=== PATIENT | male | born 1945 | race African-American/Black ===

== ENCOUNTER → 2017-08-19 15:21 | Outpatient (CLI) | payer MEDICARE, OTHER, SELFPAY ==
[2017-08-19 16:36] LABS: Absolute Neutrophil Count 1.2 X10^3/uL (2.0-7.7); Basophil# 0.02 X10^3/uL; Basophil% 0.3 % (0-1); Eosinophil# 0.31 X10^3/uL; Eosinophils% 5.4 % (0-5); Hematocrit 42.6 % (40-54); Hemoglobin 14.2 g/dl (13.0-16.5); Lymphocyte % 55.9 % (19-41); Mean Corp Hgb Conc 33.3 g/gl (32-36); Mean Corpuscular Hgb 30.1 pg (27.0-32.0); Mean Corpuscular Volume 90.4 fL (80-94); Mean Platelet Vol. 9.7 fl (6.2-12.0); Monocyte# 0.96 X10^3/uL; Monocyte% 16.8 % (0-10); Neutrophil # 1.23 X10^3/uL (2.7-7.7); Neutrophil % 21.6 % (47-70); Platelet Count 253 K/mm3 (150-450); RBC Distribution Width CV 13.9 % (11.6-14.6); RBC Distribution Width SD 46.5 fl (35.1-43.9); Red Blood Count 4.71 M/mm3 (4.6-6.2); White Blood Count 5.7 K/mm3 (4.4-11.0)
[2017-08-19 16:37] LABS: POSITIVE COUNT NO; POSITIVE DIFFERENTIAL NO; POSITIVE MORPHOLOGY NO
[2017-08-19 16:51] LABS: ALB/GLOB Ratio 0.9 RATIO (0.9-2.4); AST(SGOT) 44 U/L (15-37); Alanine Aminotransfer ALT/SGPT 74 U/L (16-61); Albumin, Serum 3.7 g/dL (3.2-5.0); Alkaline Phosphatase 41 U/L (45-117); Anion Gap 6 (5-15); BUN 16 mg/dL (7-18); Calcium,Total 9.2 mg/dL (8.5-10.1); Chloride 102 mmol/L (98-107); Creatinine, Serum 1.14 mg/dL (0.70-1.30); EST Glomerular Filtration Rate 68 mL/min (>60); Est Glom Filt Rate - Afr Amer 82 mL/min (>60); Globulin 4.2 g/dL (2.2-4.2); Glucose 93 mg/dL (74-106); PSA,Total - Annual Screen 0.91 ng/mL (0.00-4.00); Potassium 3.9 mmol/L (3.5-5.1); Protein, Total 7.9 g/dL (6.4-8.2); Sodium Level 138 mmol/L (136-145); Thyroid Stim Hormone (TSH) 0.41 uIU/mL (0.358-3.74)
[2017-08-21 16:59] LABS: Hep C Antibodies >11.0 s/co ratio (0.0-0.9)
== END ==
PROVIDERS: Family Provider Family Medicine Geriatric Medicine; PCP Family Medicine Geriatric Medicine; Visit Provider Family Medicine Geriatric Medicine
DX: I10 Essential (primary) hypertension (principal); E55.9 Vitamin D deficiency, unspecified; Z12.5 Encounter for screening for malignant neoplasm of prostate; Z13.89 Encounter for screening for other disorder
CPT/HCPCS: 36415; 80053; 84153; 84443; 85025; 86803; G0103

== ENCOUNTER → 2017-08-26 09:10 | Outpatient (CLI) | payer MEDICARE, OTHER, SELFPAY ==
[2017-08-27 20:07] LABS: HCV Quant. RNA PCR 12500 IU/mL (.)
[2017-08-28 09:22] LABS: HCV log 10 4.097 (.)
== END ==
PROVIDERS: Family Provider Family Medicine Geriatric Medicine; PCP Family Medicine Geriatric Medicine; Visit Provider Family Medicine Geriatric Medicine
DX: B19.20 Unspecified viral hepatitis C without hepatic coma (principal)
CPT/HCPCS: 36415; 87522

== ENCOUNTER 2017-09-02 18:13 | Emergency (ER) | payer MEDICARE, OTHER, SELFPAY ==
[2017-09-02 18:14] VITALS: BP 152/94; PULSE 96; RESP 16; TEMP 38.2; O2SAT 98; BMI 23.1
[2017-09-02 19:59] VITALS: O2SAT 96
--- NOTE | 2017-09-02 20:52 | EKG12_ITS ---
Test Reason : SOB Blood Pressure : / mmHG Vent. Rate : 098 BPM Atrial Rate : 098 BPM P-R Int : 142 ms QRS Dur : 096 ms QT Int : 336 ms P-R-T Axes : 061 023 057 degrees QTc Int : 428 ms Sinus rhythm with Premature supraventricular complexes Otherwise normal ECG Confirmed by BERNARDO DIEGO, JIMBO ([id number]), assistant film editor MAYELA ALLEN ([id number]) on 09/05/2017 3:01:48 PM Referred By: CHATO STEPHENS Confirmed By:JIMBO CHANG MD
--- NOTE | 2017-09-02 20:53 | ED.VISSUMM ---
- ER Visit Summary Date of Service: 09/02/17 Chief Complaint: Shortness of breath with wheezing, cough and fever. History of Present Illness: The patient is a 71 M 3 of asthma, hypertension and a prior DVT 3 years ago after knee surgery. States from time to time he gets short of breath when he gets an upper respiratory infection or exposed to cats and dust. He states the last 3-4 days he has had a cough some fever and chills. Nonproductive cough. No chest pain. No hemoptysis. No leg pain or swelling. Physical Examination: Very well-appearing older male. Vital signs are stable. Pulse ox 90% room air no signs of hypoxia. No respiratory distress. He does have a low-grade fever 100.7. He does not look septic or toxic. H EENT exam unremarkable moist wheeze membranes. Posterior pharynx without exudate or significant swelling. Neck nontender no adenopathy. No meningismus. Lungs coarse breath sounds. Few scattered wheezes. Prolonged expiratory phase. No rhonchi no rales. Heart regular rate and rhythm no murmur. Abdomen is soft and nontender. Normal bowel sounds. He is moving all 4 extremities. Neurovascular intact. Calves are without edema or cords. They are nontender. Neurologically he is awake alert without focal deficits. Test Results: Chest x-ray shows chronic changes no acute abnormality. No pneumonia. Read both by myself the radiologist. EKG sinus rhythm rate of 98 with no acute signs of NC or ischemia. Emergency Department Course and Treatment: Patient treated with DuoNeb aerosol and p.o. prednisone. Clinically he has a viral URI. And exacerbation of asthma. Treatment Plan: Repeat exam patient doing well at 2150. States I feel better after the aerosol treatment. He will be discharged to home with prednisone 40 mg a day for 1 week. Return if worse. Follow-up with his primary care physician Dr. Kelly. Disposition: Discharge Impression: Acute viral URI Acute exacerbation of asthma This note was generated with Trivop dictation software. It may contain incorrect words, spelling, and punctuation that were not noted in review of the chart prior to signing ED Disposition - Plan for ED Patient: Chief Complaint: Asthma Referrals: Valentin Kelly Chi, MD [Primary Care Provider] -
[2017-09-02 21:08] VITALS: PULSE 100; RESP 16
[2017-09-02] MEDS: Ipratropium/Albuterol Sulfate 3 ML AMPUL.NEB INHALATION (21:08)
--- NOTE | 2017-09-02 21:25 | RAD_ITS ---
STUDY: X-RAY CHEST REASON FOR EXAM: Male, 71 years old. Cough. History of asthma TECHNIQUE: PA and lateral views of the chest. COMPARISON: 03/11/14 FINDINGS: There is hyperinflation of the lungs consistent with chronic obstructive lung disease (COPD). There is no demonstrated pleural abnormality. Normal size heart. Normal mediastinum and brittny. Normal visualized pulmonary arteries. Normal visualized aortic arch and descending thoracic aorta. Normal visualized thoracic spine. Normal visualized ribs, clavicles, and shoulders. There is no demonstrated abnormality of the visualized soft tissue structures of the upper abdomen. RAD/Chest PA and Lateral IMPRESSION: Degenerative changes, as described above. No demonstrated acute cardiopulmonary process. Electronically Signed: Donte Gomez DO at 21:45 EST Tel , Service support ,
--- NOTE | 2017-09-02 21:55 | ED.DEP ---
ED Disposition - Plan for ED Patient: Disposition: Home or Assisted Living Chief Complaint: Asthma Instructions: ED URI Viral, ED Bronchitis Asthmatic Prescriptions: Albuterol Sulfate [Proventil Hfa] 6.7 gm IH Q2H PRN PRN #1 [id number] PRN Reason: Wheezing Azithromycin [Zithromax] 250 mg PO DAILY #6 tab Prednisone [Deltasone] 40 mg PO DAILY 7 Days tab Referrals: Valentin Kelly Chi, MD [Primary Care Provider] - 3-5 Days if not improving Additional Instructions: Most likely this is a viral illness and antibiotics will not do any good. I would not get the antibiotic filled unless her not improving in 1 week. I know that your doctors put her on antibiotics in the past but this is a virus and antibiotic will not help you. Prednisone 40 mg a day for 1 week. 1-2 puffs on your inhaler as needed every 2 hours.
[2017-09-02 22:17] VITALS: BP 118/78; PULSE 79; RESP 18; O2SAT 97
== END 2017-09-02 22:18 | disposition home or self-care (01) ==
PROVIDERS: Emergency Provider Emergency Medicine; Family Provider Family Medicine Geriatric Medicine; PCP Family Medicine Geriatric Medicine
DX: J06.9 Acute upper respiratory infection, unspecified (principal); J45.901 Unspecified asthma with (acute) exacerbation; R06.00 Dyspnea, unspecified; I10 Essential (primary) hypertension; Z86.718 Personal history of other venous thrombosis and embolism; Z79.01 Long term (current) use of anticoagulants; Z79.899 Other long term (current) drug therapy
CPT/HCPCS: 71046; 87804; 93005; 94640; 99282

== ENCOUNTER → 2018-02-20 11:35 | Outpatient (CLI) | payer MEDICARE, OTHER, SELFPAY ==
[2018-02-20 12:57] LABS: Absolute Lymphocyte Count 3.21 X10^3/ul (0.83-4.51); Absolute Neutrophil Count 1.4 X10^3/uL (2.0-7.7); Basophil# 0.02 X10^3/uL; Basophil% 0.3 % (0-1); Eosinophils% 3.5 % (0-5); Hematocrit 43.6 % (40-54); Hemoglobin 14.4 g/dl (13.0-16.5); Lymphocyte # 3.21 X10^3/ul (4.0); Lymphocyte % 55.9 % (19-41); Mean Corpuscular Hgb 29.9 pg (27.0-32.0); Mean Corpuscular Volume 90.6 fL (80-94); Mean Platelet Vol. 10.3 fl (6.2-12.0); Monocyte# 0.94 X10^3/uL; Monocyte% 16.4 % (0-10); Neutrophil # 1.37 X10^3/uL (2.7-7.7); Neutrophil % 23.9 % (47-70); Platelet Count 242 K/mm3 (150-450); RBC Distribution Width CV 13.8 % (11.6-14.6); RBC Distribution Width SD 45.7 fl (35.1-43.9); Red Blood Count 4.81 M/mm3 (4.6-6.2); White Blood Count 5.7 K/mm3 (4.4-11.0)
[2018-02-20 13:00] LABS: POSITIVE COUNT NO; POSITIVE DIFFERENTIAL NO; POSITIVE MORPHOLOGY NO
[2018-02-20 13:19] LABS: Vitamin D,25 Hydroxy 25.6 ng/mL (29.95-100.01)
[2018-02-20 13:23] LABS: ALB/GLOB Ratio 0.9 RATIO (0.9-2.4); AST(SGOT) 58 U/L (15-37); Alanine Aminotransfer ALT/SGPT 90 U/L (16-61); Albumin, Serum 3.8 g/dL (3.2-5.0); Alkaline Phosphatase 42 U/L (45-117); Anion Gap 7 (5-15); BUN 15 mg/dL (7-18); BUN/Creat Ratio 13.2 RATIO (10-20); Calcium,Total 9.3 mg/dL (8.5-10.1); Chloride 106 mmol/L (98-107); Creatinine, Serum 1.14 mg/dL (0.70-1.30); EST Glomerular Filtration Rate 67 mL/min (>60); Est Glom Filt Rate - Afr Amer 82 mL/min (>60); Globulin 4.4 g/dL (2.2-4.2); Glucose 85 mg/dL (74-106); Potassium 4.1 mmol/L (3.5-5.1); Protein, Total 8.2 g/dL (6.4-8.2); Sodium Level 141 mmol/L (136-145); Thyroid Stim Hormone (TSH) 0.43 uIU/mL (0.358-3.74)
== END ==
PROVIDERS: Family Provider Family Medicine Geriatric Medicine; PCP Family Medicine Geriatric Medicine; Visit Provider Family Medicine Geriatric Medicine
DX: I10 Essential (primary) hypertension (principal); E55.9 Vitamin D deficiency, unspecified
CPT/HCPCS: 36415; 80053; 82306; 84443; 85025

== ENCOUNTER → 2018-08-20 14:35 | Outpatient (CLI) | payer MEDICARE, OTHER, SELFPAY ==
[2018-08-20 16:26] LABS: Absolute Lymphocyte Count 3.32 X10^3/ul (0.83-4.51); Absolute Neutrophil Count 1.3 X10^3/uL (2.0-7.7); Basophil# 0.01 X10^3/uL; Basophil% 0.2 % (0-1); Eosinophil# 0.17 X10^3/uL; Eosinophils% 3.1 % (0-5); Hematocrit 42.5 % (40-54); Hemoglobin 14.4 g/dl (13.0-16.5); Lymphocyte # 3.32 X10^3/ul (4.0); Lymphocyte % 60.4 % (19-41); Mean Corp Hgb Conc 33.9 g/gl (32-36); Mean Corpuscular Hgb 29.9 pg (27.0-32.0); Mean Corpuscular Volume 88.4 fL (80-94); Monocyte# 0.66 X10^3/uL; Neutrophil # 1.33 X10^3/uL (2.7-7.7); Neutrophil % 24.1 % (47-70); Platelet Count 228 K/mm3 (150-450); RBC Distribution Width SD 44.6 fl (35.1-43.9); Red Blood Count 4.81 M/mm3 (4.6-6.2); White Blood Count 5.5 K/mm3 (4.4-11.0)
[2018-08-20 16:31] LABS: POSITIVE COUNT NO; POSITIVE DIFFERENTIAL NO; POSITIVE MORPHOLOGY NO
[2018-08-20 16:39] LABS: Vitamin D,25 Hydroxy 25.5 ng/mL (29.95-100.01)
[2018-08-20 16:42] LABS: AST(SGOT) 47 U/L (15-37); Alanine Aminotransfer ALT/SGPT 86 U/L (16-61); Albumin, Serum 3.9 g/dL (3.2-5.0); Alkaline Phosphatase 53 U/L (45-117); Anion Gap 6 (5-15); BUN 18 mg/dL (7-18); BUN/Creat Ratio 18.3 RATIO (10-20); Calcium,Total 8.9 mg/dL (8.5-10.1); Chloride 105 mmol/L (98-107); Creatinine, Serum 0.98 mg/dL (0.70-1.30); EST Glomerular Filtration Rate 80 mL/min (>60); Est Glom Filt Rate - Afr Amer 97 mL/min (>60); Globulin 4.1 g/dL (2.2-4.2); Glucose 92 mg/dL (74-106); PSA,Total - Annual Screen 1.17 ng/mL (0.00-4.00); Potassium 3.7 mmol/L (3.5-5.1); Sodium Level 137 mmol/L (136-145); Thyroid Stim Hormone (TSH) 0.46 uIU/mL (0.358-3.74)
== END ==
PROVIDERS: Family Provider Family Medicine Geriatric Medicine; PCP Family Medicine Geriatric Medicine; Visit Provider Family Medicine Geriatric Medicine
DX: E55.9 Vitamin D deficiency, unspecified (principal); I10 Essential (primary) hypertension; F52.8 Other sexual dysfunction not due to a substance or known physiological condition; Z12.5 Encounter for screening for malignant neoplasm of prostate
CPT/HCPCS: 36415; 80053; 82306; 84153; 84403; 84443; 85025; G0103

== ENCOUNTER 2019-01-15 10:27 | Emergency (ER) | payer MEDICARE, OTHER, SELFPAY ==
[2019-01-15 10:27] VITALS: BP 137/77; PULSE 74; RESP 18; TEMP 36.6; O2SAT 98; BMI 24.5
--- NOTE | 2019-01-15 10:48 | EKG12_ITS ---
Test Reason : DYSRHYTHMIA Blood Pressure : / mmHG Vent. Rate : 068 BPM Atrial Rate : 068 BPM P-R Int : 170 ms QRS Dur : 094 ms QT Int : 374 ms P-R-T Axes : 057 015 039 degrees QTc Int : 397 ms Sinus rhythm with marked sinus arrhythmia Otherwise normal ECG Confirmed by BERNARDO DIEGO, JIMBO ([id number]), assistant film editor MONSE CROWLEY ([id number]) on 01/18/2019 12:22:41 PM Referred By: HARRIET Confirmed By:JIMBO CHANG MD
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
[2019-01-15 10:59] VITALS: PULSE 73; RESP 13; O2SAT 97
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
[2019-01-15 11:08] LABS: Absolute Lymphocyte Count 2.19 X10^3/uL (0.83-4.51); Absolute Neutrophil Count 4.7 X10^3/uL (2.0-7.7); Basophil# 0.03 X10^3/uL; Basophil% 0.4 % (0-1); Eosinophil# 0.37 X10^3/uL; Eosinophils% 4.4 % (0-5); Hemoglobin 13.2 g/dL (13.0-16.5); Lymphocyte # 2.19 X10^3/ul (4.0); Mean Corp Hgb Conc 33.8 g/dL (32-36); Mean Corpuscular Hgb 29.8 pg (27.0-32.0); Mean Platelet Vol. 9.6 fl (6.2-12.0); Monocyte# 1.15 X10^3/uL; Monocyte% 13.7 % (0-10); NRBC Flagged by Analyzer 0 % (0-5); Neutrophil # 4.65 X10^3/uL (2.7-7.7); Neutrophil % 55.3 % (47-70); Platelet Count 251 K/mm3 (150-450); RBC Distribution Width CV 11.9 % (11.6-14.6); RBC Distribution Width SD 38.8 fl (35.1-43.9); Red Blood Count 4.43 M/mm3 (4.6-6.2); White Blood Count 8.4 K/mm3 (4.4-11.0)
[2019-01-15 11:25] LABS: AST(SGOT) 71 U/L (15-37); Alanine Aminotransfer ALT/SGPT 76 U/L (16-61); Albumin, Serum 3.2 g/dL (3.2-5.0); Alkaline Phosphatase 289 U/L (45-117); Anion Gap 8 (5-15); BUN 16 mg/dL (7-18); Bilirubin, Direct 0.32 mg/dL (0.00-0.30); Calcium,Total 9.2 mg/dL (8.5-10.1); Chloride 104 mmol/L (98-107); Creatinine, Serum 0.94 mg/dL (0.70-1.30); EST Glomerular Filtration Rate 84 mL/min (>60); Est Glom Filt Rate - Afr Amer 102 mL/min (>60); Estimated Creatinine Clearance 95.53 ml/min; Globulin 4.8 g/dL (2.2-4.2); Glucose 107 mg/dL (74-106); Lipase 65 U/L (73-393); Sodium Level 139 mmol/L (136-145)
--- NOTE | 2019-01-15 12:36 | US_ITS ---
STUDY: ABDOMINAL ULTRASOUND - RIGHT UPPER QUADRANT REASON FOR VISIT: Male, 73 years old. Abnormal lab values. TECHNIQUE: Ultrasound evaluation of the right upper quadrant was performed with real-time and static flores-scale imaging. TECHNICAL QUALITY: Adequate. COMPARISON: None. FINDINGS: Liver: The liver measures 17.2 cm. There is a heterogeneous echogenicity of the liver. There are multiple hypoechoic lesions scattered throughout the liver. The largest on the right side measures 5 cm x 3.9 cm x 4.3 cm. The largest on the left measures 3.1 cm x 3.3 cm x 2.2 cm. The bile ducts are within normal limits. There is hepatic color flow. The direction of portal flow is hepatopetal. Gallbladder: Normal distended gallbladder. The gallbladder wall measures 1.8 mm. There is a negative sonographic Borges's sign. There is no pericholecystic fluid. There are no gallstones. There is a 4 mm x 3 mm x 5 mm polyp identified the gallbladder wall. Common Bile Duct (C.B.D.): The common bile duct measures 2.3 mm. Pancreas: There is nonvisualization of the pancreas. Right Kidney: Normal size of the right kidney. The right kidney measures 12.1 cm x 5.7 cm x 4.8 cm. Normal renal cortex. The right cortex measures 1.3 cm. There is no demonstrated renal mass or cyst. There is no right hydronephrosis. US/Abdomen Limited IMPRESSION: Heterogeneous appearance of the liver with multiple hypoechoic nodules seen throughout. This is suggestive metastatic disease. Small polyp adherent to the gallbladder. Electronically Signed: Nacho Miles, at 13:37 EDT , Service support ,
[2019-01-15 12:39] VITALS: PULSE 68; RESP 22; O2SAT 98
--- NOTE | 2019-01-15 14:08 | CT_ITS ---
STUDY: CT CHEST WITH CONTRAST REASON FOR EXAM: Male, 73 years old. Right abdominal pain, rib pain. Status post hernia repair. Known metastatic liver lesions. RADIATION DOSAGE (If Supplied By Facility): CTDIvol = ( 21.56 ) mGy, DLP = ( 1920.97 ) mGycm TECHNIQUE: Transaxial imaging was performed following intravenous administration of 100 IV Isovue 300. Individualized dose optimization techniques were used for this CT. COMPARISON: None. FINDINGS: The heart and pericardium are normal. The aorta is normal in caliber, with no aneurysm or dissection. Calcified mediastinal and left hilar adenopathy. No suspicious adenopathy. There is no pleural effusion. There is no pulmonary consolidation. No pulmonary mass or nodule. No interstitial or cystic disease. There is no osseous abnormality. CT/Chest WITH Contrast IMPRESSION: 1. No acute findings. 2. Old granulomatous disease. Electronically Signed: Mary Ram MD at 16:47 EDT Tel , Service support ,
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
[2019-01-15 14:47] VITALS: BP 188/104; PULSE 54; RESP 18; O2SAT 97
[2019-01-15 18:10] VITALS: BP 162/94; PULSE 86; RESP 14; O2SAT 98
== END 2019-01-15 18:11 | disposition home or self-care (01) ==
PROVIDERS: Emergency Provider Emergency Medicine; Family Provider Family Medicine Geriatric Medicine; PCP Family Medicine Geriatric Medicine
DX: K86.89 Other specified diseases of pancreas (principal); C78.7 Secondary malignant neoplasm of liver and intrahepatic bile duct; J45.909 Unspecified asthma, uncomplicated; I10 Essential (primary) hypertension; Z79.899 Other long term (current) drug therapy
CPT/HCPCS: 71260; 74022; 74177; 76705; 80048; 80076; 83690; 85025; 93005; 99284; Q9967; A4216

== ENCOUNTER 2019-01-25 09:55 | Emergency (ER) | payer MEDICARE, OTHER, SELFPAY ==
[2019-01-25] VITALS (10 sets, daily range): BP systolic 97–165; BP diastolic 51–97; PULSE 73–91; RESP 15–20; TEMP 37–37.9; O2SAT 93–96; BMI 22.1
--- NOTE | 2019-01-25 10:13 | EKG12_ITS ---
Test Reason : CHEST PRESSURE Blood Pressure : / mmHG Vent. Rate : 086 BPM Atrial Rate : 086 BPM P-R Int : 156 ms QRS Dur : 090 ms QT Int : 330 ms P-R-T Axes : 055 017 041 degrees QTc Int : 394 ms Normal sinus rhythm with sinus arrhythmia Normal ECG Confirmed by LARON DIEGO, REID ([id number]), multimedia editor WEN MCGEE ([id number]) on 01/27/2019 10:47:55 AM Referred By: Valentin Kelly Confirmed By:REID LARRY MD
--- NOTE | 2019-01-25 10:13 | RAD_ITS ---
STUDY: X-RAY CHEST REASON FOR EXAM: Male, 73 years old. Fever. TECHNIQUE: Single AP portable view of the chest. COMPARISON: Comparison is made with prior study dated September 02, 2017. FINDINGS: EKG electrodes are seen. Hyperinflation. Mild increased markings in the lingular segment of the left upper lobe suggestive of early infiltrate and/or atelectasis. There is no demonstrated pleural abnormality. Normal size heart. Normal mediastinum and brittny. Normal visualized pulmonary arteries. There is atherosclerotic tortuosity of the aortic arch and descending thoracic aorta. There are diffuse degenerative changes of the visualized thoracic spine. Normal visualized ribs, clavicles, and shoulders. There is no demonstrated abnormality of the visualized soft tissue structures of the upper abdomen. RAD/Chest 1 View (Portable) IMPRESSION: Mild increased markings in the lingular segment of the left upper lobe suggestive of a linear atelectasis and/or early infiltrate. Electronically Signed: Nacho Miles, at 10:40 EDT , Service support ,
[2019-01-25] MEDS: Ibuprofen 600 MG Tablet PO (10:40)
[2019-01-25] MEDS: fentaNYL 100 MCG/2 ML Ampul 50 MCG IV (10:43)
[2019-01-25] MEDS: 0.9% Normal Saline 1,000 ML 999 ML IV (10:46)
[2019-01-25 10:47] LABS: ALB/GLOB Ratio 0.7 RATIO (0.9-2.4); AST(SGOT) 84 U/L (15-37); Alanine Aminotransfer ALT/SGPT 110 U/L (16-61); Albumin, Serum 3.2 g/dL (3.2-5.0); Alkaline Phosphatase 354 U/L (45-117); Anion Gap 5 (5-15); BUN 26 mg/dL (7-18); BUN/Creat Ratio 29.3 RATIO (10-20); Calcium,Total 9.7 mg/dL (8.5-10.1); Chloride 103 mmol/L (98-107); Creatinine, Serum 0.89 mg/dL (0.70-1.30); EST Glomerular Filtration Rate 90 mL/min (>60); Est Glom Filt Rate - Afr Amer 109 mL/min (>60); Estimated Creatinine Clearance 96.22 ml/min; Globulin 4.7 g/dL (2.2-4.2); Glucose 215 mg/dL (74-106); Potassium 3.8 mmol/L (3.5-5.1); Protein, Total 7.9 g/dL (6.4-8.2); Sodium Level 137 mmol/L (136-145)
[2019-01-25 10:48] LABS: Lactic Acid 1.6 mmol/L (0.4-2.0)
[2019-01-25 11:00] LABS: Mucous, Urine 0 SEEN /hpf (<or=2+); Red Blood Cells-Urine 0 SEEN /hpf (0-5); Squamous Epithelial Cells - UA 0 SEEN /hpf (0-5); White Blood Cells 0 SEEN /hpf (0-5)
--- NOTE | 2019-01-25 11:02 | ED.VISSUMM ---
- ER Visit Summary Date of Service: 01/25/19 Chief Complaint: Fever History of Present Illness: The patient is a 73 M with a fever that started today. The patient was recently diagnosed with pancreatic cancer with metastatic disease to his liver. He was here today for a liver biopsy. He had some blood work that showed a white count of 15.9 and his temperature was 102. They were unable to proceed with a biopsy, and he was sent to the ED for evaluation. He has not started chemotherapy or radiation therapy. He has not had procedures for his malignancy yet. He did have hernia surgery by Dr. Duggan 2 weeks ago. He said he is doing well with regards to that surgery. Denying any abdominal pain, but he does have some nausea and vomiting. Denies sputum, urine changes, upper respiratory symptoms. Physical Examination: Temperature 100.2. Heart rate 91. Blood pressure 152/85. Otherwise vitals unremarkable. Patient alert and oriented. No acute distress. HEENT exam unremarkable. Heart regular rate and rhythm. Lungs clear. Abdomen soft and nontender. No guarding or rebound. Skin appears unremarkable. Test Results: His CBC from earlier today was reviewed. His white count was 15.9 but otherwise unremarkable. His INR was 1.1 and PTT was 21.7. I did not repeat these tests. CMP, lactate, urinalysis, chest x-ray pending. His EKG showed sinus rhythm at a rate of 86. Emergency Department Course and Treatment: Patient's fever was treated with ibuprofen. He did receive fentanyl for pain and IV fluids. Will reassess. EKG showed sinus rhythm at a rate of 86. No sign of ischemia or infarction pattern. He was monitored. Chest x-ray showed left upper lobe increased markings, atelectasis versus infiltrate. Glucose 215 and BUN 26. Alkaline phosphatase 354, ALT 110, AST 84, stable. Urinalysis unremarkable. Lactate 1.6. Cultures pending. Patient had a possible lung infiltrate. He reported a history of PE after surgery years ago. CTA was done and showed no evidence of PE or pneumonia. On reevaluation, patient is stable. Vital signs are stable and normal. Afebrile. Abdomen is soft, nontender, nondistended. I attempted to call his oncologist, but after multiple attempts, I have not heard back. I believe the patient is stable for discharge. He will return for any new or worsening issues. Risks of hospitalization versus outpatient follow-up were discussed. Treatment Plan: As above Disposition: Discharge Impression: 1. Leukocytosis 2. Pancreatic cancer This note was generated with [employer] dictation software. It may contain incorrect words, spelling, and punctuation that were not noted in review of the chart prior to signing ED Disposition - Plan for ED Patient: Referrals: Valentin Kelly Chi, MD [Primary Care Provider] -
[2019-01-25 11:19] LABS: Color, Urine Yellow (Yellow); Glucose, Dipstick 50 mg/dl (Normal); Ketone-Dipstick Negative (Negative); Leukocyte Esterase-Dipstick 25 /ul (Negative); Nitrite-Dipstick Negative (Negative); Occult Blood-Urine 10 /ul (Negative); Protein-Dipstick 30 mg/dl (Negative); Urine Bilirubin Dipstick Negative (Negative); Urine Clarity Sl. Cloudy (Clear); Urine Urobilinogen Normal (Normal)
[2019-01-25 11:32] LABS: Bacteria RARE /hpf (None Seen)
--- NOTE | 2019-01-25 11:55 | CT_ITS ---
STUDY: CTA CHEST REASON FOR EXAM: Male, 73 years old. Fever, vomiting, pancreatic cancer, PE RADIATION DOSAGE (If Supplied By Facility): CTDIvol = ( 9.12 ) mGy, DLP = ( 387.35 ) mGycm TECHNIQUE: The examination was performed with the intravenous administration of 75 IV Isovue 370. Post-processing of the angiographic images was performed, with multiplanar reformation and 3D reconstruction. Individualized dose optimization techniques were used for this CT. COMPARISON: 01/15/2019 FINDINGS: Normal enhancement of the main pulmonary artery and right and left pulmonary arteries. Normal enhancement of the bilateral peripheral pulmonary arteries. There is no demonstrated pulmonary embolism. Normal thoracic aorta and visualized great vessels. There is no demonstrated aortic dissection. Normal heart and pericardium. Normal mediastinum. Normal hilar regions. Normal visualized trachea and bronchi. The lungs are well expanded. Normal pulmonary parenchyma. Normal pleura. Normal chest wall structures. Normal osseous structures. Multiple hepatic metastatic lesions, previously described. CT/CTA Chest W/WO Contrast IMPRESSION: No pulmonary embolus. Electronically Signed: Yossi Grove MD at 13:44 EDT Tel , Service support ,
--- NOTE | 2019-01-25 15:02 | ED.DEP ---
ED Disposition - Plan for ED Patient: Instructions: FEBRILE ILLNESS, Uncertain Cause (Adult) Referrals: Carl Short MD [NON-STAFF] -
--- NOTE | 2019-01-25 15:32 | ED.RN ---
REVIEWED D/C INSTRUCTIONS, FOLLOW UP CARE, AND S/S THAT WOULD WARRANT A RETURN TO THE ED WITH PT. PT VERBALIZED AN UNDERSTANDING AND DENIES FURTHER QUESTIONS FOR THIS RN. PT SKIN P/W/D, RESP EVEN AND UNLABORED, PT A&O X 3, NO DISTRESS NOTED. PT ASSISTED OUT OF ED IN WHEELCHAIR.
== END 2019-01-25 15:34 | disposition home or self-care (01) ==
LOC: ED 10:33
PROVIDERS: Emergency Provider Emergency Medicine; Family Provider Family Medicine Geriatric Medicine; PCP Family Medicine Geriatric Medicine
DX: D72.829 Elevated white blood cell count, unspecified (principal); C25.9 Malignant neoplasm of pancreas, unspecified; C78.7 Secondary malignant neoplasm of liver and intrahepatic bile duct; J45.909 Unspecified asthma, uncomplicated; I10 Essential (primary) hypertension; Z86.711 Personal history of pulmonary embolism; Z79.51 Long term (current) use of inhaled steroids; Z79.899 Other long term (current) drug therapy
CPT/HCPCS: 71045; 71275; 80053; 81001; 83605; 85025; 85610; 85730; 87040; 87086; 93005; 96361; 96374; 99285; J7040; Q9967; A4216; J2405

== ENCOUNTER → 2019-01-27 08:12 | Outpatient (CLI) | payer MEDICARE, OTHER, SELFPAY ==
[2019-01-18 14:53] VITALS: BMI 24.3
[2019-01-20 09:27] VITALS: BMI 24.3
[2019-01-25 08:23] LABS: Absolute Lymphocyte Count 3.39 X10^3/uL (0.83-4.51); Absolute Neutrophil Count 9.5 X10^3/uL (2.0-7.7); Basophil# 0.03 X10^3/uL; Basophil% 0.2 % (0-1); Eosinophil# 0.36 X10^3/uL; Eosinophils% 2.3 % (0-5); Hematocrit 41.8 % (40-54); Lymphocyte # 3.39 X10^3/ul (4.0); Lymphocyte % 21.3 % (19-41); Mean Corp Hgb Conc 33.5 g/dL (32-36); Mean Corpuscular Hgb 29.5 pg (27.0-32.0); Mean Corpuscular Volume 88.2 fL (80-94); Monocyte# 2.56 X10^3/uL; Monocyte% 16.1 % (0-10); NRBC Flagged by Analyzer 0 % (0-5); Neutrophil # 9.46 X10^3/uL (2.7-7.7); Neutrophil % 59.6 % (47-70); POSITIVE DIFFERENTIAL YES; Platelet Count 318 K/mm3 (150-450); RBC Distribution Width SD 38.5 fl (35.1-43.9); Red Blood Count 4.74 M/mm3 (4.6-6.2)
[2019-01-25 08:33] LABS: Differential Indicated SCAN CRITERIA MET
[2019-01-25 08:38] LABS: International Normalized Ratio 1.1; Prothrombin Time (Protime)PT. 13.8 SECONDS (11.7-14.9)
[2019-01-25 08:39] LABS: Partial Thromboplast Time 21.7 Seconds (24.1-36.2)
[2019-01-25 08:41] VITALS: BP 184/90; PULSE 89; RESP 18; TEMP 38.6; O2SAT 94; BMI 22.1
[2019-01-25 08:49] LABS: Platelet Estimate ADEQUATE (ADEQ); Red Cell Morphology NORM C+C NORMAL (NORM C&C)
[2019-01-25 08:50] LABS: White Blood Count 15.9 K/mm3 (4.4-11.0)
[2019-01-25 08:52] LABS: Platelet Morphology CLUMPED
[2019-01-25] MEDS: Ondansetron 4 MG/2 ML Vial IV (09:01)
--- NOTE | 2019-01-25 09:30 | NURSING ---
report called to ER - ER asked if possible to wait 10 minutes for transport to ER, pt is stable and is at bedside
[2019-01-25 09:31] VITALS: BP 190/84; PULSE 89; RESP 18; O2SAT 94
[2019-01-25 09:55] VITALS: BMI 22.1
[2019-01-25 14:34] LABS: Pathologist Review Reviewed
[2019-01-27] VITALS (9 sets, daily range): BP systolic 056–177; BP diastolic 85–103; PULSE 84–95; RESP 16–22; TEMP 37; O2SAT 93–98; BMI 21.9
--- NOTE | 2019-01-27 | IMM_PTH ---
PATIENT: REGINO MCKINNEY LOC: CT U#:[id number] AGE/SX: 79/M ROOM: RE01/27/[address]: Dr. Carl Short MD : 1945 BED: DIS: SPEC #: [id number] RECD: 01/28/19 14:29 STATUS: MARELY REQ #: [id number] MOHAN: 01/27/19 00:[address]: Carl Short DEPT: IMMUNOHISTOCHEMISTRY RECD BY: Carline Lopez ENTERED: 01/28/19 14:30 SP TYPE: IMMUNO OTHR DR: Dr. Valentin Kelly MD Tissues: Liver, NOS Procedures: RCC (add) NAPSIN A (add) CK20 (add) CK5-6 (add) CK7 (add) CK8 (add) HEP PAR (add) TTF1 (add) Pankeratin (initial) P40 (add) PSAP (add) PHYSICIAN & INSTITUTION [place] [id number] SPECIMEN INFORMATION: Tissue Source: CT-guided liver biopsy Clinical Info: Pancreatic/liver mass Specimen Number: [id number] CPT code: 93585, 08376 x10 METHODOLOGY: Deparaffinized sections of prefer/formalin-fixed tissue or PAP/DQ stained slides are incubated with monoclonal/polyclonal antibodies/oligonucleotide probes. Localization is made via biotin free immunoperoxidase method. Appropriate controls are performed and reacted as expected. Results on target cell population are indicated in the following table: RESULTS: ANTIBODY / CLONE RESULT AE1-3 (AE1/AE3/PCK26) positive CK7 (OV-TL12/30) positive CK8 (72gaduN27) positive CK20 (KS20.8) negative TTF-1 (8G7G3/1) negative Napsin A (Rabbit Polyclonal) negative HepPar (OCh1E5) negative RCC (PN-15) negative PSAP (PASE/4LJ) negative CK5-6 (D5 & 1684) negative P40 (BC28) negative These tests were developed and their performance characteristics determined by [facility]. They may not have been cleared or approved by the U.S. Food and Drug Administration. The FDA has determined that such clearance or approval is not necessary. INTERPRETATION: CT-guided liver biopsy: Consistent with non-small cell carcinoma, favor adenocarcinoma. See comment. JACOBO:jimena 01/29/19 Comment: IHC profile is compatible with clinical impression of pancreatic primary.
--- NOTE | 2019-01-27 | ASPIGT_PTH ---
PATIENT: REGINO MCKINNEY LOC: [place] U#:[id number] AGE/SX: 79/M ROOM: RE01/27/[address]: Dr. Carl Short MD : 1945 BED: DIS: SPEC #: [id number] RECD: 01/27/19 11:01 STATUS: MARELY JOSEPHRadha #: [id number] MOHAN: 01/27/19 00:[address]: Carl Short DEPT: SURGICAL PATHOLOGY RECD BY: Basilio Webb ENTERED: 01/27/19 11:02 SP TYPE: ASP RAD OTHR DR: Dr. Valentin Kelly MD Tissues: Liver, NOS Procedures: FNA Specimen Adequacy Special Stain Group II Surgery Specimen Level V Imprint (control) HEADER OPERATION: CT guided liver biopsy PRE-OP DIAGNOSIS: Pancreatic/liver masses TISSUE SUBMITTED: Liver core 18g x3 MICROSCOPIC DIAGNOSIS Right lobe liver, CT-guided core biopsy: Consistent with metastatic non-small cell carcinoma, favor adenocarcinoma. See comment. SJ:jimena 01/28/19 COMMENT The specimen is evaluated at the time of biopsy by Dr. Avila. Immediate Evaluation = Malignant cells present derived from non-small cell carcinoma. Immunohistochemistry ([id number]) supports the above diagnosis and compatible with clinical impression of pancreatic primary. Correlation with clinical, radiologic findings and appropriate follow up are necessary. Case has been reviewed in consultation with Dr. Grove who concurs with the above diagnosis. IDC:AM MICROSCOPIC DESCRIPTION Slides are reviewed. GROSS DESCRIPTION Received in fixative is one container labeled with the patient's name and designated right lobe liver, CT-guided core biopsy. The specimen consists of three elongated fragments of mota soft tissue each measuring 1.7 cm in length and 0.1 cm in diameter. The specimen is totally submitted in one cassette. One touch imprint is prepared at the time of core biopsy. / JACOBO:jimena 01/27/19 TC:0 CPT: 29081, 69321
--- NOTE | 2019-01-27 | IMM_PTH ---
PATIENT: REGINO MCKINNEY LOC: [place] U#:[id number] AGE/SX: 79/M ROOM: RE01/27/[address]: Dr. Carl Short MD : 1945 BED: DIS: SPEC #: [id number] RECD: 01/28/19 14:29 STATUS: MARELY RERadha #: [id number] MOHAN: 01/27/19 00:[address]: Carl Short DEPT: IMMUNOHISTOCHEMISTRY RECD BY: Carline Lopez ENTERED: 01/28/19 14:30 SP TYPE: IMMUNO OTHR DR: Dr. Valentin Kelly MD Tissues: Liver, NOS Procedures: RCC (add) MSH2 (add) MLH-1 (add) MSH6 (add) Anti-PMS2 (add) NAPSIN A (add) CK20 (add) CK5-6 (add) CK7 (add) CK8 (add) HEP PAR (add) KI-67 (add) P53 (add) TTF1 (add) Pankeratin (initial) P40 (add) PSAP (add) PHYSICIAN & [address] [address] SPECIMEN INFORMATION: Tissue Source: CT-guided liver biopsy Clinical Info: Pancreatic/liver mass Specimen Number: [id number] CPT code: 90115, 35268 x16 METHODOLOGY: Deparaffinized sections of prefer/formalin-fixed tissue or PAP/DQ stained slides are incubated with monoclonal/polyclonal antibodies/oligonucleotide probes. Localization is made via biotin free immunoperoxidase method. Appropriate controls are performed and reacted as expected. Results on target cell population are indicated in the following table: RESULTS: ANTIBODY / CLONE RESULT AE1-3 (AE1/AE3/PCK26) positive CK7 (OV-TL12/30) positive CK8 (50nojiZ84) positive CK20 (KS20.8) negative TTF-1 (8G7G3/1) negative Napsin A (Rabbit Polyclonal) negative HepPar (OCh1E5) negative RCC (PN-15) negative PSAP (PASE/4LJ) negative CK5-6 (D5 & 1684) negative P40 (BC28) negative Ki-67 (30-9) positive, moderate P53 (DO-7) positive MLH-1 (M1) positive MSH2 (25D12) positive MSH6 (44) positive PMS2 (OLN7682) positive These tests were developed and their performance characteristics determined by [facility]. They may not have been cleared or approved by the U.S. Food and Drug Administration. The FDA has determined that such clearance or approval is not necessary. INTERPRETATION: CT-guided liver biopsy: Consistent with non-small cell carcinoma, favor adenocarcinoma. Result of Microsatellite Instability Study: Negative (no loss of mismatch protein; no microsatellite instability detected). See comment. SJ:jimena 01/29/19 SJ:jimena 03/03/19 Comment: IHC profile is compatible with clinical impression of pancreatic primary.
--- NOTE | 2019-01-27 08:15 | CT_ITS ---
PROCEDURE: CT DIRECTED CORE LIVER BIOPSY INDICATION: Male, 73 years old. Liver metastasis. PHYSICIAN: Dr. Ginger Oneil CONSENT: Written informed consent was obtained having explained the risks, benefits and alternatives in detail with the patient who accepted the risks and agreed to proceed. Laboratory review and clinical assessment was performed. CONSCIOUS SEDATION PROTOCOL: The Drugs used were: 2 mg Versed, IV., and 50 mcg Fentanyl, IV. The sedation time was: 25 minutes. Conscious sedation was started at 9:18 AM and submitted in 945 The conscious sedation protocol was independently monitored. RADIATION DOSAGE (If Supplied By Facility): CTDIvol = ( 22 ) mGy, DLP = ( 379.2 ) mGycm Individualized dose optimization techniques were used for this CT. TECHNIQUE: Using CT image guidance with image documentation, a suitable location in the right lobe of the liver was identified. Using an anterior approach, puncture of the liver was uneventful with an 18-gauge core needle system. 3 18-gauge core samples were obtained, and submitted in formalin to the pathologist for further assessment. Followup CT scan revealed no distinct sequelae. CT/Biopsy/Inj or Needle Placement IMPRESSION: 1. CT directed core needle biopsy of the liver, using CT image guidance with image documentation as described. 2. Conscious Sedation protocol utilized with independent monitoring. Electronically Signed: Nacho Miles, at 11:05 EDT , Service support ,
[2019-01-27] MEDS: fentaNYL 100 MCG/2 ML Ampul IV (09:17)
[2019-01-27] MEDS: Midazolam 2 MG/2 ML Syringe IV (09:18)
== END ==
PROVIDERS: Family Provider Family Medicine Geriatric Medicine; PCP Family Medicine Geriatric Medicine; Referring Provider Internal Medicine Medical Oncology; Visit Provider Internal Medicine Medical Oncology
DX: C25.9 Malignant neoplasm of pancreas, unspecified (principal)
CPT/HCPCS: 47000; 77012; 85025; 85610; 85730; 88172; 88307; 88313; 88341; 88342; 99156; 99157; J7040; A4216

== ENCOUNTER 2019-01-29 11:16 | Day surgery (SDC) | payer MEDICARE, SELFPAY ==
--- NOTE | 2019-01-19 03:41 | HP_ITS ---
Intake Vital Signs 01/19/19 Body Mass Index (BMI) 24.3 01/19/19 Height 6 ft 7 in 01/19/19 Weight: 203 lb 01/19/19 Body Mass Index (BMI) 22.8 01/19/19 Blood Pressure 107/68 01/19/19 Blood Pressure Location Rt brachial 01/19/19 Blood Pressure Position Sitting 01/19/19 Respiratory Rate 18 01/19/19 Pulse Rate 79 01/19/19 Pulse Source Monitor 01/19/19 Temperature 98.0 F 01/19/19 Temperature Source Oral 01/19/19 Pulse Ox 96 01/19/19 Oxygen Delivery Method room air Intake Visit Reasons: Port Placement Consult Chief Complaint: Found to have liver and pancreatic mass. Book Author Required: No Is patient in pain?: No Allergies Latex, Natural Rubber Allergy (Intermediate, Verified 01/19/19 13:48) Rash hydrocodone bitartrate [From Vicodin] Allergy (Verified 01/18/19 14:52) Other steri strips Allergy (Unknown, Uncoded 01/19/19 14:20) knee opened up after knee surgery skin sensitivity Allergy (Uncoded 01/18/19 14:52) Itching Medications Lisinopril/Hydrochlorothiazide [Zestoretic 20/12.5 Tablet] 1 tab PO DAILY 02/22/14 [History Confirmed 01/19/19] calcium-magnesium 300 mg-300 mg tablet 1 tab PO DAILY 01/19/19 [History] xvyxwmrz-oja-sbsig acid 300 mcg-lycopene 600 mcg-lutein 300 mcg tablet 1 tab PO DAILY 01/19/19 [History Confirmed 01/19/19] vitamin B12 500 mcg-folic acid 400 mcg tablet 1 tab PO DAILY 01/19/19 [History Confirmed 01/19/19] [facility] Medical History (Updated 01/19/19 @ 13:46 by Sandra Covarrubias) Elevated LFTs (Acute) Liver mass (Acute) Mass of pancreas (Acute) Meningitis (Acute) Surgical History (Updated 01/19/19 @ 13:46 by Sandra Covarrubias) History of hernia surgery (Acute) History of total right knee replacement (Acute) Family History (Updated 01/19/19 @ 13:47 by Sandra Covarrubias) Mother Diabetes Brother Diabetes Sister Heart disease Daughter Asthma Social History (Updated 01/19/19 @ 15:00 by Holly Ernandez MD) Smoking Status: Former smoker HPI HPI HPI: REGINO MCKINNEY, is a 73 M who presents to the office today for HPI HPI Surgical H&P: Yes HPI: REGINO MCKINNEY, is a 73 M who presents to the office today for port placement. Patient had a CT abdomen pelvis which showed pancreatic mass along with liver lesions. Patient is scheduled to have biopsy in IR on Friday. Patient is scheduled to start chemotherapy January 28. Patient denies any current abdominal pain. However does admit to fatiguing easily. ROS General General: Yes weight change and fatigue; no colon cancer, breast cancer or weakness HEENT HEENT: No difficulty swallowing, eye injury, eye surgery, swollen glands or hoarseness Endo Endocrine: No thyroid disease, diabetes mellitus, thyroid cancer, Hair loss, heat intolerance or cold intolerance Skin Skin: No rash or changing moles Musc Musculoskeletal: Yes back problems; no arthritis, rheumatoid arthritis, gout or joint pain Cardio Cardiovascular: Yes high blood pressure; no murmur, pacemaker, heart disease, atrial fibrillation, heart attack, heart stent, palpitations, shortness of breat with exertion or chest pain Psych Psychiatric: No depression, anxiety or hearing voices Resp Respiratory: No shortness of breath, No sleep apnea, Yes cough, No COPD, Yes asthma, No emphysema, No wheezing Gastro Gastrointestinal: No abdominal pain, No nausea or vomiting, No diarrhea, No constipation, No blood in stool, No acid reflux, No hemorrhoids, No ulcers, No gallbladder problem, No black,tarry stools Eladio Hematologic: No blood thinners, No blood disorders, No bleeding, No anemia, Yes blood clots Neuro Neurologic: No system reviewed and no additional complaints, except as docu, No as per HPI, No abnormal walking, No abnormal hearing, No abnormal movements, No abnormal speech, No behavioral changes, No burning sensations, No confusion, No seizure-like activity, No unsteadiness, No dizziness, No localized weakness, No frequent falls, No headache(s), No lack of coordination, No loss of vision, No memory loss, No numbness, No other visual disturbances, No radiating pain, No restless legs, No sensory deficit, No fainting, No tingling, No tremor(s), No weakness, No other Exam Const General: cooperative, comfortable, no acute distress Neck Neck: supple Chest Chest palpation & inspection: normal inspection of the chest Other: Normal palpation of upper chest wall Cardio Heart Sounds: no murmurs GI Inspection: non-distended Palpation: soft, no guarding, nontender Assessment & Plan Problems 1. Encounter for adjustment or management of vascular access device Z45.2 2. Malignant neoplasm of tail of pancreas C25.2 3. Pancreatic cancer metastasized to liver C25.9; C78.7 Plan I have discussed above with the patient- Port-a-Cath placement RIJ possible LIJ. Patient has been counseled as to the risks/benefits of the procedure. I have explained the risks of the surgery, including but not limited to: infection, bleeding, injury to any blood vessels/nerves, injury to lungs (such as pneumothorax or hemothorax and need for chest tube), not having any access, nonfunctioning of port due to thrombosis, infection of port, etc. the patient understands and agrees to proceed. I have answered all the patient's questions to the patient?s satisfaction and the patient has no further questions. Holly Ernandez M.D. Pager: [phone] [facility] [address] [place] [address], [address] [place] [address] Office: [phone] Plan Detail Follow Up We will schedule port placement Coding Level of Care Code Off vis,new,level 3 Diagnoses Encounter for adjustment or management of vascular access device Z45.2 Malignant neoplasm of tail of pancreas C25.2 ??Pancreatic malignancy location: tail of pancreas Pancreatic cancer metastasized to liver C25.9; C78.7 01/19/19 1500 <Electronically signed by Holly Faith am, MD> Date _ Holly Ernandez MD I have re-examined the patient. There are no clinical changes since date of exam.
[2019-01-19 13:55] VITALS: BMI 24.3
[2019-01-27 08:35] VITALS: BMI 21.9
[2019-01-29 11:36] VITALS: BP 129/88; PULSE 90; RESP 16; TEMP 37; O2SAT 95; BMI 21.7
[2019-01-29] MEDS: Cefazolin 2 GM in 0.9% Normal Saline 100 ML IV (13:03)
[2019-01-29] MEDS: Bupivacaine Mpf 0.5% 30 ML VIAL (13:45)
--- NOTE | 2019-01-29 13:50 | PCM.OPRPT ---
Report of Operation Date of Procedure: 01/29/19 Pre-Operative Diagnosis: Z 45.2, metastatic pancreatic cancer Post-Operative Diagnosis: Same Surgery/Procedure Performed:: 1. Insertion of right IJ Port-A-Cath. 2. Use of ultrasound. 3. Use of fluoroscopy Type of Anesthesia:: MAC/Supplemental Anesthesiologist: Curtis Riggins Special Medications: Ancef 2 g IV x1 Specimen's removed: None Estimated Blood Loss (mL): < 10 cc Fluids Replaced: 700 cc Description of Procedure: After informed consent was given, the patient was brought to the operating room and placed in the supine position. Appropriate time out protocol was followed. He was then given IV conscious sedation for anesthesia. The patient's bilateral upper chest and neck were then prepped with a surgical skin preparation and sterile surgical drapes were placed. After proper landmarks were ascertained, the skin at the upper right chest area was then infiltrated with 1:1 mixture of 1% lidocaine with epinephrine and 0.5% maricaine. A needle trocar was then inserted into the right internal jugular vein with ultrasound guidance-multiple vessels were viewed with u/s and the right IJ was chosen-- and there was good aspiration of venous blood. A wire was then threaded into the needle trocar and this was visualized under fluoroscopy to ensure that the wire was in the superior vena cava. Once this was done, then the needle trocar was removed. A small skin van was made with an 11 blade knife at the wire entrance site. The dilator with the introducer sheath attached was then placed over the wire into the right internal jugular vein via the Seldinger technique and this was visualized under fluoroscopy. The dilator and sheath were in proper position as visualized by fluoroscopy. A subcutaneous pocket was then created caudad to the catheter insertion site. A transverse skin incision was made after the skin and subcutaneous tissues were infiltrated with local anesthetic. Blunt dissection was then used to create a space large enough for placement of the subcutaneous port. The catheter was then tunneled into the subcutaneous pocket. The wire and dilator were then removed. The catheter was then threaded into the introducer sheath and was positioned with its tip at the junction of the superior vena cava and the right atrium as visualized under fluoroscopy. The excess catheter was transected. The catheter was then attached to the subcutaneous port using manufacturers guidelines. The catheter was flushed with a heparin saline mixture prior to placement. Hemostasis was carefully controlled with electrocautery. The port was sutured to the subcutaneous fascia using 2-0 Vicryl suture at two sites. The port was then placed in the subcutaneous pocket and the sutures were ligated. The incision were reapproximated with interrupted subdermal 3-0 vicryl sutures. The skin was reapproximated with 3-0 nylon suture in a interrupted fashion. Steristrips were used for reinforcement of the skin closure at IJ insertion site and a sterile opsite dressings were applied. The patient tolerated the procedure well. Implants Used: [employer] PowerPort isp M.[employer].I. 6Fr Lot [id number] ref [id number] - Complications None
[2019-01-29 13:55] VITALS: BP 122/81; BP 129/88; PULSE 85; RESP 16; TEMP 36.6; O2SAT 95
--- NOTE | 2019-01-29 13:55 | PCM.DC.POR ---
Discharge Diet: No Restrictions Discharge Activity: May not drive while taking narcotic pain medications. May shower in (days): 5 - Keep site clean and dry x5 days, okay to keep the OpSite on for 2 to 3 days, after 5 days okay to shower. Before 5 days okay to take the lower shower ends up her sponge bath or okay to cover with a Ziploc bag and tape off edges to shower. Lifting Restrictions: No lifting greater than 20 pounds with the right arm x1 week Call your doctor if your incision/area has: Continuous Slow Oozing, Sudden Increased Bleeding, Increased Pain/ Swelling, Increased Redness, Foul Smelling Discharge, Swelling at the incision site Call your doctor if you observe: Fever of 101 or Higher Remove Dressing in (days):: 3 - Okay to leave OpSite on port site x3 days Allergies/Adverse Reactions: Allergies Latex, Natural Rubber Allergy (Intermediate, Verified 01/29/19 11:27) Rash cat dander Allergy (Verified 01/29/19 11:27) Shortness of breath hydrocodone bitartrate [From Vicodin] Allergy (Verified 01/29/19 11:27) hallucinations HALLUCINATIONS steri strips Allergy (Unknown, Uncoded 01/29/19 11:27) knee opened up after knee surgery skin sensitivity Allergy (Uncoded 01/29/19 11:27) Itching skin sensitivity to perfumes change in laundry detergent, soaps, Medications to take at Discharge Lisinopril/Hydrochlorothiazide [Zestoretic 20/12.5 Tablet] 1 tab PO DAILY 02/22/14 vitamin B12 500 mcg-folic acid 400 mcg tablet 1 tab PO QODAY 01/19/19 Prednisone See Taper PO DAILY 01/22/19 Albuterol IH (ProAir) [Proair Hfa] 1 puff INHALATION DAILY PRN PRN 01/25/19 Cyanocobalamin (Vitamin B-12) [Cyanocobalamin Injection] 1,000 mcg IJ UD 01/25/19 Fluticasone Propionate 2 spray NASAL DAILY PRN PRN 01/25/19 Multivit-Min/FA/Lycopen/Lutein [Centrum Silver Men Tablet] 1 ea PO DAILY 01/25/19 Oxycodone HCl/Acetaminophen [Percocet 5/325] 1 - 2 tablet PO Q6H PRN PRN 2 Days #5 tablet 01/29/19 The following prescriptions were given: Oxycodone HCl/Acetaminophen [Percocet 5/325] 1 - 2 tablet PO Q6H PRN PRN 2 Days #5 tablet PRN Reason: Pain Transmission Status: Sent to [facility] Primary Care Physician: Valentin Kelly Chi, MD [Primary Care Provider] - Test Results: Test results from this visit will be discussed in further detail at your follow-up appointment, if applicable. Please Follow Up With: Holly Ernandez MD - After 5 PM and on the weekends call [phone] with any concerns. When: Call the office for follow-up appointment in about 10 days for suture remov Proposed Discharge Date: 01/29/19
[2019-01-29 14:00] VITALS: BP 126/80; BP 129/88; PULSE 82; RESP 16; O2SAT 95
--- NOTE | 2019-01-29 14:00 | RAD_ITS ---
STUDY: X-RAY CHEST REASON FOR EXAM: Male, 73 years old. Port placement. TECHNIQUE: Single AP portable view of the chest. COMPARISON: Comparison is made with prior study dated January 25, 2019. FINDINGS: A right-sided jamaal catheter as been placed. The tip is at the junction of the superior vena cava and right atrium. Stable mild increased markings at the lung bases although this has improved. There is no demonstrated pleural abnormality. Normal size heart. Normal mediastinum and brittny. Normal visualized pulmonary arteries. Normal visualized aortic arch and descending thoracic aorta. There are degenerative changes of the visualized thoracic spine. Normal visualized ribs, clavicles, and shoulders. There is no demonstrated abnormality of the visualized soft tissue structures of the upper abdomen. RAD/CXR for Line Placement IMPRESSION: The tip of the right-sided jamaal catheter is at the junction of the superior vena cava and ready. Electronically Signed: Nacho Miles, at 14:38 EDT , Service support ,
[2019-01-29 14:05] VITALS: BP 125/78; BP 129/88; PULSE 82; RESP 16; O2SAT 97
[2019-01-29 14:10] VITALS: BP 129/76; BP 129/88; PULSE 80; RESP 16; TEMP 36.6; O2SAT 96
[2019-01-29 14:54] VITALS: BP 129/88
== END 2019-01-29 15:04 | disposition home or self-care (01) ==
LOC: SDC 11:16 → AC 11:18
PROVIDERS: Family Provider Family Medicine Geriatric Medicine; PCP Family Medicine Geriatric Medicine; Referring Provider Surgery; Visit Provider Surgery
PROC: (CPT 36571; principal; 2019-01-29 12:55)
DX: C25.2 Malignant neoplasm of tail of pancreas (principal); C25.9 Malignant neoplasm of pancreas, unspecified; C78.7 Secondary malignant neoplasm of liver and intrahepatic bile duct; E78.00 Pure hypercholesterolemia, unspecified; I10 Essential (primary) hypertension; Z45.2 Encounter for adjustment and management of vascular access device; Z87.891 Personal history of nicotine dependence; Z79.899 Other long term (current) drug therapy
CPT/HCPCS: 36571; 71045; 77001; J7120; J2405

== ENCOUNTER 2019-01-30 19:57 | Inpatient (IN) | payer MEDICARE, OTHER, SELFPAY ==
[2019-01-29 11:36] VITALS: BMI 21.7
[2019-01-30] VITALS (7 sets, daily range): BP systolic 162–177; BP diastolic 73–101; PULSE 94–111; RESP 22–36; TEMP 37.4–39.5; O2SAT 93–97; BMI 21.9
--- NOTE | 2019-01-30 20:24 | RAD_ITS ---
STUDY: X-RAY CHEST REASON FOR EXAM: Male, 73 years old. Pancreatic and liver cancer, port placement yesterday, fever confusion and weakness nausea vomiting TECHNIQUE: Frontal and lateral views of the chest were performed COMPARISON: None. FINDINGS: Chemotherapy infusion port is present in the right upper chest entering the subclavian and terminating with its tip in the lower SVC. The lungs are clear and expanded. There is no demonstrated pleural abnormality. Normal size heart. Normal mediastinum and brittny. Normal visualized pulmonary arteries. Normal visualized aortic arch and descending thoracic aorta. Normal visualized thoracic spine. Normal visualized ribs, clavicles, and shoulders. There is no demonstrated abnormality of the visualized soft tissue structures of the upper abdomen. RAD/Chest PA and Lateral IMPRESSION: Normal x-ray examination of the chest. Electronically Signed: Shaye Stark, at 20:45 EDT Tel , Service support ,
--- NOTE | 2019-01-30 20:43 | EKG12_ITS ---
Test Reason : SEPSIS Blood Pressure : / mmHG Vent. Rate : 112 BPM Atrial Rate : 112 BPM P-R Int : 136 ms QRS Dur : 088 ms QT Int : 304 ms P-R-T Axes : 052 036 025 degrees QTc Int : 414 ms Sinus tachycardia Otherwise normal ECG Confirmed by LARON DIEGO, REID ([id number]), visual effects editor WEN MCGEE ([id number]) on 02/03/2019 10:31:34 AM Referred By: Sunday Allen Confirmed By:REID LARRY MD
--- NOTE | 2019-01-30 20:43 | CT_ITS ---
STUDY: CT ABDOMEN AND PELVIS WITHOUT CONTRAST REASON FOR EXAM: Male, 73 years old. Fever and weakness. Metastatic pancreatic cancer. Liver metastases. RADIATION DOSAGE (If Supplied By Facility): CTDIvol = ( 7.44 ) mGy, DLP = ( 409.10 ) mGycm TECHNIQUE: Transaxial images were obtained from the dome of the diaphragm to the symphysis pubis without oral contrast, and without intravenous contrast. Sagittal and coronal images were reconstructed. Individualized dose optimization techniques were used for this CT. COMPARISON: 01/15/2019. FINDINGS: The visualized lung bases are unremarkable. The visualized portions of the heart are within normal limits. Again seen are very extensive metastases throughout all segments of the liver. This examination was performed without IV contrast and it is difficult to evaluate any changes to the prior exam, but the metastases may actually be larger than on the previous study. There is hepatomegaly, with the liver larger than on the previous study. Grossly negative gallbladder. The mass in the tail of the pancreas is probably stable although poorly evaluated without contrast. Spleen is unremarkable. Normal bilateral adrenal glands. Normal right kidney. Normal left kidney. Evaluation of the GI tract is limited by absence of oral contrast. Cannot exclude stomach wall thickening. No dilated loops of bowel or evidence for obstruction. Cannot exclude segmental thickening of the jensen of the small or large bowel. Cannot exclude enteritis or colitis. Moderate to marked diffuse fecal retention. Diverticulosis without definite diverticulitis. Appendix within normal limits. Tortuous aorta with no aneurysm. Normal inferior vena cava. Normal retroperitoneum. Normal urinary bladder. There is enlargement of the prostate gland. Stable small left inguinal hernia. Stable lipoma in the left adductor compartment. Again seen are numerous tiny metal densities in the right mid back There are diffuse degenerative changes of the visualized lumbar spine. CT/Abdomen/Pelvis without Cont IMPRESSION: Probable worsening of liver metastases. No other definite changes. Stable mass in the tail of the pancreas. Moderate to marked diffuse fecal retention. Electronically Signed: Jose Ramon Menezes MD at 21:55 EDT , Service support ,
--- NOTE | 2019-01-30 20:45 | ED.DCSUM_ITS ---
- ER Visit Summary Date of Service: 01/30/19 Chief Complaint: Fever History of Present Illness: The patient is a 73 M presenting with fever. Patient was recently diagnosed with pancreatic cancer. He had a biopsy performed on Friday and port placed on Friday per Dr. Hopson. states he has had a fever today up to 102 at home. He has had confusion, generalized weakness, and decreased appetite. He has had nausea and vomiting. He denies diarrhea. Denies abdominal pain. Denies chest pain or shortness of breath. Denies other complaints. Physical Examination: Vitals are stable. Temperature 102 alert no acute distress. HEENT exam dry mucous membranes Neck is supple. No meningismus Lungs are clear and equal bilaterally. Heart is regular and tachycardic. Abdomen is soft nontender nondistended. No rebound or guarding Extremities are unremarkable. Skin is warm and dry. No rash No focal neurologic deficit. Remainder of exam is unremarkable. Emergency Department Course and Treatment: Patient was given Tylenol, IV fluids. Blood cultures were sent. CBC showed white count of 18.4. Chemistry showed sodium 129, CO2 93, glucose 331, BUN 19. Urinalysis unremarkable. Troponin is negative. Lactic acid is 1.7. Total bili 1.3, direct bili 0.59. Alk phos 393, ALT 123, AST 241, lipase 101. Chest x-ray shows no acute process. CT abdomen pelvis shows probable worsening of liver metastases. No other definite changes. Stable mass in the tail of the pancreas. Moderate to marked diffuse fecal retention. Discussed with Dr. Louis and Dr. Allen. Patient will be admitted. He was given Zosyn IV. Disposition: Admission Impression: Febrile illness, metastatic pancreatic cancer This note was generated with [employer] dictation software. It may contain incorrect words, spelling, and punctuation that were not noted in review of the chart prior to signing ED Disposition - Plan for ED Patient: Referrals: Valentin Kelly Chi, MD [Primary Care Provider] -
[2019-01-30 20:52] LABS: Absolute Lymphocyte Count 2.16 X10^3/uL (0.83-4.51); Absolute Neutrophil Count 13.4 X10^3/uL (2.0-7.7); Basophil# 0.02 X10^3/uL; Basophil% 0.1 % (0-1); Eosinophil# 0.12 X10^3/uL; Eosinophils% 0.7 % (0-5); Hematocrit 40.3 % (40-54); Hemoglobin 13.7 g/dL (13.0-16.5); Lymphocyte # 2.16 X10^3/ul (4.0); Lymphocyte % 11.7 % (19-41); Mean Corpuscular Hgb 29.3 pg (27.0-32.0); Mean Corpuscular Volume 86.3 fL (80-94); Mean Platelet Vol. 10.6 fl (6.2-12.0); Monocyte# 2.57 X10^3/uL; NRBC Flagged by Analyzer 0 % (0-5); Neutrophil # 13.38 X10^3/uL (2.7-7.7); Neutrophil % 72.7 % (47-70); POSITIVE DIFFERENTIAL YES; Platelet Count 212 K/mm3 (150-450); RBC Distribution Width CV 11.9 % (11.6-14.6); RBC Distribution Width SD 37.8 fl (35.1-43.9); Red Blood Count 4.67 M/mm3 (4.6-6.2); White Blood Count 18.4 K/mm3 (4.4-11.0)
[2019-01-30 20:53] LABS: Differential Indicated SCAN CRITERIA MET
[2019-01-30] MEDS: 0.9% Normal Saline 1,000 ML 999 ML IV (20:57)
[2019-01-30] MEDS: Acetaminophen 500 MG Tablet 1000 MG PO (20:57)
[2019-01-30 21:04] LABS: Anion Gap 7 (5-15); BUN 19 mg/dL (7-18); BUN/Creat Ratio 17.9 RATIO (10-20); Calcium,Total 9.5 mg/dL (8.5-10.1); Chloride 93 mmol/L (98-107); Creatinine, Serum 1.06 mg/dL (0.70-1.30); EST Glomerular Filtration Rate 73 mL/min (>60); Est Glom Filt Rate - Afr Amer 89 mL/min (>60); Estimated Creatinine Clearance 79.97 ml/min; Glucose 331 mg/dL (74-106); Potassium 4.2 mmol/L (3.5-5.1); Sodium Level 129 mmol/L (136-145)
[2019-01-30 21:07] LABS: Lactic Acid 1.7 mmol/L (0.4-2.0)
[2019-01-30 21:26] LABS: Differential Comment SCANNED; Platelet Estimate ADEQUATE (ADEQ)
[2019-01-30 21:33] LABS: Color, Urine Amber (Yellow); Glucose, Dipstick 1000 mg/dl (Normal); Ketone-Dipstick 15 mg/dl (Negative); Leukocyte Esterase-Dipstick Negative /ul (Negative); Nitrite-Dipstick Negative (Negative); Occult Blood-Urine 50 /ul (Negative); Protein-Dipstick 30 mg/dl (Negative); Urine Bilirubin Dipstick Negative (Negative); Urine Clarity Sl. Cloudy (Clear); Urine Urobilinogen 4 mg/dl (Normal)
[2019-01-30 21:48] LABS: Bacteria 1+ /hpf (None Seen); Mucous, Urine 1+ /hpf (<or=2+); Red Blood Cells-Urine 0-5 SEEN /hpf (0-5); Squamous Epithelial Cells - UA 0-5 SEEN /hpf (0-5); White Blood Cells 0 SEEN /hpf (0-5)
[2019-01-30 22:55] LABS: AST(SGOT) 241 U/L (15-37); Alanine Aminotransfer ALT/SGPT 123 U/L (16-61); Albumin, Serum 2.7 g/dL (3.2-5.0); Alkaline Phosphatase 393 U/L (45-117); Bilirubin, Direct 0.59 mg/dL (0.00-0.30); Globulin 5.1 g/dL (2.2-4.2); Lipase 104 U/L (73-393); Protein, Total 7.8 g/dL (6.4-8.2)
--- NOTE | 2019-01-30 23:19 | HP.PCM_ITS ---
Problem List (1) Fever Status: Acute (2) Severe sepsis Status: Acute (3) Encounter for education Status: Acute (4) Bronchial asthma Status: Chronic (5) HTN (hypertension) Status: Chronic (6) Pancreatic cancer Status: Acute Qualifiers: Pancreatic malignancy location: tail of pancreas Qualified Code(s): C25.2 - Malignant neoplasm of tail of pancreas (7) Pancreatic cancer metastasized to liver Status: Acute History of Present Illness Date of Admission: 01/30/19 Chief Complaint: Fever The patient is a 73 year old M with recent diagnosis of pancreatic cancer after biopsy done 01/27/2019 on port placed on 01/29/2019 came to ER with fever 102 Fahrenheit along with vomiting 3 times today mainly gastric content, decreased/loss of appetite and generalized weakness with confusion. Patient denies any change in bowel movement. No abdominal pain. Prior to that patient also lost about 20 pounds since June. In ED, temperature 101.1, tachycardia 108/min, blood pressure 177/84, respiratory 28/min. No hypoxia Labs in the ER shows leukocytosis 18,000 with left shift neutrophils 83% mono 14%. Sodium 129, chloride 93, bicarb 29, anion gap 7. BUN 19, creatinine 1.06. Glucose trend 31. LFTs are elevated. ALT AST 123/241 worse than 01/25. Total bili 1.3, direct 0.59. Alk phos 393. Albumin 2.7. UA negative of pyuria 0 WBC mainly glucosuria 1000, protein 30, ketones 15. Patient has increased frequency but denies burning micturition probably secondary to glucosuria. Patient is on prednisone 10 mg daily but does not have diabetes mellitus diagnosis. Past Medical History Past Medical History (Chronic Problems): Chronic Problems (Last Reviewed 01/20/19 @ 09:26 by Evelyn Bedolla) Bronchial asthma (Chronic) HTN (hypertension) (Chronic) Medical History: Medical History (Last Reviewed 01/20/19 @ 09:26 by Evelyn Bedolla) Elevated LFTs R94.5 during treatment for meningitis 2013 Liver mass R16.0 Mass of pancreas K86.89 Meningitis G03.9 1998 and 2013. Allergies Latex, Natural Rubber Allergy (Intermediate, Verified 01/30/19 19:58) Rash cat dander Allergy (Verified 01/30/19 19:58) Shortness of breath hydrocodone bitartrate [From Vicodin] Allergy (Verified 01/30/19 19:58) hallucinations HALLUCINATIONS steri strips Allergy (Unknown, Uncoded 01/30/19 19:58) knee opened up after knee surgery skin sensitivity Allergy (Uncoded 01/30/19 19:58) Itching skin sensitivity to perfumes change in laundry detergent, soaps, Home Medications: Ambulatory Orders Medication Instructions Recorded Lisinopril/Hydrochlorothiazide 1 tab PO DAILY 02/22/14 [Zestoretic 20/12.5 Tablet] vitamin B12 500 mcg-folic acid 400 1 tab PO QODAY 01/19/19 mcg tablet Prednisone See Taper PO DAILY 01/22/19 Albuterol IH (ProAir) [Proair Hfa] 1 puff INHALATION DAILY PRN PRN 01/25/19 Cyanocobalamin (Vitamin B-12) 1,000 mcg IJ UD 01/25/19 [Cyanocobalamin Injection] Fluticasone Propionate 2 spray NASAL DAILY PRN PRN 01/25/19 Multivit-Min/FA/Lycopen/Lutein 1 ea PO DAILY 01/25/19 [Centrum Silver Men Tablet] Oxycodone HCl/Acetaminophen 1 - 2 tab PO Q6H PRN PRN 2 Days #5 01/29/19 [Percocet 5/325] tab Surgical History: Surgical History (Last Reviewed 01/20/19 @ 09:26 by Evelyn Bedolla) History of hernia surgery Z98.890, Z87.19 History of total right knee replacement Z96.651 right Surgical History: total knee arthroplasty, - - Previous data be tibial plateau fracture repair 26 years ago Psychiatric History: No pertinent psych hx Smoking Status: Former smoker - *Family History Maternal Family History: Family History (Last Reviewed 01/20/19 @ 09:26 by Evelyn Bedolla) Mother Diabetes Brother Diabetes Sister Heart disease Daughter Asthma History Items: No pertinent history Review of Systems Constitutional: Reports: Anorexia, Chills, Fever, Malaise, Weakness, Weight Leslie nge - 20 pounds in June 2018, Fatigue Eyes: Reports: - - Icterus present. Jaundice HEENT: Reports: Head Aches. Denies: Sinus Congestion, Sinus Drainage Cardiovascular: Denies: Chest Pain, Palpitations Respiratory: Reports: Shortness of breath upon exertion. Denies: Cough, Shortness of breath at rest, Sputum production Gastrointestinal: Denies: Abdominal Pain, Nausea, Vomiting Genitourinary: Reports: Frequency. Denies: Dysuria, Hematuria, Hesitancy Musculoskeletal: Denies: Joint Pain, Joint Tenderness Skin: Denies: Rash, Wounds Neurological: Denies: Numbness, Tingling, Focal weakness Psychiatric: Denies: Anxiety, Depression, Homicidal Ideations, Suicidal Ideations Hematologic/ Lymphatic: Denies: Easy Bruising, Easy Bleeding VTE Information - Inpt Only VTE Present on Admission: No VTE Mechan Device Prophylaxis: SCD's VTE Pharm Prophylaxis ordered?: Yes Patient Problems: Active and Suspected Problems (Last Reviewed 01/20/19 @ 09:26 by Evelyn Bedolla) Fever (Acute) Severe sepsis (Acute) - Physical Exam General: Alert, Oriented x3, Cooperative HEENT: Atraumatic, PERRLA, EOMI, Normocephalic Oral: Dry Mucosa Neck: Supple, No JVD, Negative Carotid Bruits, Negative Hepatojugular Reflux Lungs: Clear to auscultation, Normal air movement, No rhonchi, No wheeze, No rales Cardiovascular: Regular rate, Regular Rhythm, Normal S1, Normal S2, No murmurs Abdomen: Bowel Sounds Present, Soft, Non-Distended, Hepatomegaly - Tenderness hepatomegaly. Liver enlarged 2 cm below right costal margin. Extremities: No edema, Capillary Refill Less than 3 Seconds Skin: No rashes, No breakdown Musculoskeletal: No Tenderness to Palpation of Joints or Extremities, Arthritic Changes, Muscle Wasting Neurological: Cranial nerves II-XII grossly intact Psych/Mental Status: Normal Affect, Appropriate Vital Signs Temp Pulse Resp BP Pulse Ox 100.8 F H 100 26 H 162/94 H 94 01/30/19 23:09 01/30/19 23:09 01/30/19 23:09 01/30/19 23:09 01/30/19 23:09 Oxygen Flow Rate (L/min) 2 Oxygen Delivery Method Nasal Cannula Weight: 195 lb Body Mass Index (BMI) 21.9 Laboratory Tests Past 24 Hrs 01/30/19 01/30/19 01/30/19 20:20 20:20 20:20 WBC 18.4 H RBC 4.67 Hgb 13.7 Hct 40.3 MCV 86.3 MCH 29.3 MCHC 34.0 RDW Std Deviation 37.8 RDW Coeff of Minoo 11.9 Plt Count 212 MPV 10.6 Immature Gran % (Auto) 0.800 Neut % (Auto) 72.7 H Lymph % (Auto) 11.7 L [place] % (Auto) 14.0 H Eos % (Auto) 0.7 Baso % (Auto) 0.1 Absolute Neuts (auto) 13.4 H Absolute Lymphs (auto) 2.16 Nucleated RBC % 0 Differential Comment SCANNED Diff Path Review May foll Platelet Estimate ADEQUATE Sodium 129 L Potassium 4.2 Chloride 93 L Carbon Dioxide 29.0 Anion Gap 7 BUN 19 H Creatinine 1.06 Estim Creat Clear Calc 79.97 Est GFR (MDRD) Af Amer 89 Est GFR (MDRD) Non-Af 73 BUN/Creatinine Ratio 17.9 Glucose 331 H Lactic Acid 1.7 Calcium 9.5 Total Bilirubin Direct Bilirubin AST ALT Alkaline Phosphatase Troponin I < 0.015 Total Protein Albumin Globulin Lipase Urine Color Urine Clarity Urine pH Ur Specific [place] Urine Protein Urine Glucose (UA) Urine Ketones Urine Occult Blood Urine Nitrite Urine Bilirubin Urine Urobilinogen Ur Leukocyte Esterase Urine RBC Urine WBC Ur Squamous Epith Cells Urine Bacteria Urine Mucus 01/30/19 01/30/19 20:20 21:10 WBC RBC Hgb Hct MCV MCH MCHC RDW Std Deviation RDW Coeff of [place] Plt Count MPV Immature Gran % (Auto) Neut % (Auto) Lymph % (Auto) [place] % (Auto) Eos % (Auto) Baso % (Auto) Absolute Neuts (auto) Absolute Lymphs (auto) Nucleated RBC % Differential Comment Diff Path Review Platelet Estimate Sodium Potassium Chloride Carbon Dioxide Anion Gap BUN Creatinine Estim Creat Clear Calc Est GFR (MDRD) Af Amer Est GFR (MDRD) Non-Af BUN/Creatinine Ratio Glucose Lactic Acid Calcium Total Bilirubin 1.30 H Direct Bilirubin 0.59 H AST 241 H ALT 123 H Alkaline Phosphatase 393 H Troponin I Total Protein 7.8 Albumin 2.7 L Globulin 5.1 H Lipase 104 Urine Color Tiffany Urine Clarity Sl. Cloudy Urine pH 5.0 Ur Specific [place] 1.020 Urine Protein 30 H Urine Glucose (UA) 1000 H Urine Ketones 15 H Urine Occult Blood 50 H Urine Nitrite Negative Urine Bilirubin Negative Urine Urobilinogen 4 H Ur Leukocyte Esterase Negative Urine RBC 0-5 SEEN Urine WBC 0 SEEN Ur Squamous Epith Cells 0-5 SEEN Urine Bacteria 1+ Urine Mucus 1+ Assessment/Plan All Active Problems (Last Reviewed 01/20/19 @ 09:26 by Evelyn Bedolla) Pancreatic mass (Acute) Encounter for education (Acute) Fever (Acute) Severe sepsis (Acute) Pancreatic cancer (Acute) Pancreatic cancer metastasized to liver (Acute) The patient is a 73 year old M with recent diagnosis of pancreatic cancer after biopsy done 01/27/2019 on port placed on 01/29/2019 came to ER with fever 102 Fahrenheit along with vomiting 3 times today mainly gastric content, decreased/loss of appetite and generalized weakness with confusion. Patient denies any change in bowel movement. No abdominal pain. Prior to that patient also lost about 20 pounds since June. In ED, temperature 101.1, tachycardia 108/min, blood pressure 177/84, respiratory 28/min. No hypoxia Labs in the ER shows leukocytosis 18,000 with left shift neutrophils 83% mono 14%. Sodium 129, chloride 93, bicarb 29, anion gap 7. BUN 19, creatinine 1.06. Glucose trend 31. LFTs are elevated. ALT AST 123/241 worse than 01/25. Total bili 1.3, direct 0.59. Alk phos 393. Albumin 2.7. UA negative of pyuria 0 WBC mainly glucosuria 1000, protein 30, ketones 15. Patient has increased frequency but denies burning micturition probably secondary to glucosuria. Patient is on prednisone 10 mg daily but does not have diabetes mellitus diagnosis. 1. Sepsis most likely secondary to hepatobiliary sepsis/metastasis: In ED, CT abdomen was done which shows worsening of liver metastasis. Stable mass in tail of pancreas. Started on IV Zosyn. MRSA nasal screen. Blood cultures x2. Urine culture ordered. UA is negative of pyuria. Chest x-ray normal. If fever does not resolve in 48-72 hours, will need coverage for MRSA and vancomycin need to be initiated. The patient has port on the right subclavicular region. No tenderness erythema present. Does not seem to be infected. Consult surgeon Dr. Ernandez for further opinion regarding port and hepatobiliary sepsis. 2. Ca pancreas with diffuse liver metastasis with possible hepatobiliary sepsis: LFTs are elevated as mentioned above. Mainly indirect hyperbilirubinemia. Follow LFT. Lipase normal. A/G ratio reversed. Right u pper quadrant sonogram ordered. Consult oncologist Dr. Short 3. Loss of weight, moderate protein calorie malnutrition and decreased functional activity: Consult fusion juncture grinder. PT and OT ordered. 4. Electrolyte abnormality: Hyponatremia, hypochloremia with prerenal azotemia secondary to dehydration/intravascular volume depletion: IV fluid normal saline 1 L bolus given in ER and then continue 150 mils per hour for further 2 L. Monitor electrolytes and kidney function. Serum magnesium, phosphorus and TSH are ordered. Hypertension: Patient on lisinopril/HCTZ at home. Hold lisinopril HCTZ. Started on hydralazine 25 mg 3 times daily for blood pressure control. Hyperglycemia, glucose 331 probably secondary to prednisone: A1c ordered for tomorrow. Accu-Chek essences and cover with sliding scale. DVT prophylaxis: High risk: On Lovenox 40 g subcu daily and bilateral SCDs. Advanced directive/living/MOLST: Patient just had diagnosis of CA pancreas and does not have living will/advanced directive. Discussed with the patient's and she will be advanced directive of health. For now, patient is not clear of her situation. For now, wanted to give 1 chance and opted for full code, therefore it will apply artificial life support including intubation, tube feed, ventilator and/chest compression, until patient changes his mind or change the CODE STATUS Full code. Total time spent in [id number] encounter in discussion of advanced directive 18 minutes. Laboratory Results 01/30/19 20:20: Lactic Acid 1.7 01/30/19 20:20: WBC 18.4 H, RBC 4.67, Hgb 13.7, Hct 40.3, MCV 86.3, MCH 29.3, MCHC 34.0, RDW Std Deviation 37.8, RDW Coeff of Minoo 11.9, Plt Count 212, MPV 10.6, Immature Gran % (Auto) 0.800, Neut % (Auto) 72.7 H, Lymph % (Auto) 11.7 L, [place] % (Auto) 14.0 H, Eos % (Auto) 0.7, Baso % (Auto) 0.1, Absolute Neuts (auto) 13.4 H, Absolute Lymphs (auto) 2.16, Nucleated RBC % 0, Differential Comment SCANNED, Diff Path Review October, Platelet Estimate ADEQUATE 01/30/19 20:20: Sodium 129 L, Potassium 4.2, Chloride 93 L, Carbon Dioxide 29.0, Anion Gap 7, BUN 19 H, Creatinine 1.06, Estim Creat Clear Calc 79.97, Est GFR (MDRD) Af Amer 89, Est GFR (MDRD) Non-Af 73, BUN/Creatinine Ratio 17.9, Glucose 331 H, Calcium 9.5, Troponin I < 0.015 01/30/19 20:20: Total Bilirubin 1.30 H, Direct Bilirubin 0.59 H, AST 241 H, ALT 123 H, Alkaline Phosphatase 393 H, Total Protein 7.8, Albumin 2.7 L, Globulin 5.1 H, Lipase 104 01/30/19 21:10: Urine Color Tiffany, Urine Clarity Sl. Cloudy, Urine pH 5.0, Ur Specific [place] 1.020, Urine Protein 30 H, Urine Glucose (UA) 1000 H, Urine Ketones 15 H, Urine Occult Blood 50 H, Urine Nitrite Negative, Urine Bilirubin Negative, Urine Urobilinogen 4 H, Ur Leukocyte Esterase Negative, Urine RBC 0-5 SEEN, Urine WBC 0 SEEN, Ur Squamous Epith Cells 0-5 SEEN, Urine Bacteria 1+, Urine Mucus 1+ Clinical Impression(s) from Imaging Studies Chest X-Ray 01/30/19 20:24 IMPRESSION: Normal x-ray examination of the chest. Abdomen/Pelvis CT 01/30/19 20:43 IMPRESSION: Probable worsening of liver metastases. No other definite changes. Stable mass in the tail of the pancreas. Moderate to marked diffuse fecal retention. Code Visit Inpatient E&M: 69547 Init Hosp L3 Procedures: 53404 Advncd Care Plan 30 Min
[2019-01-31] VITALS (11 sets, daily range): BP systolic 114–182; BP diastolic 56–94; PULSE 89–112; RESP 16–18; TEMP 36.9–39.6; O2SAT 94–96; BMI 21.9; BMI 22.0
[2019-01-31] MEDS: 0.9% Normal Saline 1,000 ML 150 ML IV ×2 (01:21→08:39)
[2019-01-31] MEDS: Enoxaparin 40 MG/0.4 ML Syringe SC (01:21)
[2019-01-31 03:22] LABS: M R Staph aureus DNA By PCR Negative (Negative); Probe Check PASS; Specimen Processing Control PASS
[2019-01-31] MEDS: Acetaminophen 325 MG Tablet 650 MG PO ×2 (04:17→06:47)
[2019-01-31] MEDS: hydrALAZINE 20 MG/ML Vial 10 MG IV ×2 (04:20→18:42)
[2019-01-31] MEDS: proMETHazine 25 MG/ML Syringe 12.5 MG IV (04:45)
[2019-01-31] MEDS: hydrALAZINE 25 MG Tablet PO ×3 (06:39→21:39)
[2019-01-31] MEDS: Insulin Lispro 100 UNIT/ML INSULN.PEN SC ×4 (06:48→21:38)
[2019-01-31 06:50] LABS: Bedside Glucose 261 mg/dL (70-110)
[2019-01-31] MEDS: Ondansetron 4 MG/2 ML Vial 8 MG IV ×2 (06:55→18:25)
[2019-01-31 07:55] LABS: Absolute Lymphocyte Count 2.27 X10^3/uL (0.83-4.51); Absolute Neutrophil Count 12.7 X10^3/uL (2.0-7.7); Basophil# 0.02 X10^3/uL; Basophil% 0.1 % (0-1); Eosinophil# 0.11 X10^3/uL; Eosinophils% 0.6 % (0-5); Hemoglobin 12.2 g/dL (13.0-16.5); Lymphocyte # 2.27 X10^3/ul (4.0); Lymphocyte % 12.6 % (19-41); Mean Corp Hgb Conc 33.9 g/dL (32-36); Mean Corpuscular Hgb 29.2 pg (27.0-32.0); Mean Corpuscular Volume 86.1 fL (80-94); Mean Platelet Vol. 11.1 fl (6.2-12.0); Monocyte# 2.74 X10^3/uL; Monocyte% 15.2 % (0-10); NRBC Flagged by Analyzer 0 % (0-5); Neutrophil % 70.7 % (47-70); POSITIVE DIFFERENTIAL YES; Platelet Count 165 K/mm3 (150-450); RBC Distribution Width SD 38.1 fl (35.1-43.9); Red Blood Count 4.18 M/mm3 (4.6-6.2)
[2019-01-31 08:03] LABS: Differential Indicated SCAN CRITERIA MET
[2019-01-31 08:17] LABS: ALB/GLOB Ratio 0.5 RATIO (0.9-2.4); AST(SGOT) 218 U/L (15-37); Alanine Aminotransfer ALT/SGPT 119 U/L (16-61); Albumin, Serum 2.2 g/dL (3.2-5.0); Alkaline Phosphatase 321 U/L (45-117); Anion Gap 8 (5-15); BUN 17 mg/dL (7-18); BUN/Creat Ratio 20.3 RATIO (10-20); Calcium,Total 8.4 mg/dL (8.5-10.1); Chloride 98 mmol/L (98-107); Creatinine, Serum 0.84 mg/dL (0.70-1.30); EST Glomerular Filtration Rate 96 mL/min (>60); Est Glom Filt Rate - Afr Amer 116 mL/min (>60); Estimated Creatinine Clearance 100.97 ml/min; Globulin 4.6 g/dL (2.2-4.2); Glucose 262 mg/dL (74-106); Magnesium 1.7 mg/dL (1.6-2.6); Phosphorus 2.1 mg/dL (2.5-4.9); Potassium 3.7 mmol/L (3.5-5.1); Protein, Total 6.8 g/dL (6.4-8.2); Sodium Level 134 mmol/L (136-145); Thyroid Stim Hormone (TSH) 0.15 uIU/mL (0.358-3.74)
[2019-01-31 08:30] LABS: Platelet Estimate ADEQUATE (ADEQ); Red Cell Morphology NORM C+C NORMAL (NORM C&C)
[2019-01-31 08:31] LABS: Hemoglobin A1c 8.1 % (4.2-6.3)
--- NOTE | 2019-01-31 08:50 | PN.SURG_ITS ---
Patient Problems: Active and Suspected Problems (Last Reviewed 01/20/19 @ 09:26 by Evelyn Bedolla) Fever (Acute) Severe sepsis (Acute) Subjective: The patient is complaining of headache this morning. He does not have any abdominal pain. He is having no nausea or vomiting this morning. - Physical Exam General: Alert, Oriented x3 Oral: Moist Mucosa Neck: No JVD Abdomen: Soft, Non Tender, Non-Distended Skin: No rashes Psych/Mental Status: Normal Affect Vital Signs Temp Pulse Resp BP Pulse Ox 100.5 F H 102 H 18 160/73 H 94 01/31/19 04:12 01/31/19 06:39 01/31/19 04:12 01/31/19 06:39 01/31/19 04:12 Oxygen Flow Rate (L/min) 2 Oxygen Delivery Method Room Air Weight: 195 lb 1.745 oz Body Mass Index (BMI) 21.9 Intake and Output for Last 24 Hours 01/29/19 01/30/19 01/31/19 23:59 23:59 23:59 Output Total 225 / 225 Balance -225 / -225 Laboratory Tests Past 24 Hrs 01/30/19 01/30/19 01/30/19 20:20 20:20 20:20 WBC 18.4 H RBC 4.67 Hgb 13.7 Hct 40.3 MCV 86.3 MCH 29.3 MCHC 34.0 RDW Std Deviation 37.8 RDW Coeff of Minoo 11.9 Plt Count 212 MPV 10.6 Immature Gran % (Auto) 0.800 Neut % (Auto) 72.7 H Lymph % (Auto) 11.7 L [place] % (Auto) 14.0 H Eos % (Auto) 0.7 Baso % (Auto) 0.1 Absolute Neuts (auto) 13.4 H Absolute Lymphs (auto) 2.16 Nucleated RBC % 0 Differential Comment SCANNED Diff Path Review May foll Platelet Estimate ADEQUATE RBC Morphology Sodium 129 L Potassium 4.2 Chloride 93 L Carbon Dioxide 29.0 Anion Gap 7 BUN 19 H Creatinine 1.06 Estim Creat Clear Calc 79.97 Est GFR (MDRD) Af Amer 89 Est GFR (MDRD) Non-Af 73 BUN/Creatinine Ratio 17.9 Glucose 331 H Hemoglobin A1c Lactic Acid 1.7 Calcium 9.5 Phosphorus Magnesium Total Bilirubin Direct Bilirubin AST ALT Alkaline Phosphatase Troponin I < 0.015 Total Protein Albumin Globulin Albumin/Globulin Ratio Lipase TSH Urine Color Urine Clarity Urine pH Ur Specific [place] Urine Protein Urine Glucose (UA) Urine Ketones Urine Occult Blood Urine Nitrite Urine Bilirubin Urine Urobilinogen Ur Leukocyte Esterase Urine RBC Urine WBC Ur Squamous Epith Cells Urine Bacteria Urine Mucus MRSA (PCR) 01/30/19 01/30/19 01/31/19 20:20 21:10 01:40 WBC RBC Hgb Hct MCV MCH MCHC RDW Std Deviation RDW Coeff of Minoo Plt Count MPV Immature Gran % (Auto) Neut % (Auto) Lymph % (Auto) [place] % (Auto) Eos % (Auto) Baso % (Auto) Absolute Neuts (auto) Absolute Lymphs (auto) Nucleated RBC % Differential Comment Diff Path Review Platelet Estimate RBC Morphology Sodium Potassium Chloride Carbon Dioxide Anion Gap BUN Creatinine Estim Creat Clear Calc Est GFR (MDRD) Af Amer Est GFR (MDRD) Non-Af BUN/Creatinine Ratio Glucose Hemoglobin A1c Lactic Acid Calcium Phosphorus Magnesium Total Bilirubin 1.30 H Direct Bilirubin 0.59 H AST 241 H ALT 123 H Alkaline Phosphatase 393 H Troponin I Total Protein 7.8 Albumin 2.7 L Globulin 5.1 H Albumin/Globulin Ratio Lipase 104 TSH Urine Color Tiffany Urine Clarity Sl. Cloudy Urine pH 5.0 Ur Specific [place] 1.020 Urine Protein 30 H Urine Glucose (UA) 1000 H Urine Ketones 15 H Urine Occult Blood 50 H Urine Nitrite Negative Urine Bilirubin Negative Urine Urobilinogen 4 H Ur Leukocyte Esterase Negative Urine RBC 0-5 SEEN Urine WBC 0 SEEN Ur Squamous Epith Cells 0-5 SEEN Urine Bacteria 1+ Urine Mucus 1+ MRSA (PCR) Negative 01/31/19 01/31/19 01/31/19 06:39 06:39 06:39 WBC 18.0 H RBC 4.18 L Hgb 12.2 L Hct 36.0 L MCV 86.1 MCH 29.2 MCHC 33.9 RDW Std Deviation 38.1 RDW Coeff of Minoo 12.0 Plt Count 165 MPV 11.1 Immature Gran % (Auto) 0.800 Neut % (Auto) 70.7 H Lymph % (Auto) 12.6 L [place] % (Auto) 15.2 H Eos % (Auto) 0.6 Baso % (Auto) 0.1 Absolute Neuts (auto) 12.7 H Absolute Lymphs (auto) 2.27 Nucleated RBC % 0 Differential Comment Diff Path Review May foll Platelet Estimate ADEQUATE RBC Morphology NORM C+C Sodium 134 L Potassium 3.7 Chloride 98 Carbon Dioxide 28.0 Anion Gap 8 BUN 17 Creatinine 0.84 Estim Creat Clear Calc 100.97 Est GFR (MDRD) Af Amer 116 Est GFR (MDRD) Non-Af 96 BUN/Creatinine Ratio 20.3 H Glucose 262 H Hemoglobin A1c 8.1 H Lactic Acid Calcium 8.4 L Phosphorus 2.1 L Magnesium 1.7 Total Bilirubin 1.50 H Direct Bilirubin AST 218 H ALT 119 H Alkaline Phosphatase 321 H Troponin I Total Protein 6.8 Albumin 2.2 L Globulin 4.6 H Albumin/Globulin Ratio 0.5 L Lipase TSH 0.15 L Urine Color Urine Clarity Urine pH Ur Specific [place] Urine Protein Urine Glucose (UA) Urine Ketones Urine Occult Blood Urine Nitrite Urine Bilirubin Urine Urobilinogen Ur Leukocyte Esterase Urine RBC Urine WBC Ur Squamous Epith Cells Urine Bacteria Urine Mucus MRSA (PCR) POC Glucose 01/31/19 06:44 POC Glucose 261 H Clinical Impression(s) from Imaging Studies Chest X-Ray 01/30/19 20:24 IMPRESSION: Normal x-ray examination of the chest. Electronically Signed: Shaye Stark at 20:45 EDT Tel , Service support , Abdomen/Pelvis CT 01/30/19 20:43 IMPRESSION: Probable worsening of liver metastases. No other definite changes. Stable mass in the tail of the pancreas. Moderate to marked diffuse fecal retention. Electronically Signed: Jose Ramon Menezes MD at 21:55 EDT , Service support , Medical Necessity - Tobacco Use Smoking Status: Former smoker Assessment/Plan All Active Problems (Last Reviewed 01/20/19 @ 09:26 by Evelyn Bedolla) Pancreatic mass (Acute) Encounter for education (Acute) Fever (Acute) Severe sepsis (Acute) Pancreatic cancer (Acute) Pancreatic cancer metastasized to liver (Acute) 73-year-old male with metastatic pancreatic cancer 1. Patient was readmitted yesterday with nausea and vomiting and fever of 103. Blood cultures are pending. White count was 18 and continues to be 18 today. Patient is on Zosyn. 2. I examined the patient's port site which appears clean with no erythema or purulent drainage. Blood cultures are pending. I would not remove the port the way it is looking as it does not appear to be infected. If blood cultures come back positive may have to be removed depending on the organism. 3. The patient has severe metastasis to the liver and slightly elevated liver enzymes. This does not appear to be obstructive jaundice. The patient appears to have liver failure from metastasis. The mass is in the distal pancreas so there is no obstruction from the mass. No indication for ERCP or any intervention from our standpoint. Patient discussed CODE STATUS this morning with his and they would like to be DNR CCA. They are waiting to discuss this tomorrow with Dr. Short. 4. The plan for today is to continue IV antibiotics and supportive care. Dr. Ernandez will be back tomorrow to see the patient but I do not believe that the port needs to be removed at this time. Harshad Louis MD Pager: [facility] [address] [place] [address], [address] [place] [address] Office:
--- NOTE | 2019-01-31 09:44 | PN_ITS ---
Patient Problems: Active and Suspected Problems (Last Reviewed 01/20/19 @ 09:26 by Evelyn Bedolla) Fever (Acute) Severe sepsis (Acute) Subjective: Patient seen and examined. He was admitted with a complaint of fever and chills. He is being managed for sepsis. He was recently diagnosed with pancreatic cancer and had a biopsy done last Friday, and a port placed last Friday (3 days ago). Patient says he had had a fever last Friday (~ 1 week ago), and also developed this fever and chills 1 day ago. He currently complains of a headache, but denies any chills, palpitations, dizziness, chest pain, diarrhea or vomiting. Review of systems is otherwise negative. Labs and vitals reviewed. Vitals/I&O's: Vital Signs Temp Pulse Resp BP Pulse Ox 100.5 F H 102 H 18 160/73 H 94 01/31/19 04:12 01/31/19 06:39 01/31/19 04:12 01/31/19 06:39 01/31/19 09:27 Oxygen Flow Rate (L/min) 2 Oxygen Delivery Method Room Air Weight: 195 lb 1.745 oz Body Mass Index (BMI) 21.9 Intake and Output for Last 24 Hours 01/29/19 01/30/19 01/31/19 23:59 23:59 23:59 Output Total 225 / 225 Balance -225 / -225 General: Alert, Oriented x3, Cooperative, No apparent distress, Lethargic HEENT: Atraumatic, PERRLA, EOMI, Normocephalic Oral: Dry Mucosa Neck: Supple, No JVD, Negative Carotid Bruits Lungs: Clear to auscultation, Normal air movement, No rhonchi, No wheeze Cardiovascular: Regular Rhythm, Normal S1, Normal S2, No murmurs, Tachycardic Abdomen: Bowel Sounds Present, Soft, - - mild RUQ tenderness, no guarding or rebound tenderness Extremities: No edema, Capillary Refill Less than 3 Seconds Skin: No rashes, No breakdown, - - port in right subclavian area. Doesnt look infected Musculoskeletal: No Tenderness to Palpation of Joints or Extremities Lymphatic: No Cervical, Supraclavicular, or Inguinal Adenopathy Neurological: Cranial nerves II-XII grossly intact, Neuro grossly intact, Motor Exam 5/5 strength throughout Psych/Mental Status: Normal Affect, Appropriate, Alert and oriented to time, place, person, mood and affect Laboratory Results 01/30/19 20:20: Lactic Acid 1.7 01/30/19 20:20: WBC 18.4 H, RBC 4.67, Hgb 13.7, Hct 40.3, MCV 86.3, MCH 29.3, MCHC 34.0, RDW Std Deviation 37.8, RDW Coeff of Minoo 11.9, Plt Count 212, MPV 10.6, Immature Gran % (Auto) 0.800, Neut % (Auto) 72.7 H, Lymph % (Auto) 11.7 L, [place] % (Auto) 14.0 H, Eos % (Auto) 0.7, Baso % (Auto) 0.1, Absolute Neuts (auto) 13.4 H, Absolute Lymphs (auto) 2.16, Nucleated RBC % 0, Differential Comment SCANNED, Diff Path Review October, Platelet Estimate ADEQUATE 01/30/19 20:20: Sodium 129 L, Potassium 4.2, Chloride 93 L, Carbon Dioxide 29.0, Anion Gap 7, BUN 19 H, Creatinine 1.06, Estim Creat Clear Calc 79.97, Est GFR (MDRD) Af Amer 89, Est GFR (MDRD) Non-Af 73, BUN/Creatinine Ratio 17.9, Glucose 331 H, Calcium 9.5, Troponin I < 0.015 01/30/19 20:20: Total Bilirubin 1.30 H, Direct Bilirubin 0.59 H, AST 241 H, ALT 123 H, Alkaline Phosphatase 393 H, Total Protein 7.8, Albumin 2.7 L, Globulin 5.1 H, Lipase 104 01/30/19 21:10: Urine Color Tiffany, Urine Clarity Sl. Cloudy, Urine pH 5.0, Ur Specific [place] 1.020, Urine Protein 30 H, Urine Glucose (UA) 1000 H, Urine Ketones 15 H, Urine Occult Blood 50 H, Urine Nitrite Negative, Urine Bilirubin Negative, Urine Urobilinogen 4 H, Ur Leukocyte Esterase Negative, Urine RBC 0-5 SEEN, Urine WBC 0 SEEN, Ur Squamous Epith Cells 0-5 SEEN, Urine Bacteria 1+, Urine Mucus 1+ 01/31/19 01:40: MRSA (PCR) Negative 01/31/19 06:39: WBC 18.0 H, RBC 4.18 L, Hgb 12.2 L, Hct 36.0 L, MCV 86.1, MCH 29.2, MCHC 33.9, RDW Std Deviation 38.1, RDW Coeff of Minoo 12.0, Plt Count 165, MPV 11.1, Immature Gran % (Auto) 0.800, Neut % (Auto) 70.7 H, Lymph % (Auto) 12.6 L, [place] % (Auto) 15.2 H, Eos % (Auto) 0.6, Baso % (Auto) 0.1, Absolute Neuts (auto) 12.7 H, Absolute Lymphs (auto) 2.27, Nucleated RBC % 0, Diff Path Review October, Platelet Estimate ADEQUATE, RBC Morphology NORM C+C 01/31/19 06:39: Sodium 134 L, Potassium 3.7, Chloride 98, Carbon Dioxide 28.0, Anion Gap 8, BUN 17, Creatinine 0.84, Estim Creat Clear Calc 100.97, Est GFR (MDRD) Af Amer 116, Est GFR (MDRD) Non-Af 96, BUN/Creatinine Ratio 20.3 H, Glucose 262 H, Calcium 8.4 L, Phosphorus 2.1 L, Magnesium 1.7, Total Bilirubin 1.50 H, AST 218 H, ALT 119 H, Alkaline Phosphatase 321 H, Total Protein 6.8, Albumin 2.2 L, Globulin 4.6 H, Albumin/Globulin Ratio 0.5 L, TSH 0.15 L 01/31/19 06:39: Hemoglobin A1c 8.1 H 01/31/19 06:44: POC Glucose 261 H Diagnostic Data Chest X-Ray 01/30/19 20:24 IMPRESSION: Normal x-ray examination of the chest. Electronically Signed: Shaye Stark at 20:45 EDT Tel , Service support , Abdomen/Pelvis CT 01/30/19 20:43 IMPRESSION: Probable worsening of liver metastases. No other definite changes. Stable mass in the tail of the pancreas. Moderate to marked diffuse fecal retention. Electronically Signed: Jose Ramon Menezes MD at 21:55 EDT , Service support , Current Medications Enoxaparin Sodium (Lovenox) 40 mg SC DAILY@1000 [facility] Last Admin: 01/31/19 01:21 Dose: 40 mg Documented by: Fluticasone Propionate (Flonase Nasal [place]) 2 spray NASAL DAILY PRN PRN PRN Reason: ALLERGIES Hydralazine HCl (Apresoline) 25 mg PO TID [facility] Last Admin: 01/31/19 06:39 Dose: 25 mg Documented by: Hydralazine HCl (Apresoline Iv) 10 mg IV Q4H PRN PRN PRN Reason: SBP>180 mmhg Last Admin: 01/31/19 04:20 Dose: 10 mg Documented by: Hydromorphone HCl (Dilaudid Inj) 0.5 mg IV Q4H PRN PRN PRN Reason: Severe pain (7-10/10) Sodium Chloride () 1,000 mls @ 150 mls/hr IV .Q6H40M [facility] Stop: 01/31/19 14:39 Last Admin: 01/31/19 08:39 Dose: 150 mls/hr Documented by: Sodium Chloride () 250 mls @ 15 mls/hr IV .[id number] PRN PRN Reason: SALINE FLUSH Piperacillin Sod/Tazobactam (Sod 3.375 gm/ Sodium Chloride) 50 mls @ 12.5 mls/hr IV Q8 [facility] Last Admin: 01/31/19 06:39 Dose: 12.5 mls/hr Documented by: Insulin Human Lispro (Humalog [place] (Bkc)) 0 unit SC [facility]; Protocol Last Admin: 01/31/19 06:48 Dose: 3 u Documented by: Ketorolac Tromethamine (Toradol) 30 mg IV Q6H PRN PRN Stop: 02/05/19 12:01 Multivitamins/Minerals (Multivitamin With Minerals) 1 tablet PO DAILY@0800 [facility] Last Admin: 01/31/19 09:09 Dose: Not Given Documented by: Ondansetron HCl (Zofran) 8 mg IV Q8H PRN PRN PRN Reason: NAUSEA/VOMITING Last Admin: 01/31/19 06:55 Dose: 8 mg Documented by: Oxycodone HCl (Oxyir) 5 - 10 mg PO Q6H PRN PRN PRN Reason: PAIN Promethazine HCl (Phenergan) 12.5 mg IV Q6H PRN PRN PRN Reason: Breakthrough nausea/vomiting Last Admin: 01/31/19 04:45 Dose: 12.5 mg Documented by: Psyllium Hydrophilic Mucilloid (Metamucil) 1 packet PO DAILY PRN PRN PRN Reason: Constipation Senna/Docusate Sodium (Senokot-S, Shanta-Colace) 2 tablet PO BID PRN PRN PRN Reason: Constipation Sodium Chloride () 10 - 40 ml IV UD PRN PRN Reason: SALINE FLUSH Medical Necessity - Tobacco Use Smoking Status: Former smoker Assessment/Plan All Active Problems (Last Reviewed 01/20/19 @ 09:26 by Evelyn Bedolla) Pancreatic mass (Acute) Encounter for education (Acute) Fever (Acute) Severe sepsis (Acute) Pancreatic cancer (Acute) Pancreatic cancer metastasized to liver (Acute) 1. Sepsis of unknown source * patient recently diagnosed with pancreatic cancer, with mets to the liver. * SIRS criteria is 2/4 (tachycardia and leucocytosis). Also has fever of 100.5F this morning * had pancratic biopsy on 01/27/19, and port placement on 01/29/19. Port area looks noninfected, and biopsy site has healed well. Port site could still be source of sepsis, though it doesnt look infected * wbc is 18 today * blood and urine cultures pending. CXR showed no evidence of pneumonia * on IV zosyn;' will continue for now. IF still not improving, to consider broadening antibiotics tomorrow * 2. Metastatic pancreatic CA with diffuse liver mets * CT abdomen/pelvis showed probable worsening of liver mets with stable mass in tail of pancreas and moderate to marked diffuse fecal retention * oncology consulted; await rec;s * general surgery on board o/a of recent port placement and sepsis\ 3. Elevated transaminases due to liver mets * bilirubin is 1.5, with AST/ALT of 218/119 and ALP of 321. * will monitor. * 4. Hyponatremia and hypophosphatemia: sodium was 129, is now 134. Likely due to dehydration. Phosphorous is 2.1. Will replace and monitor. 5. Moderate protein calorie malnutrition due to metastatic pancreatic cancer * albumin is low at 2.2 * nutrition consulted * 6. Hypertension: * lisinopril/HCTZ held on admisison and patient started on PO hydralazine. * WIll dc hydralazine and resume lisinopril as there is no evidence of kidney impairment. DVT prophylaxi: lovenox. Code status: DNRCCA * Patient and requested to discuss about CODE STATUS. Patient and counseled extensively about different types of CODE STATUS including full code, DNR CCA and DNR CCA. Patient elects to be DNRCCA. Total [id number] time 16 minutes. Code Visit Inpatient E&M: 07573 [facility] H[facility] L3 Procedures: 65615 Advncd Care Plan 30 Min
[2019-01-31] MEDS: Ketorolac 30 MG/ML Syringe IV ×2 (12:07→18:43)
[2019-01-31 12:16] LABS: Bedside Glucose 279 mg/dL (70-110)
[2019-01-31] MEDS: 0.9% NaCl Peripheral Flush Adult/Peds IV ×2 (18:47→19:04)
[2019-01-31] MEDS: HYDROmorphone 0.5 MG/0.5 ML SYRINGE IV (19:04)
[2019-01-31 19:15] LABS: Bedside Glucose 235 mg/dL (70-110)
[2019-01-31] MEDS: oxyCODONE 5 MG Tablet PO (21:44)
[2019-01-31 21:50] LABS: Bedside Glucose 356 mg/dL (70-110)
[2019-02-01] VITALS (11 sets, daily range): BP systolic 125–163; BP diastolic 72–87; PULSE 80–93; RESP 16–18; TEMP 36.9–39.2; O2SAT 92–99
[2019-02-01] MEDS: oxyCODONE 5 MG Tablet PO ×3 (03:22→18:27)
[2019-02-01 06:03] LABS: Absolute Lymphocyte Count 2.88 X10^3/uL (0.83-4.51); Absolute Neutrophil Count 16.4 X10^3/uL (2.0-7.7); Basophil# 0.05 X10^3/uL; Basophil% 0.2 % (0-1); Eosinophil# 0.19 X10^3/uL; Eosinophils% 0.9 % (0-5); Hematocrit 40.7 % (40-54); Hemoglobin 13.5 g/dL (13.0-16.5); Lymphocyte # 2.88 X10^3/ul (4.0); Lymphocyte % 13.1 % (19-41); Mean Corp Hgb Conc 33.2 g/dL (32-36); Mean Corpuscular Volume 87.5 fL (80-94); Monocyte# 2.24 X10^3/uL; Monocyte% 10.2 % (0-10); NRBC Flagged by Analyzer 0 % (0-5); Neutrophil # 16.42 X10^3/uL (2.7-7.7); Neutrophil % 74.9 % (47-70); POSITIVE DIFFERENTIAL YES; Platelet Count 223 K/mm3 (150-450); RBC Distribution Width CV 12.2 % (11.6-14.6); RBC Distribution Width SD 39.2 fl (35.1-43.9); Red Blood Count 4.65 M/mm3 (4.6-6.2); White Blood Count 21.9 K/mm3 (4.4-11.0)
[2019-02-01 06:29] LABS: Anion Gap 8 (5-15); BUN 26 mg/dL (7-18); BUN/Creat Ratio 21.5 RATIO (10-20); Calcium,Total 8.7 mg/dL (8.5-10.1); Chloride 98 mmol/L (98-107); Creatinine, Serum 1.21 mg/dL (0.70-1.30); EST Glomerular Filtration Rate 63 mL/min (>60); Est Glom Filt Rate - Afr Amer 76 mL/min (>60); Estimated Creatinine Clearance 70.09 ml/min; Glucose 258 mg/dL (74-106); Potassium 3.9 mmol/L (3.5-5.1); Sodium Level 134 mmol/L (136-145)
[2019-02-01] MEDS: hydrALAZINE 25 MG Tablet PO ×3 (06:30→21:53)
[2019-02-01] MEDS: Insulin Lispro 100 UNIT/ML INSULN.PEN SC ×4 (06:36→21:53)
[2019-02-01 06:40] LABS: Bedside Glucose 257 mg/dL (70-110)
[2019-02-01] MEDS: Ketorolac 30 MG/ML Syringe IV ×2 (06:41→17:08)
[2019-02-01] MEDS: 0.9% NaCl Peripheral Flush Adult/Peds IV ×2 (06:41→17:09)
[2019-02-01 06:43] LABS: Differential Indicated SCAN CRITERIA MET
[2019-02-01 07:23] LABS: Differential Comment SCANNED
--- NOTE | 2019-02-01 07:40 | PCM.PN.SRG ---
Patient Problems: Active and Suspected Problems (Last Reviewed 01/20/19 @ 09:26 by Evelyn Bedolla) Fever (Acute) Severe sepsis (Acute) Subjective: Patient has been taking Zofran for the nausea, denies any abdominal pain this morning but last night did have periumbilical pain, continues to have fevers, blood cultures pending - Physical Exam General: Alert, Oriented x3, Cooperative, No apparent distress Neck: - - Right IJ incision site healing well with Dermabond Abdomen: Soft, Non Tender, Non-Distended Skin: - - Right chest port site clean dry and intact with permanent sutures, no signs of infection/erythema Vital Signs Temp Pulse Resp BP Pulse Ox 102.1 F H 84 18 157/87 H 96 02/01/19 06:45 02/01/19 06:30 02/01/19 03:19 02/01/19 03:19 02/01/19 03:19 Oxygen Flow Rate (L/min) 2 Oxygen Delivery Method Room Air Weight: 195 lb 1.745 oz Body Mass Index (BMI) 21.9 Intake and Output for Last 24 Hours 01/30/19 01/31/19 02/01/19 23:59 23:59 23:59 Intake Total 1130 / 1130 Output Total 225 / 225 Balance -225 / 213 1130 / 1130 Laboratory Tests Past 24 Hrs 01/31/19 01/31/19 01/31/19 06:39 06:39 06:39 WBC 18.0 H RBC 4.18 L Hgb 12.2 L Hct 36.0 L MCV 86.1 MCH 29.2 MCHC 33.9 RDW Std Deviation 38.1 RDW Coeff of Minoo 12.0 Plt Count 165 MPV 11.1 Immature Gran % (Auto) 0.800 Neut % (Auto) 70.7 H Lymph % (Auto) 12.6 L [place] % (Auto) 15.2 H Eos % (Auto) 0.6 Baso % (Auto) 0.1 Absolute Neuts (auto) 12.7 H Absolute Lymphs (auto) 2.27 Nucleated RBC % 0 Differential Comment Diff Path Review May foll Platelet Estimate ADEQUATE RBC Morphology NORM C+C Sodium 134 L Potassium 3.7 Chloride 98 Carbon Dioxide 28.0 Anion Gap 8 BUN 17 Creatinine 0.84 Estim Creat Clear Calc 100.97 Est GFR (MDRD) Af Amer 116 Est GFR (MDRD) Non-Af 96 BUN/Creatinine Ratio 20.3 H Glucose 262 H Hemoglobin A1c 8.1 H Calcium 8.4 L Phosphorus 2.1 L Magnesium 1.7 Total Bilirubin 1.50 H AST 218 H ALT 119 H Alkaline Phosphatase 321 H Total Protein 6.8 Albumin 2.2 L Globulin 4.6 H Albumin/Globulin Ratio 0.5 L TSH 0.15 L 02/01/19 02/01/19 05:54 05:54 WBC 21.9 H RBC 4.65 Hgb 13.5 Hct 40.7 MCV 87.5 MCH 29.0 MCHC 33.2 RDW Std Deviation 39.2 RDW Coeff of Mino[place] 12.2 Plt Count 223 MPV 10.0 Immature Gran % (Auto) 0.700 Neut % (Auto) 74.9 H Lymph % (Auto) 13.1 L [place] % (Auto) 10.2 H Eos % (Auto) 0.9 Baso % (Auto) 0.2 Absolute Neuts (auto) 16.4 H Absolute Lymphs (auto) 2.88 Nucleated RBC % 0 Differential Comment SCANNED Diff Path Review May foll Platelet Estimate RBC Morphology Sodium 134 L Potassium 3.9 Chloride 98 Carbon Dioxide 28.0 Anion Gap 8 BUN 26 H Creatinine 1.21 Estim Creat Clear Calc 70.09 Est GFR (MDRD) Af Amer 76 Est GFR (MDRD) Non-Af 63 BUN/Creatinine Ratio 21.5 H Glucose 258 H Hemoglobin A1c Calcium 8.7 Phosphorus Magnesium Total Bilirubin AST ALT Alkaline Phosphatase Total Protein Albumin Globulin Albumin/Globulin Ratio TSH POC Glucose 02/01/19 01/31/19 01/31/19 06:35 21:36 18:31 POC Glucose 257 H 356 H 235 H 01/31/19 12:00 POC Glucose 279 H Medical Necessity - Tobacco Use Smoking Status: Former smoker Assessment/Plan All Active Problems (Last Reviewed 01/20/19 @ 09:26 by Evelyn Bedolla) Pancreatic mass (Acute) Encounter for education (Acute) Fever (Acute) Severe sepsis (Acute) Pancreatic cancer (Acute) Pancreatic cancer metastasized to liver (Acute) 73-year-old male with metastatic pancreatic cancer, fevers, nausea vomiting, leukocytosis, status post port placement 01/29/2019 1. Leukocytosis/fevers patient did have a leukocytosis of 15 as well as a fever last [place] prior to port placement. Questions as to his metastatic disease. Await oncology consult. 2. Port, blood cultures pending, currently port does not appear to be infected. Holly Ernandez M.D. Pager: [phone] [facility] [address] [place] [address], [address] [place] [address] Office: [phone]
--- NOTE | 2019-02-01 08:56 | PN_ITS ---
Patient Problems: Active and Suspected Problems (Last Reviewed 01/20/19 @ 09:26 by Evelyn Bedolla) Fever (Acute) Severe sepsis (Acute) Subjective: Feels little bit better today, there is continued to have on and off fevers. Does not have the greatest diet in the world and states that food does not taste normal to him. Vitals/I&O's: Vital Signs Temp Pulse Resp BP Pulse Ox 102.1 F H 84 18 157/87 H 96 02/01/19 06:45 02/01/19 06:30 02/01/19 03:19 02/01/19 03:19 02/01/19 03:19 Oxygen Flow Rate (L/min) 2 Oxygen Delivery Method Room Air Weight: 195 lb 1.745 oz Body Mass Index (BMI) 21.9 Intake and Output for Last 24 Hours 01/30/19 01/31/19 02/01/19 23:59 23:59 23:59 Intake Total 1130 / 1130 Output Total 225 / 225 Balance -225 / 213 1130 / 1130 General: Alert, Oriented x3, Cooperative, No apparent distress HEENT: Atraumatic, PERRLA, EOMI, Normocephalic Oral: Moist Mucosa Neck: Supple, No JVD Lungs: Clear to auscultation, Normal air movement, No rhonchi, No wheeze, No rales, Diminished Cardiovascular: Regular rate, Regular Rhythm, Normal S1, Normal S2, No murmurs Abdomen: Soft, Non-Distended, No Hepato-splenomegaly, Tender - Epigastric Extremities: No edema, Capillary Refill Less than 3 Seconds Skin: No rashes, No breakdown Neurological: Neuro grossly intact, Sensory exam intact to light touch and pain Psych/Mental Status: Normal Affect, Appropriate Laboratory Results 01/31/19 12:00: POC Glucose 279 H 01/31/19 18:31: POC Glucose 235 H 01/31/19 21:36: POC Glucose 356 H 02/01/19 05:54: WBC 21.9 H, RBC 4.65, Hgb 13.5, Hct 40.7, MCV 87.5, MCH 29.0, MCHC 33.2, RDW Std Deviation 39.2, RDW Coeff of Minoo 12.2, Plt Count 223, MPV 10.0, Immature Gran % (Auto) 0.700, Neut % (Auto) 74.9 H, Lymph % (Auto) 13.1 L, [place] % (Auto) 10.2 H, Eos % (Auto) 0.9, Baso % (Auto) 0.2, Absolute Neuts (auto) 16.4 H, Absolute Lymphs (auto) 2.88, Nucleated RBC % 0, Differential Comment SCANNED, Diff Path Review October02/01/19 05:54: Sodium 134 L, Potassium 3.9, Chloride 98, Carbon Dioxide 28.0, Anion Gap 8, BUN 26 H, Creatinine 1.21, Estim Creat Clear Calc 70.09, Est GFR (MDRD) Af Amer 76, Est GFR (MDRD) Non-Af 63, BUN/Creatinine Ratio 21.5 H, Glucose 258 H, Calcium 8.7 02/01/19 06:35: POC Glucose 257 H Current Medications Enoxaparin Sodium (Lovenox) 40 mg SC DAILY@1000 [facility] Last Admin: 01/31/19 01:21 Dose: 40 mg Documented by: Fluticasone Propionate (Flonase Nasal [place]) 2 spray NASAL DAILY PRN PRN PRN Reason: ALLERGIES Hydralazine HCl (Apresoline) 25 mg PO TID [facility] Last Admin: 02/01/19 06:30 Dose: 25 mg Documented by: Hydralazine HCl (Apresoline Iv) 10 mg IV Q4H PRN PRN PRN Reason: SBP>180 mmhg Last Admin: 01/31/19 18:42 Dose: 10 mg Documented by: Hydromorphone HCl (Dilaudid Inj) 0.5 mg IV Q4H PRN PRN PRN Reason: Severe pain (7-10/10) Last Admin: 01/31/19 19:04 Dose: 0.5 mg Documented by: Sodium Chloride () 250 mls @ 15 mls/hr IV .[id number] PRN PRN Reason: SALINE FLUSH Piperacillin Sod/Tazobactam (Sod 3.375 gm/ Sodium Chloride) 50 mls @ 12.5 mls/hr IV Q8 [facility] Last Admin: 02/01/19 06:29 Dose: 12.5 mls/hr Documented by: Insulin Human Lispro (Humalog Kwikpen (Bkc)) 0 unit SC ACHS [facility]; Protocol Last Admin: 02/01/19 06:36 Dose: 3 u Documented by: Ketorolac Tromethamine (Toradol) 30 mg IV Q6H PRN PRN Stop: 02/05/19 12:01 Last Admin: 02/01/19 06:41 Dose: 30 mg Documented by: Multivitamins/Minerals (Multivitamin With Minerals) 1 tablet PO DAILY@0800 [facility] Last Admin: 01/31/19 09:09 Dose: Not Given Documented by: Ondansetron HCl (Zofran) 8 mg IV Q8H PRN PRN PRN Reason: NAUSEA/VOMITING Last Admin: 01/31/19 18:25 Dose: 8 mg Documented by: Oxycodone HCl (Oxyir) 5 - 10 mg PO Q6H PRN PRN PRN Reason: PAIN Last Admin: 02/01/19 03:22 Dose: 5 mg Documented by: Promethazine HCl (Phenergan) 12.5 mg IV Q6H PRN PRN PRN Reason: Breakthrough nausea/vomiting Last Admin: 01/31/19 04:45 Dose: 12.5 mg Documented by: Psyllium Hydrophilic Mucilloid (Metamucil) 1 packet PO DAILY PRN PRN PRN Reason: Constipation Senna/Docusate Sodium (Senokot-S, Shanta-Colace) 2 tablet PO BID PRN PRN PRN Reason: Constipation Sodium Chloride () 10 - 40 ml IV UD PRN PRN Reason: SALINE FLUSH Last Admin: 02/01/19 06:41 Dose: 10 ml Documented by: Medical Necessity - Tobacco Use Smoking Status: Former smoker Assessment/Plan All Active Problems (Last Reviewed 01/20/19 @ 09:26 by Evelyn Bedolla) Pancreatic mass (Acute) Encounter for education (Acute) Fever (Acute) Severe sepsis (Acute) Pancreatic cancer (Acute) Pancreatic cancer metastasized to liver (Acute) 1. Sepsis of unknown source -He has been having intermittent fevers over the last several weeks -Eyes any shortness of breath, or dysuria though he does state that he has had an increased urinary frequency since Friday. -Cultures and urine cultures are pending, will continue with Zosyn -No signs of cellulitis or pneumonia on chest x-ray -His fevers could be secondary to his metastatic cancer, though his white count is continued to climb -Appreciate surgical recommendation 2. Metastatic pancreatic cancer with diffuse liver mets/elevated LFTs/moderate protein calorie malnutrition -CT of the abdomen and pelvis showed worsening of liver mets with a stable pancreatic mass -We will consult oncology -Encourage p.o. intake, will consult nutrition. Albumin was 2.2 3. DM 2 -Could be secondary to his pancreatic mass -Recent A1c of 8.1 -We will start him on long-acting insulin as well as sliding scale coverage 4. Hypernatremia and hypophosphatemia -Resolved likely secondary to dehydration 5. HTN -Blood pressures have been stable -Continue with his home blood pressure medications DVT: Lovenox Code Visit Inpatient E&M: 35152 Subs Hosp L2
[2019-02-01] MEDS: Multivitamins,Ther W-Minerals Tablet 1 TABLET PO (08:58)
[2019-02-01] MEDS: Enoxaparin 40 MG/0.4 ML Syringe SC (08:58)
[2019-02-01 11:15] LABS: Pathologist Review Reviewed
[2019-02-01 11:25] LABS: Pathologist Review Reviewed
[2019-02-01 11:28] LABS: Pathologist Review Reviewed
[2019-02-01 11:31] LABS: Bedside Glucose 278 mg/dL (70-110)
--- NOTE | 2019-02-01 12:14 | CASEMGMT ---
RN CM Assessment: Presentation: Fever, Sepsis. hx of pancreatic cancer with mets to liver. Intro role of CM and purpose of RN CM assessment to patient and his . pt is awake, alert and able to participate in assessment. Demographics, PCP and Pharmacy verified. assists pt if needed, however states he has been independent. PCP: Dr. Kelly Specialists: Dr. Short, oncology [place] [facility] [facility] [place]: [facility] Prescription Benefit: yes LNOK: Brissa Torres Living Arrangements: lives independently with in one story home. No care needs at this time. Transportation: Drives, or can drive DME: Not using ambulatory DME but has walker and cane at home. inquired re: shower chair. Is aware this is not covered under insurance and requested information on [employer]. given # and updated that RN CM called and they had a shower bench available, however it was low to the ground per [employer] staff Maddison. Pt is 6'7 and states she will check [employer] and [employer]. HHC: none Patient DC goals: Home DC PLAN: Home with family support. Joe OMALLEY RN ACM
--- NOTE | 2019-02-01 14:36 | CHAPLAIN ---
Type of Pastoral Visit _x__ Initial Visit ___ Follow-up Visit ___ On-call Visit ___ General Patient Visit ___ Spiritual Assessment ___ Family Conference ___ Bereavement ___ Rapid Response ___ Code Blue ___ Other (describe below) Pastoral Care Referral From _x__ Patient ___ Family ___ Nurse ___ Physician ___ [place] ___ St[employer] Finisher ___ Other (describe below) Sacrament/Intervention _x__ Active listening ___ Anointing ___ Anglican ___ Bereavement ___ Communion _x__ Tangela exploration ___ _x__ Life review _x__ Prayer ___ Reconciliation ___ Sacrament of Sick _x__ Supportive presence ___ Wedding ___ Other (describe below) Pastoral Comments 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
--- NOTE | 2019-02-01 16:08 | ONC.CON.INP2 ---
- Problem List (1) Pancreatic cancer Status: Acute Qualifiers: Pancreatic malignancy location: tail of pancreas Qualified Code(s): C25.2 - Malignant neoplasm of tail of pancreas (2) Pancreatic cancer metastasized to liver Status: Acute (3) Fever Status: Acute Consult Referring Physician: Hospitalist Consult Results: Pancreatic cancer with liver metastases Subjective Date of Service:: 02/01/19 Chief Complaint: Fever History of Present Illness: 73-year-old gentleman admitted with fever. Recently diagnosed with metastatic pancreas cancer to liver presenting December 2018 was right upper quadrant pain and CT imaging showing pancreatic mass and multiple liver lesions. A guided biopsy confirmed metastatic adenocarcinoma. Patient has had intermittent fevers over the course of the past 2 to 3 weeks, no localizing symptoms other than right upper quadrant pain. Past Medical History: Chronic Problems (Last Reviewed 01/20/19 @ 09:26 by Evelyn Bedolla) Bronchial asthma (Chronic) HTN (hypertension) (Chronic) Past Medical/Surgical History: Past Medical History - Most Recent Inpatient Visit Past Medical History Start: 01/31/19 00:47 Text: Status: Complete Freq: ONCE Protocol: Document 01/31/19 01:07 CDS (Rec: 01/31/19 01:10 CDS [id number]) BMI Required to complete PMH What is Patient's BMI 22.0 Past Medical History Unable History Recalled No Query Text:Pt Unable/Family Not Present Neurologic Medical History Hx Stroke/TIA No Hx Dementia/Alzheimer's No Hx Parkinson's Disease No Hx Seizures No Hx Multiple Sclerosis No Hx Migraines No Cardiac Medical History VTE Present on Admission No Hx Hypertension Yes: controlled with med Hx Chest Pain/Angina No Hx Heart Attack No Hx Cardiac Surgery/Stents/Etc. No Hx Irregular Heartbeat and/or Afib No Hx Anticoagulant Therapy No Query Text:(Coumadin, Aspirin, Plavix, Xarelto, etc.) Hx Pain in Legs when Walking/Leg Cramps No Respiratory Medical History Hx COPD No Hx Emphysema No Hx Smoking Yes Smoking Status Former smoker Hx Tobacco Use in last 12 months No Hx Sleep Apnea No CPAP No BIPAP No Do you snore loudly (louder than talking Yes or can be heard through closed doors)? Do you often feel tired/ fatigued/ Yes sleepy during daytime? Has anyone observed you stop breathing No during sleep? STOP Results Positive GI Medical History Hx Ulcer No Hx Hepatitis No: WAS TESTED 2012 ?? Hx Cirrhosis No Hx GI Bleed No Hx Unplanned Weight Loss No Genitourinary Medical History Indwelling Catheter in Place on Arrival/ No Admission Hx Renal Disease No Hx Dialysis No Musculoskeletal History Hx Arthritis Yes Hx Rheumatoid Arthritis No Endocrine Medical History Hx Diabetes No Hx Thyroid Disease No Hematologic Medical History Hx of Blood Transfusion No Hx of Transfusion in last 3 Months No Ever experience any problems with No transfusion(s)? Hx of Preganancy in last 3 Months N/A Nurse Filling Out Transfusion & CSNYDER Questions: Date: 01/31/19 Time: 01:09 Psycho/Social Medical History Hx Depression Yes: in past Hx Anxiety No Hx Alcohol Use Yes: occasional beer Hx Substance Use Yes: up until 42 Other Medical History Hx Blood Disorders No Hx Anemia No Hx Cancer Yes: pancreatic and liver/just recent dx Hx Drug Resistant Organism No Wound/Pressure Injury Present on Arrival No /Admission Query Text:If yes, chart assessment in Shift/Clinical Findings Central Line/PICC/VAD Present on Arrival Yes /Admission Antibiotics within last 7 days? No Risk for Readmission Number of Risk Factors 5 At Risk for Readmission Patient is At Risk For Readmission Patient is eligible for Call Back Y Past Medical History (Last Reviewed 01/20/19 @ 09:26 by Evelyn Bedolla) Elevated LFTs (Acute) Liver mass (Acute) Mass of pancreas (Acute) Meningitis (Acute) Past Surgical History (Last Reviewed 01/20/19 @ 09:26 by Evelyn Bedolla) History of hernia surgery (Acute) History of total right knee replacement (Acute) Maternal Family History: Family History (Last Reviewed 01/20/19 @ 09:26 by Evelyn Bedolla) Mother Diabetes Brother Diabetes Sister Heart disease Daughter Asthma Family History: No pertinent history - Social History Smoking Status: Former smoker Allergies/Adverse Reactions: Allergy/AdvReac Type Severity Reaction Status Date / Time Latex, Natural Rubber Allergy Intermediate Rash Verified 01/30/19 19:58 cat dander Allergy Shortness Verified 01/30/19 19:58 of breath hydrocodone bitartrate Allergy hallucinati Verified 01/30/19 19:58 [From Vicodin] ons steri strips Allergy Unknown knee Uncoded 01/30/19 19:58 opened up after knee surgery skin sensitivity Allergy Itching Uncoded 01/30/19 19:58 Review of Systems Constitutional:: Reports: Weakness, Fatigue, Fever, Weight loss, Appetite change. Denies: Sweats, Chills Cardiovascular:: Denies: Chest pain, Palpitations, Dyspnea on exertion, Orthopnea, PND, Shortness of breath Respiratory: Denies: Cough, Hemoptysis, Shortness of Breath, Wheezing Gastrointestinal:: Reports: Abdominal pain - Right upper quadrant, constant, relief with analgesics. Denies: Nausea, Vomiting, Diarrhea, Constipation, Hematochezia Genitourinary: Reports: Urinary frequency. Denies: Dysuria, Hematuria, Flank pain Musculoskeletal:: Denies: Back pain, Myalgia, Arthralgia Skin: Denies: Rash, Skin Changes, Wounds Neurological:: Reports: Headache - Intermittent. Denies: Dizziness, Visual changes, Tinnitus, Hearing loss Psychiatric: Denies: Anxiety, Depression, Homicidal Ideations, Suicidal Ideations Vital Signs Height 6 ft 7 in Weight: 88.5 kg Weight in Pounds 195.1 lbs Pulse Ox 96 Temperature 98.7 F Pulse Rate 88 Respiratory Rate 18 Blood Pressure 150/75 Blood Pressure Position Sitting - Physical Exam General: Alert, Oriented x3, No apparent distress, - - ECOG 1 HEENT: Atraumatic, PERRLA, EOMI, Normocephalic Oropharynx:: Dry mucosa Neck:: Supple, Trachea midline, - - Port okay. Negative for: JVD, bilateral Cardiac:: Regular rate, Regular rhythm, Normal S1, Normal S2. Negative for: Murmur Lungs: Clear to auscultation, Excusion symmetrical. Negative for: Rhonchi, Wheezes Abdomen:: Soft, Non-distended, Hepatomegaly, Tender - Tender hepatomegaly. Negative for: Hepatosplenomegaly Extremities:: Negative for: Cyanosis, Edema Neurological: Neuro grossly intact Skin:: Negative for: Lesions, Rash, Petechiae, Ecchymosis Psychiatric:: Appropriate affect, Euthymic Lymphatics:: Negative for: Cervical lymphadenopathy, Supraclavicular lymphadenopathy Laboratory Data: Microbiology 01/30/19 21:10 Urine Culture - Preliminary Urine, Clean Catch Culture exhibits no growth. Laboratory Tests 02/01/19 02/01/19 02/01/19 Range/Units 11:19 06:35 05:54 WBC (4.4-11.0) K/mm3 RBC (4.6-6.2) M/mm3 Hgb (13.0-16.5) g/dL Hct (40-54) % MCV (80-94) fL MCH (27.0-32.0) pg MCHC (32-36) g/dL RDW Std Deviation (35.1-43.9) fl RDW Coeff of [place]ino[place] (11.6-14.6) % Plt Count (150-450) K/mm3 MPV (6.2-12.0) fl Immature Gran % (Auto) (0.0-0.9) % Neut % (Auto) (47-70) % Lymph % (Auto) (19-41) % [place] % (Auto) (0-10) % Eos % (Auto) (0-5) % Baso % (Auto) (0-1) % Absolute Neuts (auto) (2.0-7.7) X10^3/uL Absolute Lymphs (auto) (0.83-4.51) X10^3/uL Nucleated RBC % (0-5) % Differential Comment Diff Path Review Sodium 134 L (136-145) mmol/L Potassium 3.9 (3.5-5.1) mmol/L Chloride 98 (98-107) mmol/L Carbon Dioxide 28.0 (21.0-32.0) mmol/L Anion Gap 8 (5-15) BUN 26 H (7-18) mg/dL Creatinine 1.21 (0.70-1.30) mg/dL Estim Creat Clear Calc 70.09 ml/min Est GFR (MDRD) Af Amer 76 (>60) mL/min Est GFR (MDRD) Non-Af 63 (>60) mL/min BUN/Creatinine Ratio 21.5 H (10-20) RATIO Glucose 258 H (74-106) mg/dL Calcium 8.7 (8.5-10.1) mg/dL POC Glucose 278 H 257 H (70-110) mg/dL 02/01/19 01/31/19 01/31/19 Range/Units 05:54 21:36 18:31 WBC 21.9 H (4.4-11.0) K/mm3 RBC 4.65 (4.6-6.2) M/mm3 Hgb 13.5 (13.0-16.5) g/dL Hct 40.7 (40-54) % MCV 87.5 (80-94) fL MCH 29.0 (27.0-32.0) pg MCHC 33.2 (32-36) g/dL RDW Std Deviation 39.2 (35.1-43.9) fl RDW Coeff of [place] 12.2 (11.6-14.6) % Plt Count 223 (150-450) K/mm3 MPV 10.0 (6.2-12.0) fl Immature Gran % (Auto) 0.700 (0.0-0.9) % Neut % (Auto) 74.9 H (47-70) % Lymph % (Auto) 13.1 L (19-41) % [place] % (Auto) 10.2 H (0-10) % Eos % (Auto) 0.9 (0-5) % Baso % (Auto) 0.2 (0-1) % Absolute Neuts (auto) 16.4 H (2.0-7.7) X10^3/uL Absolute Lymphs (auto) 2.88 (0.83-4.51) X10^3/uL Nucleated RBC % 0 (0-5) % Differential Comment SCANNED Diff Path Review Reviewed Sodium (136-145) mmol/L Potassium (3.5-5.1) mmol/L Chloride (98-107) mmol/L Carbon Dioxide (21.0-32.0) mmol/L Anion Gap (5-15) BUN (7-18) mg/dL Creatinine (0.70-1.30) mg/dL Estim Creat Clear Calc ml/min Est GFR (MDRD) Af Amer (>60) mL/min Est GFR (MDRD) Non-Af (>60) mL/min BUN/Creatinine Ratio (10-20) RATIO Glucose (74-106) mg/dL Calcium (8.5-10.1) mg/dL POC Glucose 356 H 235 H (70-110) mg/dL 01/31/19 01/30/19 Range/Units 06:39 20:20 WBC (4.4-11.0) K/mm3 RBC (4.6-6.2) M/mm3 Hgb (13.0-16.5) g/dL Hct (40-54) % MCV (80-94) fL MCH (27.0-32.0) pg MCHC (32-36) g/dL RDW Std Deviation (35.1-43.9) fl RDW Coeff of [place] (11.6-14.6) % Plt Count (150-450) K/mm3 MPV (6.2-12.0) fl Immature Gran % (Auto) (0.0-0.9) % Neut % (Auto) (47-70) % Lymph % (Auto) (19-41) % [place] % (Auto) (0-10) % Eos % (Auto) (0-5) % Baso % (Auto) (0-1) % Absolute Neuts (auto) (2.0-7.7) X10^3/uL Absolute Lymphs (auto) (0.83-4.51) X10^3/uL Nucleated RBC % (0-5) % Differential Comment Diff Path Review Reviewed Reviewed Sodium (136-145) mmol/L Potassium (3.5-5.1) mmol/L Chloride (98-107) mmol/L Carbon Dioxide (21.0-32.0) mmol/L Anion Gap (5-15) BUN (7-18) mg/dL Creatinine (0.70-1.30) mg/dL Estim Creat Clear Calc ml/min Est GFR (MDRD) Af Amer (>60) mL/min Est GFR (MDRD) Non-Af (>60) mL/min BUN/Creatinine Ratio (10-20) RATIO Glucose (74-106) mg/dL Calcium (8.5-10.1) mg/dL POC Glucose (70-110) mg/dL Microbiology urine negative for infection blood cultures Diagnostic Data: Diagnostic Data Chest X-Ray 01/30/19 20:24 IMPRESSION: Normal x-ray examination of the chest. Electronically Signed: Shaye Stark, at 20:45 EDT Tel , Service support , Abdomen/Pelvis CT 01/30/19 20:43 IMPRESSION: Probable worsening of liver metastases. No other definite changes. Stable mass in the tail of the pancreas. Moderate to marked diffuse fecal retention. Electronically Signed: Jose Ramon Menezes MD at 21:55 EDT , Service support , Assessment and Plan 73-year-old gentleman with metastatic stage IV pancreatic cancer to liver. Patient presents with fevers no other localizing symptoms or signs apart from right upper quadrant pain related to metastatic disease in the liver. Urine cultures negative and blood cultures negative to date. Once an infectious etiology for his fevers is ruled out, fever is likely secondary to cancer. Patient is tentatively scheduled to start systemic chemotherapy in the outpatient cancer center on Friday, February 03, 2019. For presumed tumor fevers may use NSAIDs [id number] and Tylenol for breakthrough. Patient was seen with his impression and plan discussed also discussed with hospitalist service. Primary Care Provider: Valentin Kelly MD Referring Provider: Sunday Allen MD
[2019-02-01 17:16] LABS: Bedside Glucose 313 mg/dL (70-110)
[2019-02-01 22:01] LABS: Bedside Glucose 287 mg/dL (70-110)
[2019-02-02] MEDS: oxyCODONE 5 MG Tablet PO ×2 (00:31→06:45)
[2019-02-02] MEDS: Ketorolac 30 MG/ML Syringe IV ×2 (02:25→09:05)
[2019-02-02] MEDS: 0.9% NaCl Peripheral Flush Adult/Peds IV ×2 (02:25→09:05)
[2019-02-02 02:28] VITALS: BP 149/81; PULSE 99; RESP 16; TEMP 38.9; O2SAT 94
[2019-02-02 04:07] VITALS: TEMP 37.1
[2019-02-02 05:39] VITALS: PULSE 72
[2019-02-02] MEDS: hydrALAZINE 25 MG Tablet PO (05:39)
[2019-02-02 05:51] LABS: Absolute Lymphocyte Count 1.91 X10^3/uL (0.83-4.51); Absolute Neutrophil Count 11.5 X10^3/uL (2.0-7.7); Basophil# 0.03 X10^3/uL; Basophil% 0.2 % (0-1); Eosinophil# 0.23 X10^3/uL; Eosinophils% 1.4 % (0-5); Hematocrit 34.1 % (40-54); Hemoglobin 11.2 g/dL (13.0-16.5); Lymphocyte # 1.91 X10^3/ul (4.0); Lymphocyte % 11.8 % (19-41); Mean Corp Hgb Conc 32.8 g/dL (32-36); Mean Corpuscular Hgb 28.4 pg (27.0-32.0); Mean Corpuscular Volume 86.5 fL (80-94); Monocyte# 2.49 X10^3/uL; Monocyte% 15.4 % (0-10); NRBC Flagged by Analyzer 0 % (0-5); Neutrophil # 11.46 X10^3/uL (2.7-7.7); Neutrophil % 70.6 % (47-70); POSITIVE DIFFERENTIAL YES; Platelet Count 178 K/mm3 (150-450); RBC Distribution Width CV 12.4 % (11.6-14.6); RBC Distribution Width SD 39.4 fl (35.1-43.9); Red Blood Count 3.94 M/mm3 (4.6-6.2); White Blood Count 16.2 K/mm3 (4.4-11.0)
[2019-02-02 05:57] LABS: Differential Indicated SCAN CRITERIA MET
[2019-02-02] MEDS: Insulin Lispro 100 UNIT/ML INSULN.PEN SC ×2 (06:45→13:07)
[2019-02-02 07:18] VITALS: O2SAT 94
--- NOTE | 2019-02-02 08:17 | DCINST_ITS ---
- Discharge Diagnoses Current Active Problems: Current Active and Chronic Problems (Last Reviewed 01/20/19 @ 09:26 by Evelyn Bedolla) Liver metastases (Acute) Fever (Acute) Severe sepsis (Acute) You will use the following diet at home:: Regular Your food should be the consistency of: Regular Your liquids should be the consistency of: Regular/Thin Discharge Activity: Return to Normal Activity Call your doctor if you observe: Shortness of breath, Dizziness, Fainting spells, Swelling in the ankles, Chest pain, Increased palpitations (irregular heartbeat) Additional Instructions: Follow-up with your PCP in 3-5 days to evaluate blood sugar. Based on your A1c you will need to start diabetes medication. Allergies/Adverse Reactions: Allergies Latex, Natural Rubber Allergy (Intermediate, Verified 01/30/19 19:58) Rash cat dander Allergy (Verified 01/30/19 19:58) Shortness of breath hydrocodone bitartrate [From Vicodin] Allergy (Verified 01/30/19 19:58) hallucinations HALLUCINATIONS steri strips Allergy (Unknown, Uncoded 01/30/19 19:58) knee opened up after knee surgery skin sensitivity Allergy (Uncoded 01/30/19 19:58) Itching skin sensitivity to perfumes change in laundry detergent, soaps, Medications to take at Discharge Lisinopril/Hydrochlorothiazide [Zestoretic 20/12.5 Tablet] 1 tab PO DAILY 02/22/14 Albuterol IH (ProAir) [Proair Hfa] 1 puff INHALATION DAILY PRN PRN 01/25/19 Fluticasone Propionate 2 spray NASAL DAILY PRN PRN 01/25/19 Multivit-Min/FA/Lycopen/Lutein [Centrum Silver Men Tablet] 1 ea PO DAILY 01/25 Oxycodone HCl/Acetaminophen [Percocet 5-325] 1 - 2 tab PO Q6H PRN PRN 2 Days #5 tab 01/29/19 Insulin Glargine [Lantus (BKC)] 10 units SUBCUT QHS #1 pen 02/02/19 The following prescriptions were given: Insulin Glargine [Lantus (BKC)] 10 units SUBCUT QHS #1 pen Transmission Status: Received by [facility] Orders to be completed after discharge: Glucometer Location: None Selected Primary Care Physician: Valentin Kelly Chi, MD [Primary Care Provider] - Please follow up with your Primary Care Physician in: 3-5 days Test Results: Test results from this visit will be discussed in further detail at your follow- up appointment, if applicable. Please Follow Up With: Oncology
--- NOTE | 2019-02-02 08:22 | PCM.DC.SUM ---
Discharge Date and Diagnosis - Problem List Patient Problems: Active and Suspected Problems (Last Reviewed 01/20/19 @ 09:26 by Evelyn Bedolla) Liver metastases (Acute) Fever (Acute) Severe sepsis (Acute) Date of Admission: 01/30/19 Date of Discharge: 02/02/19 - Primary Discharge Diagnosis Active and Suspected Problems (Last Reviewed 01/20/19 @ 09:26 by Evelyn Bedolla) Liver metastases (Acute) Fever (Acute) Severe sepsis (Acute) - Secondary Discharge Diagnosis Chronic Problems (Last Reviewed 01/20/19 @ 09:26 by Evelyn Bedolla) Bronchial asthma (Chronic) HTN (hypertension) (Chronic) Hospital Course and Treatment Imaging Results: CT Abd/Pelvis: IMPRESSION: Probable worsening of liver metastases. No other definite changes. Stable mass in the tail of the pancreas. Moderate to marked diffuse fecal retention. Consults: General Surgery Oncology Operations: None Procedures: None Summary of Care Provided: Per HPI: The patient is a 73 year old M with recent diagnosis of pancreatic cancer after biopsy done 01/27/2019 on port placed on 01/29/2019 came to ER with fever 102 Fahrenheit along with vomiting 3 times today mainly gastric content, decreased/loss of appetite and generalized weakness with confusion. Patient denies any change in bowel movement. No abdominal pain. Prior to that patient also lost about 20 pounds since June. In ED, temperature 101.1, tachycardia 108/min, blood pressure 177/84, respiratory 28/min. No hypoxia Labs in the ER shows leukocytosis 18,000 with left shift neutrophils 83% mono 14%. Sodium 129, chloride 93, bicarb 29, anion gap 7. BUN 19, creatinine 1.06. Glucose trend 31. LFTs are elevated. ALT AST 123/241 worse than 01/25. Total bili 1.3, direct 0.59. Alk phos 393. Albumin 2.7. UA negative of pyuria 0 WBC mainly glucosuria 1000, protein 30, ketones 15. Patient has increased frequency but denies burning micturition probably secondary to glucosuria. Patient is on prednisone 10 mg daily but does not have diabetes mellitus diagnosis. Hospital Course: 1. Sepsis with Sirs criteria with no source of infection/metastatic pancreatic cancer with diffuse liver mets/elevated LFTs/severe protein calorie [id number]-old male with a recent diagnosis of Ceasar pancreatic cancer who presents with 2 to 3 weeks of fever. He had a port placed and this was evaluated by general surgery who states that it was not infected, he has a normal urine culture and his blood cultures are preliminarily negative. He has no signs of cellulitis, and his waxing and waning of his temperatures indicate to me that if this is a tumor fever. He also has an elevated white blood cell count which in discussion with oncology, can happen from cancer as well. Will discontinue his antibiotics and discharge him home with outpatient follow-up with his primary care physician. On admission did have a CT scan of his abdomen pelvis which was negative for infection but did demonstrate worsening of his liver mets, and a stable pancreatic mass. Also he had an albumin of 2.2 indicating severe protein calorie malnutrition especially with his over 10% body weight loss. 2. Diabetes type 2-on admission his A1c was 8.1, this could secondary to his pancreatic mass, however he has been on a sliding scale insulin and needed over 10 units of coverage on January 31 therefore I will discharge him on Lantus 10 units nightly. I chose Lantus because he already has a difficulty eating and placing him on metformin with the potential for GI upset could disrupt his nutritional status even further. I also recommended that they check the blood sugars at least twice a day and take the numbers to his primary care physician so any adjustments could be made with either increasing the Lantus or adding mealtime insulin. 3. His other medical diagnoses were evaluated and his home medications were continued where appropriate Patient Problems: Active and Suspected Problems (Last Reviewed 01/20/19 @ 09:26 by Evelyn Bedolla) Liver metastases (Acute) Fever (Acute) Severe sepsis (Acute) Objective: General: Alert, Oriented x3, Cooperative, No apparent distress HEENT: Atraumatic, PERRLA, EOMI, Normocephalic Oral: Moist Mucosa Neck: Supple, No JVD Lungs: Clear to auscultation, Normal air movement, No rhonchi, No wheeze, No rales, Diminished Cardiovascular: Regular rate, Regular Rhythm, Normal S1, Normal S2, No murmurs Abdomen: Soft, Non-Distended, No Hepato-splenomegaly, Tender - Epigastric Extremities: No edema, Capillary Refill Less than 3 Seconds Skin: No rashes, No breakdown Neurological: Neuro grossly intact, Sensory exam intact to light touch and pain Psych/Mental Status: Normal Affect, Appropriate - Physical Exam Vital Signs Temp Pulse Resp BP Pulse Ox 98.7 F 72 16 149/81 H 94 02/02/19 04:07 02/02/19 05:39 02/02/19 02:28 02/02/19 02:28 02/02/19 07:18 Oxygen Flow Rate (L/min) 2 Oxygen Delivery Method Room Air Weight: 195 lb 1.745 oz Body Mass Index (BMI) 21.9 Intake and Output for Last 24 Hours 01/31/19 02/01/19 02/02/19 23:59 23:59 23:59 Intake Total 2030 656 / 656 Output Total 225 / 225 Balance -225 / 213 2030 656 / 656 Microbiology Past 72 Hours 01/30/19 21:10 Urine Culture - Final Urine, Clean Catch Culture exhibits no growth. 01/30/19 20:20 Blood Culture - Preliminary Blood Culture (Wb) - Anticubital Right No growth in 48 hours. 01/30/19 21:49 Blood Culture - Preliminary Blood Culture (Wb) - Left Forearm No growth in 48 hours. Laboratory Tests Past 24 Hrs 01/30/19 01/31/19 02/01/19 20:20 06:39 05:54 WBC RBC Hgb Hct MCV MCH MCHC RDW Std Deviation RDW Coeff of Minoo Plt Count MPV Immature Gran % (Auto) Neut % (Auto) Lymph % (Auto) [place] % (Auto) Eos % (Auto) Baso % (Auto) Absolute Neuts (auto) Absolute Lymphs (auto) Nucleated RBC % Differential Comment Diff Path Review Reviewed Reviewed Reviewed 02/02/19 04:55 WBC 16.2 H RBC 3.94 L Hgb 11.2 L Hct 34.1 L MCV 86.5 MCH 28.4 MCHC 32.8 RDW Std Deviation 39.4 RDW Coeff of [place] 12.4 Plt Count 178 MPV 11.0 Immature Gran % (Auto) 0.600 Neut % (Auto) 70.6 H Lymph % (Auto) 11.8 L [place] % (Auto) 15.4 H Eos % (Auto) 1.4 Baso % (Auto) 0.2 Absolute Neuts (auto) 11.5 H Absolute Lymphs (auto) 1.91 Nucleated RBC % 0 Differential Comment Diff Path Review May foll POC Glucose 02/01/19 02/01/19 02/01/19 21:51 16:59 11:19 POC Glucose 287 H 313 H 278 H Discharge Activity: Return to Normal Activity Call your doctor if you observe: Shortness of breath, Dizziness, Fainting spells, Swelling in the ankles, Chest pain, Increased palpitations (irregular heartbeat) Home Medications: Medications to take at Discharge Lisinopril/Hydrochlorothiazide [Zestoretic 20/12.5 Tablet] 1 tab PO DAILY 02/22/14 Albuterol IH (ProAir) [Proair Hfa] 1 puff INHALATION DAILY PRN PRN 01/25/19 Fluticasone Propionate 2 spray NASAL DAILY PRN PRN 01/25/19 Multivit-Min/FA/Lycopen/Lutein [Centrum Silver Men Tablet] 1 ea PO DAILY 01/25/19 Oxycodone HCl/Acetaminophen [Percocet 5-325] 1 - 2 tab PO Q6H PRN PRN 2 Days #5 tab 01/29/19 Insulin Glargine [Lantus (BKC)] 10 units SUBCUT QHS #1 pen 02/02/19 Following Prescrptions Were Given to Patient: Insulin Glargine [Lantus (BKC)] 10 units SUBCUT QHS #1 pen Transmission Status: Received by [facility] Other Amb Orders: Glucometer Location: None Selected Primary Care Physician: Valentin Kelly Chi, MD [Primary Care Provider] - Please follow up with your Primary Care Physician in: 3-5 days Please Follow Up With: Oncology Disposition: Home Minutes spent on discharge:: 35 Patient Condition:: Stable Medical Necessity - Tobacco Use Smoking Status: Former smoker Meaningful Use Info Meaningful Use Diagnoses (Choose all that apply): None applicable Code Visit Inpatient E&M: 87764 Disch Hosp
[2019-02-02] MEDS: Enoxaparin 40 MG/0.4 ML Syringe SC (09:05)
[2019-02-02] MEDS: Multivitamins,Ther W-Minerals Tablet 1 TABLET PO (09:05)
--- NOTE | 2019-02-02 09:06 | NURSING ---
spoke with Elena ALLAN regarding instructions/teaching r/t home glucose monitoring/insulin.
[2019-02-02 09:12] VITALS: BP 143/58; PULSE 89; RESP 18; TEMP 38.6; O2SAT 96
[2019-02-02 09:21] LABS: Bedside Glucose 289 mg/dL (70-110)
--- NOTE | 2019-02-02 12:16 | CASEMGMT ---
Blank prescription given to physician for a cane. Reanna SALDANA [employer]
[2019-02-02 13:37] LABS: Pathologist Review Reviewed
--- NOTE | 2019-02-03 13:32 | CASEMGMT ---
RN CHERI Discharge Follow-Up Phone Call. Lace: 13 Strata: 4 Discharge Date: 02/02/19 Adm Dx: Sepsis with liver mets, CA pancreas. Attempted discharge follow-up phone call. No answer. Message left for pt to return call to MS3 RN Serg ALONZO, if he has any questions/concerns about discharge instructions, follow-up appts, or medications. Phone number provided. Antony OMALLEY RN CM
== END 2019-02-02 13:40 | disposition home or self-care (01) | DRG 871 ==
LOC: ED 23:23 → MS3 01-31 00:09
PROVIDERS: Student in an Organized Health Care Education/Training Program; Admitting Provider Internal Medicine; Emergency Provider Emergency Medicine; Family Provider Family Medicine Geriatric Medicine; PCP Family Medicine Geriatric Medicine; Referring Provider Internal Medicine; Visit Provider Family Medicine
DX: A41.9 Sepsis, unspecified organism (principal); E43 Unspecified severe protein-calorie malnutrition; C25.2 Malignant neoplasm of tail of pancreas; C78.7 Secondary malignant neoplasm of liver and intrahepatic bile duct; E87.1 Hypo-osmolality and hyponatremia; R65.20 Severe sepsis without septic shock; I10 Essential (primary) hypertension; J45.909 Unspecified asthma, uncomplicated; Z68.21 Body mass index [BMI] 21.0-21.9, adult; E87.8 Other disorders of electrolyte and fluid balance, not elsewhere classified; E86.0 Dehydration; E11.65 Type 2 diabetes mellitus with hyperglycemia; E83.39 Other disorders of phosphorus metabolism; Z66 Do not resuscitate; D72.829 Elevated white blood cell count, unspecified; Z45.2 Encounter for adjustment and management of vascular access device; Z87.891 Personal history of nicotine dependence; Z79.899 Other long term (current) drug therapy; Z79.51 Long term (current) use of inhaled steroids; R89.7 Abnormal histological findings in specimens from other organs, systems and tissues; E78.00 Pure hypercholesterolemia, unspecified
CPT/HCPCS: 36415; 71045; 71046; 74176; 77001; 77012; 80048; 80053; 80076; 81001; 82962; 83036; 83605; 83690; 83735; 84100; 84443; 84484; 85025; 85610; 85730; 87040; 87086; 87641; 88172; 88307; 88313; 88341; 88342; 93005; 94760; 97161; 97165; 97802; 99156; 99157; 99285; J7030; J7040; J7120; A4216; J2405

== ENCOUNTER → 2019-02-03 15:26 | Outpatient (CLI) | payer MEDICARE, OTHER, SELFPAY ==
[2019-02-03 08:48] VITALS: BMI 24.0
--- NOTE | 2019-02-03 15:30 | CT_ITS ---
STUDY: CT BRAIN WITHOUT CONTRAST REASON FOR EXAM: Male, 73 years old. The liver. History of pancreatic carcinoma. RADIATION DOSAGE (If Supplied By Facility): CTDIvol = ( 44.99 ) mGy, DLP = ( 779.24 ) mGycm TECHNIQUE: Transaxial CT imaging of the brain was performed without administration of intravenous contrast material. Individualized dose optimization techniques were used for this CT. COMPARISON: No relevant priors. FINDINGS: Normal soft tissue structures. Normal calvarium. Normal size ventricles and extra-axial spaces for the patient's age. Normal white matter tracts of the cerebral hemispheres. Normal basal ganglia and thalami. Normal brainstem. Normal cerebellum. There is no intracranial hemorrhage. There are no findings of an acute ischemic infarction. Normal visualized paranasal sinuses. CT/Brain/Head without Contrast IMPRESSION: Normal unenhanced CT scan of the brain. Electronically Signed: Nacho Miles, at 15:46 EDT , Service support ,
== END ==
PROVIDERS: Family Provider Family Medicine Geriatric Medicine; PCP Family Medicine Geriatric Medicine; Referring Provider Family Medicine Geriatric Medicine; Visit Provider Family Medicine Geriatric Medicine
DX: F05 Delirium due to known physiological condition (principal); E16.2 Hypoglycemia, unspecified; C25.9 Malignant neoplasm of pancreas, unspecified
CPT/HCPCS: 36591; 70450; 80053; 83036; 83735; 85025; 96411; 96413; J0640; A4216; J2469; J3490; J9190; J9263

== ENCOUNTER 2019-02-17 10:47 | Outpatient (RCR) | payer MEDICARE, OTHER, SELFPAY ==
[2019-02-08 14:27] VITALS: BMI 22.8
== END 2019-02-27 23:59 ==
LOC: NS 10:47
PROVIDERS: Family Provider Family Medicine Geriatric Medicine; PCP Family Medicine Geriatric Medicine; Visit Provider Nurse Practitioner Family
DX: E11.9 Type 2 diabetes mellitus without complications (principal); C25.9 Malignant neoplasm of pancreas, unspecified; Z71.3 Dietary counseling and surveillance
CPT/HCPCS: 97802; 97803

== ENCOUNTER 2019-03-03 09:47 | Outpatient (RCR) | payer MEDICARE, OTHER, SELFPAY ==
[2019-02-26 14:57] VITALS: BMI 21.8
[2019-03-03 08:51] VITALS: BMI 22.4
== END 2019-03-29 23:59 ==
LOC: NS 09:47
PROVIDERS: Family Provider Family Medicine Geriatric Medicine; PCP Family Medicine Geriatric Medicine; Visit Provider Nurse Practitioner Family
DX: E11.9 Type 2 diabetes mellitus without complications (principal); C25.9 Malignant neoplasm of pancreas, unspecified; Z71.3 Dietary counseling and surveillance
CPT/HCPCS: 36591; 80053; 83735; 85025; 86301; 96367; 96372; 96411; 96413; 96415; 96416; 96417; 97803; J0640; J9206; A4216; J2469; J3490; J9190; J9263

== ENCOUNTER → 2019-03-10 | Outpatient (CLI) | payer MEDICARE, OTHER, SELFPAY ==
[2019-03-09 13:49] VITALS: BMI 22.4
[2019-03-10 12:55] LABS: Anion Gap 6 (5-15); BUN 24 mg/dL (7-18); BUN/Creat Ratio 27.5 RATIO (10-20); Calcium,Total 8.9 mg/dL (8.5-10.1); Chloride 103 mmol/L (98-107); Creatinine, Serum 0.87 mg/dL (0.70-1.30); EST Glomerular Filtration Rate 91 mL/min (>60); Est Glom Filt Rate - Afr Amer 111 mL/min (>60); Glucose 97 mg/dL (74-106); Potassium 3.8 mmol/L (3.5-5.1); Sodium Level 135 mmol/L (136-145)
== END | disposition home or self-care (01) ==
LOC: POLAB3 10:54
PROVIDERS: Family Provider Family Medicine Geriatric Medicine; PCP Family Medicine Geriatric Medicine; Visit Provider Family Medicine Geriatric Medicine
DX: I10 Essential (primary) hypertension (principal)
CPT/HCPCS: 36415; 80048

== ENCOUNTER → 2019-03-24 | Outpatient (CLI) | payer MEDICARE, OTHER, SELFPAY ==
[2019-03-17 08:43] VITALS: BMI 24.0
[2019-03-19 12:57] VITALS: BMI 22.3
--- NOTE | 2019-03-24 07:52 | CT_ITS ---
STUDY: CT ABDOMEN AND PELVIS WITH CONTRAST REASON FOR EXAM: Male, 73 years old. Pancreatic carcinoma follow-up. 4 cycles of chemotherapy. RADIATION DOSAGE (If Supplied By Facility): CTDIvol = ( 10.68 ) mGy, DLP = ( 831.87 ) mGycm TECHNIQUE: Transaxial images were obtained from the dome of the diaphragm to the symphysis pubis with oral contrast. IV/Oral Isovue 250 100CC was administered. Sagittal and coronal images were reconstructed. Individualized dose optimization techniques were used for this CT. COMPARISON: Comparison is made with prior study dated January 30, 2019. FINDINGS: The visualized lung bases are unremarkable. Coronary artery calcifications. Since prior study, the liver has decreased in size. Multiple hypodense nodules are seen throughout both lobes of the liver. No new lesions are seen. The lesions have become more cystic and have decreased in size as compared to prior study although prior study was performed without intravenous contrast administration. Normal gallbladder and extrahepatic biliary system. Normal spleen. The previously seen mass in the tail the pancreas is essentially unchanged. Normal bilateral adrenal glands. Normal right kidney. Normal left kidney. Normal visualized stomach. Normal small intestine. Normal colon. The appendix is visualized and appears normal. Normal abdominal aorta. Normal inferior vena cava. Normal retroperitoneum. Normal urinary bladder. There is a 6.3 cm x 9 cm lipomatous mass in the proximal portion of the medial muscle group of the left lower extremity. This is unchanged. There are diffuse degenerative changes of the visualized lumbar spine. Straightening of the normal lumbar lordosis. CT/Abdomen/Pelvis WITH Contrast IMPRESSION: The liver has decreased in size. The previously seen multiple hepatic nodules have become more cystic in nature and apparent decreased size. The mass in the tail of the pancreas appears to be unchanged. Stable appearance of the lipomatous mass in the region of the adductor compartment. Electronically Signed: Nacho Miles, at 13:05 EDT , Service support ,
--- NOTE | 2019-03-24 08:27 | NURSING ---
DR CALVERT'S NURSE CONTACTED FOR ORDER TO [facility].
[2019-03-24] MEDS: Alteplase 2 MG/2 ML Vial IV (09:04)
== END | disposition home or self-care (01) ==
LOC: CT 07:51
PROVIDERS: Family Provider Family Medicine Geriatric Medicine; PCP Family Medicine Geriatric Medicine; Referring Provider Internal Medicine Medical Oncology; Visit Provider Internal Medicine Medical Oncology
DX: C78.7 Secondary malignant neoplasm of liver and intrahepatic bile duct (principal); C25.9 Malignant neoplasm of pancreas, unspecified
CPT/HCPCS: 36593; 74177; J2997; J7120; Q9967; A4216

== ENCOUNTER → 2019-06-08 06:53 | Outpatient (CLI) | payer MEDICARE, OTHER, SELFPAY ==
[2019-05-28 10:14] VITALS: BMI 23.6
[2019-06-04 12:58] VITALS: BMI 24.0
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
== END ==
PROVIDERS: Family Provider Family Medicine Geriatric Medicine; PCP Family Medicine Geriatric Medicine; Referring Provider Internal Medicine Medical Oncology; Visit Provider Internal Medicine Medical Oncology
DX: C25.9 Malignant neoplasm of pancreas, unspecified (principal); C78.7 Secondary malignant neoplasm of liver and intrahepatic bile duct
CPT/HCPCS: 36591; 74177; Q9967; A4216

== ENCOUNTER 2019-06-13 22:36 | Emergency (ER) | payer MEDICARE, OTHER, SELFPAY ==
[2019-06-10 10:16] VITALS: BMI 23.3
[2019-06-13 22:37] VITALS: BP 147/72; PULSE 94; RESP 15; TEMP 36.7; O2SAT 98; BMI 23.6
--- NOTE | 2019-06-13 22:50 | RAD_ITS ---
HISTORY: Lower abdominal pain for 4 days. History of pancreatic cancer with liver metastasis. Of the patient's 30 previous radiological exams at this institution, the most recent study of significance for the abdominal x-rays is a CT scan of the abdomen and pelvis from June 08, 2019. Findings: Hyperdense material is present superimposed over the upper abdomen. From the CT scan this proves to be metal within the subcutaneous fat and muscles of the back. Dextroscoliosis persists. Degenerative disc disease persists. Bowel gas pattern is normal. The liver metastasis are not identified. The left hemidiaphragm is slightly elevated with some left basilar atelectasis. Bowel gas pattern is normal. No free air is perceived. No pneumatosis is identified. RAD/Abd Inc Decub and/or Erect IMPRESSION: No acute disease perceived at 0018 Reported and signed by: Que Mongtomery MD Electronically Signed: Que Montgomery MD at 0:17 EST Tel , Service support ,
--- NOTE | 2019-06-13 22:53 | ED.VISSUMM ---
- ER Visit Summary Date of Service: 06/13/19 Chief Complaint: Abdominal pain History of Present Illness: The patient is a 73 M history of diabetes, hypertension and within the last year diagnosed with pancreatic CA with liver mets. He is currently on chemotherapy. He is not a surgical candidate for resection. Patient states that his abdominal pain for the last 4 days. This patient is been continuous. He has had increased gas and bloating. He has had constipation but he did have a bowel movement this morning. He denies any dysuria or trouble urinating. He denies any fever or chills. He denies any nausea or vomiting. He did have a CAT scan approximately 5 days ago on 06/08/2019 which showed multiple liver metastases. However that time there is no signs of obstruction or other acute process. Physical Examination: Older male no acute distress. Vital signs are stable afebrile. He is accompanied by his significant other. H EENT exam unremarkable. Neck nontender. Lungs clear to auscultation bilaterally. Heart regular rhythm rate about 90 no murmur. Abdomen appears distended. There are no peritoneal signs. He is tender in epigastric and upper quadrants. Lower quadrants are nontender. There is no hernia or masses. He does have bowel sounds. Patient is moving all 4 extremities. They are neurovascular intact. There is no edema. Neurologically is awake and alert with no focal motor deficits. Test Results: White count 8. Hemoglobin of 14. Electrolytes are unremarkable with a gap of 4 and normal creatinine. Liver enzymes are mildly elevated they have been so in the past. Lipase is normal. KUB 3 views of the abdomen show increased stool and increased bowel gas. But no signs of obstruction. No dilated bowel. No air-fluid levels. Emergency Department Course and Treatment: Screening labs will be obtained along with a KUB. He just had a CAT scan as previously stated 5 days ago. If need be we can get more advanced imaging. Patient be treated with IV morphine and Zofran. Along with IV fluids. Patient is doing well on repeat exam at 2340. Abdomen is unchanged. He, I and his went over all of his test results. I explained to him I think most of his pain is from constipation increased bowel gas. There is no signs of obstruction or perforation. I gave him options on how to treat this with enema versus magnesium citrate here at home. He prefer to do this at home. They also has had running for some for pain. Treatment Plan: Magnesium citrate at home. Return if worse. Plenty of fluids, fruits, vegetables and fiber for constipation. [place] for pain. Disposition: Discharge Impression: Acute abdominal pain secondary to constipation and liver metastases History of pancreatic CA with liver mets on chemotherapy History of diabetes This note was generated with [employer] dictation software. It may contain incorrect words, spelling, and punctuation that were not noted in review of the chart prior to signing ED Disposition - Plan for ED Patient: Referrals: Valentin Kelly Chi, MD [Primary Care Provider] -
[2019-06-13] MEDS: morphine 8 MG/ML Syringe IV (23:00)
[2019-06-13] MEDS: 0.9% Normal Saline 1,000 ML 125 ML IV (23:01)
[2019-06-13] MEDS: Ondansetron 4 MG/2 ML Vial IV (23:01)
[2019-06-13 23:07] LABS: Absolute Lymphocyte Count 4.47 X10^3/uL (0.83-4.51); Absolute Neutrophil Count 2.8 X10^3/uL (2.0-7.7); Basophil# 0.02 X10^3/uL; Basophil% 0.2 % (0-1); Eosinophil# 0.07 X10^3/uL; Eosinophils% 0.8 % (0-5); Hematocrit 41.5 % (40-54); Hemoglobin 14.1 g/dL (13.0-16.5); Lymphocyte # 4.47 X10^3/ul (4.0); Lymphocyte % 51.4 % (19-41); Mean Corpuscular Hgb 31.7 pg (27.0-32.0); Mean Corpuscular Volume 93.3 fL (80-94); Mean Platelet Vol. 9.2 fl (6.2-12.0); NRBC Flagged by Analyzer 0 % (0-5); Neutrophil # 2.79 X10^3/uL (2.7-7.7); Neutrophil % 32.1 % (47-70); Platelet Count 182 K/mm3 (150-450); RBC Distribution Width CV 15.4 % (11.6-14.6); RBC Distribution Width SD 52.3 fl (35.1-43.9); Red Blood Count 4.45 M/mm3 (4.6-6.2); White Blood Count 8.7 K/mm3 (4.4-11.0)
[2019-06-13 23:32] LABS: AST(SGOT) 76 U/L (15-37); Alanine Aminotransfer ALT/SGPT 129 U/L (16-61); Albumin, Serum 2.7 g/dL (3.2-5.0); Alkaline Phosphatase 190 U/L (45-117); Anion Gap 4 (5-15); BUN 17 mg/dL (7-18); BUN/Creat Ratio 18.9 RATIO (10-20); Calcium,Total 9.1 mg/dL (8.5-10.1); Chloride 98 mmol/L (98-107); EST Glomerular Filtration Rate 89 mL/min (>60); Est Glom Filt Rate - Afr Amer 107 mL/min (>60); Estimated Creatinine Clearance 99.77 ml/min; Globulin 4.5 g/dL (2.2-4.2); Glucose 85 mg/dL (74-106); Lipase 89 U/L (73-393); Potassium 3.8 mmol/L (3.5-5.1); Protein, Total 7.2 g/dL (6.4-8.2); Sodium Level 134 mmol/L (136-145)
--- NOTE | 2019-06-13 23:45 | ED.DEP ---
ED Disposition - Plan for ED Patient: Disposition: Home or Assisted Living Instructions: CONSTIPATION (Adult) Prescriptions: Hydrocodone/Acetaminophen [[place] 5-325 Tablet] 1 ea PO Q4H PRN PRN 5 Days #20 tab PRN Reason: Pain Or Fever Prescription Printed Referrals: Valentin Kelly Chi, MD [Primary Care Provider] - As Needed Additional Instructions: Drink 1 entire bottle of magnesium citrate. Usually within 1 to 3 hours after that you have a large bowel movement. If not you drink the entire second bottle. You may get some cramping when you use magnesium citrate. Plenty of fluids, fruits, vegetables and fiber. Stool softener all should help with constipation. Return to the ER if you are feeling worse or have no significant improvement follow-up with your primary care physician or your oncologist. [place] for pain but realize that can cause worsening of the constipation.
[2019-06-14] MEDS: Magnesium Citrate 300 ML PO (00:04)
[2019-06-14 00:05] VITALS: BP 130/76; PULSE 72; RESP 16; O2SAT 100
== END 2019-06-14 00:05 | disposition home or self-care (01) ==
PROVIDERS: Emergency Provider Emergency Medicine; Family Provider Family Medicine Geriatric Medicine; PCP Family Medicine Geriatric Medicine
DX: K59.00 Constipation, unspecified (principal); C78.7 Secondary malignant neoplasm of liver and intrahepatic bile duct; C25.9 Malignant neoplasm of pancreas, unspecified; E11.9 Type 2 diabetes mellitus without complications; I10 Essential (primary) hypertension; Z79.4 Long term (current) use of insulin; Z79.899 Other long term (current) drug therapy
CPT/HCPCS: 74019; 80048; 80076; 83690; 85025; 96361; 96374; 96375; 99284; J7030; A4216; J2405

== ENCOUNTER 2019-06-14 15:47 | Inpatient (IN) | payer MEDICARE, OTHER, SELFPAY ==
[2019-06-13 22:37] VITALS: BMI 23.6
[2019-06-14 15:48] VITALS: BP 115/60; PULSE 95; RESP 16; TEMP 36.6; O2SAT 96; BMI 23.6
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
[2019-06-14] MEDS: Morphine 4 MG/ML Syringe IV ×2 (16:24→18:54)
[2019-06-14] MEDS: 0.9% Normal Saline 1,000 ML 1000 ML IV (16:24)
[2019-06-14] MEDS: Ondansetron 4 MG/2 ML Vial IV (16:24)
[2019-06-14 16:36] LABS: Absolute Lymphocyte Count 2.62 X10^3/uL (0.83-4.51); Basophil# 0.03 X10^3/uL; Basophil% 0.4 % (0-1); Eosinophil# 0.06 X10^3/uL; Eosinophils% 0.8 % (0-5); Hematocrit 42.3 % (40-54); Hemoglobin 14.1 g/dL (13.0-16.5); Lymphocyte # 2.62 X10^3/ul (4.0); Lymphocyte % 35.7 % (19-41); Mean Corp Hgb Conc 33.3 g/dL (32-36); Mean Corpuscular Hgb 31.3 pg (27.0-32.0); Mean Platelet Vol. 8.9 fl (6.2-12.0); Monocyte# 1.59 X10^3/uL; Monocyte% 21.7 % (0-10); NRBC Flagged by Analyzer 0 % (0-5); Neutrophil # 2.99 X10^3/uL (2.7-7.7); Neutrophil % 40.7 % (47-70); POSITIVE DIFFERENTIAL YES; Platelet Count 201 K/mm3 (150-450); RBC Distribution Width CV 15.2 % (11.6-14.6); White Blood Count 7.3 K/mm3 (4.4-11.0)
[2019-06-14 16:52] LABS: ALB/GLOB Ratio 0.6 RATIO (0.9-2.4); AST(SGOT) 80 U/L (15-37); Alanine Aminotransfer ALT/SGPT 120 U/L (16-61); Albumin, Serum 2.7 g/dL (3.2-5.0); Alkaline Phosphatase 183 U/L (45-117); Anion Gap 9 (5-15); BUN 14 mg/dL (7-18); BUN/Creat Ratio 15.5 RATIO (10-20); Calcium,Total 9.4 mg/dL (8.5-10.1); Chloride 98 mmol/L (98-107); EST Glomerular Filtration Rate 88 mL/min (>60); Est Glom Filt Rate - Afr Amer 106 mL/min (>60); Estimated Creatinine Clearance 99.77 ml/min; Globulin 4.6 g/dL (2.2-4.2); Glucose 75 mg/dL (74-106); Lipase 103 U/L (73-393); Protein, Total 7.3 g/dL (6.4-8.2); Sodium Level 134 mmol/L (136-145)
[2019-06-14 16:55] LABS: Differential Indicated SCAN CRITERIA MET
[2019-06-14 18:00] VITALS: BP 121/62; PULSE 97; RESP 16; O2SAT 97
[2019-06-14 18:30] LABS: Anisocytosis 1+; Differential Comment SCANNED; Platelet Estimate ADEQUATE (ADEQ); Reactive Lymphocyte 1+; Smudge Cells RARE
[2019-06-14 18:35] LABS: Color, Urine Amber (Yellow); Glucose, Dipstick Normal (Normal); Ketone-Dipstick Negative (Negative); Leukocyte Esterase-Dipstick 25 /ul (Negative); Nitrite-Dipstick Negative (Negative); Occult Blood-Urine Negative /ul (Negative); Protein-Dipstick Negative (Negative); Urine Bilirubin Dipstick Negative (Negative); Urine Clarity Clear (Clear); Urine Urobilinogen Normal (Normal)
[2019-06-14 18:41] LABS: Bacteria 1+ /hpf (None Seen); Hyaline Cast 0-5 SEEN /lpf (0-5); Mucous, Urine 1+ /hpf (<or=2+); Red Blood Cells-Urine 0-5 SEEN /hpf (0-5); Squamous Epithelial Cells - UA 0-5 SEEN /hpf (0-5); White Blood Cells 0-5 SEEN /hpf (0-5)
[2019-06-14 18:43] LABS: Lactic Acid 0.9 mmol/L (0.4-1.9)
[2019-06-14 20:00] VITALS: BP 122/82; PULSE 76; RESP 16; O2SAT 96
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
--- NOTE | 2019-06-14 20:12 | PCM.HP.STD ---
Problem List (1) Abdominal pain Status: Acute Qualifiers: Abdominal location: generalized Qualified Code(s): R10.84 - Generalized abdominal pain (2) Liver metastases Status: Chronic (3) Bronchial asthma Status: Chronic (4) HTN (hypertension) Status: Chronic (5) Pancreatic cancer metastasized to liver Status: Chronic History of Present Illness Date of Admission: 06/14/19 Chief Complaint: abdominal pain The patient is a 73 year old male patient with a past medical history of pancreatic cancer diagnosed this past December presents the emergency room with abdominal pain. The patient is undergone 8 cycles of chemotherapy for his pancreatic cancer and had initial good response in the area of the pancreas ,however, he now has metastatic disease in the liver and bone. The patient has diminished appetite, and severe pain that comes and goes mostly over the right upper quadrant of the abdomen that radiates over to the left side. CT scan shows progression of his metastatic disease since his recent scan of 6 days ago. He also has ascites. The case was reviewed by ER physician and surgeon and consensus was that there was no small bowel obstruction at this time and that the case was not surgical. Due to severe abdominal distention, pain, fluid seen on CT scan from the stomach the patient was agreeable to a trial of an NG tube to low intermittent suction overnight. The patient will be admitted to medical surgical floor for admission and oncology will be consulted for further management. Past Medical History Past Medical History (Chronic Problems): Chronic Problems (Last Reviewed 06/10/19 @ 10:16 by Evelyn Bedolla) Liver metastases (Chronic) Bronchial asthma (Chronic) HTN (hypertension) (Chronic) Pancreatic cancer (Chronic) Pancreatic cancer metastasized to liver (Chronic) Medical History: Medical History (Last Reviewed 06/10/19 @ 10:16 by Evelyn Bedolla) Elevated LFTs R94.5 during treatment for meningitis 2013 Liver mass R16.0 Mass of pancreas K86.89 Meningitis G03.9 1998 and 2013. Allergies Latex, Natural Rubber Allergy (Intermediate, Verified 06/14/19 15:48) Rash cat dander Allergy (Verified 06/14/19 15:48) Shortness of breath hydrocodone bitartrate [From Vicodin] Allergy (Verified 06/14/19 15:48) hallucinations HALLUCINATIONS steri strips Allergy (Unknown, Uncoded 06/14/19 15:48) knee opened up after knee surgery skin sensitivity Allergy (Uncoded 06/14/19 15:48) Itching skin sensitivity to perfumes change in laundry detergent, soaps, Home Medications: Ambulatory Orders Medication Instructions Recorded Lisinopril/Hydrochlorothiazide 1 tab PO DAILY 02/22/14 [Zestoretic 20/12.5 Tablet] Albuterol IH (ProAir) [Proair Hfa] 1 puff INHALATION DAILY PRN PRN 01/25/19 Fluticasone Propionate 2 spray NASAL DAILY PRN PRN 01/25/19 Multivit-Min/FA/Lycopen/Lutein 1 ea PO DAILY 01/25/19 [Centrum Silver Men Tablet] Insulin Lispro [Humalog] 10 unit SQ TIDCM PRN 02/08/19 Ondansetron [Zofran] 8 mg PO Q8H PRN PRN 10 Days #30 tab 02/08/19 Dexamethasone [Decadron] 4 mg PO DAILY@0800 #7 tab 05/21/19 Hydrocodone/Acetaminophen [[place] 1 ea PO Q4H PRN PRN 5 Days #20 tab 06/13/19 5-325 Tablet] Insulin Glargine [Lantus (BKC)] 30 units SUBCUT QHS 06/13/19 Surgical History: Surgical History (Last Reviewed 06/10/19 @ 10:16 by Evelyn Bedolla) History of hernia surgery Z98.890, Z87.19 History of total right knee replacement Z96.651 right Surgical History: total knee arthroplasty, - - Previous data be tibial plateau fracture repair 26 years ago Psychiatric History: No pertinent psych hx Smoking Status: Never smoker - *Family History Maternal Family History: Family History (Last Reviewed 06/10/19 @ 10:16 by Evelyn Bedolla) Mother Diabetes Brother Diabetes Sister Heart disease Daughter Asthma History Items: No pertinent history Review of Systems Constitutional: Reports: Fatigue. Denies: Chills, Fever, Weight Change HEENT: Denies: Head Aches, Sinus Congestion, Sinus Drainage Cardiovascular: Denies: Chest Pain, Palpitations Respiratory: Denies: Cough, Shortness of breath at rest, Sputum production Gastrointestinal: Reports: Abdominal Pain, Nausea. Denies: Vomiting Genitourinary: Denies: Dysuria Musculoskeletal: Denies: Joint Pain, Joint Tenderness Skin: Denies: Rash, Wounds Neurological: Denies: Numbness, Tingling, Focal weakness Psychiatric: Denies: Anxiety, Depression, Homicidal Ideations, Suicidal Ideations Hematologic/ Lymphatic: Denies: Easy Bruising, Easy Bleeding VTE Information - Inpt Only VTE Present on Admission: No VTE Mechan Device Prophylaxis: None VTE Pharm Prophylaxis ordered?: Yes Patient Problems: Active and Suspected Problems (Last Reviewed 06/10/19 @ 10:16 by Evelyn Bedolla) Abdominal pain (Acute) - Physical Exam Vitals/I&O's: Vital Signs Temp Pulse Resp BP Pulse Ox 98 F 97 16 121/62 H 97 06/14/19 15:48 06/14/19 18:00 06/14/19 18:00 06/14/19 18:00 06/14/19 18:00 Oxygen Delivery Method Room Air Weight: 210 lb Body Mass Index (BMI) 23.6 Intake and Output for Last 24 Hours 06/12/19 06/13/19 06/14/19 23:59 23:59 23:59 Intake Total 1000 / 1000 Balance 1000 / 1000 General: Alert, Oriented x3, Cooperative HEENT: Atraumatic, Normocephalic Neck: Supple Lungs: Clear to auscultation, Normal air movement Cardiovascular: Regular rate, Normal S1, Normal S2, No murmurs Abdomen: Hypoactive Bowel Sounds, Distended, Tender, No hernias noted Extremities: No edema Skin: No rashes Musculoskeletal: No Tenderness to Palpation of Joints or Extremities Neurological: Neuro grossly intact Psych/Mental Status: Normal Affect, Appropriate Laboratory Results 06/14/19 16:00: Urine Color Tiffany, Urine Clarity Clear, Urine pH 7.0, Ur Specific [place] 1.010, Urine Protein Negative, Urine Glucose (UA) Normal, Urine Ketones Negative, Urine Occult Blood Negative, Urine Nitrite Negative, Urine Bilirubin Negative, Urine Urobilinogen Normal, Ur Leukocyte Esterase 25 H, Urine RBC 0-5 SEEN, Urine WBC 0-5 SEEN, Ur Squamous Epith Cells 0-5 SEEN, Urine Bacteria 1+, Hyaline Casts 0-5 SEEN, Urine Mucus 1+ 06/14/19 16:20: WBC 7.3, RBC 4.50 L, Hgb 14.1, Hct 42.3, MCV 94.0, MCH 31.3, MCHC 33.3, RDW Std Deviation 52.0 H, RDW Coeff of [place] 15.2 H, Plt Count 201, MPV 8.9, Immature Gran % (Auto) 0.700, Neut % (Auto) 40.7 L, Lymph % (Auto) 35.7, Rooks % (Auto) 21.7 H, Eos % (Auto) 0.8, Baso % (Auto) 0.4, Absolute Neuts (auto) 3.0, Absolute Lymphs (auto) 2.62, Nucleated RBC % 0, Differential Comment SCANNED, Reactive Lymphocytes 1+, Smudge Cells RARE, Platelet Estimate ADEQUATE, Anisocytosis 1+ 06/14/19 16:20: Sodium 134 L, Potassium 4.0, Chloride 98, Carbon Dioxide 27.0, Anion Gap 9, BUN 14, Creatinine 0.90, Estim Creat Clear Calc 99.77, Est GFR (MDRD) Af Amer 106, Est GFR (MDRD) Non-Af 88, BUN/Creatinine Ratio 15.5, Glucose 75, Calcium 9.4, Total Bilirubin 0.90, AST 80 H, ALT 120 H, Alkaline Phosphatase 183 H, Total Protein 7.3, Albumin 2.7 L, Globulin 4.6 H, Albumin/Globulin Ratio 0.6 L, Lipase 103 06/14/19 16:20: Lactic Acid Cancelled 06/14/19 18:02: Lactic Acid 0.9 Assessment/Plan All Active Problems (Last Reviewed 06/10/19 @ 10:16 by Evelyn Bedolla) Hyperglycemia (Acute) Chemotherapy management, encounter for (Acute) Constipation (Acute) Chemotherapy management, encounter for (Acute) Abdominal pain (Acute) Encounter for education (Acute) Fever (Acute) Severe sepsis (Acute) Chronic Problems (Last Reviewed 06/10/19 @ 10:16 by Evelyn Bedolla) Liver metastases (Chronic) Bronchial asthma (Chronic) HTN (hypertension) (Chronic) Pancreatic cancer (Chronic) Pancreatic cancer metastasized to liver (Chronic) Plan 1. Abdominal pain secondary to pancreatic cancer with metastatic disease?admit to general medical floor, continue nasogastric tube to suction, KUB in the morning, Dilaudid 1 mg IV every 2 hours as needed pain, Zofran 4 mg IV every 8 hours as needed pain, CBC, CMP in the morning. Consult Dr. Short for ongoing management of his cancer. 2. Hypertension?continue home medications 3. Asthma?continue PRN inhaler as needed 4. DVT prophylaxis?low molecular weight heparin Code Visit Inpatient E&M: 29083 Init Hosp L3
--- NOTE | 2019-06-14 20:12 | ED.VISSUMM ---
- ER Visit Summary Date of Service: 06/14/19 Chief Complaint: Abdominal pain History of Present Illness: The patient is a [address] Kelly and Dr. Short. He has a history of pancreatic cancer with metastases to the liver. He is last round of chemo was 12 days ago. He reports that he had abdominal pain that began 3 to 4 days ago and is gradually gotten worse. The sharp pain is 10 on 10 in severity. Is worsened by movement and relieved by remaining still. He denies any nausea or vomiting. His last bowel movement yesterday. He reports that this was a normal bowel movement. Typically he goes once to twice a day. He denies any dysuria. He denies any fever or chills. Reports he is passing flatus. Physical Examination: Vitals: Stable. Afebrile. General: Well-nourished and well-developed. Head: Normocephalic atraumatic. Neck: Supple, no lymphadenopathy. No JVD. Nontender. Cardiovascular: Regular rate and rhythm. No murmurs. Respiratory: No respiratory distress. Clear to auscultation bilaterally. Abdominal: Soft, moderate epigastric, right upper quadrant, and suprapubic tenderness to palpation with distention and hypoactive bowel sounds Back: Nontender. Extremities: Nontender, no edema. Skin: Normal color, no rash. Neurologic: Alert and oriented ?3. Cranial nerves II through XII are intact. Normal strength and sensation. Psych: Normal affect. Test Results: CBC shows segmented neutrophils of 41 and monocytes 22. Chem-7 shows a sodium 134. LFTs show an albumin of 2.7, globulin of 4.6, alk phos 183, ALT of 120, AST of 80. Lipase is normal. UA is negative. Clinical Impression(s) from Imaging Studies Abdomen/Pelvis CT 06/14/19 16:09 IMPRESSION: 1. Since 06/08/2019, unfavorable change. Increased volume of ascites (small to moderate volume). 2. Fluid-filled stomach, bowel and proximal colon suggests possibility of diarrheal disease/gastritis and enteritis. 3. Grossly similar hepatic metastasis. Mild jamaal hepatis adenopathy. 4. 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 5. Additional chronic changes, as above. Electronically Signed: Bobby Stanley MD (Brooks) at 17:25 EST , Service support , Emergency Department Course and Treatment: Patient was treated with morphine, Zofran, and Dilaudid IV. He continues to have significant amount of pain. He had 4% lidocaine aerosol and an NG was placed. He does feel more comfortable following this. Treatment Plan: Patient was discussed with Dr. Darnell Mcgee. He will be admitted to the hospital for further evaluation and treatment. Disposition: Admitted in improved condition. Impression: 1. Pancreatic cancer with metastases to liver/bone. 2. Ascites. This note was generated with [employer] dictation software. It may contain incorrect words, spelling, and punctuation that were not noted in review of the chart prior to signing ED Disposition - Plan for ED Patient: Referrals: Valentin Kelly Chi, MD [Primary Care Provider] -
[2019-06-14 20:44] VITALS: PULSE 91; RESP 18
[2019-06-14] MEDS: Lidocaine 4% 5 ML Ampul 2 ML INHALATION (20:44)
[2019-06-14 21:58] VITALS: BMI 23.6
[2019-06-14 22:00] VITALS: BP 112/79; BP 113/86; PULSE 91; RESP 18; TEMP 36.3; O2SAT 97
[2019-06-14] MEDS: 0.9% Normal Saline 1,000 ML 125 ML IV (22:11)
[2019-06-14] MEDS: HYDROmorphone 1 MG/ML Syringe IV (22:12)
[2019-06-14 22:41] VITALS: BMI 23.7
[2019-06-15] MEDS: 0.9% Saline Lock 10 ML Syringe IV ×2 (00:34→04:27)
[2019-06-15] MEDS: HYDROmorphone 1 MG/ML Syringe IV ×4 (00:35→22:18)
[2019-06-15 00:41] LABS: Bedside Glucose 87 mg/dL (70-110)
[2019-06-15 04:00] VITALS: BP 142/88; PULSE 98; RESP 18; TEMP 36.7; O2SAT 93
[2019-06-15] MEDS: 0.9% Normal Saline 1,000 ML 125 ML IV (05:39)
[2019-06-15 05:50] LABS: Bedside Glucose 79 mg/dL (70-110)
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
[2019-06-15 06:01] LABS: Absolute Lymphocyte Count 2.15 X10^3/uL (0.83-4.51); Absolute Neutrophil Count 2.9 X10^3/uL (2.0-7.7); Basophil# 0.02 X10^3/uL; Basophil% 0.3 % (0-1); Eosinophil# 0.06 X10^3/uL; Eosinophils% 0.9 % (0-5); Hematocrit 41.4 % (40-54); Hemoglobin 13.7 g/dL (13.0-16.5); Lymphocyte # 2.15 X10^3/ul (4.0); Lymphocyte % 32.3 % (19-41); Mean Corp Hgb Conc 33.1 g/dL (32-36); Mean Corpuscular Hgb 31.5 pg (27.0-32.0); Mean Corpuscular Volume 95.2 fL (80-94); Mean Platelet Vol. 9.5 fl (6.2-12.0); Monocyte# 1.53 X10^3/uL; NRBC Flagged by Analyzer 0 % (0-5); Neutrophil # 2.87 X10^3/uL (2.7-7.7); POSITIVE DIFFERENTIAL YES; Platelet Count 196 K/mm3 (150-450); RBC Distribution Width CV 15.4 % (11.6-14.6); RBC Distribution Width SD 53.1 fl (35.1-43.9); Red Blood Count 4.35 M/mm3 (4.6-6.2); White Blood Count 6.7 K/mm3 (4.4-11.0)
[2019-06-15 06:24] LABS: ALB/GLOB Ratio 0.6 RATIO (0.9-2.4); AST(SGOT) 76 U/L (15-37); Alanine Aminotransfer ALT/SGPT 112 U/L (16-61); Albumin, Serum 2.5 g/dL (3.2-5.0); Alkaline Phosphatase 168 U/L (45-117); Anion Gap 6 (5-15); BUN 15 mg/dL (7-18); Chloride 100 mmol/L (98-107); Creatinine, Serum 0.83 mg/dL (0.70-1.30); EST Glomerular Filtration Rate 96 mL/min (>60); Est Glom Filt Rate - Afr Amer 117 mL/min (>60); Estimated Creatinine Clearance 108.19 ml/min; Globulin 4.5 g/dL (2.2-4.2); Glucose 71 mg/dL (74-106); Potassium 4.1 mmol/L (3.5-5.1); Sodium Level 134 mmol/L (136-145)
[2019-06-15 06:29] LABS: Differential Indicated SCAN CRITERIA MET
[2019-06-15 09:00] VITALS: O2SAT 93
[2019-06-15] MEDS: Dextrose 5%/0.9% NaCl 1,000 ML 125 ML IV ×2 (09:04→17:09)
[2019-06-15] MEDS: Enoxaparin 40 MG/0.4 ML Syringe SC (09:09)
[2019-06-15 09:10] VITALS: BP 119/70; PULSE 105; RESP 18; TEMP 37; O2SAT 93
[2019-06-15 11:26] LABS: Bedside Glucose 104 mg/dL (70-110)
--- NOTE | 2019-06-15 12:22 | CASEMGMT ---
SW spoke with pt and notified her that there is not a copy of pt HCPOA nor LW on pt medical record and requested bring in if able. Pt agreeable. LEVON Yao
--- NOTE | 2019-06-15 13:07 | CHAPLAIN ---
Type of Pastoral Visit _x__ Initial Visit ___ Follow-up Visit ___ On-call Visit ___ General Patient Visit ___ Spiritual Assessment ___ Family Conference ___ Bereavement ___ Rapid Response ___ Code Blue ___ Other (describe below) Pastoral Care Referral From _x__ Patient ___ Family ___ Nurse ___ Physician ___ Facility Rehab Director ___ Swinging Cut Off Saw Operator ___ Other (describe below) Sacrament/Intervention _x__ Active listening ___ Anointing ___ Jewish ___ Bereavement ___ Communion _x__ Tangela exploration ___ ___ Life review _x__ Prayer ___ Reconciliation ___ Sacrament of Sick _x__ Supportive presence ___ Wedding ___ Other (describe below) Pastoral Comments
--- NOTE | 2019-06-15 13:15 | PN_ITS ---
Patient Problems: Active and Suspected Problems (Last Reviewed 06/10/19 @ 10:16 by Evelyn Bedolla) Abdominal pain (Acute) Subjective: Patient seen and examined. He was admitted with a complaint of abdominal pain,. He has a history of pancreatic cancer metastatic to the liver and bone. CT of the abdomen done showed fluid filled stomach, bowel and proximal colon suggesting possibility of diarrhea disease/gastritis and enteritis, with grossly similar hepatic metastasis and osteoblastic metastasis. He had an NG tube inserted and has been admitted and managed for intractable abdominal pain due to metastatic pancreatic cancer. Patient states he feels much better today. Abdominal pain has improved markedly since he had the NG tube placed. NG tube is draining bilious fluid. Review of signs otherwise negative. Labs and vitals reviewed. Vitals/I&O's: Vital Signs Temp Pulse Resp BP Pulse Ox 98.6 F 105 H 18 119/70 93 06/15/19 09:10 06/15/19 09:10 06/15/19 09:10 06/15/19 09:10 06/15/19 09:10 Oxygen Delivery Method Room Air Weight: 210 lb 1.608 oz Body Mass Index (BMI) 23.6 Intake and Output for Last 24 Hours 06/13/19 06/14/19 06/15/19 23:59 23:59 23:59 Intake Total 1000 / 1000 1372.91 / 1372.91 Output Total 650 / 650 Balance 1000 / 1000 722.91 / 722.91 General: Alert, Oriented x3, Cooperative HEENT: Atraumatic, PERRLA, EOMI, Normocephalic Oral: Moist Mucosa Neck: Supple, No JVD, Negative Carotid Bruits Lungs: Clear to auscultation, Normal air movement, No rhonchi, No wheeze, No rales Cardiovascular: Regular rate, Regular Rhythm, Normal S1, Normal S2, No murmurs Abdomen: Bowel Sounds Present, Non Tender, Distended, - - abdomen tympanitic to percussion Extremities: No edema, Capillary Refill Less than 3 Seconds Skin: No rashes, No breakdown Musculoskeletal: No Tenderness to Palpation of Joints or Extremities Lymphatic: No Cervical, Supraclavicular, or Inguinal Adenopathy Neurological: Cranial nerves II-XII grossly intact, Neuro grossly intact, Motor Exam 5/5 strength throughout Psych/Mental Status: Normal Affect, Appropriate, Alert and oriented to time, place, person, mood and affect Laboratory Results 06/14/19 16:00: Urine Color Tiffany, Urine Clarity Clear, Urine pH 7.0, Ur Specific [place] 1.010, Urine Protein Negative, Urine Glucose (UA) Normal, Urine Ketones Negative, Urine Occult Blood Negative, Urine Nitrite Negative, Urine Bilirubin Negative, Urine Urobilinogen Normal, Ur Leukocyte Esterase 25 H, Urine RBC 0-5 SEEN, Urine WBC 0-5 SEEN, Ur Squamous Epith Cells 0-5 SEEN, Urine Bacteria 1+, Hyaline Casts 0-5 SEEN, Urine Mucus 1+ 06/14/19 16:20: WBC 7.3, RBC 4.50 L, Hgb 14.1, Hct 42.3, MCV 94.0, MCH 31.3, MCHC 33.3, RDW Std Deviation 52.0 H, RDW Coeff of [place] 15.2 H, Plt Count 201, MPV 8.9, Immature Gran % (Auto) 0.700, Neut % (Auto) 40.7 L, Lymph % (Auto) 35.7, [place] % (Auto) 21.7 H, Eos % (Auto) 0.8, Baso % (Auto) 0.4, Absolute Neuts (auto) 3.0, Absolute Lymphs (auto) 2.62, Nucleated RBC % 0, Differential Comment SCANNED, Reactive Lymphocytes 1+, Smudge Cells RARE, Platelet Estimate ADEQUATE, Anisocytosis 1+ 06/14/19 16:20: Sodium 134 L, Potassium 4.0, Chloride 98, Carbon Dioxide 27.0, Anion Gap 9, BUN 14, Creatinine 0.90, Estim Creat Clear Calc 99.77, Est GFR (MDRD) Af Amer 106, Est GFR (MDRD) Non-Af 88, BUN/Creatinine Ratio 15.5, Glucose 75, Calcium 9.4, Total Bilirubin 0.90, AST 80 H, ALT 120 H, Alkaline Phosphatase 183 H, Total Protein 7.3, Albumin 2.7 L, Globulin 4.6 H, Albumin/Globulin Ratio 0.6 L, Lipase 103 06/14/19 16:20: Lactic Acid Cancelled 06/14/19 18:02: Lactic Acid 0.9 06/15/19 00:29: POC Glucose 87 06/15/19 05:15: WBC 6.7, RBC 4.35 L, Hgb 13.7, Hct 41.4, MCV 95.2 H, MCH 31.5, MCHC 33.1, RDW Std Deviation 53.1 H, RDW Coeff of [place] 15.4 H, Plt Count 196, MPV 9.5, Immature Gran % (Auto) 0.500, Neut % (Auto) 43.0 L, Lymph % (Auto) 32.3, [place] % (Auto) 23.0 H, Eos % (Auto) 0.9, Baso % (Auto) 0.3, Absolute Neuts (auto) 2.9, Absolute Lymphs (auto) 2.15, Nucleated RBC % 0 06/15/19 05:15: Sodium 134 L, Potassium 4.1, Chloride 100, Carbon Dioxide 28.0, Anion Gap 6, BUN 15, Creatinine 0.83, Estim Creat Clear Calc 108.19, Est GFR (MDRD) Af Amer 117, Est GFR (MDRD) Non-Af 96, BUN/Creatinine Ratio 18.0, Glucose 71 L, Calcium 9.0, Total Bilirubin 0.90, AST 76 H, ALT 112 H, Alkaline Phosphatase 168 H, Total Protein 7.0, Albumin 2.5 L, Globulin 4.5 H, Albumin/Globulin Ratio 0.6 L 06/15/19 05:45: POC Glucose 79 06/15/19 11:09: POC Glucose 104 Diagnostic Data Abdomen/Pelvis CT 06/14/19 16:09 IMPRESSION: 1. Since 06/08/2019, unfavorable change. Increased volume of ascites (small to moderate volume). 2. Fluid-filled stomach, bowel and proximal colon suggests possibility of diarrheal disease/gastritis and enteritis. 3. Grossly similar hepatic metastasis. Mild jamaal hepatis adenopathy. 4. 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 5. Additional chronic changes, as above. Electronically Signed: Bobby Stanley MD (Brooks) at 17:25 EST , Service support , KUB X-Ray 06/15/19 05:55 IMPRESSION: Stable examination. Electronically Signed: Nacho Miles, at 10:40 EST , Service support , Current Medications Dexamethasone (Decadron) 4 mg PO DAILY@0800 [facility] Dextrose (D50w Syringe) 0 gm IV X1 PRN; Protocol PRN Reason: Hypoglycemia Enoxaparin Sodium (Lovenox) 40 mg SC DAILY [facility] Last Admin: 06/15/19 09:09 Dose: 40 mg Documented by: Fluticasone Propionate (Flonase Nasal Plato) 2 spray NASAL DAILY PRN PRN PRN Reason: ALLERGIES Glucagon () 1 mg IM .X1 PRN PRN Reason: Hypoglycemia Hydrochlorothiazide () 12.5 mg PO DAILY [facility] Last Admin: 06/15/19 09:05 Dose: Not Given Documented by: Hydromorphone HCl (Dilaudid Inj) 1 mg IV Q2H PRN PRN PRN Reason: Pain Score 1-10/10 Last Admin: 06/15/19 09:04 Dose: 1 mg Documented by: Dextrose/Sodium Chloride (Dextrose 5%/0.9% Nacl) 1,000 mls @ 125 mls/hr IV .Q8H FLAVIO Last Admin: 06/15/19 09:04 Dose: 125 mls/hr Documented by: Insulin Glargine (Lantus (Bkc)) 15 units SC QHS [facility] Last Admin: 06/15/19 00:33 Dose: Not Given Documented by: Insulin Human Lispro (Humalog Kwikpen (Bk)) 0 unit SC Q6 [facility]; Protocol Last Admin: 06/15/19 11:10 Dose: Not Given Documented by: Lisinopril (Zestril) 20 mg PO DAILY [facility] Last Admin: 06/15/19 09:05 Dose: Not Given Documented by: Ondansetron HCl (Zofran) 4 mg IV Q8H PRN PRN PRN Reason: NAUSEA/VOMITING Sodium Chloride () 10 - 40 ml IV UD PRN PRN Reason: SALINE FLUSH Last Admin: 06/15/19 04:27 Dose: 10 ml Documented by: Medical Necessity - Tobacco Use Smoking Status: Never smoker Assessment/Plan All Active Problems (Last Reviewed 06/10/19 @ 10:16 by Evelyn Bedolla) Hyperglycemia (Acute) Chemotherapy management, encounter for (Acute) Constipation (Acute) Chemotherapy management, encounter for (Acute) Abdominal pain (Acute) Encounter for education (Acute) Fever (Acute) Severe sepsis (Acute) 1. Intractable abdominal pain due to metastatic pancreatic cancer * Patient states pain is much better now since NG tube is draining bilious fluid. * On IV Dilaudid for pain. Continue IV Zofran. * KUB this morning showed unremarkable bowel gas pattern and showed basically a stable examination. * Continue suction with NG tube. * IV Zofran as needed. * Oncology consulted-per discussion with oncology, there is a suspicion for typhlitis due to patient now having diarrhea and patient being chronically immunosuppressed. Recommendation is for patient to be started on broad- spectrum IV antibiotics. Patient started on IV Zosyn. * 2. Metastatic pancreatic cancer: Undergoing chemotherapy. Dr. Bedolla consulted. 3. Hypertension: Metoprolol hydrochlorothiazide. 3. Type 2 diabetes mellitus: * Lantus on hold. Insulin/. * Accu-Cheks every 6 as he is currently n.p.o. * He was hypoglycemic this morning. Fluids switched to D5 normal saline. * 5. History of asthma: on breathing treatments. DVT prophylaxis; lovenox. Code Visit Inpatient E&M: 62788 Subs Hosp L3
--- NOTE | 2019-06-15 13:21 | CASEMGMT ---
RN CM Assessment Introduced role of RN CM to patient and patient Brissa at bedside.? Patient is alert, oriented and able?to participate in RN CM Assessment. ?Care providers, pharmacy, and demographics verified. Presentation: Abd pain, diminished appetite. H/o Pancreatic CA-Dx December 2018, Had 8 cycles of chemo. Mets Dz to liver and bone. Admit Dx: Abd pain/Pancreatic Cancer Re-Admit: No Barriers/Issues: None PCP: Valentin Kelly Chi Specialists: OncJulita Short Preferred Pharmacy: [facility] Insurance: MCR A&B, AARP Rx Benefit:?Yes ?LNOK: Brissa Torres LW/HPOA: Yes both, aware not on file at [facility] and if brought in will place copy on file. HPOA- Brissa Torres Living Arrangements:? Lives with in a H, 2 steps to enter home ADL?s: Independent with ambulation and ADLs Transportation: Both patient and drive, denies transportation issues DME: [employer] HHC: None SNF: None Goal: Home and does not think will have any needs. Not currently on Palliative care and states would like to s/w BRUCE for additional information. BRUCE Quintanilla made aware. Denies any issues, concerns or questions with DC planning at this time. Aware CM remains available for any emerging needs. DC PLAN: Home with possible Palliative Care Referral. Porfirio Stewart RNCM
[2019-06-15 14:35] VITALS: BP 128/85; PULSE 103; RESP 18; TEMP 37.6; O2SAT 93
--- NOTE | 2019-06-15 14:54 | CASEMGMT ---
SW completed a Palliative care tool and patient qualifies for Palliative Care. RN CHERI also spoke with them about it briefly and they were interested in more information. SW spoke with patient and his about Palliative Care. They accepted pamphlet and would review it. Reanna SALDANA MSW
--- NOTE | 2019-06-15 16:50 | ONC.CONS.INP ---
Consult Referring Physician: Dr. Hai Mancilla Consult Results: Abdominal pain, Ileus. Subjective Date of Service:: 06/15/19 Chief Complaint: abdominal pain History of Present Illness: 73-year-old man with metastatic/stage IV pancreatic cancer, got cycle 8 of FOLFIRINOX on 06/02/2019. He has had a Partial response. He developed abdominal pain and went to the ER, was found to have abdominal distention. CT on 06/14/2019 showed distention of stomach small intestine and proximal colon suggestive of enteritis with increase ascites. He is now admitted, NG suction is in place and has had a few episodes of diarrhea. Past Medical History: Chronic Problems (Last Reviewed 06/10/19 @ 10:16 by Evelyn Bedolla) Liver metastases (Chronic) Bronchial asthma (Chronic) HTN (hypertension) (Chronic) Pancreatic cancer (Chronic) Pancreatic cancer metastasized to liver (Chronic) Past Medical/Surgical History: Past Medical History - Most Recent Inpatient Visit Past Medical History Start: 06/14/19 21:58 Text: Status: Complete Freq: ONCE Protocol: Document 06/14/19 22:41 [facility] (Rec: 06/14/19 22:46 [facility] [id number]) BMI Required to complete PMH What is Patient's BMI 23.7 Past Medical History Unable History Recalled No Query Text:Pt Unable/Family Not Present Neurologic Medical History Hx Stroke/TIA No Hx Dementia/Alzheimer's No Hx Parkinson's Disease No Hx Seizures No Hx Multiple Sclerosis No Hx Migraines No Cardiac Medical History VTE Present on Admission No Hx of Deep Vein Thrombosis/VTE/PE Yes: Leg 2014 Hx Hypertension Yes: controlled with med Hx Chest Pain/Angina No Hx Heart Attack No Hx Cardiac Surgery/Stents/Etc. No Hx Heart Failure No Hx Pacemaker/AICD No Hx Irregular Heartbeat and/or Afib No Hx Anticoagulant Therapy No Query Text:(Coumadin, Aspirin, Plavix, Xarelto, etc.) Hx Pain in Legs when Walking/Leg Cramps No Respiratory Medical History Hx COPD No Hx Emphysema No Hx Smoking Yes Smoking Status Never smoker Hx Tobacco Use in last 12 months No Hx Sleep Apnea No CPAP No BIPAP No Do you snore loudly (louder than talking Yes or can be heard through closed doors)? Do you often feel tired/ fatigued/ Yes sleepy during daytime? Has anyone observed you stop breathing Yes during sleep? STOP Results Positive GI Medical History Hx Ulcer No Hx Hepatitis No: WAS TESTED 2012 ?? Hx Cirrhosis No Hx GI Bleed No Hx Unplanned Weight Loss Yes Genitourinary Medical History Indwelling Catheter in Place on Arrival/ No Admission Hx Renal Disease No Hx Dialysis No Musculoskeletal History Hx Arthritis Yes Hx Rheumatoid Arthritis No Comments knee replacement Endocrine Medical History Hx Diabetes Yes Hx Thyroid Disease No Hematologic Medical History Hx of Blood Transfusion No Hx of Transfusion in last 3 Months No Ever experience any problems with No transfusion(s)? Hx of Preganancy in last 3 Months N/A Nurse Filling Out Transfusion & [id number] Questions: Date: 06/14/19 Time: 22:46 Psycho/Social Medical History Hx Depression Yes: in past Hx Anxiety No Hx Behavior Disorder No Hx Alcohol Use Yes: occasional beer Hx Substance Use Yes: up until 42 Other Medical History Hx Blood Disorders No Hx Anemia No Hx Cancer Yes: pancreatic and liver/just recent dx Hx Drug Resistant Organism No Wound/Pressure Injury Present on Arrival No /Admission Query Text:If yes, chart assessment in Shift/Clinical Findings Central Line/PICC/VAD Present on Arrival No /Admission Antibiotics within last 7 days? No Methicillin Resistant Staphylococcus aureus Screening Active MRSA No Risk for Readmission Number of Risk Factors 7 At Risk for Readmission Patient is At Risk For Readmission Patient is eligible for Call Back Y Past Medical History (Last Reviewed 06/10/19 @ 10:16 by Evelyn Bedolla) Elevated LFTs (Acute) Liver mass (Acute) Mass of pancreas (Acute) Meningitis (Acute) Past Surgical History (Last Reviewed 06/10/19 @ 10:16 by Evelyn Bedolla) History of hernia surgery (Acute) History of total right knee replacement (Acute) Maternal Family History: Family History (Last Reviewed 06/10/19 @ 10:16 by Evelyn Bedolla) Mother Diabetes Brother Diabetes Sister Heart disease Daughter Asthma Family History: No pertinent history - Social History Smoking Status: Never smoker Allergies/Adverse Reactions: Allergy/AdvReac Type Severity Reaction Status Date / Time Latex, Natural Rubber Allergy Intermediate Rash Verified 06/14/19 15:48 cat dander Allergy Shortness Verified 06/14/19 15:48 of breath hydrocodone bitartrate Allergy hallucinati Verified 06/14/19 15:48 [From Vicodin] ons steri strips Allergy Unknown knee Uncoded 06/14/19 15:48 opened up after knee surgery skin sensitivity Allergy Itching Uncoded 06/14/19 15:48 Review of Systems Constitutional:: Reports: Weakness, Fatigue Cardiovascular:: Denies: Chest pain, Palpitations, Dyspnea on exertion, Orthopnea, PND, Shortness of breath Respiratory: Denies: Cough, Hemoptysis, Shortness of Breath, Wheezing Gastrointestinal:: Reports: Abdominal pain, Diarrhea Genitourinary: Denies: Dysuria, Hematuria, 15, Flank pain Musculoskeletal:: Denies: Back pain, Myalgia, Arthralgia Skin: Denies: Rash, Skin Changes, Wounds Neurological:: Denies: Headache, Dizziness, Visual changes, Tinnitus, Hearing loss Psychiatric: Denies: Anxiety, Depression, Homicidal Ideations, Suicidal Ideations Vital Signs Height 6 ft 7 in Weight: 95.3 kg Weight in Pounds 210.1 lbs Pulse Ox 93 Temperature 99.6 F Pulse Rate 103 Respiratory Rate 18 Blood Pressure [2nd BP] 113/86 Blood Pressure 128/85 Blood Pressure Position [2nd Semi-Fowlers BP] Blood Pressure Position Sitting - Physical Exam General: Alert, Oriented x3, No apparent distress, - - NG tube in R nostril. HEENT: Atraumatic, PERRLA, EOMI, Normocephalic Oropharynx:: Dry mucosa Neck:: Supple, Trachea midline. Negative for: JVD, bilateral Cardiac:: Regular rate, Regular rhythm, Normal S1, Normal S2. Negative for: Murmur Lungs: Clear to auscultation, Excusion symmetrical. Negative for: Rhonchi, Wheezes Abdomen:: Distended Neurological: Neuro grossly intact Skin:: Negative for: Lesions, Rash, Petechiae, Ecchymosis Psychiatric:: Appropriate affect, Euthymic Lymphatics:: Negative for: Cervical lymphadenopathy, Supraclavicular lymphadenopathy, Axillary lymphadenopathy Laboratory Data: Laboratory Tests 06/15/19 06/15/19 06/15/19 Range/Units 11:09 05:45 05:15 WBC (4.4-11.0) K/mm3 RBC (4.6-6.2) M/mm3 Hgb (13.0-16.5) g/dL Hct (40-54) % MCV (80-94) fL MCH (27.0-32.0) pg MCHC (32-36) g/dL RDW Std Deviation (35.1-43.9) fl RDW Coeff of [place] (11.6-14.6) % Plt Count (150-450) K/mm3 MPV (6.2-12.0) fl Immature Gran % (Auto) (0.0-0.9) % Neut % (Auto) (47-70) % Lymph % (Auto) (19-41) % [place] % (Auto) (0-10) % Eos % (Auto) (0-5) % Baso % (Auto) (0-1) % Absolute Neuts (auto) (2.0-7.7) X10^3/uL Absolute Lymphs (auto) (0.83-4.51) X10^3/uL Nucleated RBC % (0-5) % Differential Comment Reactive Lymphocytes Smudge Cells Platelet Estimate (ADEQ) Anisocytosis Sodium 134 L (136-145) mmol/L Potassium 4.1 (3.5-5.1) mmol/L Chloride 100 (98-107) mmol/L Carbon Dioxide 28.0 (21.0-32.0) mmol/L Anion Gap 6 (5-15) BUN 15 (7-18) mg/dL Creatinine 0.83 (0.70-1.30) mg/dL Estim Creat Clear Calc 108.19 ml/min Est GFR (MDRD) Af Amer 117 (>60) mL/min Est GFR (MDRD) Non-Af 96 (>60) mL/min BUN/Creatinine Ratio 18.0 (10-20) RATIO Glucose 71 L (74-106) mg/dL Lactic Acid Calcium 9.0 (8.5-10.1) mg/dL Total Bilirubin 0.90 (0.20-1.00) mg/dL AST 76 H (15-37) U/L ALT 112 H (16-61) U/L Alkaline Phosphatase 168 H (45-117) U/L Total Protein 7.0 (6.4-8.2) g/dL Albumin 2.5 L (3.2-5.0) g/dL Globulin 4.5 H (2.2-4.2) g/dL Albumin/Globulin Ratio 0.6 L (0.9-2.4) RATIO Lipase (73-393) U/L Urine Color (Yellow) Urine Clarity (Clear) Urine pH (5.0 - 8.0) Ur Specific [place] (1.002-1.030) Urine Protein (Negative) mg/dl Urine Glucose (UA) (Normal) mg/dl Urine Ketones (Negative) mg/dl Urine Occult Blood (Negative) /ul Urine Nitrite (Negative) Urine Bilirubin (Negative) mg/dL Urine Urobilinogen (Normal) mg/dl Ur Leukocyte Esterase (Negative) /ul Urine RBC (0-5) /hpf Urine WBC (0-5) /hpf Ur Squamous Epith Cells (0-5) /hpf Urine Bacteria (None Seen) /hpf Hyaline Casts (0-5) /lpf Urine Mucus (<or=2+) /hpf POC Glucose 104 79 (70-110) mg/dL 06/15/19 06/15/19 06/14/19 Range/Units 05:15 00:29 18:02 WBC 6.7 (4.4-11.0) K/mm3 RBC 4.35 L (4.6-6.2) M/mm3 Hgb 13.7 (13.0-16.5) g/dL Hct 41.4 (40-54) % MCV 95.2 H (80-94) fL MCH 31.5 (27.0-32.0) pg MCHC 33.1 (32-36) g/dL RDW Std Deviation 53.1 H (35.1-43.9) fl RDW Coeff of [place] 15.4 H (11.6-14.6) % Plt Count 196 (150-450) K/mm3 MPV 9.5 (6.2-12.0) fl Immature Gran % (Auto) 0.500 (0.0-0.9) % Neut % (Auto) 43.0 L (47-70) % Lymph % (Auto) 32.3 (19-41) % [place] % (Auto) 23.0 H (0-10) % Eos % (Auto) 0.9 (0-5) % Baso % (Auto) 0.3 (0-1) % Absolute Neuts (auto) 2.9 (2.0-7.7) X10^3/uL Absolute Lymphs (auto) 2.15 (0.83-4.51) X10^3/uL Nucleated RBC % 0 (0-5) % Differential Comment Reactive Lymphocytes Smudge Cells Platelet Estimate (ADEQ) Anisocytosis Sodium (136-145) mmol/L Potassium (3.5-5.1) mmol/L Chloride (98-107) mmol/L Carbon Dioxide (21.0-32.0) mmol/L Anion Gap (5-15) BUN (7-18) mg/dL Creatinine (0.70-1.30) mg/dL Estim Creat Clear Calc ml/min Est GFR (MDRD) Af Amer (>60) mL/min Est GFR (MDRD) Non-Af (>60) mL/min BUN/Creatinine Ratio (10-20) RATIO Glucose (74-106) mg/dL Lactic Acid 0.9 Calcium (8.5-10.1) mg/dL Total Bilirubin (0.20-1.00) mg/dL AST (15-37) U/L ALT (16-61) U/L Alkaline Phosphatase (45-117) U/L Total Protein (6.4-8.2) g/dL Albumin (3.2-5.0) g/dL Globulin (2.2-4.2) g/dL Albumin/Globulin Ratio (0.9-2.4) RATIO Lipase (73-393) U/L Urine Color (Yellow) Urine Clarity (Clear) Urine pH (5.0 - 8.0) Ur Specific [place] (1.002-1.030) Urine Protein (Negative) mg/dl Urine Glucose (UA) (Normal) mg/dl Urine Ketones (Negative) mg/dl Urine Occult Blood (Negative) /ul Urine Nitrite (Negative) Urine Bilirubin (Negative) mg/dL Urine Urobilinogen (Normal) mg/dl Ur Leukocyte Esterase (Negative) /ul Urine RBC (0-5) /hpf Urine WBC (0-5) /hpf Ur Squamous Epith Cells (0-5) /hpf Urine Bacteria (None Seen) /hpf Hyaline Casts (0-5) /lpf Urine Mucus (<or=2+) /hpf POC Glucose 87 (70-110) mg/dL 06/14/19 06/14/19 06/14/19 Range/Units 16:20 16:20 16:20 WBC 7.3 (4.4-11.0) K/mm3 RBC 4.50 L (4.6-6.2) M/mm3 Hgb 14.1 (13.0-16.5) g/dL Hct 42.3 (40-54) % MCV 94.0 (80-94) fL MCH 31.3 (27.0-32.0) pg MCHC 33.3 (32-36) g/dL RDW Std Deviation 52.0 H (35.1-43.9) fl RDW Coeff of [place] 15.2 H (11.6-14.6) % Plt Count 201 (150-450) K/mm3 MPV 8.9 (6.2-12.0) fl Immature Gran % (Auto) 0.700 (0.0-0.9) % Neut % (Auto) 40.7 L (47-70) % Lymph % (Auto) 35.7 (19-41) % Carroll % (Auto) 21.7 H (0-10) % Eos % (Auto) 0.8 (0-5) % Baso % (Auto) 0.4 (0-1) % Absolute Neuts (auto) 3.0 (2.0-7.7) X10^3/uL Absolute Lymphs (auto) 2.62 (0.83-4.51) X10^3/uL Nucleated RBC % 0 (0-5) % Differential Comment SCANNED Reactive Lymphocytes 1+ Smudge Cells RARE Platelet Estimate ADEQUATE (ADEQ) Anisocytosis 1+ Sodium 134 L (136-145) mmol/L Potassium 4.0 (3.5-5.1) mmol/L Chloride 98 (98-107) mmol/L Carbon Dioxide 27.0 (21.0-32.0) mmol/L Anion Gap 9 (5-15) BUN 14 (7-18) mg/dL Creatinine 0.90 (0.70-1.30) mg/dL Estim Creat Clear Calc 99.77 ml/min Est GFR (MDRD) Af Amer 106 (>60) mL/min Est GFR (MDRD) Non-Af 88 (>60) mL/min BUN/Creatinine Ratio 15.5 (10-20) RATIO Glucose 75 (74-106) mg/dL Lactic Acid Cancelled Calcium 9.4 (8.5-10.1) mg/dL Total Bilirubin 0.90 (0.20-1.00) mg/dL AST 80 H (15-37) U/L ALT 120 H (16-61) U/L Alkaline Phosphatase 183 H (45-117) U/L Total Protein 7.3 (6.4-8.2) g/dL Albumin 2.7 L (3.2-5.0) g/dL Globulin 4.6 H (2.2-4.2) g/dL Albumin/Globulin Ratio 0.6 L (0.9-2.4) RATIO Lipase 103 (73-393) U/L Urine Color (Yellow) Urine Clarity (Clear) Urine pH (5.0 - 8.0) Ur Specific [place] (1.002-1.030) Urine Protein (Negative) mg/dl Urine Glucose (UA) (Normal) mg/dl Urine Ketones (Negative) mg/dl Urine Occult Blood (Negative) /ul Urine Nitrite (Negative) Urine Bilirubin (Negative) mg/dL Urine Urobilinogen (Normal) mg/dl Ur Leukocyte Esterase (Negative) /ul Urine RBC (0-5) /hpf Urine WBC (0-5) /hpf Ur Squamous Epith Cells (0-5) /hpf Urine Bacteria (None Seen) /hpf Hyaline Casts (0-5) /lpf Urine Mucus (<or=2+) /hpf POC Glucose (70-110) mg/dL 06/14/19 Range/Units 16:00 WBC (4.4-11.0) K/mm3 RBC (4.6-6.2) M/mm3 Hgb (13.0-16.5) g/dL Hct (40-54) % MCV (80-94) fL MCH (27.0-32.0) pg MCHC (32-36) g/dL RDW Std Deviation (35.1-43.9) fl RDW Coeff of [place] (11.6-14.6) % Plt Count (150-450) K/mm3 MPV (6.2-12.0) fl Immature Gran % (Auto) (0.0-0.9) % Neut % (Auto) (47-70) % Lymph % (Auto) (19-41) % [place] % (Auto) (0-10) % Eos % (Auto) (0-5) % Baso % (Auto) (0-1) % Absolute Neuts (auto) (2.0-7.7) X10^3/uL Absolute Lymphs (auto) (0.83-4.51) X10^3/uL Nucleated RBC % (0-5) % Differential Comment Reactive Lymphocytes Smudge Cells Platelet Estimate (ADEQ) Anisocytosis Sodium (136-145) mmol/L Potassium (3.5-5.1) mmol/L Chloride (98-107) mmol/L Carbon Dioxide (21.0-32.0) mmol/L Anion Gap (5-15) BUN (7-18) mg/dL Creatinine (0.70-1.30) mg/dL Estim Creat Clear Calc ml/min Est GFR (MDRD) Af Amer (>60) mL/min Est GFR (MDRD) Non-Af (>60) mL/min BUN/Creatinine Ratio (10-20) RATIO Glucose (74-106) mg/dL Lactic Acid Calcium (8.5-10.1) mg/dL Total Bilirubin (0.20-1.00) mg/dL AST (15-37) U/L ALT (16-61) U/L Alkaline Phosphatase (45-117) U/L Total Protein (6.4-8.2) g/dL Albumin (3.2-5.0) g/dL Globulin (2.2-4.2) g/dL Albumin/Globulin Ratio (0.9-2.4) RATIO Lipase (73-393) U/L Urine Color [place] (Yellow) Urine Clarity Clear (Clear) Urine pH 7.0 (5.0 - 8.0) Ur Specific [place] 1.010 (1.002-1.030) Urine Protein Negative (Negative) mg/dl Urine Glucose (UA) Normal (Normal) mg/dl Urine Ketones Negative (Negative) mg/dl Urine Occult Blood Negative (Negative) /ul Urine Nitrite Negative (Negative) Urine Bilirubin Negative (Negative) mg/dL Urine Urobilinogen Normal (Normal) mg/dl Ur Leukocyte Esterase 25 H (Negative) /ul Urine RBC 0-5 SEEN (0-5) /hpf Urine WBC 0-5 SEEN (0-5) /hpf Ur Squamous Epith Cells 0-5 SEEN (0-5) /hpf Urine Bacteria 1+ (None Seen) /hpf Hyaline Casts 0-5 SEEN (0-5) /lpf Urine Mucus 1+ (<or=2+) /hpf POC Glucose (70-110) mg/dL Diagnostic Data: Diagnostic Data Abdomen/Pelvis CT 06/14/19 16:09 IMPRESSION: 1. Since 06/08/2019, unfavorable change. Increased volume of ascites (small to moderate volume). 2. Fluid-filled stomach, bowel and proximal colon suggests possibility of diarrheal disease/gastritis and enteritis. 3. Grossly similar hepatic metastasis. Mild jamaal hepatis adenopathy. 4. 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 5. Additional chronic changes, as above. Electronically Signed: Bobby Stanley MD ([place]) at 17:25 EST , Service support , KUB X-Ray 06/15/19 05:55 IMPRESSION: Stable examination. Electronically Signed: Nacho Miles, at 10:40 EST , Service support , Assessment and Plan Pancreatic cancer on chemotherapy, now admitted with abdominal pain and enteritis, on NG tube suctioning. Suggestion: To continue bowel rest with NG suctioning. To consider starting broad spectrum antibiotics. To check stool for C.difficile. Medications: Prescriptions This Visit Medication Instructions Recorded Potassium Chloride 4 meq PO DAILY 06/14/19 Senna [Senokot] 1 tab PO DAILY 06/14/19 Medications Added to Medication List This Visit Category Date Time Status 0.9% Normal Saline 250 ml Med 06/15/19 15:06 Active IV 15 mls/hr 0.9% Normal Saline 250 ml Med 06/15/19 15:06 Active IV 15 mls/hr Dexamethasone [Decadron] Med 06/16/19 08:00 Active 4 mg PO DAILY@0800 Dextrose 5%/0.9% NaCl 1,000 ml Med 06/15/19 07:55 Active IV 125 mls/hr Enoxaparin [Lovenox] Med 06/15/19 10:00 Active 40 mg SC DAILY Lisinopril [Zestril] Med 06/15/19 10:00 Active 20 mg PO DAILY Neomycin/Polymyxin/Pramoxine [Neosporin Plus] Med 06/16/19 10:00 Active 1 applic TOPICAL DAILY Piperacil/Tazobactam [Zosyn] 3.375 gm Med 06/15/19 14:30 Active 0.9% Normal Saline 50 ml IV Q8 hydroCHLOROthiazide Med 06/15/19 10:00 Active 12.5 mg PO DAILY Primary Care Provider: Valentin Kelly MD Referring Provider: - Problem List (1) Enteritis Status: Acute (2) Abdominal pain Status: Acute Qualifiers: Abdominal location: generalized Qualified Code(s): R10.84 - Generalized abdominal pain (3) Pancreatic cancer Status: Chronic Qualifiers: Pancreatic malignancy location: tail of pancreas Qualified Code(s): C25.2 - Malignant neoplasm of tail of pancreas Code Visit Office Visits / Consults: [id number] IP Consult L5
[2019-06-15 17:16] LABS: Bedside Glucose 121 mg/dL (70-110)
[2019-06-15 21:30] VITALS: BP 124/78; PULSE 102; RESP 18; TEMP 38; O2SAT 97
[2019-06-15] MEDS: Ondansetron 4 MG/2 ML Vial IV (22:18)
[2019-06-15 22:56] LABS: Bedside Glucose 148 mg/dL (70-110)
[2019-06-16] VITALS (7 sets, daily range): BP systolic 119–141; BP diastolic 60–90; PULSE 77–95; RESP 16–18; TEMP 36.6–38.6; O2SAT 93–97
[2019-06-16] MEDS: 0.9% Saline Lock 10 ML Syringe IV ×8 (01:06→20:18)
[2019-06-16] MEDS: HYDROmorphone 1 MG/ML Syringe IV ×8 (01:07→22:34)
[2019-06-16] MEDS: Insulin Lispro 100 UNIT/ML INSULN.PEN SC ×2 (01:07→23:43)
[2019-06-16] MEDS: Dextrose 5%/0.9% NaCl 1,000 ML 125 ML IV ×3 (01:08→17:23)
[2019-06-16 01:20] LABS: Bedside Glucose 162 mg/dL (70-110)
[2019-06-16 06:15] LABS: Absolute Lymphocyte Count 2.32 X10^3/uL (0.83-4.51); Basophil# 0.02 X10^3/uL; Basophil% 0.3 % (0-1); Eosinophil# 0.12 X10^3/uL; Eosinophils% 1.9 % (0-5); Hematocrit 37.6 % (40-54); Hemoglobin 12.4 g/dL (13.0-16.5); Lymphocyte # 2.32 X10^3/ul (4.0); Lymphocyte % 37.1 % (19-41); Mean Corpuscular Hgb 31.6 pg (27.0-32.0); Mean Corpuscular Volume 95.9 fL (80-94); Mean Platelet Vol. 8.9 fl (6.2-12.0); Monocyte# 1.77 X10^3/uL; Monocyte% 28.3 % (0-10); NRBC Flagged by Analyzer 0 % (0-5); Neutrophil % 31.9 % (47-70); POSITIVE DIFFERENTIAL YES; Platelet Count 172 K/mm3 (150-450); RBC Distribution Width SD 52.6 fl (35.1-43.9); Red Blood Count 3.92 M/mm3 (4.6-6.2); White Blood Count 6.3 K/mm3 (4.4-11.0)
[2019-06-16 06:27] LABS: Bedside Glucose 126 mg/dL (70-110)
[2019-06-16 06:30] LABS: Differential Indicated SCAN CRITERIA MET
[2019-06-16 06:42] LABS: Anion Gap 5 (5-15); BUN 10 mg/dL (7-18); BUN/Creat Ratio 11.4 RATIO (10-20); Calcium,Total 8.8 mg/dL (8.5-10.1); Chloride 108 mmol/L (98-107); Creatinine, Serum 0.88 mg/dL (0.70-1.30); EST Glomerular Filtration Rate 91 mL/min (>60); Est Glom Filt Rate - Afr Amer 109 mL/min (>60); Estimated Creatinine Clearance 102.04 ml/min; Glucose 148 mg/dL (74-106); Potassium 3.8 mmol/L (3.5-5.1); Sodium Level 139 mmol/L (136-145)
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
--- NOTE | 2019-06-16 09:39 | PN_ITS ---
Patient Problems: Active and Suspected Problems (Last Reviewed 06/10/19 @ 10:16 by Evelyn Bedolla) Abdominal pain (Acute) Enteritis (Acute) Subjective: Patient seen and examined. NG tube fell out which was wheezing yesterday. It was not reinserted. Patient has remained stable since. He states abdominal pain has resolved. He denies any nausea or vomiting. Diarrhea has also improved. Of note, he was started on IV Zosyn yesterday after discussion with oncology due to concerns for typhlitis. Blood cultures are also pending. Labs and vitals reviewed, he has remained hemodynamically stable. He did have a mild fever overnight, with temperature peaking at 100.4F. Vitals/I&O's: Vital Signs Temp Pulse Resp BP Pulse Ox 98.2 F 89 18 122/90 H 97 06/16/19 08:52 06/16/19 08:52 06/16/19 08:52 06/16/19 08:52 06/16/19 08:52 Oxygen Delivery Method Room Air Weight: 210 lb 1.608 oz Body Mass Index (BMI) 23.6 Intake and Output for Last 24 Hours 06/14/19 06/15/19 06/16/19 23:59 23:59 23:59 Intake Total 1000 / 1000 2423.16 / 2423.16 1904.17 / 1904.17 Output Total 700 / 700 Balance 1000 / 1000 1723.16 / 1723.16 1904.17 / 1904.17 General: Alert, Oriented x3, Cooperative HEENT: Atraumatic, PERRLA, EOMI, Normocephalic Oral: Moist Mucosa Neck: Supple, No JVD, Negative Carotid Bruits Lungs: Clear to auscultation, Normal air movement, No rhonchi, No wheeze, No ra les Cardiovascular: Regular rate, Regular Rhythm, Normal S1, Normal S2, No murmurs Abdomen: Bowel Sounds Present, Non Tender, mildly distended, abdomen tympanitic to percussion Extremities: No edema, Capillary Refill Less than 3 Seconds Skin: No rashes, No breakdown Musculoskeletal: No Tenderness to Palpation of Joints or Extremities Lymphatic: No Cervical, Supraclavicular, or Inguinal Adenopathy Neurological: Cranial nerves II-XII grossly intact, Neuro grossly intact, Motor Exam 5/5 strength throughout Psych/Mental Status: Normal Affect, Appropriate, Alert and oriented to time, place, person, mood and affect Microbiology Past 72 Hours 06/15/19 15:26 Stool C. difficile DNA Amplification - Final Laboratory Results 06/15/19 11:09: POC Glucose 104 06/15/19 17:08: POC Glucose 121 H 06/15/19 22:30: POC Glucose 148 H 06/16/19 00:58: POC Glucose 162 H 06/16/19 06:02: WBC 6.3, RBC 3.92 L, Hgb 12.4 L, Hct 37.6 L, MCV 95.9 H, MCH 31.6, MCHC 33.0, RDW Std Deviation 52.6 H, RDW Coeff of [place]inoo 15.0 H, Plt Count 172, MPV 8.9, Immature Gran % (Auto) 0.500, Neut % (Auto) 31.9 L, Lymph % (Auto) 37.1, [place] % (Auto) 28.3 H, Eos % (Auto) 1.9, Baso % (Auto) 0.3, Absolute Neuts (auto) 2.0, Absolute Lymphs (auto) 2.32, Nucleated RBC % 0 06/16/19 06:02: Sodium 139, Potassium 3.8, Chloride 108 H, Carbon Dioxide 26.0, Anion Gap 5, BUN 10, Creatinine 0.88, Estim Creat Clear Calc 102.04, Est GFR (MDRD) Af Amer 109, Est GFR (MDRD) Non-Af 91, BUN/Creatinine Ratio 11.4, Glucose 148 H, Calcium 8.8 06/16/19 06:18: POC Glucose 126 H Diagnostic Data Abdomen/Pelvis CT 06/14/19 16:09 IMPRESSION: 1. Since 06/08/2019, unfavorable change. Increased volume of ascites (small to moderate volume). 2. Fluid-filled stomach, bowel and proximal colon suggests possibility of diarrheal disease/gastritis and enteritis. 3. Grossly similar hepatic metastasis. Mild jamaal hepatis adenopathy. 4. 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 5. Additional chronic changes, as above. Electronically Signed: Bobby Stanley MD (Brooks) at 17:25 EST , Service support , KUB X-Ray 06/15/19 05:55 IMPRESSION: Stable examination. Electronically Signed: Nacho Miles, at 10:40 EST , Service support , Current Medications Acetaminophen (Tylenol) 650 mg RECTAL Q6H PRN PRN PRN Reason: Temp > 100.7 F Dexamethasone (Decadron) 4 mg PO DAILY@0800 [facility] Dextrose (D50w Syringe) 0 gm IV X1 PRN; Protocol PRN Reason: Hypoglycemia Enoxaparin Sodium (Lovenox) 40 mg SC DAILY [facility] Last Admin: 06/15/19 09:09 Dose: 40 mg Documented by: Fluticasone Propionate (Flonase Nasal [place]) 2 spray NASAL DAILY PRN PRN PRN Reason: ALLERGIES Glucagon () 1 mg IM .X1 PRN PRN Reason: Hypoglycemia Hydrochlorothiazide () 12.5 mg PO DAILY [facility] Last Admin: 06/15/19 09:05 Dose: Not Given Documented by: Hydromorphone HCl (Dilaudid Inj) 1 mg IV Q2H PRN PRN PRN Reason: Pain Score 1-10/10 Last Admin: 06/16/19 09:00 Dose: 1 mg Documented by: Dextrose/Sodium Chloride (Dextrose 5%/0.9% Nacl) 1,000 mls @ 125 mls/hr IV .Q8H [facility] Last Admin: 06/16/19 08:40 Dose: 125 mls/hr Documented by: Piperacillin Sod/Tazobactam (Sod 3.375 gm/ Sodium Chloride) 50 mls @ 12.5 mls/hr IV Q8 [facility] Last Admin: 06/16/19 06:25 Dose: 12.5 mls/hr Documented by: Sodium Chloride () 250 mls @ 15 mls/hr IV .[id number] PRN PRN Reason: Saline Flush Last Infusion: 06/15/19 15:32 Dose: 0 mls/hr Documented by: Sodium Chloride () 250 mls @ 15 mls/hr IV .[id number] PRN PRN Reason: Additional IVPB Infusion Insulin Glargine (Lantus (Bk)) 15 units SC QHS [facility] Last Admin: 06/15/19 23:13 Dose: Not Given Documented by: Insulin Human Lispro (Humalog Kwikpen ([facility])) 0 unit SC Q6 [facility]; Protocol Last Admin: 06/16/19 06:21 Dose: Not Given Documented by: Lisinopril (Zestril) 20 mg PO DAILY [facility] Last Admin: 06/15/19 09:05 Dose: Not Given Documented by: Neomycin/Polymyxin/Bacitr/Pramoxine (Neosporin Plus) 1 applic TOPICAL DAILY [facility]; Protocol Ondansetron HCl (Zofran) 4 mg IV Q8H PRN PRN PRN Reason: NAUSEA/VOMITING Last Admin: 06/15/19 22:18 Dose: 4 mg Documented by: Sodium Chloride () 10 - 40 ml IV UD PRN PRN Reason: SALINE FLUSH Last Admin: 06/16/19 09:01 Dose: 10 ml Documented by: STROKE Vital Signs/Narrative: Vital Signs Temp Pulse Resp BP Pulse Ox 06/16/19 08:52 98.2 F 89 18 122/90 H 97 Medical Necessity - Tobacco Use Smoking Status: Never smoker Assessment/Plan All Active Problems (Last Reviewed 06/10/19 @ 10:16 by Evelyn Bedolla) Hyperglycemia (Acute) Chemotherapy management, encounter for (Acute) Constipation (Acute) Chemotherapy management, encounter for (Acute) Abdominal pain (Acute) Enteritis (Acute) Encounter for education (Acute) Fever (Acute) Severe sepsis (Acute) 1. Intractable abdominal pain due to metastatic pancreatic cancer * NG tube is out; patient feeling much better * KUB pending this morning * On IV Dilaudid for pain. Continue IV Zofran. * start clear liquids today, and advance as tolerated. * 2. Gastroenteritis * Having diarrhea yesterday. He did have low grade fever overnight, with temperature peaking at 100.4F * blood cultures pending * Per discussion with oncology, patient was started on IV Zosyn due to suspicion for typhlitis * C Diff was negative * stool for enteric pathogen is pending * 2. Metastatic pancreatic cancer: Undergoing chemotherapy. Oncology on board consulted. 3. Hypertension: Metoprolol hydrochlorothiazide. 4. Type 2 diabetes mellitus: * Lantus on hold. * Accu-Cheks every 6. ISS. 5. History of asthma: on breathing treatments. DVT prophylaxis; lovenox. Code Visit Inpatient E&M: 59452 Subs Hosp L2
[2019-06-16] MEDS: Lisinopril 20 MG Tablet PO (11:37)
[2019-06-16] MEDS: Enoxaparin 40 MG/0.4 ML Syringe SC (11:37)
[2019-06-16] MEDS: hydroCHLOROthiazide 12.5mg 12.5 MG PO (11:37)
[2019-06-16 11:51] LABS: Bedside Glucose 139 mg/dL (70-110)
[2019-06-16] MEDS: dexAMETHasone 4 MG Tablet PO (13:09)
[2019-06-16] MEDS: Ondansetron 4 MG/2 ML Vial IV (17:48)
[2019-06-16 18:21] LABS: Bedside Glucose 147 mg/dL (70-110)
[2019-06-16 23:50] LABS: Bedside Glucose 189 mg/dL (70-110)
[2019-06-17] MEDS: HYDROmorphone 1 MG/ML Syringe IV ×3 (00:49→06:14)
[2019-06-17] MEDS: Dextrose 5%/0.9% NaCl 1,000 ML 125 ML IV ×3 (00:56→21:35)
[2019-06-17 02:55] VITALS: BP 116/71; PULSE 67; RESP 16; TEMP 36.4; O2SAT 95
[2019-06-17] MEDS: Insulin Lispro 100 UNIT/ML INSULN.PEN SC ×2 (06:08→17:25)
[2019-06-17 06:15] LABS: Bedside Glucose 171 mg/dL (70-110)
[2019-06-17 06:32] LABS: Absolute Lymphocyte Count 1.67 X10^3/uL (0.83-4.51); Absolute Neutrophil Count 2.4 X10^3/uL (2.0-7.7); Basophil# 0.01 X10^3/uL; Basophil% 0.2 % (0-1); Hematocrit 36.2 % (40-54); Hemoglobin 11.9 g/dL (13.0-16.5); Lymphocyte # 1.67 X10^3/ul (4.0); Lymphocyte % 31.8 % (19-41); Mean Corp Hgb Conc 32.9 g/dL (32-36); Mean Corpuscular Hgb 31.6 pg (27.0-32.0); Mean Corpuscular Volume 96.3 fL (80-94); Mean Platelet Vol. 9.4 fl (6.2-12.0); Monocyte# 1.13 X10^3/uL; Monocyte% 21.5 % (0-10); NRBC Flagged by Analyzer 0 % (0-5); Neutrophil % 45.7 % (47-70); Platelet Count 185 K/mm3 (150-450); RBC Distribution Width CV 14.6 % (11.6-14.6); Red Blood Count 3.76 M/mm3 (4.6-6.2); White Blood Count 5.3 K/mm3 (4.4-11.0)
[2019-06-17 06:53] LABS: Anion Gap 3 (5-15); BUN 11 mg/dL (7-18); Calcium,Total 8.8 mg/dL (8.5-10.1); Chloride 110 mmol/L (98-107); Creatinine, Serum 0.92 mg/dL (0.70-1.30); EST Glomerular Filtration Rate 87 mL/min (>60); Est Glom Filt Rate - Afr Amer 105 mL/min (>60); Glucose 194 mg/dL (74-106); Potassium 4.4 mmol/L (3.5-5.1); Sodium Level 141 mmol/L (136-145)
[2019-06-17] MEDS: Lisinopril 20 MG Tablet PO (08:01)
[2019-06-17] MEDS: Enoxaparin 40 MG/0.4 ML Syringe SC (08:01)
[2019-06-17] MEDS: hydroCHLOROthiazide 12.5mg 12.5 MG PO (08:01)
[2019-06-17] MEDS: dexAMETHasone 4 MG Tablet PO (08:01)
[2019-06-17 08:12] VITALS: O2SAT 96
[2019-06-17 08:55] VITALS: BP 140/77; PULSE 97; RESP 18; TEMP 36.2; O2SAT 99
--- NOTE | 2019-06-17 10:33 | PCM.DC ---
- Discharge Diagnoses Current Active Problems: Current Active and Chronic Problems (Last Reviewed 06/10/19 @ 10:16 by Evelyn Bedolla) Abdominal pain (Acute) Enteritis (Acute) You will use the following diet at home:: Cardiac Your food should be the consistency of: Regular Your liquids should be the consistency of: Regular/Thin Discharge Activity: Return to Normal Activity Weight Bearing Status: Weight bearing as tolerated Call your doctor if you observe: Fever of 101 or Higher, Uncontrolled pain Instructions: What Is Pancreatic Cancer? Allergies/Adverse Reactions: Allergies Latex, Natural Rubber Allergy (Intermediate, Verified 06/14/19 15:48) Rash cat dander Allergy (Verified 06/14/19 15:48) Shortness of breath hydrocodone bitartrate [From Vicodin] Allergy (Verified 06/14/19 15:48) hallucinations HALLUCINATIONS steri strips Allergy (Unknown, Uncoded 06/14/19 15:48) knee opened up after knee surgery skin sensitivity Allergy (Uncoded 06/14/19 15:48) Itching skin sensitivity to perfumes change in laundry detergent, soaps, Medications to take at Discharge Lisinopril/Hydrochlorothiazide [Zestoretic 20/12.5 Tablet] 1 tab PO DAILY 02/22/14 Albuterol IH (ProAir) [Proair Hfa] 1 puff INHALATION DAILY PRN PRN 01/25/19 Fluticasone Propionate 2 spray NASAL DAILY PRN PRN 01/25/19 Multivit-Min/FA/Lycopen/Lutein [Centrum Silver Men Tablet] 1 ea PO DAILY 01/25/19 Insulin Lispro [Humalog] 10 unit SQ TIDCM PRN 02/08/19 Dexamethasone [Decadron] 4 mg PO DAILY@0800 #7 tab 05/21/19 Hydrocodone/Acetaminophen [[place] 5-325 Tablet] 1 ea PO Q4H PRN PRN 5 Days #20 tab 06/13/19 Insulin Glargine [Lantus SoloStar Pen] 30 units SUBCUT QHS 06/13/19 Potassium Chloride 4 meq PO DAILY 06/14/19 Senna [Senokot] 1 tab PO DAILY 06/14/19 Primary Care Physician: Valentin Kelly Chi, MD [Primary Care Provider] - Test Results: Test results from this visit will be discussed in further detail at your follow-up appointment, if applicable. Please Follow Up With: Valentin Kelly Chi, MD When: one week Please Follow Up With: Carl Short MD When: 1-2 weeks Proposed Discharge Date: 06/17/19
--- NOTE | 2019-06-17 10:35 | PCM.DC.SUM ---
Discharge Date and Diagnosis - Problem List Patient Problems: Active and Suspected Problems (Last Reviewed 06/10/19 @ 10:16 by Evelyn Bedolla) Abdominal pain (Acute) Enteritis (Acute) Date of Admission: 06/14/19 - Primary Discharge Diagnosis Active and Suspected Problems (Last Reviewed 06/10/19 @ 10:16 by Evelyn Bedolla) Abdominal pain (Acute) Enteritis (Acute) - Secondary Discharge Diagnosis Chronic Problems (Last Reviewed 06/10/19 @ 10:16 by Evelyn Bedolla) Liver metastases (Chronic) Bronchial asthma (Chronic) HTN (hypertension) (Chronic) Pancreatic cancer (Chronic) Pancreatic cancer metastasized to liver (Chronic) Hospital Course and Treatment Operations: None Summary of Care Provided: The patient is a 73 year old M [] Patient Problems: Active and Suspected Problems (Last Reviewed 06/10/19 @ 10:16 by Evelyn Bedolla) Abdominal pain (Acute) Enteritis (Acute) - Physical Exam Vitals/I&O's: Vital Signs Temp Pulse Resp BP Pulse Ox 97.1 F L 97 18 140/77 H 99 06/17/19 08:55 06/17/19 08:55 06/17/19 08:55 06/17/19 08:55 06/17/19 08:55 Oxygen Delivery Method Room Air Weight: 210 lb 1.608 oz Body Mass Index (BMI) 23.6 Intake and Output for Last 24 Hours 06/15/19 06/16/19 06/17/19 23:59 23:59 23:59 Intake Total 2423.16 / 2423.16 3364.17 / 3604.17 2783.75 / 2783.75 Output Total 700 / 700 Balance 1723.16 / 1723.16 3364.17 / 3604.17 2783.75 / 2783.75 Microbiology Past 72 Hours 06/15/19 15:26 Stool Enteric Bacteriology - Final 06/15/19 15:26 Stool C. difficile DNA Amplification - Final Laboratory Results 06/16/19 11:47: POC Glucose 139 H 06/16/19 17:28: POC Glucose 147 H 06/16/19 23:41: POC Glucose 189 H 06/17/19 06:06: POC Glucose 171 H 06/17/19 06:10: WBC 5.3, RBC 3.76 L, Hgb 11.9 L, Hct 36.2 L, MCV 96.3 H, MCH 31.6, MCHC 32.9, RDW Std Deviation 51.0 H, RDW Coeff of [place] 14.6, Plt Count 185, MPV 9.4, Immature Gran % (Auto) 0.800, Neut % (Auto) 45.7 L, Lymph % (Auto) 31.8, [place] % (Auto) 21.5 H, Eos % (Auto) 0.0, Baso % (Auto) 0.2, Absolute Neuts (auto) 2.4, Absolute Lymphs (auto) 1.67, Nucleated RBC % 0 06/17/19 06:10: Sodium 141, Potassium 4.4, Chloride 110 H, Carbon Dioxide 28.0, Anion Gap 3 L, BUN 11, Creatinine 0.92, Estim Creat Clear Calc 97.60, Est GFR (MDRD) Af Amer 105, Est GFR (MDRD) Non-Af 87, BUN/Creatinine Ratio 12.0, Glucose 194 H, Calcium 8.8 Current Medications Acetaminophen (Tylenol) 650 mg RECTAL Q6H PRN PRN PRN Reason: Temp > 100.7 F Hydrocodone Bitart/Acetaminophen ([place] 5mg-325mg) 1 tablet PO Q4H PRN PRN PRN Reason: Pain or Fever Dexamethasone (Decadron) 4 mg PO DAILY@0800 [facility] Last Admin: 06/17/19 08:01 Dose: 4 mg Documented by: Dextrose (D50w Syringe) 0 gm IV X1 PRN; Protocol PRN Reason: Hypoglycemia Enoxaparin Sodium (Lovenox) 40 mg SC DAILY [facility] Last Admin: 06/17/19 08:01 Dose: 40 mg Documented by: Fluticasone Propionate (Flonase Nasal [place]) 2 spray NASAL DAILY PRN PRN PRN Reason: ALLERGIES Glucagon () 1 mg IM .X1 PRN PRN Reason: Hypoglycemia Hydrochlorothiazide () 12.5 mg PO DAILY [facility] Last Admin: 06/17/19 08:01 Dose: 12.5 mg Documented by: Hydromorphone HCl (Dilaudid Inj) 1 mg IV Q2H PRN PRN PRN Reason: Pain Score 1-10/10 Last Admin: 06/17/19 06:14 Dose: 1 mg Documented by: Dextrose/Sodium Chloride (Dextrose 5%/0.9% Nacl) 1,000 mls @ 125 mls/hr IV .Q8H [facility] Last Admin: 06/17/19 08:58 Dose: 125 mls/hr Documented by: Piperacillin Sod/Tazobactam (Sod 3.375 gm/ Sodium Chloride) 50 mls @ 12.5 mls/hr IV Q8 [facility] Last Infusion: 06/17/19 10:27 Dose: Infused Documented by: Sodium Chloride () 250 mls @ 15 mls/hr IV .[id number] PRN PRN Reason: Saline Flush Last Infusion: 06/15/19 15:32 Dose: 0 mls/hr Documented by: Sodium Chloride () 250 mls @ 15 mls/hr IV .[id number] PRN PRN Reason: Additional IVPB Infusion Insulin Glargine (Lantus ([facility])) 15 units SC QHS [facility] Last Admin: 06/16/19 21:58 Dose: Not Given Documented by: Insulin Human Lispro (Humalog Kwikpen ([facility])) 0 unit SC Q6 [facility]; Protocol Last Admin: 06/17/19 06:08 Dose: 1 units Documented by: Lisinopril (Zestril) 20 mg PO DAILY [facility] Last Admin: 06/17/19 08:01 Dose: 20 mg Documented by: Neomycin/Polymyxin/Bacitr/Pramoxine (Neosporin Plus) 1 applic TOPICAL DAILY [facility]; Protocol Last Admin: 06/17/19 08:05 Dose: 1 applicatio Documented by: Ondansetron HCl (Zofran) 4 mg IV Q8H PRN PRN PRN Reason: NAUSEA/VOMITING Last Admin: 06/16/19 17:48 Dose: 4 mg Documented by: Sodium Chloride () 10 - 40 ml IV UD PRN PRN Reason: SALINE FLUSH Last Admin: 06/16/19 20:18 Dose: 10 ml Documented by: Discharge Activity: Return to Normal Activity Weight Bearing Status: Weight bearing as tolerated Call your doctor if you observe: Fever of 101 or Higher, Uncontrolled pain Home Medications: Medications to take at Discharge Lisinopril/Hydrochlorothiazide [Zestoretic 20/12.5 Tablet] 1 tab PO DAILY 02/22/14 Albuterol IH (ProAir) [Proair Hfa] 1 puff INHALATION DAILY PRN PRN 01/25/19 Fluticasone Propionate 2 spray NASAL DAILY PRN PRN 01/25/19 Multivit-Min/FA/Lycopen/Lutein [Centrum Silver Men Tablet] 1 ea PO DAILY 01/25/19 Insulin Lispro [Humalog] 10 unit SQ TIDCM PRN 02/08/19 Dexamethasone [Decadron] 4 mg PO DAILY@0800 #7 tab 05/21/19 Hydrocodone/Acetaminophen [[place] 5-325 Tablet] 1 ea PO Q4H PRN PRN 5 Days #20 tab 06/13/19 Insulin Glargine [Lantus SoloStar Pen] 30 units SUBCUT QHS 06/13/19 Potassium Chloride 4 meq PO DAILY 06/14/19 Senna [Senokot] 1 tab PO DAILY 06/14/19 Primary Care Physician: Valentin Kelly Chi, MD [Primary Care Provider] - Please Follow Up With: Valentin Kelly Chi, MD When: one week Please Follow Up With: Carl Shotr MD When: 1-2 weeks Patient Instructions: What Is Pancreatic Cancer? Medical Necessity - Tobacco Use Smoking Status: Never smoker
[2019-06-17 11:05] LABS: Bedside Glucose 156 mg/dL (70-110)
--- NOTE | 2019-06-17 14:02 | PHA.DC.MC ---
Pharmacy Service has performed discharge medication reconciliation and counseling for this patient. The patient's discharge medication list was reviewed for discrepancies and discrepancies were resolved. Home Medications Lisinopril/Hydrochlorothiazide [Zestoretic 20/12.5 Tablet] 1 tab PO DAILY 02/22/14 Albuterol IH (ProAir) [Proair Hfa] 1 puff INHALATION DAILY PRN PRN 01/25/19 Fluticasone Propionate 2 spray NASAL DAILY PRN PRN 01/25/19 Multivit-Min/FA/Lycopen/Lutein [Centrum Silver Men Tablet] 1 ea PO DAILY 01/25/19 Insulin Lispro [Humalog] 10 unit SQ TIDCM PRN 02/08/19 Dexamethasone [Decadron] 4 mg PO DAILY@0800 #7 tab 05/21/19 Insulin Glargine [Lantus SoloStar Pen] 30 units SUBCUT QHS 06/13/19 Potassium Chloride 4 meq PO DAILY 06/14/19 Senna [Senokot] 1 tab PO DAILY 06/14/19 Acetaminophen [Tylenol Tablet] 650 mg PO Q6H PRN PRN #30 tab 06/17/19 Ciprofloxacin [Cipro] 500 mg PO BID #6 tab 06/17/19 Metronidazole 500 mg PO TID #9 tab 06/17/19 The patient was counseled on the following discharge medications and changes in medications for homegoing were reviewed. 1. CIPRO 2. FLAGYL The Reason for Use, instructions for use, and potential side effects were reviewed for all new medications. The patient's questions regarding all of their medications were answered. The patient was able to verbally demonstrate an understanding of their discharge medications.
[2019-06-17] MEDS: Ondansetron 4 MG/2 ML Vial IV (14:25)
[2019-06-17] MEDS: 0.9% Saline Lock 10 ML Syringe IV (14:26)
[2019-06-17 14:45] VITALS: BP 125/75; PULSE 77; RESP 18; TEMP 36.5; O2SAT 100
--- NOTE | 2019-06-17 15:28 | PN_ITS ---
Patient Problems: Active and Suspected Problems (Last Reviewed 06/10/19 @ 10:16 by Evelyn Bedolla) Abdominal pain (Acute) Enteritis (Acute) Subjective: Patient seen and examined. He had no complaints this morning and felt well. He tolerated the clears yesterday and said he felt very well and was ready to go home. Review of symptoms otherwise negative. Labs and vitals reviewed. Plan was to discharge patient but later in the day, after his diet was advanced, patient said he felt very bloated after eating lunch and so did not feel he was ready to go home. Discharge was therefore canceled. Patient will be put on full liquid diet to advance to soft diet and then full diet as tolerated. Vitals/I&O's: Vital Signs Temp Pulse Resp BP Pulse Ox 97.7 F L 77 18 125/75 H 100 06/17/19 14:45 06/17/19 14:45 06/17/19 14:45 06/17/19 14:45 06/17/19 14:45 Oxygen Delivery Method Room Air Weight: 210 lb 1.608 oz Body Mass Index (BMI) 23.6 Intake and Output for Last 24 Hours 06/15/19 06/16/19 06/17/19 23:59 23:59 23:59 Intake Total 2423.16 / 2423.16 3364.17 / 3604.17 3386.25 / 3386.25 Output Total 700 / 700 Balance 1723.16 / 1723.16 3364.17 / 3604.17 3386.25 / 3386.25 General: Alert, Oriented x3, Cooperative HEENT: Atraumatic, PERRLA, EOMI, Normocephalic Oral: Moist Mucosa Neck: Supple, No JVD, Negative Carotid Bruits Lungs: Clear to auscultation, Normal air movement, No rhonchi, No wheeze, No rales Cardiovascular: Regular rate, Regular Rhythm, Normal S1, Normal S2, No murmurs Abdomen: Bowel Sounds Present, Non Tender, soft, no organomegaly Extremities: No edema, Capillary Refill Less than 3 Seconds Skin: No rashes, No breakdown Musculoskeletal: No Tenderness to Palpation of Joints or Extremities Lymphatic: No Cervical, Supraclavicular, or Inguinal Adenopathy Neurological: Cranial nerves II-XII grossly intact, Neuro grossly intact, Motor Exam 5/5 strength throughout Psych/Mental Status: Normal Affect, Appropriate, Alert and oriented to time, place, person, mood and affect Microbiology Past 72 Hours 06/15/19 15:26 Stool Enteric Bacteriology - Final 06/15/19 15:26 Stool C. difficile DNA Amplification - Final Laboratory Results 06/16/19 17:28: POC Glucose 147 H 06/16/19 23:41: POC Glucose 189 H 06/17/19 06:06: POC Glucose 171 H 06/17/19 06:10: WBC 5.3, RBC 3.76 L, Hgb 11.9 L, Hct 36.2 L, MCV 96.3 H, MCH 31.6, MCHC 32.9, RDW Std Deviation 51.0 H, RDW Coeff of [place] 14.6, Plt Count 185, MPV 9.4, Immature Gran % (Auto) 0.800, Neut % (Auto) 45.7 L, Lymph % (Auto) 31.8, [place] % (Auto) 21.5 H, Eos % (Auto) 0.0, Baso % (Auto) 0.2, Absolute Neuts (auto) 2.4, Absolute Lymphs (auto) 1.67, Nucleated RBC % 0 06/17/19 06:10: Sodium 141, Potassium 4.4, Chloride 110 H, Carbon Dioxide 28.0, Anion Gap 3 L, BUN 11, Creatinine 0.92, Estim Creat Clear Calc 97.60, Est GFR (MDRD) Af Amer 105, Est GFR (MDRD) Non-Af 87, BUN/Creatinine Ratio 12.0, Glucose 194 H, Calcium 8.8 06/17/19 10:55: POC Glucose 156 H Current Medications Acetaminophen (Tylenol) 650 mg PO Q6H PRN PRN PRN Reason: Pain Score 1-10/10 Hydrocodone Bitart/Acetaminophen ([place] 5mg-325mg) 1 tablet PO Q4H PRN PRN PRN Reason: Pain or Fever Dexamethasone (Decadron) 4 mg PO DAILY@0800 [facility] Last Admin: 06/17/19 08:01 Dose: 4 mg Documented by: Dextrose (D50w Syringe) 0 gm IV X1 PRN; Protocol PRN Reason: Hypoglycemia Enoxaparin Sodium (Lovenox) 40 mg SC DAILY [facility] Last Admin: 06/17/19 08:01 Dose: 40 mg Documented by: Fluticasone Propionate (Flonase Nasal [place]) 2 spray NASAL DAILY PRN PRN PRN Reason: ALLERGIES Glucagon () 1 mg IM .X1 PRN PRN Reason: Hypoglycemia Hydrochlorothiazide () 12.5 mg PO DAILY [facility] Last Admin: 06/17/19 08:01 Dose: 12.5 mg Documented by: Hydromorphone HCl (Dilaudid Inj) 1 mg IV Q2H PRN PRN PRN Reason: Pain Score 1-10/10 Last Admin: 06/17/19 06:14 Dose: 1 mg Documented by: Dextrose/Sodium Chloride (Dextrose 5%/0.9% Nacl) 1,000 mls @ 125 mls/hr IV .Q8H [facility] Last Infusion: 06/17/19 15:12 Dose: 125 mls/hr Documented by: Piperacillin Sod/Tazobactam (Sod 3.375 gm/ Sodium Chloride) 50 mls @ 12.5 mls/hr IV Q8 [facility] Last Admin: 06/17/19 15:08 Dose: 12.5 mls/hr Documented by: Sodium Chloride () 250 mls @ 15 mls/hr IV .[id number] PRN PRN Reason: Saline Flush Last Infusion: 06/15/19 15:32 Dose: 0 mls/hr Documented by: Sodium Chloride () 250 mls @ 15 mls/hr IV .[id number] PRN PRN Reason: Additional IVPB Infusion Insulin Glargine (Lantus (Bk)) 15 units SC QHS [facility] Last Admin: 06/16/19 21:58 Dose: Not Given Documented by: Insulin Human Lispro (Humalog Kwikpen (Bk)) 0 unit SC Q6 [facility]; Protocol Last Admin: 06/17/19 10:58 Dose: Not Given Documented by: Lisinopril (Zestril) 20 mg PO DAILY [facility] Last Admin: 06/17/19 08:01 Dose: 20 mg Documented by: Neomycin/Polymyxin/Bacitr/Pramoxine (Neosporin Plus) 1 applic TOPICAL DAILY [facility]; Protocol Last Admin: 06/17/19 08:05 Dose: 1 applicatio Documented by: Ondansetron HCl (Zofran) 4 mg IV Q8H PRN PRN PRN Reason: NAUSEA/VOMITING Last Admin: 12/19/19 14:25 Dose: 4 mg Documented by: Sodium Chloride () 10 - 40 ml IV UD PRN PRN Reason: SALINE FLUSH Last Admin: 06/17/19 14:26 Dose: 10 ml Documented by: STROKE Vital Signs/Narrative: Vital Signs Temp Pulse Resp BP Pulse Ox 06/17/19 14:45 97.7 F L 77 18 125/75 H 100 Medical Necessity - Tobacco Use Smoking Status: Never smoker Assessment/Plan All Active Problems (Last Reviewed 06/10/19 @ 10:16 by Evelyn Bedolla) Hyperglycemia (Acute) Chemotherapy management, encounter for (Acute) Constipation (Acute) Chemotherapy management, encounter for (Acute) Abdominal pain (Acute) Enteritis (Acute) Encounter for education (Acute) Fever (Acute) Severe sepsis (Acute) 1. Intractable abdominal pain due to metastatic pancreatic cancer * NG tube now out, tolerated clear liquid diet * started on regular diet today, but said he felt bloated and uncomfortable after eating lunch. * to put on full liquid diet, and advance slowly to soft diet, then regular diet as tolerated * IV zofran prn * * 2. Gastroenteritis * Resolved. Blood cultures are pending. * On IV Zosyn. We will continue for 1 more day until discharge. * blood cultures pending * C Diff was negative * stool for enteric pathogen is pending * 2. Metastatic pancreatic cancer: Undergoing chemotherapy. Oncology on board 3. Hypertension: Metoprolol hydrochlorothiazide. 4. Type 2 diabetes mellitus: * Lantus on hold. * Accu-Cheks every 6. ISS. 5. History of asthma: on breathing treatments. DVT prophylaxis; lovenox. Disposition: For discharge home tomorrow. Code Visit Inpatient E&M: 32424 Subs Hosp L2
[2019-06-17 17:36] LABS: Bedside Glucose 172 mg/dL (70-110)
[2019-06-17 20:45] VITALS: BP 143/78; PULSE 55; RESP 16; TEMP 36.6; O2SAT 100
[2019-06-17 22:00] VITALS: PULSE 55
[2019-06-17 22:05] LABS: Bedside Glucose 179 mg/dL (70-110)
[2019-06-18] MEDS: HYDROmorphone 1 MG/ML Syringe IV ×6 (00:20→20:32)
[2019-06-18] MEDS: Insulin Lispro 100 UNIT/ML INSULN.PEN SC (00:26)
[2019-06-18 02:45] VITALS: BP 118/65; PULSE 79; RESP 16; TEMP 36.7; O2SAT 96
[2019-06-18] MEDS: Dextrose 5%/0.9% NaCl 1,000 ML 125 ML IV ×3 (05:57→20:35)
[2019-06-18 06:06] LABS: Bedside Glucose 117 mg/dL (70-110)
[2019-06-18 06:58] LABS: Absolute Lymphocyte Count 1.96 X10^3/uL (0.83-4.51); Absolute Neutrophil Count 3.1 X10^3/uL (2.0-7.7); Eosinophil# 0.02 X10^3/uL; Eosinophils% 0.3 % (0-5); Hemoglobin 12.6 g/dL (13.0-16.5); Lymphocyte # 1.96 X10^3/ul (4.0); Lymphocyte % 29.3 % (19-41); Mean Corp Hgb Conc 33.2 g/dL (32-36); Mean Corpuscular Hgb 31.3 pg (27.0-32.0); Mean Corpuscular Volume 94.3 fL (80-94); Mean Platelet Vol. 9.6 fl (6.2-12.0); Monocyte# 1.58 X10^3/uL; Monocyte% 23.6 % (0-10); NRBC Flagged by Analyzer 0 % (0-5); Neutrophil % 46.2 % (47-70); POSITIVE DIFFERENTIAL YES; Platelet Count 238 K/mm3 (150-450); RBC Distribution Width CV 14.5 % (11.6-14.6); RBC Distribution Width SD 49.2 fl (35.1-43.9); Red Blood Count 4.03 M/mm3 (4.6-6.2); White Blood Count 6.7 K/mm3 (4.4-11.0)
[2019-06-18 07:05] LABS: Anion Gap 4 (5-15); BUN 11 mg/dL (7-18); BUN/Creat Ratio 12.3 RATIO (10-20); Calcium,Total 8.9 mg/dL (8.5-10.1); Chloride 109 mmol/L (98-107); Creatinine, Serum 0.89 mg/dL (0.70-1.30); EST Glomerular Filtration Rate 89 mL/min (>60); Est Glom Filt Rate - Afr Amer 108 mL/min (>60); Estimated Creatinine Clearance 100.89 ml/min; Glucose 121 mg/dL (74-106); Sodium Level 140 mmol/L (136-145)
[2019-06-18 07:09] LABS: Differential Indicated SCAN CRITERIA MET
--- NOTE | 2019-06-18 08:40 | RAD_ITS ---
STUDY: X-RAY - ABDOMEN/PELVIS REASON FOR EXAM: Male, 73 years old. abd distension TECHNIQUE: Single AP view of the abdomen / pelvis. COMPARISON: 06/16/2019 FINDINGS: Mild bibasilar atelectasis and trace left pleural effusion stable. Residual colonic gas in the transverse and rectal colon. There is mild gaseous distention of loops of small bowel in the central abdomen not previously identified although no alec dilation. There is no demonstrated free abdominal air. The visualized liver, spleen and kidneys are grossly normal in size and morphology. Normal soft tissue structures. Residual metallic densities projecting over the abdomen stable. There are degenerative changes of the lumbar spine. RAD/Abdomen Single View IMPRESSION: 1. Suspect mild ileus with mild increased bowel distention since prior study. 2. Bibasilar atelectasis with trace left pleural effusion, similar. Electronically Signed: Bobby Stanley MD (Brooks) at 12:24 EST , Service support ,
[2019-06-18 09:59] VITALS: BP 127/84; PULSE 86; RESP 14; TEMP 36.4; O2SAT 98
[2019-06-18] MEDS: Enoxaparin 40 MG/0.4 ML Syringe SC (10:03)
[2019-06-18] MEDS: hydroCHLOROthiazide 12.5mg 12.5 MG PO (10:03)
[2019-06-18] MEDS: 0.9% Saline Lock 10 ML Syringe IV ×2 (10:03→17:54)
[2019-06-18] MEDS: Ondansetron 4 MG/2 ML Vial IV ×2 (10:03→17:54)
[2019-06-18] MEDS: Lisinopril 20 MG Tablet PO (10:03)
--- NOTE | 2019-06-18 10:17 | PN_ITS ---
Patient Problems: Active and Suspected Problems (Last Reviewed 06/10/19 @ 10:16 by Evelyn Bedolla) Abdominal pain (Acute) Enteritis (Acute) Subjective: Patient seen and examined. He complains of abdominal distention and pain today. He denies any nausea or vomiting. He states he thinks he ate too much yesterday and this was causing the symptoms. He did not eat today and has been eating breakfast this morning. He is passing gas. Review of symptoms otherwise negative. He states he does not want to go home today. Vitals/I&O's: Vital Signs Temp Pulse Resp BP Pulse Ox 97.5 F L 86 14 127/84 H 98 06/18/19 09:59 06/18/19 09:59 06/18/19 09:59 06/18/19 09:59 06/18/19 09:59 Oxygen Delivery Method Room Air Weight: 210 lb 1.608 oz Body Mass Index (BMI) 23.6 Intake and Output for Last 24 Hours 06/16/19 06/17/19 06/18/19 23:59 23:59 23:59 Intake Total 3364.17 / 3604.17 4273.75 / 4773.75 1800 / 1800 Balance 3364.17 / 3604.17 4273.75 / 4773.75 1800 / 1800 General: Alert, Oriented x3, Cooperative HEENT: Atraumatic, PERRLA, EOMI, Normocephalic Oral: Moist Mucosa Neck: Supple, No JVD, Negative Carotid Bruits Lungs: Clear to auscultation, Normal air movement, No rhonchi, No wheeze, No rales Cardiovascular: Regular rate, Regular Rhythm, Normal S1, Normal S2, No murmurs Abdomen: Bowel Sounds Present, distended, tympanitic to percussion Extremities: No edema, Capillary Refill Less than 3 Seconds Skin: No rashes, No breakdown Musculoskeletal: No Tenderness to Palpation of Joints or Extremities Lymphatic: No Cervical, Supraclavicular, or Inguinal Adenopathy Neurological: Cranial nerves II-XII grossly intact, Neuro grossly intact, Motor Exam 5/5 strength throughout Psych/Mental Status: Normal Affect, Appropriate, Alert and oriented to time, place, person, mood and affect Microbiology Past 72 Hours 06/15/19 15:26 Stool Enteric Bacteriology - Final 06/15/19 15:26 Stool C. difficile DNA Amplification - Final Laboratory Results 06/17/19 10:55: POC Glucose 156 H 06/17/19 17:24: POC Glucose 172 H 06/17/19 21:40: POC Glucose 179 H 06/18/19 05:56: POC Glucose 117 H 06/18/19 06:31: WBC 6.7, RBC 4.03 L, Hgb 12.6 L, Hct 38.0 L, MCV 94.3 H, MCH 31.3, MCHC 33.2, RDW Std Deviation 49.2 H, RDW Coeff of Minoo 14.5, Plt Count 238, MPV 9.6, Immature Gran % (Auto) 0.600, Neut % (Auto) 46.2 L, Lymph % (Auto) 29.3, Cavalier % (Auto) 23.6 H, Eos % (Auto) 0.3, Baso % (Auto) 0.0, Absolute Neuts (auto) 3.1, Absolute Lymphs (auto) 1.96, Nucleated RBC % 0, Differential Comment COMMENT 06/18/19 06:31: Sodium 140, Potassium 4.0, Chloride 109 H, Carbon Dioxide 27.0, Anion Gap 4 L, BUN 11, Creatinine 0.89, Estim Creat Clear Calc 100.89, Est GFR (MDRD) Af Amer 108, Est GFR (MDRD) Non-Af 89, BUN/Creatinine Ratio 12.3, Glucose 121 H, Calcium 8.9 Diagnostic Data Abdomen/Pelvis CT 06/14/19 16:09 IMPRESSION: 1. Since 06/08/2019, unfavorable change. Increased volume of ascites (small to moderate volume). 2. Fluid-filled stomach, bowel and proximal colon suggests possibility of diarrheal disease/gastritis and enteritis. 3. Grossly similar hepatic metastasis. Mild jamaal hepatis adenopathy. 4. 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 5. Additional chronic changes, as above. Electronically Signed: Bobby Stanley MD (Brooks) at 17:25 EST , Service support , Abdomen X-Ray 06/16/19 08:24 IMPRESSION: Mildly distended transverse colon down to the mid descending colon with air-fluid levels. Electronically Signed: Nacho Miles, at 12:40 EST , Service support , Current Medications Acetaminophen (Tylenol) 650 mg PO Q6H PRN PRN PRN Reason: Pain Score 1-10/10 Hydrocodone Bitart/Acetaminophen ([place] 5mg-325mg) 1 tablet PO Q4H PRN PRN PRN Reason: Pain or Fever Dexamethasone (Decadron) 4 mg PO DAILY@0800 [facility] Last Admin: 06/18/19 10:03 Dose: Not Given Documented by: Dextrose (D50w Syringe) 0 gm IV X1 PRN; Protocol PRN Reason: Hypoglycemia Enoxaparin Sodium (Lovenox) 40 mg SC DAILY [facility] Last Admin: 06/18/19 10:03 Dose: 40 mg Documented by: Fluticasone Propionate (Flonase Nasal [place]) 2 spray NASAL DAILY PRN PRN PRN Reason: ALLERGIES Glucagon () 1 mg IM .X1 PRN PRN Reason: Hypoglycemia Hydrochlorothiazide () 12.5 mg PO DAILY [facility] Last Admin: 06/18/19 10:03 Dose: 12.5 mg Documented by: Hydromorphone HCl (Dilaudid Inj) 1 mg IV Q2H PRN PRN PRN Reason: Pain Score 1-10/10 Last Admin: 06/18/19 10:03 Dose: 1 mg Documented by: Dextrose/Sodium Chloride (Dextrose 5%/0.9% Nacl) 1,000 mls @ 125 mls/hr IV .Q8H [facility] Last Admin: 06/18/19 05:57 Dose: 125 mls/hr Documented by: Piperacillin Sod/Tazobactam (Sod 3.375 gm/ Sodium Chloride) 50 mls @ 12.5 mls/hr IV Q8 [facility] Last Infusion: 06/18/19 09:58 Dose: Infused Documented by: Sodium Chloride () 250 mls @ 15 mls/hr IV .[id number] PRN PRN Reason: Saline Flush Last Infusion: 06/15/19 15:32 Dose: 0 mls/hr Documented by: Sodium Chloride () 250 mls @ 15 mls/hr IV .[id number] PRN PRN Reason: Additional IVPB Infusion Insulin Glargine (Lantus (Bk)) 15 units SC QHS [facility] Last Admin: 06/17/19 21:43 Dose: 15 u Documented by: Insulin Human Lispro (Humalog Kwikpen ([facility])) 0 unit SC Q6 [facility]; Protocol Last Admin: 06/18/19 05:59 Dose: Not Given Documented by: Lisinopril (Zestril) 20 mg PO DAILY [facility] Last Admin: 06/18/19 10:03 Dose: 20 mg Documented by: Neomycin/Polymyxin/Bacitr/Pramoxine (Neosporin Plus) 1 applic TOPICAL DAILY [facility]; Protocol Last Admin: 06/18/19 10:08 Dose: 1 applicatio Documented by: Ondansetron HCl (Zofran) 4 mg IV Q8H PRN PRN PRN Reason: NAUSEA/VOMITING Last Admin: 06/18/19 10:03 Dose: 4 mg Documented by: Simethicone (Mylicon) 80 mg PO TIDPC [facility] Last Admin: 06/18/19 10:03 Dose: 80 mg Documented by: Sodium Chloride () 10 - 40 ml IV UD PRN PRN Reason: SALINE FLUSH Last Admin: 06/18/19 10:03 Dose: 10 ml Documented by: STROKE Vital Signs/Narrative: Vital Signs Temp Pulse Resp BP Pulse Ox 06/18/19 09:59 97.5 F L 86 14 127/84 H 98 Medical Necessity - Tobacco Use Smoking Status: Never smoker Assessment/Plan All Active Problems (Last Reviewed 06/10/19 @ 10:16 by Evelyn Bedolla) Hyperglycemia (Acute) Chemotherapy management, encounter for (Acute) Constipation (Acute) Chemotherapy management, encounter for (Acute) Abdominal pain (Acute) Enteritis (Acute) Encounter for education (Acute) Fever (Acute) Severe sepsis (Acute) 1. Intractable abdominal pain due to metastatic pancreatic cancer * was unable to tolerate a regular diet yesterday. He had worsening abdominal distention and states he did not eat dinner or breakfast this morning. Now on full liquid diet. * On IV Zofran as needed. KUB ordered today and is pending. * States he does not feel comfortable going home today. * Patient counseled that if KUB shows worsening abdominal distention, NG tube will need to be reinserted- KUB showed mild ileus with mild increased bowel distension * will repeat KUB tomorrow * full liquid diet * 2. Gastroenteritis * Resolved. Blood cultures are pending. * On IV Zosyn. * blood cultures pending * C Diff was negative * stool for enteric pathogen was negative. * 2. Metastatic pancreatic cancer: Undergoing chemotherapy. Oncology on board 3. Hypertension: Metoprolol hydrochlorothiazide. 4. Type 2 diabetes mellitus: * Lantus on hold. * Accu-Cheks ACHS. ISS 5. History of asthma: on breathing treatments. DVT prophylaxis; lovenox. Code Visit Inpatient E&M: 99149 Subs Hosp L2
[2019-06-18 11:55] LABS: Bedside Glucose 88 mg/dL (70-110)
[2019-06-18 15:35] VITALS: BP 127/83; PULSE 84; RESP 14; TEMP 36.6; O2SAT 97
[2019-06-18 17:10] LABS: Bedside Glucose 141 mg/dL (70-110)
[2019-06-18 20:22] VITALS: BP 117/76; PULSE 73; RESP 16; TEMP 36.3; O2SAT 95
[2019-06-18 22:31] LABS: Bedside Glucose 109 mg/dL (70-110)
[2019-06-19] MEDS: HYDROmorphone 1 MG/ML Syringe IV ×3 (00:39→11:32)
[2019-06-19 00:45] LABS: Bedside Glucose 92 mg/dL (70-110)
[2019-06-19 02:50] VITALS: BP 125/88; PULSE 80; RESP 16; TEMP 36.8; O2SAT 99
[2019-06-19] MEDS: Ondansetron 4 MG/2 ML Vial IV ×2 (02:54→11:28)
--- NOTE | 2019-06-19 05:55 | RAD_ITS ---
STUDY: X-RAY - ABDOMEN/PELVIS REASON FOR EXAM: Male, 73 years old. FOLLOW UP ILEUS TECHNIQUE: AP supine and upright views of the abdomen and pelvis. COMPARISON: 06/18/2019. FINDINGS: There again are nonspecific gaseous small bowel loops and colon with air-fluid levels for the most part unchanged since prior examination likely due to ileus. There is gas in the region of the rectum. There is no demonstrated free abdominal air. Metallic densities are again seen on the right side of the abdomen. Normal soft tissue structures. There are diffuse degenerative changes of the visualized lumbar spine. RAD/Abd Inc Decub and/or Erect IMPRESSION: Gaseous small bowel loops and colon with air-fluid levels probably due to ileus essentially unchanged since the prior examination. Electronically Signed: Chetan Palma MD at 10:53 EST Tel , Service support ,
[2019-06-19 06:16] LABS: Absolute Lymphocyte Count 2.39 X10^3/uL (0.83-4.51); Absolute Neutrophil Count 1.7 X10^3/uL (2.0-7.7); Basophil# 0.01 X10^3/uL; Basophil% 0.2 % (0-1); Eosinophil# 0.09 X10^3/uL; Eosinophils% 1.6 % (0-5); Hemoglobin 12.5 g/dL (13.0-16.5); Lymphocyte # 2.39 X10^3/ul (4.0); Lymphocyte % 42.4 % (19-41); Mean Corp Hgb Conc 32.9 g/dL (32-36); Mean Corpuscular Hgb 31.7 pg (27.0-32.0); Mean Corpuscular Volume 96.4 fL (80-94); Monocyte# 1.41 X10^3/uL; NRBC Flagged by Analyzer 0 % (0-5); Neutrophil % 30.1 % (47-70); Platelet Count 209 K/mm3 (150-450); RBC Distribution Width CV 14.5 % (11.6-14.6); RBC Distribution Width SD 51.5 fl (35.1-43.9); Red Blood Count 3.94 M/mm3 (4.6-6.2); White Blood Count 5.6 K/mm3 (4.4-11.0)
[2019-06-19] MEDS: Dextrose 5%/0.9% NaCl 1,000 ML 125 ML IV (06:34)
[2019-06-19 06:36] LABS: Anion Gap 3 (5-15); BUN 10 mg/dL (7-18); BUN/Creat Ratio 11.1 RATIO (10-20); Calcium,Total 8.9 mg/dL (8.5-10.1); Chloride 110 mmol/L (98-107); EST Glomerular Filtration Rate 88 mL/min (>60); Est Glom Filt Rate - Afr Amer 107 mL/min (>60); Estimated Creatinine Clearance 99.77 ml/min; Glucose 115 mg/dL (74-106); Potassium 3.7 mmol/L (3.5-5.1); Sodium Level 143 mmol/L (136-145)
[2019-06-19 07:01] LABS: Bedside Glucose 120 mg/dL (70-110)
[2019-06-19 07:02] VITALS: O2SAT 96
[2019-06-19] MEDS: 0.9% Saline Lock 10 ML Syringe IV ×2 (07:26→08:43)
[2019-06-19 08:24] VITALS: BP 111/84; PULSE 98; RESP 16; TEMP 36.6; O2SAT 96
[2019-06-19] MEDS: Lisinopril 20 MG Tablet PO (08:43)
[2019-06-19] MEDS: hydroCHLOROthiazide 12.5mg 12.5 MG PO (08:43)
--- NOTE | 2019-06-19 10:14 | DS.PCM_ITS ---
Discharge Date and Diagnosis Date of Admission: 06/14/19 Date of Discharge: 06/19/19 - Primary Discharge Diagnosis Active and Suspected Problems (Last Reviewed 06/10/19 @ 10:16 by Evelyn Bedolla) Abdominal pain (Acute) gastroenteritis (Acute) - Secondary Discharge Diagnosis Chronic Problems (Last Reviewed 06/10/19 @ 10:16 by Evelyn Bedolla) Liver metastases (Chronic) Bronchial asthma (Chronic) HTN (hypertension) (Chronic) Pancreatic cancer (Chronic) Pancreatic cancer metastasized to liver (Chronic) Hospital Course and Treatment Imaging Results: 06/19/19 05:55 KUB [Abd Inc Decub and/or Erect] [RAD] AM (NON MEDS) oncology- Dr Short Operations: None Procedures: None Summary of Care Provided: The patient is a 73 year old M with a past medical history which includes pancreatic cancer diagnosed this past December with liver metastasis. He was admitted to the ED on 06/14/2019 with a complaint of abdominal pain which was mainly over the upper right side of the abdomen and radiated to the left side. He had no assisted nausea or vomiting. Of note, cancer also spread to the bone. CT of the abdomen done on admission showed fluid-filled stomach and bowel and proximal colon suggesting possibility of diarrhea versus gastroenteritis with grossly similar hepatic metastasis and osteoblastic metastasis. He was admitted and managed for intractable abdominal pain due to metastatic pancreatic cancer. He had an NG tube inserted and placed to suction. This helped significantly with resolution of abdominal pain. NG tube draining bilious fluid. However subsequently patient started having diarrhea. Oncology was consulted on account of concern for typhlitis, patient was started on IV Zosyn. Blood cultures were obtained. Stool was negative for C. difficile and enteric pathogens. Patient was started on clear liquid diet and this was gradually advanced. However once patient ate a regular diet, he started complaining of abdominal distention and fullness and so he was put back on a clear liquid diet and advance to full liquid diet. KUB showed mild colonic distention but no evidence of free fluid in the peritoneum. Patient's abdominal distention gradually resolved and he was able to pass gas and have bowel movements. He was also tolerating a full liquid diet and soft diet. He remained stable and was discharged home on 06/19/2019. He was discharged with a prescription for p.o. ciprofloxacin and Flagyl for 5 days. He is to follow-up with his primary care doctor and oncologist within 1 week. Patient seen and examined prior to discharge. He said he felt much much better and was eager to go home. He had no complaints. He said abdomen was still mildly distended but he was passing gas and not had a bowel movement. Review of systems is otherwise negative. Labs and vitals reviewed. Home medication reviewed and reconciled. o/e: Vital Signs Height 6 ft 7 in Weight: 210 lb 1.608 oz Weight in Pounds 210.1 lbs Pulse Ox 94 Temperature 97.5 F Pulse Rate 108 Respiratory Rate 16 Blood Pressure [2nd BP] 113/86 Blood Pressure 109/75 Blood Pressure Position [2nd Semi-Fowlers BP] Blood Pressure Position Sitting [] General: Alert, Oriented x3, Cooperative HEENT: Atraumatic, PERRLA, EOMI, Normocephalic Oral: Moist Mucosa Neck: Supple, No JVD, Negative Carotid Bruits Lungs: Clear to auscultation, Normal air movement, No rhonchi, No wheeze, No rales Cardiovascular: Regular rate, Regular Rhythm, Normal S1, Normal S2, No murmurs Abdomen: Bowel Sounds Present, Non Tender, mildly distended, abdomen tympanitic to percussion Extremities: No edema, Capillary Refill Less than 3 Seconds Skin: No rashes, No breakdown Musculoskeletal: No Tenderness to Palpation of Joints or Extremities Lymphatic: No Cervical, Supraclavicular, or Inguinal Adenopathy Neurological: Cranial nerves II-XII grossly intact, Neuro grossly intact, Motor Exam 5/5 strength throughout Psych/Mental Status: Normal Affect, Appropriate, Alert and oriented to time, place, person, mood and affect Plan as above. Of note, blood cultures were still pending at time of discharge. - Physical Exam Vitals/I&O's: Vital Signs Temp Pulse Resp BP Pulse Ox 97.8 F 98 16 111/84 H 96 06/19/19 08:24 06/19/19 08:24 06/19/19 08:24 06/19/19 08:24 06/19/19 08:24 Oxygen Delivery Method Room Air Weight: 210 lb 1.608 oz Body Mass Index (BMI) 23.6 Intake and Output for Last 24 Hours 06/17/19 06/18/19 06/19/19 23:59 23:59 23:59 Intake Total 4273.75 / 4773.75 4330.17 / 4330.17 1682.25 / 1682.25 Balance 4273.75 / 4773.75 4330.17 / 4330.17 1682.25 / 1682.25 Microbiology Past 72 Hours 06/15/19 15:26 Stool Enteric Bacteriology - Final Laboratory Results 06/18/19 11:49: POC Glucose 88 06/18/19 17:00: POC Glucose 141 H 06/18/19 22:22: POC Glucose 109 06/19/19 00:34: POC Glucose 92 06/19/19 06:00: WBC 5.6, RBC 3.94 L, Hgb 12.5 L, Hct 38.0 L, MCV 96.4 H, MCH 31.7, MCHC 32.9, RDW Std Deviation 51.5 H, RDW Coeff of Minoo 14.5, Plt Count 209, MPV 9.0, Immature Gran % (Auto) 0.700, Neut % (Auto) 30.1 L, Lymph % (Auto) 42.4 H, [place] % (Auto) 25.0 H, Eos % (Auto) 1.6, Baso % (Auto) 0.2, Absolute Neuts (auto) 1.7 L, Absolute Lymphs (auto) 2.39, Nucleated RBC % 0 06/19/19 06:00: Sodium 143, Potassium 3.7, Chloride 110 H, Carbon Dioxide 30.0, Anion Gap 3 L, BUN 10, Creatinine 0.90, Estim Creat Clear Calc 99.77, Est GFR (MDRD) Af Amer 107, Est GFR (MDRD) Non-Af 88, BUN/Creatinine Ratio 11.1, Glucose 115 H, Calcium 8.9 06/19/19 06:32: POC Glucose 120 H Current Medications Acetaminophen (Tylenol) 650 mg PO Q6H PRN PRN PRN Reason: Pain Score 1-10/10 Hydrocodone Bitart/Acetaminophen ([place] 5mg-325mg) 1 tablet PO Q4H PRN PRN PRN Reason: Pain or Fever Dexamethasone (Decadron) 4 mg PO DAILY@0800 [facility] Last Admin: 06/19/19 08:39 Dose: Not Given Documented by: Dextrose (D50w Syringe) 0 gm IV X1 PRN; Protocol PRN Reason: Hypoglycemia Enoxaparin Sodium (Lovenox) 40 mg SC DAILY [facility] Last Admin: 06/18/19 10:03 Dose: 40 mg Documented by: Fluticasone Propionate (Flonase Nasal [place]) 2 spray NASAL DAILY PRN PRN PRN Reason: ALLERGIES Glucagon () 1 mg IM .X1 PRN PRN Reason: Hypoglycemia Hydrochlorothiazide () 12.5 mg PO DAILY [facility] Last Admin: 06/19/19 08:43 Dose: 12.5 mg Documented by: Hydromorphone HCl (Dilaudid Inj) 1 mg IV Q2H PRN PRN PRN Reason: Pain Score 1-10/10 Last Admin: 06/19/19 07:04 Dose: 1 mg Documented by: Dextrose/Sodium Chloride (Dextrose 5%/0.9% Nacl) 1,000 mls @ 125 mls/hr IV .Q8H [facility] Last Infusion: 06/19/19 08:40 Dose: 125 mls/hr Documented by: Piperacillin Sod/Tazobactam (Sod 3.375 gm/ Sodium Chloride) 50 mls @ 12.5 mls/hr IV Q8 [facility] Last Infusion: 06/19/19 08:40 Dose: 12.5 mls/hr Documented by: Sodium Chloride () 250 mls @ 15 mls/hr IV .[id number] PRN PRN Reason: Saline Flush Last Infusion: 06/19/19 06:35 Dose: 0 mls/hr Documented by: Sodium Chloride () 250 mls @ 15 mls/hr IV .[id number] PRN PRN Reason: Additional IVPB Infusion Insulin Glargine (Lantus (Bk)) 15 units SC QHS [facility] Last Admin: 06/18/19 22:22 Dose: Not Given Documented by: Insulin Human Lispro (Humalog Kwikpen ([facility])) 0 unit SC Q6 [facility]; Protocol Last Admin: 06/19/19 06:34 Dose: Not Given Documented by: Lisinopril (Zestril) 20 mg PO DAILY [facility] Last Admin: 06/19/19 08:43 Dose: 20 mg Documented by: Neomycin/Polymyxin/Bacitr/Pramoxine (Neosporin Plus) 1 applic TOPICAL DAILY [facility]; Protocol Last Admin: 06/19/19 08:40 Dose: Not Given Documented by: Ondansetron HCl (Zofran) 4 mg IV Q8H PRN PRN PRN Reason: NAUSEA/VOMITING Last Admin: 06/19/19 02:54 Dose: 4 mg Documented by: Simethicone (Mylicon) 80 mg PO TIDPC [facility] Last Admin: 06/19/19 08:43 Dose: 80 mg Documented by: Sodium Chloride () 10 - 40 ml IV UD PRN PRN Reason: SALINE FLUSH Last Admin: 06/19/19 08:43 Dose: 10 ml Documented by: Discharge Activity: Return to Normal Activity Weight Bearing Status: Weight bearing as tolerated Call your doctor if you observe: Fever of 101 or Higher, Uncontrolled pain Home Medications: Medications to take at Discharge Lisinopril/Hydrochlorothiazide [Zestoretic 20/12.5 Tablet] 1 tab PO DAILY 02/22/14 Albuterol IH (ProAir) [Proair Hfa] 1 puff INHALATION DAILY PRN PRN 01/25/19 Fluticasone Propionate 2 spray NASAL DAILY PRN PRN 01/25/19 Multivit-Min/FA/Lycopen/Lutein [Centrum Silver Men Tablet] 1 ea PO DAILY 01/25/19 Insulin Lispro [Humalog] 10 unit SQ TIDCM PRN 02/08/19 Dexamethasone [Decadron] 4 mg PO DAILY@0800 #7 tab 05/21/19 Insulin Glargine [Lantus SoloStar Pen] 30 units SUBCUT QHS 06/13/19 Potassium Chloride 4 meq PO DAILY 06/14/19 Senna [Senokot] 1 tab PO DAILY 06/14/19 Acetaminophen [Tylenol Tablet] 650 mg PO Q6H PRN PRN #30 tab 06/17/19 Ciprofloxacin [Cipro] 500 mg PO BID #6 tab 06/17/19 Metronidazole 500 mg PO TID #9 tab 06/17/19 Following Prescrptions Were Given to Patient: Ciprofloxacin [Cipro] 500 mg PO BID #6 tab Transmission Status: Received by [id number] Metronidazole 500 mg PO TID #9 tab [facility]: [id number] Acetaminophen [Tylenol Tablet] 650 mg PO Q6H PRN PRN #30 tab PRN Reason: Pain Score 1-10/10 Transmission Status: [facility] Primary Care Physician: Valentin Kelly Chi, MD [Primary Care Provider] - Please Follow Up With: Valentin Kelly Chi, MD When: one week Please Follow Up With: Carl Short MD When: 1-2 weeks Patient Instructions: What Is Pancreatic Cancer? Disposition: Home Minutes spent on discharge:: 40 Medical Necessity - Tobacco Use Smoking Status: Never smoker Meaningful Use Info Meaningful Use Diagnoses (Choose all that apply): None applicable Code Visit Inpatient E&M: 38647 Disch Hosp
[2019-06-19 12:20] VITALS: BP 109/75; PULSE 108; RESP 16; TEMP 36.4; O2SAT 94
== END 2019-06-19 12:27 | disposition home or self-care (01) | DRG 948 ==
LOC: ED 16:36 → PCU 20:55
PROVIDERS: Admitting Provider Family Medicine; Emergency Provider Emergency Medicine; Family Provider Family Medicine Geriatric Medicine; PCP Family Medicine Geriatric Medicine; Visit Provider Student in an Organized Health Care Education/Training Program
DX: G89.3 Neoplasm related pain (acute) (chronic) (principal); C25.2 Malignant neoplasm of tail of pancreas; C78.7 Secondary malignant neoplasm of liver and intrahepatic bile duct; C79.51 Secondary malignant neoplasm of bone; R18.8 Other ascites; I10 Essential (primary) hypertension; J45.909 Unspecified asthma, uncomplicated; E11.649 Type 2 diabetes mellitus with hypoglycemia without coma; K52.9 Noninfective gastroenteritis and colitis, unspecified; Z79.4 Long term (current) use of insulin; Z79.899 Other long term (current) drug therapy
CPT/HCPCS: 36415; 74018; 74019; 74177; 80048; 80053; 80076; 81001; 82962; 83605; 83690; 85025; 87040; 87493; 87506; 94640; 96361; 96374; 96375; 99282; 99284; J7030; J7050; Q9967; A4216; J2405

== ENCOUNTER 2019-06-20 08:48 | Inpatient (IN) | payer MEDICARE, OTHER, SELFPAY ==
[2019-06-20] VITALS (9 sets, daily range): BP systolic 128–143; BP diastolic 74–94; PULSE 42–108; RESP 16–20; TEMP 36.4–37.1; O2SAT 96–98; BMI 24.7; BMI 24.8
--- NOTE | 2019-06-20 09:17 | CT_ITS ---
STUDY: CT ABDOMEN AND PELVIS WITHOUT CONTRAST REASON FOR EXAM: Male, 73 years old. INCREASED ABD PAIN AND BILAT LEG SWELLING, JUST RELEASED FROM HOSPITAL YESTERDAY, RECENT DX OF PANCREATIC CA WITH LIVER METS-ON CHEMO, HTN RADIATION DOSAGE (If Supplied By Facility): CTDIvol = ( 13.97 ) mGy, DLP = ( 771.19 ) mGycm TECHNIQUE: Transaxial images were obtained from the dome of the diaphragm to the symphysis pubis without oral contrast, and without intravenous contrast. Sagittal and coronal images were reconstructed. Individualized dose optimization techniques were used for this CT. COMPARISON: 06/14/2019. FINDINGS: Subsegmental atelectasis in the right posterior lung base. Small bilateral posterior pleural fluid, left more than right. The visualized portions of the heart are within normal limits. Multiple hypodense masses in the liver. Nodularity of the liver surface is liver cirrhosis. Ascites around the liver. Slightly hyperdense fluid level inside the gallbladder fossa may be due to sludge. Normal spleen surrounded by ascites. Normal pancreas. Normal bilateral adrenal glands. Normal right kidney. Normal left kidney. Normal visualized stomach. Normal small intestine. Normal colon. The appendix is not visualized. Mild atherosclerotic calcifications of the abdominal aorta. Normal inferior vena cava. Normal retroperitoneum. Abnormal infiltration of the omental fat due to metastases persistent malignant ascites. Normal urinary bladder. Large lipoma in the left groin is unchanged. Posterior T10 sclerotic bone lesion is unchanged. Mild degenerative retrolisthesis of L2 on L3 and mild degenerative anterolisthesis of L5 on S1 are unchanged. Pronounced disc space height narrowing at L2-L3 down to L5-S1 disc space levels are unchanged. CT/Abdomen/Pelvis without Cont IMPRESSION: 1. Multiple hypodense masses in the liver are presumably metastatic disease. 2. Nodularity of the liver surface is suspicious for liver cirrhosis and surrounded by malignant ascites. 3. Abnormal omental fat due to omental metastases. 4. Persistent malignant ascites. 5. Large lipoma in the left groin is unchanged. 6. Small bilateral posterior pleural fluid, left more than right. This is new. 7. There is a history of pancreatic carcinoma but I am unable to find any pancreatic mass. 8. No significant interval change when compared to 06/14/2019. Electronically Signed: Antoine Ko MD at 10:52 EST , Service support ,
--- NOTE | 2019-06-20 09:18 | EKG12_ITS ---
Test Reason : ABD PAIN Blood Pressure : / mmHG Vent. Rate : 098 BPM Atrial Rate : 098 BPM P-R Int : 160 ms QRS Dur : 094 ms QT Int : 334 ms P-R-T Axes : 055 029 014 degrees QTc Int : 426 ms Normal sinus rhythm Nonspecific T wave abnormality Abnormal ECG Confirmed by BERNARDO DIEGO, JIMBO ([id number]), news copy editor MAYELA ALLEN ([id number]) on 06/24/2019 8:47:06 AM Referred By: Julisa Zapata Confirmed By:JIMBO CHANG MD
[2019-06-20 09:46] LABS: Absolute Lymphocyte Count 2.76 X10^3/uL (0.83-4.51); Basophil# 0.02 X10^3/uL; Basophil% 0.2 % (0-1); Eosinophil# 0.06 X10^3/uL; Eosinophils% 0.7 % (0-5); Hematocrit 38.6 % (40-54); Hemoglobin 12.8 g/dL (13.0-16.5); Lymphocyte # 2.76 X10^3/ul (4.0); Lymphocyte % 31.5 % (19-41); Mean Corp Hgb Conc 33.2 g/dL (32-36); Mean Corpuscular Hgb 31.3 pg (27.0-32.0); Mean Corpuscular Volume 94.4 fL (80-94); Mean Platelet Vol. 8.9 fl (6.2-12.0); Monocyte# 1.79 X10^3/uL; Monocyte% 20.5 % (0-10); NRBC Flagged by Analyzer 0 % (0-5); Neutrophil # 3.99 X10^3/uL (2.7-7.7); Neutrophil % 45.6 % (47-70); POSITIVE DIFFERENTIAL YES; Platelet Count 232 K/mm3 (150-450); RBC Distribution Width CV 14.8 % (11.6-14.6); RBC Distribution Width SD 51.8 fl (35.1-43.9); Red Blood Count 4.09 M/mm3 (4.6-6.2); White Blood Count 8.8 K/mm3 (4.4-11.0)
[2019-06-20 09:53] LABS: Differential Indicated SCAN CRITERIA MET
[2019-06-20 10:11] LABS: Lactic Acid 1.1 mmol/L (0.4-1.9)
[2019-06-20] MEDS: Morphine 4 MG/ML Syringe IV ×2 (10:11→12:53)
[2019-06-20] MEDS: Ondansetron 4 MG/2 ML Vial IV ×2 (10:11→20:57)
[2019-06-20] MEDS: 0.9% Normal Saline 1,000 ML 15 ML IV (10:11)
[2019-06-20 10:16] LABS: Differential Comment SCANNED
[2019-06-20 10:24] LABS: ALB/GLOB Ratio 0.5 RATIO (0.9-2.4); AST(SGOT) 88 U/L (15-37); Alanine Aminotransfer ALT/SGPT 101 U/L (16-61); Albumin, Serum 2.2 g/dL (3.2-5.0); Alkaline Phosphatase 142 U/L (45-117); Anion Gap 7 (5-15); BUN 12 mg/dL (7-18); BUN/Creat Ratio 16.2 RATIO (10-20); Calcium,Total 9.1 mg/dL (8.5-10.1); Chloride 109 mmol/L (98-107); Creatinine, Serum 0.74 mg/dL (0.70-1.30); EST Glomerular Filtration Rate 110 mL/min (>60); Est Glom Filt Rate - Afr Amer 133 mL/min (>60); Globulin 4.1 g/dL (2.2-4.2); Glucose 90 mg/dL (74-106); Lipase 33 U/L (73-393); Potassium 3.5 mmol/L (3.5-5.1); Protein, Total 6.3 g/dL (6.4-8.2); Sodium Level 142 mmol/L (136-145)
--- NOTE | 2019-06-20 11:39 | ED.DCSUM_ITS ---
- ER Visit Summary Date of Service: 06/20/19 Chief Complaint: [Abdominal pain] History of Present Illness: The patient is a 73 M [Zentz to the emergency department complaint of abdominal pain as her yesterday. Patient complains of pain is 10 out of 10. Patient was just discharged from the hospital yesterday after being admitted for abdominal pain. Apparently had an NG tube in place as well at that time. Patient states that he has had increased abdominal distention since yesterday and is also complaining of swelling to his lower extremities. Patient does have a history of pancreatic cancer with metastasis. His last chemotherapy dose was June 02. Patient has had 8 cycles of chemo.] Physical Examination: [HEENT-PERRLA, EOMI. Cranial nerves II through XII grossly intact. TMs clear. Mucous membranes moist. No adenopathy. Cardiovascular-regular rate and rhythm without murmur or ectopy Lungs-clear to auscultation, chest wall stable without crepitus or subcu emphysema Abdomen-normoactive bowel sounds. Patient has distention of the abdomen that is diffusely tender. There is no rebound, rigidity, or peritoneal signs. Extremities-intact ?4, normal range of motion, normal pulses, atraumatic. Patient has +2 edema both lower extremities.] Test Results: [CBC with differential obtained showed a white count of 8.8, hemoglobin 12.8, hematocrit 39, platelets 232. Chemistries unremarkable. Alk phos was 142, ALT 101, AST 88, lipase 33. EKG obtained arrival showed a sinus rhythm with a ventricular rate of [address] changes. CT scan of the abdomen pelvis showed essentially liver metastasis with ascites and bilateral pleural effusions that are small. There is no significant change from prior CT scan that was about 6 days ago.] Emergency Department Course and Treatment: [Patient was medicated with morphine and Zofran. Case will be discussed with hospitalist to evaluate for admission. I do not feel patient has spontaneous bacterial peritonitis.] Treatment Plan: [Admit] Disposition: [Admit] Impression: [Nominal pain Ascites Pancreatic cancer with metastasis] This note was generated with [employer] (f[employer])ation software. It may contain incorrect words, spelling, and punctuation that were not noted in review of the chart prior to signing ED Disposition - Plan for ED Patient: Referrals: Valentin Kelly Chi, MD [Primary Care Provider] -
--- NOTE | 2019-06-20 12:02 | NURSING ---
DR MINOR FOR DR BANKS
--- NOTE | 2019-06-20 12:03 | HP.PCM_ITS ---
Problem List (1) Constipation Status: Acute Qualifiers: Constipation type: other constipation type Qualified Code(s): K59.09 - Other constipation (2) Liver metastases Status: Chronic (3) HTN (hypertension) Status: Chronic Qualifiers: Hypertension type: essential hypertension Qualified Code(s): I10 - Essential (primary) hypertension (4) Pancreatic cancer Status: Chronic Qualifiers: Pancreatic malignancy location: tail of pancreas Qualified Code(s): C25.2 - Malignant neoplasm of tail of pancreas History of Present Illness Date of Admission: 06/20/19 Chief Complaint: Abdominal distension The patient is a 73 year old M with past medical history of metastatic pancreatic CA, hypertension, type II DM who was discharged yesterday after admission for abdominal pain and managed as ileus. He had an NG tube placed whilst in the hospital, that helped with resolution of his abdominal pain. Patient had diarrhea in the hospital and stool studies were negative. He was managed conservatively. At the time of discharge, patient was passing gas but had not moved his bowels. He subsequently was discharged back returned with worsening abdominal distention. He denied any fever or chills or nausea or vomiting or chest pain or dizziness or palpitation. His vitals in the ED showed temperature of 98F, heart rate 42, blood pressure 143/80, patient rate was 17, SPO2 was 98% on room air. Admitting blood work showed WBC count of 8.8, hemoglobin 12.8, platelet count of 232, his CMP showed, AST 88, ALT 101, ALP 142, total protein 6.3, albumin 2.2 CT scan of the abdomen and pelvis showed ascites, abnormal omental fat second omental metastasis, multiple hypodense metastatic lesions in the liver. Repeat CT scan of the abdomen and pelvis with contrast showed no interval change or hepatic venous thrombosis Past Medical History Past Medical History (Chronic Problems): Chronic Problems (Last Reviewed 06/10/19 @ 10:16 by Evelyn Bedolla) Liver metastases (Chronic) Bronchial asthma (Chronic) HTN (hypertension) (Chronic) Pancreatic cancer (Chronic) Pancreatic cancer metastasized to liver (Chronic) Medical History: Medical History (Last Reviewed 06/10/19 @ 10:16 by Evelyn Bedolla) Elevated LFTs R94.5 during treatment for meningitis 2013 Liver mass R16.0 Mass of pancreas K86.89 Meningitis G03.9 1998 and 2013. Allergies Latex, Natural Rubber Allergy (Intermediate, Verified 06/20/19 08:49) Rash cat dander Allergy (Verified 06/20/19 08:49) Shortness of breath hydrocodone bitartrate [From Vicodin] Allergy (Verified 06/20/19 08:49) hallucinations HALLUCINATIONS steri strips Allergy (Unknown, Uncoded 06/20/19 08:49) knee opened up after knee surgery skin sensitivity Allergy (Uncoded 06/20/19 08:49) Itching skin sensitivity to perfumes change in laundry detergent, soaps, Home Medications: Ambulatory Orders Medication Instructions Recorded Lisinopril/Hydrochlorothiazide 1 tab PO DAILY 02/22/14 [Zestoretic 20/12.5 Tablet] Albuterol IH (ProAir) [Proair Hfa] 1 puff INHALATION DAILY PRN PRN 01/25/19 Fluticasone Propionate 2 spray NASAL DAILY PRN PRN 01/25/19 Multivit-Min/FA/Lycopen/Lutein 1 ea PO DAILY 01/25/19 [Centrum Silver Men Tablet] Insulin Lispro [Humalog] 10 unit SQ TIDCM PRN 02/08/19 Dexamethasone [Decadron] 4 mg PO DAILY@0800 #7 tab 05/21/19 Insulin Glargine [Lantus SoloStar 30 units SUBCUT QHS 06/13/19 Pen] Potassium Chloride 4 meq PO DAILY 06/14/19 Senna [Senokot] 1 tab PO DAILY 06/14/19 Acetaminophen [Tylenol Tablet] 650 mg PO Q6H PRN PRN #30 tab 06/17/19 Ciprofloxacin [Cipro] 500 mg PO BID #6 tab 06/17/19 Metronidazole 500 mg PO TID #9 tab 06/17/19 Surgical History: Surgical History (Last Reviewed 06/10/19 @ 10:16 by Evelyn Bedolla) History of hernia surgery Z98.890, Z87.19 History of total right knee replacement Z96.651 right Surgical History: herniorrhaphy, total knee arthroplasty, - - Previous data be tibial plateau fracture repair 26 years ago Psychiatric History: No pertinent psych hx Smoking Status: Former smoker Tobacco Use: Non-smoker Alcohol: None Drugs: None - *Family History Maternal Family History: Family History (Last Reviewed 06/10/19 @ 10:16 by Evelyn Bedolla) Mother Diabetes Brother Diabetes Sister Heart disease Daughter Asthma History Items: Diabetes Sibling Family History: Family History (Last Reviewed 06/10/19 @ 10:16 by Evelyn Bedolla) Mother Diabetes Brother Diabetes Sister Heart disease Daughter Asthma History Items: Diabetes Review of Systems Constitutional: Reports: Anorexia, Malaise, Weakness, Fatigue. Denies: Chills, Fever, Night Sweats, Weight Change Eyes: Denies: Blurred vision, Cataracts, Conjunctivae Inflammation, Pain, Redness, Vision Change HEENT: Denies: Difficulty Hearing, Difficulty Swallowing, Head Aches, Hearing Changes, Sinus Congestion, Sinus Drainage, Sore Throat Cardiovascular: Denies: Chest Pain, Claudication, Orthopnea, Palpitations, Paroxysmal Noc. Dyspnea Respiratory: Denies: Cough, Hemoptysis, Shortness of breath at rest, Shortness of breath upon exertion, Sputum production Gastrointestinal: Denies: Abdominal Pain, Constipation, Hematemesis, Hematochezia, Nausea, Vomiting Genitourinary: Denies: Dysuria, Frequency, Incontinence Musculoskeletal: Denies: Joint Pain, Joint stiffness, Joint swelling, Joint Tenderness Skin: Denies: Rash, Wounds Neurological: Denies: Difficulty swallowing, Focal weakness, Numbness, Tingling Psychiatric: Denies: Anxiety, Depression, Homicidal Ideations, Suicidal Ideations Hematologic/ Lymphatic: Denies: Easy Bruising, Easy Bleeding VTE Information - Inpt Only VTE Present on Admission: No VTE Pharm Prophylaxis ordered?: Yes - Physical Exam Vitals/I&O's: Vital Signs Temp Pulse Resp BP Pulse Ox 98.0 F 42 L 20 H 143/80 H 98 06/20/19 09:07 06/20/19 08:53 06/20/19 09:07 06/20/19 09:07 06/20/19 09:07 Oxygen Delivery Method Room Air Weight: 99.79 kg Body Mass Index (BMI) 24.7 General: Alert, Oriented x3, Cooperative, No apparent distress HEENT: Atraumatic, PERRLA, EOMI, Normocephalic Oral: Moist Mucosa Neck: Supple Lungs: Diminished - at the lung bases Cardiovascular: Regular rate, Regular Rhythm, Normal S1, Normal S2, No murmurs Abdomen: Bowel Sounds Present, Soft, Non Tender, Hypoactive Bowel Sounds, Distended, - - tympanitic Extremities: No edema Skin: No rashes Musculoskeletal: No Tenderness to Palpation of Joints or Extremities Lymphatic: No Cervical, Supraclavicular, or Inguinal Adenopathy Neurological: Cranial nerves II-XII grossly intact, Neuro grossly intact Psych/Mental Status: Normal Affect, Appropriate Laboratory Results 06/20/19 09:40: WBC 8.8, RBC 4.09 L, Hgb 12.8 L, Hct 38.6 L, MCV 94.4 H, MCH 31.3, MCHC 33.2, RDW Std Deviation 51.8 H, RDW Coeff of [place] 14.8 H, Plt Count 232, MPV 8.9, Immature Gran % (Auto) 1.500 H, Neut % (Auto) 45.6 L, Lymph % (Auto) 31.5, [place] % (Auto) 20.5 H, Eos % (Auto) 0.7, Baso % (Auto) 0.2, Absolute Neuts (auto) 4.0, Absolute Lymphs (auto) 2.76, Nucleated RBC % 0, Differential Comment SCANNED 06/20/19 09:40: Sodium 142, Potassium 3.5, Chloride 109 H, Carbon Dioxide 26.0, Anion Gap 7, BUN 12, Creatinine 0.74, Estim Creat Clear Calc 89.80, Est GFR (MDRD) Af Amer 133, Est GFR (MDRD) Non-Af 110, BUN/Creatinine Ratio 16.2, Glucose 90, Calcium 9.1, Total Bilirubin 0.80, AST 88 H, ALT 101 H, Alkaline Phosphatase 142 H, Total Protein 6.3 L, Albumin 2.2 L, Globulin 4.1, Albumin/Globulin Ratio 0.5 L, Lipase 33 L 06/20/19 09:40: Lactic Acid 1.1 Current Medications Sodium Chloride () 1,000 mls @ 0 mls/hr IV .Q0M FLAVIO Last Admin: 06/20/19 10:11 Dose: 15 mls/hr Documented by: Assessment/Plan All Active Problems (Last Reviewed 06/10/19 @ 10:16 by Evelyn Bedolla) Hyperglycemia (Acute) Chemotherapy management, encounter for (Acute) Constipation (Acute) Chemotherapy management, encounter for (Acute) Abdominal pain (Acute) Enteritis (Acute) Encounter for education (Acute) Fever (Acute) Severe sepsis (Acute) 73 year old M with past medical history of metastatic pancreatic CA, hypertension, type II DM was recently admitted and discharged with abdominal pain/ileus comes in with progressive abdominal pain. 1. Abdominal distention secondary to worsening ascites/ileus CT scan of the abdomen and pelvis showed probably worsening ascites, possible omental metastases General [facility], ultrasound-guided paracentesis with diagnostic analysis Patient is advised to NG tube placement, will place NG tube if ascites gets worse Morphine as needed, continue with home metronidazole and Flagyl IV 2. Metastatic pancreatic CA, on chemotherapy, follows with oncology in the out patient 3. Type II DM, on insulin, Will hold insulin whilst kept n.p.o. Continue with blood glucose check every 6 with insulin sliding scale 4. Hypertension, controlled, continue on lisinopril/hydrochlorothiazide 5. DVT PPx- Heparin SC Code Visit Inpatient E&M: 82901 Init Hosp L3
--- NOTE | 2019-06-20 12:10 | PCM.HP.STD ---
History of Present Illness The patient is a 73 year old M [] Past Medical History Past Medical History (Chronic Problems): Chronic Problems (Last Reviewed 06/10/19 @ 10:16 by Evelyn Bedolla) Liver metastases (Chronic) Bronchial asthma (Chronic) HTN (hypertension) (Chronic) Pancreatic cancer (Chronic) Pancreatic cancer metastasized to liver (Chronic) Medical History: Medical History (Last Reviewed 06/10/19 @ 10:16 by Evelyn Bedolla) Elevated LFTs R94.5 during treatment for meningitis 2013 Liver mass R16.0 Mass of pancreas K86.89 Meningitis G03.9 1998 and 2013. Allergies Latex, Natural Rubber Allergy (Intermediate, Verified 06/20/19 08:49) Rash cat dander Allergy (Verified 06/20/19 08:49) Shortness of breath hydrocodone bitartrate [From Vicodin] Allergy (Verified 06/20/19 08:49) hallucinations HALLUCINATIONS steri strips Allergy (Unknown, Uncoded 06/20/19 08:49) knee opened up after knee surgery skin sensitivity Allergy (Uncoded 06/20/19 08:49) Itching skin sensitivity to perfumes change in laundry detergent, soaps, Home Medications: Ambulatory Orders Medication Instructions Recorded Lisinopril/Hydrochlorothiazide 1 tab PO DAILY 02/22/14 [Zestoretic 20/12.5 Tablet] Albuterol IH (ProAir) [Proair Hfa] 1 puff INHALATION DAILY PRN PRN 01/25/19 Fluticasone Propionate 2 spray NASAL DAILY PRN PRN 01/25/19 Multivit-Min/FA/Lycopen/Lutein 1 ea PO DAILY 01/25/19 [Centrum Silver Men Tablet] Insulin Lispro [Humalog] 10 unit SQ TIDCM PRN 02/08/19 Dexamethasone [Decadron] 4 mg PO DAILY@0800 #7 tab 05/21/19 Insulin Glargine [Lantus SoloStar 30 units SUBCUT QHS 06/13/19 Pen] Potassium Chloride 4 meq PO DAILY 06/14/19 Senna [Senokot] 1 tab PO DAILY 06/14/19 Acetaminophen [Tylenol Tablet] 650 mg PO Q6H PRN PRN #30 tab 06/17/19 Ciprofloxacin [Cipro] 500 mg PO BID #6 tab 06/17/19 Metronidazole 500 mg PO TID #9 tab 06/17/19 Surgical History: Surgical History (Last Reviewed 06/10/19 @ 10:16 by Evelyn Bedolla) History of hernia surgery Z98.890, Z87.19 History of total right knee replacement Z96.651 right Surgical History: total knee arthroplasty, - - Previous data be tibial plateau fracture repair 26 years ago Psychiatric History: No pertinent psych hx Smoking Status: Former smoker - *Family History Maternal Family History: Family History (Last Reviewed 06/10/19 @ 10:16 by Evelyn Bedolla) Mother Diabetes Brother Diabetes Sister Heart disease Daughter Asthma History Items: No pertinent history - Physical Exam Vitals/I&O's: Vital Signs Temp Pulse Resp BP Pulse Ox 98.0 F 42 L 20 H 143/80 H 98 06/20/19 09:07 06/20/19 08:53 06/20/19 09:07 06/20/19 09:07 06/20/19 09:07 Oxygen Delivery Method Room Air Weight: 99.79 kg Body Mass Index (BMI) 24.7 Laboratory Results 06/20/19 09:40: WBC 8.8, RBC 4.09 L, Hgb 12.8 L, Hct 38.6 L, MCV 94.4 H, MCH 31.3, MCHC 33.2, RDW Std Deviation 51.8 H, RDW Coeff of [place] 14.8 H, Plt Count 232, MPV 8.9, Immature Gran % (Auto) 1.500 H, Neut % (Auto) 45.6 L, Lymph % (Auto) 31.5, [place] % (Auto) 20.5 H, Eos % (Auto) 0.7, Baso % (Auto) 0.2, Absolute Neuts (auto) 4.0, Absolute Lymphs (auto) 2.76, Nucleated RBC % 0, Differential Comment SCANNED 06/20/19 09:40: Sodium 142, Potassium 3.5, Chloride 109 H, Carbon Dioxide 26.0, Anion Gap 7, BUN 12, Creatinine 0.74, Estim Creat Clear Calc 89.80, Est GFR (MDRD) Af Amer 133, Est GFR (MDRD) Non-Af 110, BUN/Creatinine Ratio 16.2, Glucose 90, Calcium 9.1, Total Bilirubin 0.80, AST 88 H, ALT 101 H, Alkaline Phosphatase 142 H, Total Protein 6.3 L, Albumin 2.2 L, Globulin 4.1, Albumin/Globulin Ratio 0.5 L, Lipase 33 L 06/20/19 09:40: Lactic Acid 1.1 Current Medications Sodium Chloride () 1,000 mls @ 0 mls/hr IV .Q0M FLAVIO Last Admin: 06/20/19 10:11 Dose: 15 mls/hr Documented by: Assessment/Plan All Active Problems (Last Reviewed 06/10/19 @ 10:16 by Evelyn Bedolla) Hyperglycemia (Acute) Chemotherapy management, encounter for (Acute) Constipation (Acute) Chemotherapy management, encounter for (Acute) Abdominal pain (Acute) Enteritis (Acute) Encounter for education (Acute) Fever (Acute) Severe sepsis (Acute)
--- NOTE | 2019-06-20 12:16 | NURSING ---
MED SURG ABD DISTENSION PAINTSIL
[2019-06-20] MEDS: Lidocaine 4% 5 ML Ampul 2 ML INHALATION (13:09)
--- NOTE | 2019-06-20 13:15 | CT_ITS ---
STUDY: CT ABDOMEN AND PELVIS WITHOUT CONTRAST REASON FOR EXAM: Male, 73 years old. ABD PAIN, BILAT LEG SWELLING, HAD C- SCAN DONE EARLIER RADIATION DOSAGE (If Supplied By Facility): CTDIvol = ( 14.37 ) mGy, DLP = ( 1159.56 ) mGycm TECHNIQUE: Transaxial images were obtained from the dome of the diaphragm to the symphysis pubis without oral contrast, and without intravenous contrast. Sagittal and coronal images were reconstructed. Individualized dose optimization techniques were used for this CT. COMPARISON: CT abdomen and pelvis without contrast 06/20/2019 at 10:26 AM. FINDINGS: Subsegmental atelectasis in the right posterior lung base. Small bilateral posterior pleural fluid, left more than right. The visualized portions of the heart are within normal limits. Multiple hypodense masses in the liver. Nodularity of the liver surface is liver cirrhosis. Ascites around the liver. Slightly hyperdense fluid level inside the gallbladder fossa may be due to sludge. Normal spleen surrounded by ascites. Normal pancreas. Normal bilateral adrenal glands. Normal right kidney. Normal left kidney. Normal visualized stomach. Normal small intestine. Normal colon. The appendix is not visualized. Mild atherosclerotic calcifications of the abdominal aorta. Normal inferior vena cava. Normal retroperitoneum. Abnormal infiltration of the omental fat due to metastases persistent malignant ascites. Normal urinary bladder. Large lipoma in the left groin is unchanged. Posterior T10 sclerotic bone lesion is unchanged. Mild degenerative retrolisthesis of L2 on L3 and mild degenerative anterolisthesis of L5 on S1 are unchanged. Pronounced disc space height narrowing at L2-L3 down to L5-S1 disc space levels are unchanged. CT/Abdomen/Pelvis W IV Cont ONLY IMPRESSION: 1. Multiple hypodense masses in the liver are presumably metastatic disease. 2. Nodularity of the liver surface is suspicious for liver cirrhosis and surrounded by malignant ascites. 3. Abnormal omental fat due to omental metastases. 4. Persistent malignant ascites. 5. Large lipoma in the left groin is unchanged. 6. Small bilateral posterior pleural fluid, left more than right. This is new. 7. There is a history of pancreatic carcinoma but I am unable to find any pancreatic mass. 8. No significant interval change when compared to 06/20/2019 10:26 AM. Electronically Signed: Antoine Ko MD at 14:43 EST , Service support ,
--- NOTE | 2019-06-20 13:30 | ED.RN ---
DO NOT PLACE NG PER DR CABALLERO. HE WANTS TO REVIEW CT SCAN OF ABD WITH IV CONTRAST PRIOR TO INSERTING NG.
--- NOTE | 2019-06-20 15:05 | PCM.CONS.GEN ---
Reason for Consult Date of Consultation: 06/20/19 Reason for Consultation: abdominal distention History of Present Illness: The patient is a 73 year old M male diagnosed in December with metastatic pancreatic cancer. He is seeing Dr. Short for palliative chemotherapy. He has received his eighth cycle of FOLFIRINOX on June 02, 2019. Dr. Short noted partial response. the patient developed abdominal pain and abdominal distention and presented to [facility] department on June 14. he underwent CT scan of the abdomen and pelvis without contrast at that time which demonstrated gastric distention and small intestine and proximal colon thickening suggestive of enteritis also now with ascites. prior to admission, the patient and his noted he was having issues related to significant constipation. He had taken multiple doses of magnesium citrate. A nasogastric tube was placed. he was started on antibiotics for concern of typhlitis. The patient did have some bowel function returned with liquid diarrhea and noted improvement in his abdominal discomfort. the naso-gastric tube was removedbut the patient did poorly on a diet and was placed back on liquids. He was discharged to home on June 19. He returns today noting increasing abdominal distention some discomfort and some nausea that is noted no vomiting. He notes minimal flatus. His most significant finding is a tense abdomen. CT scan of the abdomen pelvis was obtained which demonstrated bibasilar atelectasis, multiple liver lesions, nodularity consistent with cirrhosis. Ascites around the liver. The pancreas did not demonstrate any obvious masses. There was felt to be omental fat infiltration consistent with peritoneal metastases. The stomach small bowel and colon were listed as normal in appearance. My review the CT scan demonstrated what I thought was significant edema of the intestinal mesentery and significant increase in ascites compared to June 14. I was consulted given his abdominal distention. While the patient does have a degree of anasarca and a low albumin level, I was concerned of the possibility for a portal vein thrombosis given his liver metastases and pancreatic cancer primary. I asked that the CT scan be repeated with IV contrast. This did not demonstrate portal vein thrombosis. Past Medical History Past Medical History (Chronic Problems): Chronic Problems (Last Reviewed 06/10/19 @ 10:16 by Evelyn Bedolla) Liver metastases (Chronic) Bronchial asthma (Chronic) HTN (hypertension) (Chronic) Pancreatic cancer (Chronic) Pancreatic cancer metastasized to liver (Chronic) Medical History: Medical History (Last Reviewed 06/10/19 @ 10:16 by Evelyn Bedolla) Elevated LFTs R94.5 during treatment for meningitis 2013 Liver mass R16.0 Mass of pancreas K86.89 Meningitis G03.9 1998 and 2013. Allergies Latex, Natural Rubber Allergy (Intermediate, Verified 06/20/19 08:49) Rash cat dander Allergy (Verified 06/20/19 08:49) Shortness of breath hydrocodone bitartrate [From Vicodin] Allergy (Verified 06/20/19 08:49) hallucinations HALLUCINATIONS steri strips Allergy (Unknown, Uncoded 06/20/19 08:49) knee opened up after knee surgery skin sensitivity Allergy (Uncoded 06/20/19 08:49) Itching skin sensitivity to perfumes change in laundry detergent, soaps, Home Medications: Ambulatory Orders Medication Instructions Recorded Lisinopril/Hydrochlorothiazide 1 tab PO DAILY 02/22/14 [Zestoretic 20/12.5 Tablet] Albuterol IH (ProAir) [Proair Hfa] 1 puff INHALATION DAILY PRN PRN 01/25/19 Fluticasone Propionate 2 spray NASAL DAILY PRN PRN 01/25/19 Multivit-Min/FA/Lycopen/Lutein 1 ea PO DAILY 01/25/19 [Centrum Silver Men Tablet] Insulin Lispro [Humalog] 10 unit SQ TIDCM PRN 02/08/19 Dexamethasone [Decadron] 4 mg PO DAILY@0800 #7 tab 05/21/19 Insulin Glargine [Lantus SoloStar 30 units SUBCUT QHS 06/13/19 Pen] Potassium Chloride 4 meq PO DAILY 06/14/19 Senna [Senokot] 1 tab PO DAILY 06/14/19 Acetaminophen [Tylenol Tablet] 650 mg PO Q6H PRN PRN #30 tab 06/17/19 Ciprofloxacin [Cipro] 500 mg PO BID #6 tab 06/17/19 Metronidazole 500 mg PO TID #9 tab 06/17/19 Surgical History: Surgical History (Last Reviewed 06/10/19 @ 10:16 by Evelyn Bedolla) History of hernia surgery Z98.890, Z87.19 History of total right knee replacement Z96.651 right Surgical History: total knee arthroplasty, - - Previous data be tibial plateau fracture repair 26 years ago Psychiatric History: No pertinent psych hx Smoking Status: Former smoker - *Family History Maternal Family History: Family History (Last Reviewed 06/10/19 @ 10:16 by Evelyn Bedolla) Mother Diabetes Brother Diabetes Sister Heart disease Daughter Asthma History Items: No pertinent history Review of Systems Constitutional: Reports: Anorexia, Malaise, Weakness, Weight Change, Fatigue HEENT: Denies: Head Aches, Sinus Congestion, Sinus Drainage Cardiovascular: Denies: Chest Pain, Palpitations Respiratory: Denies: Cough, Shortness of breath at rest, Sputum production Gastrointestinal: Reports: Abdominal Pain - more so distention, Nausea. Denies: Vomiting Genitourinary: Denies: Dysuria Musculoskeletal: Denies: Joint Pain, Joint Tenderness Skin: Denies: Rash, Wounds Neurological: Denies: Numbness, Tingling, Focal weakness Psychiatric: Denies: Anxiety, Depression, Homicidal Ideations, Suicidal Ideations Hematologic/ Lymphatic: Denies: Easy Bruising, Easy Bleeding - Physical Exam Vitals/I&O's: Vital Signs Temp Pulse Resp BP Pulse Ox 98.0 F 59 L 16 128/74 H 97 06/20/19 09:07 06/20/19 14:47 06/20/19 14:47 06/20/19 14:47 06/20/19 14:47 Oxygen Delivery Method Room Air Weight: 99.79 kg Body Mass Index (BMI) 24.7 General: Alert, Oriented x3, Cooperative Lungs: Clear to auscultation, Normal air movement Cardiovascular: Regular rate, No murmurs Abdomen: Bowel Sounds Present, Soft, Distended - with a tense abdominal exam consistent with ascites seen on CT scan, Tender - mild diffusely tender Laboratory Results 06/20/19 09:40: WBC 8.8, RBC 4.09 L, Hgb 12.8 L, Hct 38.6 L, MCV 94.4 H, MCH 31.3, MCHC 33.2, RDW Std Deviation 51.8 H, RDW Coeff of Minoo 14.8 H, Plt Count 232, MPV 8.9, Immature Gran % (Auto) 1.500 H, Neut % (Auto) 45.6 L, Lymph % (Auto) 31.5, [place] % (Auto) 20.5 H, Eos % (Auto) 0.7, Baso % (Auto) 0.2, Absolute Neuts (auto) 4.0, Absolute Lymphs (auto) 2.76, Nucleated RBC % 0, Differential Comment SCANNED 06/20/19 09:40: Sodium 142, Potassium 3.5, Chloride 109 H, Carbon Dioxide 26.0, Anion Gap 7, BUN 12, Creatinine 0.74, Estim Creat Clear Calc 89.80, Est GFR (MDRD) Af Amer 133, Est GFR (MDRD) Non-Af 110, BUN/Creatinine Ratio 16.2, Glucose 90, Calcium 9.1, Total Bilirubin 0.80, AST 88 H, ALT 101 H, Alkaline Phosphatase 142 H, Total Protein 6.3 L, Albumin 2.2 L, Globulin 4.1, Albumin/Globulin Ratio 0.5 L, Lipase 33 L 06/20/19 09:40: Lactic Acid 1.1 Current Medications Sodium Chloride () 1,000 mls @ 0 mls/hr IV .Q0M FLAVIO Last Admin: 06/20/19 10:11 Dose: 15 mls/hr Documented by: Assessment/Plan All Active Problems (Last Reviewed 06/10/19 @ 10:16 by Evelyn Bedolla) Hyperglycemia (Acute) Chemotherapy management, encounter for (Acute) Constipation (Acute) Chemotherapy management, encounter for (Acute) Abdominal pain (Acute) Enteritis (Acute) Encounter for education (Acute) Fever (Acute) Severe sepsis (Acute) advanced stage IV pancreatic cancer, now tense ascites Since I do not see prevent thrombosis at this point I would say his symptoms are more likely due to rapid accumulation of ascitic fluid. The patient wished to avoid an NG tube and currently he does not seem to have significant small bowel or gastric distention. I would recommend ultrasound-guided paracentesis in the morning by the radiology department and see if this clinically improved his symptoms. If the patient has rapid recurrent recurrence of his ascites we could consider a palliative peritoneal Pleurx catheter placement. I would contact Dr. Short, for his opinion on the progress of the patient's findings and whether ongoing treatment versus consideration for palliative care/hospice is appropriate. The patient is seem to understand that his treatment is successfully shrinking his tumors. Given the rapid accumulation of ascites which is likely malignant and the findings consistent with peritoneal carcinomatosis, difficult discussions need to be had with the patient and his .
--- NOTE | 2019-06-20 15:46 | US_ITS ---
PROCEDURE: ULTRASOUND GUIDED PARACENTESIS. INDICATION: Ascites. The risks, benefits, and alternatives to the procedure were explained to the patient. The specific risks of bleeding, infection, and damage to bowel were detailed and accepted. Witnessed informed consent was obtained. The abdomen was ultrasonographically surveyed. An appropriate pocket of fluid was identified at the left lower quadrant. The skin were cleaned and prepped in the usual sterile fashion. Using ultrasound guidance, the peritoneal cavity was accessed with a 5-Yakut paracentesis needle/catheter system. The trocar was removed. A total of 5220 ml of clear yellowish ascites were removed from the peritoneal cavity. The catheter was removed and a sterile dressing was applied. The procedure was well tolerated. US/Paracentesis with US IMPRESSION: Successful sonographic guided paracentesis. Two 60 cc syringes ascites submitted for appropriate laboratory analysis as per referring physician''s request. Electronically Signed: Dharmesh Boogie MD at 17:27 EST Tel [phone], Service support ,
[2019-06-20 16:06] LABS: Bedside Glucose 67 mg/dL (70-110)
[2019-06-20] MEDS: Dextrose 10%-Water 250 ML 999 ML IV (16:15)
[2019-06-20 16:19] LABS: Magnesium 1.7 mg/dL (1.6-2.6)
[2019-06-20] MEDS: Dextrose 5%/0.9% NaCl 1,000 ML 100 ML IV (16:52)
[2019-06-20] MEDS: metroNIDAZOLE 500 MG/100 ML BAG 100 MG IV ×2 (16:52→22:55)
[2019-06-20] MEDS: Morphine 2 MG/ML Syringe IV ×2 (17:35→20:57)
[2019-06-20] MEDS: Ciprofloxacin 400 MG/200 ML BAG 200 MG IV (20:57)
[2019-06-20] MEDS: 0.9% Saline Lock 10 ML Syringe IV (20:57)
[2019-06-20] MEDS: Heparin Injection (Vial) 5,000 UNIT/ML VIAL 5000 UNIT SC (21:01)
[2019-06-20 23:01] LABS: Bedside Glucose 127 mg/dL (70-110)
[2019-06-21] VITALS (7 sets, daily range): BP systolic 121–137; BP diastolic 72–96; PULSE 95–118; RESP 16–20; TEMP 36.6–37.2; O2SAT 93–99
--- NOTE | 2019-06-21 | IMM_PTH ---
PATIENT: REGINO MCKINNEY LOC: MS3 U#:[id number] AGE/SX: 73/M ROOM: MS313 RE06/20/[address]: Dr. Julisa Zapata MD : 1945 BED: 1 DIS: 06/26/2019 SPEC #: [id number] RECD: 06/24/19 11:53 STATUS: SOUT REQ #: [id number] MOHAN: 06/21/19 00:[address]: Julisa Zapata DEPT: IMMUNOHISTOCHEMISTRY RECD BY: Carline Lopez ENTERED: 06/24/19 11:56 SP TYPE: IMMUNO OTHR DR: DO Dr. Gareth Holbrook MD Dr. Joseph Prah, MD Dr. Richard Guttman, MD Dr. Tai Chi Kwok, MD Tissues: PARACENTESIS FLUID Procedures: RCC (add) Thyroglobulin (add) NAPSIN A (add) Anderson Ret (add) CD56 (add) CEA (add) CK19 (add) CK20 (add) CK5-6 (add) CK7 (add) CK8 (add) SALINAS-2 (add) HBME (add) HEP PAR (add) KI-67 (add) MACRO (add) P53 (add) TTF1 (add) Vimentin (add) 34BE12 (add) Pankeratin (initial) P40 (add) CDX2 (add) CD44 (add) PSAP (add) S-100 (add) PHYSICIAN & INSTITUTION [facility] [address] [place] [id number] SPECIMEN INFORMATION: Tissue Source: Paracentesis fluid Clinical Info: Ascites Specimen Number: [id number] CPT code: 35565, 55822 x25 METHODOLOGY: Deparaffinized sections of prefer/formalin-fixed tissue or PAP/DQ stained slides are incubated with monoclonal/polyclonal antibodies/oligonucleotide probes. Localization is made via biotin free immunoperoxidase method. Appropriate controls are performed and reacted as expected. Results on target cell population are indicated in the following table: RESULTS: ANTIBODY / CLONE RESULT AE1-3 (AE1/AE3/PCK26) positive CK7 (OV-TL12/30) positive CK8 (59txpmA70) positive CK20 (KS20.8) negative SALINAS-2 (SP21) positive CDX2 (WIM2560V) negative Vimentin (V9) negative 34BE12 (34BE12) positive, dim Macro (HAM-56) negative S-100 (4C4.9) negative HBME1 (HBME-1) negative CK19 (A53-B/A2.26) positive CD56 (123C3.D5) negative TTF-1 (8G7G3/1) negative Napsin A (Rabbit Polyclonal) negative HepPar (OCh1E5) negative RCC (PN-15) negative PSAP (PASE/4LJ) negative Thyro (2H11+6E1) negative CALRET (polyclonal) negative anti-CD44 (SP37) negative CK5-6 (D5 & 1684) negative P40 (BC28) negative CEA (11-7/TF-3HB-1) positive P53 (DO-7) positive, 50% Ki-67 (30-9) positive, >50 These tests were developed and their performance characteristics determined by [facility]. They may not have been cleared or approved by the U.S. Food and Drug Administration. The FDA has determined that such clearance or approval is not necessary. The above immunohistochemical/dualISH markers are ordered and reviewed by the Pathologist. INTERPRETATION: Paracentesis fluid: Metastatic poorly differentiated carcinoma. See comment. AM:jimena 06/28/19 Comment: An upper GI primary including pancreatobiliary is favored.
--- NOTE | 2019-06-21 | FLU_PTH ---
PATIENT: REGINO MCKINNEY LOC: MS3 U#:[id number] AGE/SX: 73/M ROOM: MS313 RE06/20/[address]: Dr. Julisa Zapata MD : 1945 BED: 1 DIS: 06/26/2019 SPEC #: [id number] RECD: 06/21/19 14:47 STATUS: SOUT REQ #: [id number] MOHAN: 06/21/19 00:[address]: Julisa Zapata DEPT: CYTOLOGY RECD BY: Julián Quinteros ENTERED: 06/22/19 08:31 SP TYPE: Fluid OTHR DR: MD Dr. Terry Purvis MD Dr. Tai Chi Kwok, MD Tissues: PARACENTESIS FLUID Procedures: Special Stain Group II Surgery Specimen Level IV Cytospin Fluid HEADER OPERATION: Ultrasound-guided paracentesis PRE-OP DIAGNOSIS: Ascites TISSUE SUBMITTED: Paracentesis fluid for cytology DIAGNOSIS CYTOLOGY Paracentesis fluid for cytology (cytospin and cell block): Positive for malignant cells consistent with metastatic poorly differentiated carcinoma AM:jimena 06/24/19 COMMENT Immunohistochemistry ([id number]) supports the above diagnosis and favors an upper GI/pancreatobiliary system primary. Mucin stain with matched control is positive in rare malignant cell. Reference is made to the patients liver core biopsy ([id number]) in which metastatic adenocarcinoma was identified, favoring pancreatic primary. Reference is made to the patient's right lobe of liver, CT-guided core biopsy ([id number]) in which metastatic non-small cell carcinoma, favor adenocarcinoma was identified. CYTOLOGY STUDY Slides are reviewed. CYTOLOGY GROSS Received is 100 ml of yellow cloudy fluid labeled with the patient's name and and designated per the requisition as paracentesis. Submitted for cytology preparation including cell block. / jimena 06/22/19 TC:0 CPT: 53099, 77691 38316
[2019-06-21] MEDS: Dextrose 5%/0.9% NaCl 1,000 ML 100 ML IV ×2 (02:37→16:16)
[2019-06-21] MEDS: Morphine 2 MG/ML Syringe IV (02:37)
[2019-06-21] MEDS: 0.9% Saline Lock 10 ML Syringe IV ×3 (02:37→08:39)
[2019-06-21] MEDS: metroNIDAZOLE 500 MG/100 ML BAG 100 MG IV ×3 (05:16→22:00)
[2019-06-21] MEDS: Ondansetron 4 MG/2 ML Vial IV (05:37)
[2019-06-21] MEDS: HYDROmorphone 1 MG/ML Syringe IV ×6 (05:37→23:08)
[2019-06-21 05:51] LABS: Bedside Glucose 162 mg/dL (70-110)
[2019-06-21 06:10] LABS: Absolute Lymphocyte Count 2.52 X10^3/uL (0.83-4.51); Absolute Neutrophil Count 4.6 X10^3/uL (2.0-7.7); Basophil# 0.04 X10^3/uL; Basophil% 0.4 % (0-1); Eosinophil# 0.06 X10^3/uL; Eosinophils% 0.6 % (0-5); Hematocrit 38.7 % (40-54); Hemoglobin 12.7 g/dL (13.0-16.5); Lymphocyte # 2.52 X10^3/ul (4.0); Lymphocyte % 27.2 % (19-41); Mean Corp Hgb Conc 32.8 g/dL (32-36); Mean Corpuscular Hgb 31.2 pg (27.0-32.0); Mean Corpuscular Volume 95.1 fL (80-94); Mean Platelet Vol. 9.2 fl (6.2-12.0); Monocyte# 1.93 X10^3/uL; Monocyte% 20.8 % (0-10); NRBC Flagged by Analyzer 0 % (0-5); Neutrophil # 4.55 X10^3/uL (2.7-7.7); Neutrophil % 49.2 % (47-70); POSITIVE DIFFERENTIAL YES; Platelet Count 250 K/mm3 (150-450); RBC Distribution Width CV 14.7 % (11.6-14.6); RBC Distribution Width SD 51.6 fl (35.1-43.9); Red Blood Count 4.07 M/mm3 (4.6-6.2); White Blood Count 9.3 K/mm3 (4.4-11.0)
[2019-06-21 06:36] LABS: Differential Indicated SCAN CRITERIA MET
[2019-06-21 06:38] LABS: ALB/GLOB Ratio 0.5 RATIO (0.9-2.4); AST(SGOT) 84 U/L (15-37); Alanine Aminotransfer ALT/SGPT 97 U/L (16-61); Alkaline Phosphatase 124 U/L (45-117); Anion Gap 6 (5-15); BUN 9 mg/dL (7-18); BUN/Creat Ratio 11.3 RATIO (10-20); Calcium,Total 8.7 mg/dL (8.5-10.1); Chloride 109 mmol/L (98-107); EST Glomerular Filtration Rate 102 mL/min (>60); Est Glom Filt Rate - Afr Amer 123 mL/min (>60); Estimated Creatinine Clearance 112.24 ml/min; Glucose 160 mg/dL (74-106); LDH 256 U/L (87-241); Potassium 3.5 mmol/L (3.5-5.1); Sodium Level 142 mmol/L (136-145)
[2019-06-21 07:18] LABS: Differential Comment SCANNED
[2019-06-21 09:09] LABS: International Normalized Ratio 1.2; Prothrombin Time (Protime)PT. 15.4 SECONDS (11.7-14.9)
--- NOTE | 2019-06-21 10:37 | PCM.PN.HOSP ---
Reason for Visit: Follow-up on abdominal distention, abdominal pain Subjective: Patient was seen and examined. Remains very painful in the abdomen and requiring increased use of IV pain medicines overnight. Ultrasound-guided paracentesis by radiology scheduled for noon. Denied any nausea or vomiting. Objective: Physical exam: General: Alert, Oriented x3, Cooperative, No apparent distress HEENT: Atraumatic, PERRLA, EOMI, Normocephalic Oral: Moist Mucosa Neck: Supple Lungs: Diminished - at the lung bases Cardiovascular: Regular rate, Regular Rhythm, Normal S1, Normal S2, No murmurs Abdomen: Bowel Sounds Present, Soft, Non Tender, Hypoactive Bowel Sounds, Distended, - - tympanitic Extremities: No edema Skin: No rashes Musculoskeletal: No Tenderness to Palpation of Joints or Extremities Lymphatic: No Cervical, Supraclavicular, or Inguinal Adenopathy Neurological: Cranial nerves II-XII grossly intact, Neuro grossly intact Psych/Mental Status: Normal Affect, Appropriate Vitals/I&O's: Vital Signs Temp Pulse Resp BP Pulse Ox 98.1 F 100 18 131/93 H 95 06/21/19 08:41 06/21/19 09:00 06/21/19 09:00 06/21/19 08:41 06/21/19 08:41 Oxygen Delivery Method Room Air Weight: 109.2 kg Body Mass Index (BMI) 24.7 Intake and Output for Last 24 Hours 06/19/19 06/20/19 06/21/19 23:59 23:59 23:59 Intake Total 1212.25 / 1212.25 635 / 635 Output Total 150 / 150 Balance 1212.25 / 1212.25 485 / 485 Laboratory Results 06/20/19 09:40: Magnesium 1.7 06/20/19 16:02: POC Glucose 67 L 06/20/19 22:54: POC Glucose 127 H 06/21/19 05:45: POC Glucose 162 H 06/21/19 05:48: WBC 9.3, RBC 4.07 L, Hgb 12.7 L, Hct 38.7 L, MCV 95.1 H, MCH 31.2, MCHC 32.8, RDW Std Deviation 51.6 H, RDW Coeff of Minoo 14.7 H, Plt Count 250, MPV 9.2, Immature Gran % (Auto) 1.800 H, Neut % (Auto) 49.2, Lymph % (Auto) 27.2, [place] % (Auto) 20.8 H, Eos % (Auto) 0.6, Baso % (Auto) 0.4, Absolute Neuts (auto) 4.6, Absolute Lymphs (auto) 2.52, Nucleated RBC % 0, Differential Comment SCANNED 06/21/19 05:48: Sodium 142, Potassium 3.5, Chloride 109 H, Carbon Dioxide 27.0, Anion Gap 6, BUN 9, Creatinine 0.80, Estim Creat Clear Calc 112.24, Est GFR (MDRD) Af Amer 123, Est GFR (MDRD) Non-Af 102, BUN/Creatinine Ratio 11.3, Glucose 160 H, Calcium 8.7, Total Bilirubin 0.80, AST 84 H, ALT 97 H, Alkaline Phosphatase 124 H, Lactate Dehydrogenase 256 H, Total Protein 6.0 L, Albumin 2.0 L, Globulin 4.0, Albumin/Globulin Ratio 0.5 L 06/21/19 08:33: PT 15.4 H, INR 1.2 Current Medications Acetaminophen (Tylenol) 650 mg PO Q6H PRN PRN PRN Reason: Pain Score 1-10/10 Albuterol Sulfate (Ventolin Aerosols) 2.5 mg INHALATION Q2H PRN PRN PRN Reason: Shortness of Breath/Wheezing Dexamethasone (Decadron) 4 mg PO DAILY PRN PRN Fluticasone Propionate (Flonase Nasal [place]) 2 spray NASAL DAILY PRN PRN PRN Reason: ALLERGIES Glucagon () 1 mg IM .X1 PRN PRN Reason: Hypoglycemia Heparin Sodium (Porcine) (Heparin Na) 5,000 unit SC Q8 [facility] Last Admin: 06/21/19 05:17 Dose: Not Given Documented by: Hydrochlorothiazide () 12.5 mg PO DAILY [facility] Hydromorphone HCl (Dilaudid Inj) 1 mg IV Q3H PRN PRN PRN Reason: Pain Score 1-10/10 Ciprofloxacin (Cipro) 400 mg in 200 mls @ 200 mls/hr IV Q12 [facility] Last Infusion: 06/20/19 21:57 Dose: Infused Documented by: Metronidazole (Flagyl) 500 mg in 100 mls @ 100 mls/hr IV Q8 [facility] Last Infusion: 06/21/19 06:16 Dose: Infused Documented by: Dextrose (Dextrose 10%-Water) 250 mls @ 999 mls/hr IV .Q16M PRN; Protocol PRN Reason: HYPOGLYCEMIA Last Infusion: 06/20/19 16:31 Dose: Infused Documented by: Dextrose/Sodium Chloride (Dextrose 5%/0.9% Nacl) 1,000 mls @ 100 mls/hr IV .Q10H FLAVIO Last Infusion: 06/21/19 06:16 Dose: 100 mls/hr Documented by: Insulin Human Lispro (Humalog Kwikpen (Bkc)) 0 unit SC Q6 FLAVIO; Protocol Last Admin: 06/21/19 05:57 Dose: Not Given Documented by: Lisinopril (Zestril) 20 mg PO DAILY FLAVIO Multivitamins/Minerals (Multivitamin With Minerals) 1 tablet PO DAILY@0800 FLAVIO Ondansetron HCl (Zofran) 4 mg IV Q8H PRN PRN PRN Reason: NAUSEA/VOMITING Last Admin: 06/21/19 05:37 Dose: 4 mg Documented by: Senna (Senokot) 1 tablet PO DAILY FLAVIO Sodium Chloride () 10 - 40 ml IV UD PRN PRN Reason: SALINE FLUSH Last Admin: 06/21/19 08:39 Dose: 20 ml Documented by: STROKE Vital Signs/Narrative: Vital Signs Temp Pulse Resp BP Pulse Ox 06/21/19 09:00 100 18 06/21/19 08:41 98.1 F 100 18 131/93 H 95 Medical Necessity - Tobacco Use Smoking Status: Former smoker Tobacco Use: Non-smoker Assessment/Plan All Active Problems (Last Reviewed 06/10/19 @ 10:16 by Evelyn Bedolla) Hyperglycemia (Acute) Chemotherapy management, encounter for (Acute) Constipation (Acute) Chemotherapy management, encounter for (Acute) Abdominal pain (Acute) Enteritis (Acute) Encounter for education (Acute) Fever (Acute) Severe sepsis (Acute) 73 year old M with past medical history of metastatic pancreatic CA, hypertension, type II DM was recently admitted and discharged with abdominal pain/ileus comes in with progressive abdominal pain. 1. Abdominal distention secondary to worsening ascites/ileus CT scan of the abdomen and pelvis showed probably worsening ascites, possible omental metastases General surgery following Continue with pain control, plan for ultrasound-guided paracentesis today 2. Metastatic pancreatic CA, on chemotherapy, follows with oncology in the outpatient 3. Type II DM, on insulin, sugars are controlled Continue to hold long-acting insulin Continue with blood glucose check every 6h with insulin sliding scale while n.p.o. 4. Hypertension, controlled, continue on lisinopril/hydrochlorothiazide 5. DVT PPx- Heparin SC Code Visit Inpatient E&M: 17314 Subs Hosp L2
[2019-06-21] MEDS: Ciprofloxacin 400 MG/200 ML BAG 200 MG IV (10:44)
--- NOTE | 2019-06-21 11:58 | NURSING ---
This RN called US inquiring about time for paracentesis. Was notified that it is scheduled for 1300. This RN notified SANTO Nunez and Dr. Zapata.
[2019-06-21 12:35] LABS: Bedside Glucose 161 mg/dL (70-110)
--- NOTE | 2019-06-21 12:52 | CASEMGMT ---
Case Management Re-Admission Progress Note Patient Admitted 06/14-06/19/2019 for Abd Pain, Pancreatic CA. Re-Admitted 06/20/19 for Abd Distention. F/u Appointment was made upon DC to follow up with Dr Kelly 06/28/19 at 0900. This health science writer to patient bedside, introduced self and role. Patient States was able to hop picker his medication from Dc but had not taken it yet d/t return to hospital right away for current illness. Confirmed s/w SW last admit and received information on Palliative Care- denies any questions regarding such. Denies any issues with DC planning from last admission, states return d/t current illness. Patient states that he is going to have fluid removed from his stomach this admission, states had it done on last admission, denies having this procedure done prior to that. This health science writer encouraged patient to s/w his provider about possible Outpatient Paracentesis to keep comfortable at home if he notices that the fluid continues to build up again and requiring another paracentesis need in the future. Patient states understanding. States plan is to return Home and denies any needs, issues, concerns, or questions with DC planning at this time. Aware CM will continue to follow for any emerging DC planning needs. RENU Bell
--- NOTE | 2019-06-21 13:25 | NURSING ---
report clled to kassidy, procedural nurse in radiology
--- NOTE | 2019-06-21 13:41 | NURSING ---
to radiology for procedure-pt in bed, ivf running on pump as ordered
--- NOTE | 2019-06-21 14:40 | NURSING ---
REPORT CALLED TO SANTO MORENO ON MS3. THIS RN SPOKE WITH TO UPDATE HER ABOUT PROCEDURE.
[2019-06-21 15:34] LABS: LDH,Body Fluid 286 Units/l (Not Establ.)
[2019-06-21 15:37] LABS: Protein, Body Fluid 3.3 g/dL (Not Establ.)
[2019-06-21 16:10] LABS: Body Fluid Mononuclear WBC # 0.595 10^3/uL; Body Fluid Mononuclear WBC % 77.4 %; Body Fluid Polynuclear WBC # 0.174 10^3/uL; Body Fluid Polynuclear WBC % 22.6 %; Body Fluid Total Cells Counted 0.977 10^3/ul; White Blood Count/Body Fluid 0.769 10^3/uL
[2019-06-21] MEDS: Multivitamins,Ther W-Minerals Tablet 1 TABLET PO (16:17)
[2019-06-21] MEDS: hydroCHLOROthiazide 12.5mg 12.5 MG PO (16:17)
[2019-06-21] MEDS: Senna Tablet 1 TABLET PO (16:17)
[2019-06-21] MEDS: Lisinopril 20 MG Tablet PO (16:17)
[2019-06-21 16:51] LABS: Glucose, Body Fluid 124 mg/dL (40-70)
--- NOTE | 2019-06-21 16:54 | PCM.PN.SRG ---
Subjective: Still tense ascites, no nausea or vomiting - Physical Exam Vitals/I&O's: Vital Signs Temp Pulse Resp BP Pulse Ox 98.0 F 98 18 121/90 H 98 06/21/19 15:00 06/21/19 15:00 06/21/19 15:00 06/21/19 15:00 06/21/19 15:00 Oxygen Delivery Method [3] Room Air Oxygen Delivery Method [2] Room Air Oxygen Delivery Method [1 ( Room Air Initial Baseline)] Oxygen Delivery Method Room Air Weight: 109.2 kg Body Mass Index (BMI) 24.7 Intake and Output for Last 24 Hours 06/19/19 06/20/19 06/21/19 23:59 23:59 23:59 Intake Total 1212.25 / 1212.25 1620.00 / 1620.00 Output Total 150 / 150 Balance 1212.25 / 1212.25 1470.00 / 1470.00 General: Alert, Oriented x3, Cooperative Lungs: Clear to auscultation, Normal air movement Cardiovascular: Regular rate, No murmurs Abdomen: Bowel Sounds Present, Soft, Distended Laboratory Results 06/20/19 14:46: Fluid Glucose 124 H 06/20/19 14:46: Fluid LDH 286 06/20/19 14:46: Fluid Total Protein 3.3 06/20/19 22:54: POC Glucose 127 H 06/21/19 05:45: POC Glucose 162 H 06/21/19 05:48: WBC 9.3, RBC 4.07 L, Hgb 12.7 L, Hct 38.7 L, MCV 95.1 H, MCH 31.2, MCHC 32.8, RDW Std Deviation 51.6 H, RDW Coeff of [place] 14.7 H, Plt Count 250, MPV 9.2, Immature Gran % (Auto) 1.800 H, Neut % (Auto) 49.2, Lymph % (Auto) 27.2, [place] % (Auto) 20.8 H, Eos % (Auto) 0.6, Baso % (Auto) 0.4, Absolute Neuts (auto) 4.6, Absolute Lymphs (auto) 2.52, Nucleated RBC % 0, Differential Comment SCANNED 06/21/19 05:48: Sodium 142, Potassium 3.5, Chloride 109 H, Carbon Dioxide 27.0, Anion Gap 6, BUN 9, Creatinine 0.80, Estim Creat Clear Calc 112.24, Est GFR (MDRD) Af Amer 123, Est GFR (MDRD) Non-Af 102, BUN/Creatinine Ratio 11.3, Glucose 160 H, Calcium 8.7, Total Bilirubin 0.80, AST 84 H, ALT 97 H, Alkaline Phosphatase 124 H, Lactate Dehydrogenase 256 H, Total Protein 6.0 L, Albumin 2.0 L, Globulin 4.0, Albumin/Globulin Ratio 0.5 L 06/21/19 08:33: PT 15.4 H, INR 1.2 06/21/19 12:30: POC Glucose 161 H 06/21/19 14:46: Fluid Source Pending, Fluid Color Pending, Fluid Appearance Pending, Fluid WBC 0.769, Fluid RBC Not Reportable, Fluid Tot Cell Count 0.977, Fld Polynuclear WBCs # 0.174, F[place] Polynuclear WBCs % 22.6, Fluid Mononuclear WBCs 0.595, [place] Mononuclear WBCs % 77.4, Fl Pathologist Comment Pending, Fluid Comment 2 Pending Current Medications Acetaminophen (Tylenol) 650 mg PO Q6H PRN PRN PRN Reason: Pain Score 1-10/10 Albuterol Sulfate (Ventolin Aerosols) 2.5 mg INHALATION Q2H PRN PRN PRN Reason: Shortness of Breath/Wheezing Dexamethasone (Decadron) 4 mg PO DAILY PRN PRN Fluticasone Propionate (Flonase Nasal [place]) 2 spray NASAL DAILY PRN PRN PRN Reason: ALLERGIES Glucagon () 1 mg IM .X1 PRN PRN Reason: Hypoglycemia Heparin Sodium (Porcine) (Heparin Na) 5,000 unit SC Q8 [facility] Last Admin: 06/21/19 13:30 Dose: Not Given Documented by: Hydrochlorothiazide () 12.5 mg PO DAILY [facility] Last Admin: 06/21/19 16:17 Dose: 12.5 mg Documented by: Hydromorphone HCl (Dilaudid Inj) 1 mg IV Q3H PRN PRN PRN Reason: Pain Score 1-10/10 Last Admin: 06/21/19 16:44 Dose: 1 mg Documented by: Ciprofloxacin (Cipro) 400 mg in 200 mls @ 200 mls/hr IV Q12 [facility] Last Infusion: 06/21/19 11:44 Dose: Infused Documented by: Metronidazole (Flagyl) 500 mg in 100 mls @ 100 mls/hr IV Q8 [facility] Last Admin: 06/21/19 16:13 Dose: 100 mls/hr Documented by: Dextrose (Dextrose 10%-Water) 250 mls @ 999 mls/hr IV .Q16M PRN; Protocol PRN Reason: HYPOGLYCEMIA Last Infusion: 06/20/19 16:31 Dose: Infused Documented by: Dextrose/Sodium Chloride (Dextrose 5%/0.9% Nacl) 1,000 mls @ 100 mls/hr IV .Q10H [facility] Last Admin: 06/21/19 16:16 Dose: 100 mls/hr Documented by: Insulin Human Lispro (Humalog Kwikpen (Bkc)) 0 unit SC Q6 [facility]; Protocol Last Admin: 06/21/19 13:29 Dose: Not Given Documented by: Lisinopril (Zestril) 20 mg PO DAILY [facility] Last Admin: 06/21/19 16:17 Dose: 20 mg Documented by: Multivitamins/Minerals (Multivitamin With Minerals) 1 tablet PO DAILY@0800 [facility] Last Admin: 06/21/19 16:17 Dose: 1 tablet Documented by: Ondansetron HCl (Zofran) 4 mg IV Q8H PRN PRN PRN Reason: NAUSEA/VOMITING Last Admin: 06/21/19 05:37 Dose: 4 mg Documented by: Senna (Senokot) 1 tablet PO DAILY [facility] Last Admin: 06/21/19 16:17 Dose: 1 tablet Documented by: Sodium Chloride () 10 - 40 ml IV UD PRN PRN Reason: SALINE FLUSH Last Admin: 06/21/19 08:39 Dose: 20 ml Documented by: Medical Necessity - Tobacco Use Smoking Status: Former smoker Tobacco Use: Non-smoker Assessment/Plan All Active Problems (Last Reviewed 06/10/19 @ 10:16 by Evelyn Bedolla) Hyperglycemia (Acute) Chemotherapy management, encounter for (Acute) Constipation (Acute) Chemotherapy management, encounter for (Acute) Abdominal pain (Acute) Enteritis (Acute) Encounter for education (Acute) Fever (Acute) Severe sepsis (Acute) advanced stage IV pancreatic cancer, now tense ascites He underwent ultrasound-guided paracentesis today and had 4.2 L of ascitic fluid removed. This was sent for cytology and body fluid analysis. The patient was taken is much more comfortable. We will be restarting his diet. If the patient has rapid recurrent recurrence of his ascites we could consider a palliative peritoneal Pleurx catheter placement. I would contact Dr. Short, for his opinion on the progress of the patient's findings and whether ongoing treatment versus consideration for palliative care/hospice is appropriate. The patient is seem to understand that his treatment is successfully shrinking his tumors. Given the rapid accumulation of ascites which is likely malignant and the findings consistent with peritoneal carcinomatosis, difficult discussions need to be had with the patient and his .
--- NOTE | 2019-06-21 17:33 | ONC.CONS.INP ---
Subjective Date of Service:: 06/21/19 Chief Complaint: Metastatic pancreatic cancer, ascites History of Present Illness: Mr. Rob Torres is a very pleasant 73y.o.man with a PMH significant for HTN and well controlled asthma, who developed right upper quadrant abdominal pain and unexplained weight loss December 2018 CT at that time revealed multiple liver lesions and mass within the tail of the pancreas. Underwent biopsy of the right lobe liver lesion on 01/27/2019, pathology confirmed adenocarcinoma with IHC supporting a pancreatic primary. Started FOLFIRINOX (first cycle only irinotecan omitted due to elevated bilirubin) on 02/03/2019. CA-19-9 on 03/03/2019 140,262. Steadily declining. Received cycle 8 on 06/02/19. CTs obtained 06/08/2019 to assess response to chemotherapy showed probable decrease size of several metastasis in the liver however so many metastasis were present it was impossible to exclude any new small lesions compared to previous studies. Patient presented to [facility] on 06/14/2019 with complaints of right upper quadrant abdominal pain. Imaging at that time revealed fluid-filled stomach and bowel and proximal colon suggesting possibility of diarrhea versus gastroenteritis with grossly similar hepatic metastasis and osteoblastic metastasis. He was subsequently admitted and managed for intractable abdominal pain due to metastatic pancreatic cancer. He had an NG tube inserted and placed to suction, blood cultures were negative. Stool was negative for C. difficile and enteric pathogens. Diet slowly advanced. Discharged home on 06/19/2019 with rx for ciprofloxacin and Flagyl. He returned to [facility] ED with abd pain and bloating on 06/20/19. Found to have normal pressures, afebrile and labs demonstrated mild increase of liver enzymes from baseline. CT scan of the abdomen and pelvis showed ascites, abnormal omental fat second omental metastasis, multiple hypodense metastatic lesions in the liver and repeat CT scan of the abdomen and pelvis with contrast showed no interval change or hepatic venous thrombosis that may have caused abrupt onset ascites. He underwent large-volume paracentesis, estimated at 5220 mL's earlier today with fluid sent for cytology. Upon entering the room patient is smiling sitting up in bed and eating ice chips, states I feel so much better in reference to pain prior to paracentesis. Rates pain a 1 out of 10. Dyspnea resolved. Past Medical History: Chronic Problems (Last Reviewed 06/10/19 @ 10:16 by Evelyn Bedolla) Liver metastases (Chronic) Bronchial asthma (Chronic) HTN (hypertension) (Chronic) Pancreatic cancer (Chronic) Pancreatic cancer metastasized to liver (Chronic) Past Medical/Surgical History: Past Medical History - Most Recent Inpatient Visit Past Medical History Start: 06/20/19 15:17 Text: Status: Complete Freq: ONCE Protocol: Document 06/20/19 15:17 VICTOR M (Rec: 06/20/19 15:34 VICTOR M [id number]) BMI Required to complete PMH What is Patient's BMI 24.8 Past Medical History Unable History Recalled No Query Text:Pt Unable/Family Not Present Neurologic Medical History Hx Stroke/TIA No Hx Dementia/Alzheimer's No Hx Parkinson's Disease No Hx Seizures No Hx Multiple Sclerosis No Hx Migraines No Cardiac Medical History VTE Present on Admission No Hx of Deep Vein Thrombosis/VTE/PE Yes: Leg 2014 Hx Hypertension Yes: controlled with med Hx Chest Pain/Angina No Hx Heart Attack No Hx Cardiac Surgery/Stents/Etc. No Hx Heart Failure No Hx Pacemaker/AICD No Hx Irregular Heartbeat and/or Afib No Hx Anticoagulant Therapy No Query Text:(Coumadin, Aspirin, Plavix, Xarelto, etc.) Hx Pain in Legs when Walking/Leg Cramps No Respiratory Medical History Hx COPD No Hx Emphysema No Hx Smoking Yes Smoking Status Former smoker Tobacco Use Non-smoker Hx Smoking Cessation Date 06/20/19 Hx Smoking Cessation Counseling No Hx Smoking Exposure No Hx Tobacco Use in last 12 months No Hx of Pipe Smoking No Hx of Cigar Smoking No Hx Sleep Apnea No CPAP No BIPAP No Do you snore loudly (louder than talking No or can be heard through closed doors)? Do you often feel tired/ fatigued/ No sleepy during daytime? Has anyone observed you stop breathing No during sleep? STOP Results Negative GI Medical History Hx Ulcer No Hx Hepatitis No: WAS TESTED 2012 ?? Hx Cirrhosis No Hx GI Bleed No Hx Unplanned Weight Loss Yes Genitourinary Medical History Indwelling Catheter in Place on Arrival/ No Admission Hx Renal Disease No Hx Dialysis No Musculoskeletal History Hx Arthritis Yes Hx Rheumatoid Arthritis No Endocrine Medical History Hx Diabetes Yes Hx Thyroid Disease No Hematologic Medical History Hx of Blood Transfusion No Hx of Transfusion in last 3 Months No Ever experience any problems with No transfusion(s)? Hx of Preganancy in last 3 Months N/A Nurse Filling Out Transfusion & JMAIBACH Questions: Date: 06/20/19 Time: 15:32 Psycho/Social Medical History Hx Depression Yes: in past Hx Anxiety No Hx Behavior Disorder No Hx Alcohol Use Yes: occasional beer Hx Substance Use Yes: up until 42 Other Medical History Hx Blood Disorders No Hx Anemia No Hx Cancer Yes: pancreatic and liver/just recent dx Hx Drug Resistant Organism No Wound/Pressure Injury Present on Arrival No /Admission Query Text:If yes, chart assessment in Shift/Clinical Findings Central Line/PICC/VAD Present on Arrival Yes /Admission Antibiotics within last 7 days? Yes Name of Antibiotic (Include dose/# days Ciprofloxin 500mg bid, taken if known) metronxol 500mg x3 daily Methicillin Resistant Staphylococcus aureus Screening Active MRSA No Risk for Readmission Number of Risk Factors 7 At Risk for Readmission Patient is At Risk For Readmission Patient is eligible for Call Back Y Past Medical History (Last Reviewed 06/10/19 @ 10:16 by Evelyn Bedolla) Elevated LFTs (Acute) Liver mass (Acute) Mass of pancreas (Acute) Meningitis (Acute) Past Surgical History (Last Reviewed 06/10/19 @ 10:16 by Evelyn Bedolla) History of hernia surgery (Acute) History of total right knee replacement (Acute) Sibling Family History: Family History (Last Reviewed 06/10/19 @ 10:16 by Evelyn Bedlola) Mother Diabetes Brother Diabetes Sister Heart disease Daughter Asthma Family History: Diabetes Maternal Family History: Family History (Last Reviewed 06/10/19 @ 10:16 by Evelyn Bedolla) Mother Diabetes Brother Diabetes Sister Heart disease Daughter Asthma Family History: Diabetes - Social History Smoking Status: Former smoker Tobacco Use: Non-smoker Alcohol: None Drugs: None Allergies/Adverse Reactions: Allergy/AdvReac Type Severity Reaction Status Date / Time Latex, Natural Rubber Allergy Intermediate Rash Verified 06/20/19 08:49 cat dander Allergy Shortness Verified 06/20/19 08:49 of breath hydrocodone bitartrate Allergy hallucinati Verified 06/20/19 08:49 [From Vicodin] ons steri strips Allergy Unknown knee Uncoded 06/20/19 08:49 opened up after knee surgery skin sensitivity Allergy Itching Uncoded 06/20/19 08:49 Review of Systems Constitutional:: Reports: Weakness, Fatigue. Denies: Fever, Sweats, Weight loss, Appetite change, Chills Cardiovascular:: Denies: Chest pain, Palpitations, Dyspnea on exertion, Orthopnea, PND Respiratory: Denies: Cough, Hemoptysis, Shortness of Breath - resolved, Wheezing Gastrointestinal:: Reports: Abdominal pain - see HPI, Constipation - LBM 06/19/19. Denies: Nausea, Vomiting, Diarrhea, Melena, Hematochezia, Reflux Genitourinary: Denies: Dysuria, Hematuria, 15, Flank pain Musculoskeletal:: Denies: Back pain, Myalgia, Arthralgia Skin: Denies: Rash, Skin Changes, Wounds Neurological:: Denies: Headache, Dizziness, Numbness, Tingling, Visual changes, Tinnitus, Hearing loss Psychiatric: Denies: Anxiety, Depression, Homicidal Ideations, Suicidal Ideations Vital Signs Height 6 ft 7 in Weight: 240 lb 11.916 oz Weight in Pounds 240.7 lbs Pulse Ox 98 Temperature 98.0 F Pulse Rate [3] 95 Pulse Rate [2] 101 Pulse Rate [1 (Initial 103 Baseline)] Pulse Rate 98 Respiratory Rate [3] 18 Respiratory Rate [2] 20 Respiratory Rate [1 (Initial 20 Baseline)] Respiratory Rate 18 Blood Pressure [3] 137/91 Blood Pressure [2] 128/91 Blood Pressure [1 (Initial 128/96 Baseline)] Blood Pressure 121/90 Blood Pressure Position Semi-Fowlers - Physical Exam General: Alert, Oriented x3, No apparent distress HEENT: Atraumatic, PERRLA, EOMI, Normocephalic Oropharynx:: Negative for: Dry mucosa, Ulcerated lesions Neck:: Supple, Trachea midline. Negative for: JVD, bilateral Cardiac:: Regular rate, Regular rhythm, Normal S1, Normal S2. Negative for: Murmur Lungs: Clear to auscultation, Excusion symmetrical. Negative for: Rhonchi, Wheezes Abdomen:: Bowel sounds x 4, Distended, Tender. Negative for: Hepatosplenomegaly Extremities:: Edema - BLE, + 2 pitting. Negative for: Cyanosis Neurological: Neuro grossly intact Skin:: Negative for: Lesions, Rash, Petechiae, Ecchymosis Psychiatric:: Appropriate affect, Euthymic Lymphatics:: Negative for: Cervical lymphadenopathy, Supraclavicular lymphadenopathy, Axillary lymphadenopathy Laboratory Data: Laboratory Tests 06/21/19 06/21/19 06/21/19 Range/Units 14:46 12:30 08:33 WBC (4.4-11.0) K/mm3 RBC (4.6-6.2) M/mm3 Hgb (13.0-16.5) g/dL Hct (40-54) % MCV (80-94) fL MCH (27.0-32.0) pg MCHC (32-36) g/dL RDW Std Deviation (35.1-43.9) fl RDW Coeff of Mino[place] (11.6-14.6) % Plt Count (150-450) K/mm3 MPV (6.2-12.0) fl Immature Gran % (Auto) (0.0-0.9) % Neut % (Auto) (47-70) % Lymph % (Auto) (19-41) % [place] % (Auto) (0-10) % Eos % (Auto) (0-5) % Baso % (Auto) (0-1) % Absolute Neuts (auto) (2.0-7.7) X10^3/uL Absolute Lymphs (auto) (0.83-4.51) X10^3/uL Nucleated RBC % (0-5) % Differential Comment PT 15.4 H (11.7-14.9) SECONDS INR 1.2 Sodium (136-145) mmol/L Potassium (3.5-5.1) mmol/L Chloride (98-107) mmol/L Carbon Dioxide (21.0-32.0) mmol/L Anion Gap (5-15) BUN (7-18) mg/dL Creatinine (0.70-1.30) mg/dL Estim Creat Clear Calc ml/min Est GFR (MDRD) Af Amer (>60) mL/min Est GFR (MDRD) Non-Af (>60) mL/min BUN/Creatinine Ratio (10-20) RATIO Glucose (74-106) mg/dL Calcium (8.5-10.1) mg/dL Total Bilirubin (0.20-1.00) mg/dL AST (15-37) U/L ALT (16-61) U/L Alkaline Phosphatase (45-117) U/L Lactate Dehydrogenase (87-241) U/L Total Protein (6.4-8.2) g/dL Albumin (3.2-5.0) g/dL Globulin (2.2-4.2) g/dL Albumin/Globulin Ratio (0.9-2.4) RATIO Fluid WBC 0.769 10^3/uL Fluid RBC Not Reportable Fluid Tot Cell Count 0.977 10^3/ul Fld Polynuclear WBCs # 0.174 10^3/uL Fld Polynuclear WBCs % 22.6 % Fluid Mononuclear WBCs 0.595 10^3/uL Fld Mononuclear WBCs % 77.4 % Fluid Glucose (40-70) mg/dL Fluid Total Protein (Not Establ.) g/dL Fluid LDH (Not Establ.) Units/l POC Glucose 161 H (70-110) mg/dL 06/21/19 06/21/19 06/21/19 Range/Units 05:48 05:48 05:45 WBC 9.3 (4.4-11.0) K/mm3 RBC 4.07 L (4.6-6.2) M/mm3 Hgb 12.7 L (13.0-16.5) g/dL Hct 38.7 L (40-54) % MCV 95.1 H (80-94) fL MCH 31.2 (27.0-32.0) pg MCHC 32.8 (32-36) g/dL RDW Std Deviation 51.6 H (35.1-43.9) fl RDW Coeff of M[place] 14.7 H (11.6-14.6) % Plt Count 250 (150-450) K/mm3 MPV 9.2 (6.2-12.0) fl Immature Gran % (Auto) 1.800 H (0.0-0.9) % Neut % (Auto) 49.2 (47-70) % Lymph % (Auto) 27.2 (19-41) % [place] % (Auto) 20.8 H (0-10) % Eos % (Auto) 0.6 (0-5) % Baso % (Auto) 0.4 (0-1) % Absolute Neuts (auto) 4.6 (2.0-7.7) X10^3/uL Absolute Lymphs (auto) 2.52 (0.83-4.51) X10^3/uL Nucleated RBC % 0 (0-5) % Differential Comment SCANNED PT (11.7-14.9) SECONDS INR Sodium 142 (136-145) mmol/L Potassium 3.5 (3.5-5.1) mmol/L Chloride 109 H (98-107) mmol/L Carbon Dioxide 27.0 (21.0-32.0) mmol/L Anion Gap 6 (5-15) BUN 9 (7-18) mg/dL Creatinine 0.80 (0.70-1.30) mg/dL Estim Creat Clear Calc 112.24 ml/min Est GFR (MDRD) Af Amer 123 (>60) mL/min Est GFR (MDRD) Non-Af 102 (>60) mL/min BUN/Creatinine Ratio 11.3 (10-20) RATIO Glucose 160 H (74-106) mg/dL Calcium 8.7 (8.5-10.1) mg/dL Total Bilirubin 0.80 (0.20-1.00) mg/dL AST 84 H (15-37) U/L ALT 97 H (16-61) U/L Alkaline Phosphatase 124 H (45-117) U/L Lactate Dehydrogenase 256 H (87-241) U/L Total Protein 6.0 L (6.4-8.2) g/dL Albumin 2.0 L (3.2-5.0) g/dL Globulin 4.0 (2.2-4.2) g/dL Albumin/Globulin Ratio 0.5 L (0.9-2.4) RATIO Fluid WBC 10^3/uL Fluid RBC Fluid Tot Cell Count 10^3/ul Fld Polynuclear WBCs # 10^3/uL Fld Polynuclear WBCs % % Fluid Mononuclear WBCs 10^3/uL Fld Mononuclear WBCs % % Fluid Glucose (40-70) mg/dL Fluid Total Protein (Not Establ.) g/dL Fluid LDH (Not Establ.) Units/l POC Glucose 162 H (70-110) mg/dL 06/20/19 06/20/19 06/20/19 Range/Units 22:54 14:46 14:46 WBC (4.4-11.0) K/mm3 RBC (4.6-6.2) M/mm3 Hgb (13.0-16.5) g/dL Hct (40-54) % MCV (80-94) fL MCH (27.0-32.0) pg MCHC (32-36) g/dL RDW Std Deviation (35.1-43.9) fl RDW Coeff of M[place] (11.6-14.6) % Plt Count (150-450) K/mm3 MPV (6.2-12.0) fl Immature Gran % (Auto) (0.0-0.9) % Neut % (Auto) (47-70) % Lymph % (Auto) (19-41) % [place] % (Auto) (0-10) % Eos % (Auto) (0-5) % Baso % (Auto) (0-1) % Absolute Neuts (auto) (2.0-7.7) X10^3/uL Absolute Lymphs (auto) (0.83-4.51) X10^3/uL Nucleated RBC % (0-5) % Differential Comment PT (11.7-14.9) SECONDS INR Sodium (136-145) mmol/L Potassium (3.5-5.1) mmol/L Chloride (98-107) mmol/L Carbon Dioxide (21.0-32.0) mmol/L Anion Gap (5-15) BUN (7-18) mg/dL Creatinine (0.70-1.30) mg/dL Estim Creat Clear Calc ml/min Est GFR (MDRD) Af Amer (>60) mL/min Est GFR (MDRD) Non-Af (>60) mL/min BUN/Creatinine Ratio (10-20) RATIO Glucose (74-106) mg/dL Calcium (8.5-10.1) mg/dL Total Bilirubin (0.20-1.00) mg/dL AST (15-37) U/L ALT (16-61) U/L Alkaline Phosphatase (45-117) U/L Lactate Dehydrogenase (87-241) U/L Total Protein (6.4-8.2) g/dL Albumin (3.2-5.0) g/dL Globulin (2.2-4.2) g/dL Albumin/Globulin Ratio (0.9-2.4) RATIO Fluid WBC 10^3/uL Fluid RBC Fluid Tot Cell Count 10^3/ul Fld Polynuclear WBCs # 10^3/uL Fld Polynuclear WBCs % % Fluid Mononuclear WBCs 10^3/uL Fld Mononuclear WBCs % % Fluid Glucose (40-70) mg/dL Fluid Total Protein 3.3 (Not Establ.) g/dL Fluid LDH 286 (Not Establ.) Units/l POC Glucose 127 H (70-110) mg/dL 06/20/19 Range/Units 14:46 WBC (4.4-11.0) K/mm3 RBC (4.6-6.2) M/mm3 Hgb (13.0-16.5) g/dL Hct (40-54) % MCV (80-94) fL MCH (27.0-32.0) pg MCHC (32-36) g/dL RDW Std Deviation (35.1-43.9) fl RDW Coeff of [place] (11.6-14.6) % Plt Count (150-450) K/mm3 MPV (6.2-12.0) fl Immature Gran % (Auto) (0.0-0.9) % Neut % (Auto) (47-70) % Lymph % (Auto) (19-41) % [place] % (Auto) (0-10) % Eos % (Auto) (0-5) % Baso % (Auto) (0-1) % Absolute Neuts (auto) (2.0-7.7) X10^3/uL Absolute Lymphs (auto) (0.83-4.51) X10^3/uL Nucleated RBC % (0-5) % Differential Comment PT (11.7-14.9) SECONDS INR Sodium (136-145) mmol/L Potassium (3.5-5.1) mmol/L Chloride (98-107) mmol/L Carbon Dioxide (21.0-32.0) mmol/L Anion Gap (5-15) BUN (7-18) mg/dL Creatinine (0.70-1.30) mg/dL Estim Creat Clear Calc ml/min Est GFR (MDRD) Af Amer (>60) mL/min Est GFR (MDRD) Non-Af (>60) mL/min BUN/Creatinine Ratio (10-20) RATIO Glucose (74-106) mg/dL Calcium (8.5-10.1) mg/dL Total Bilirubin (0.20-1.00) mg/dL AST (15-37) U/L ALT (16-61) U/L Alkaline Phosphatase (45-117) U/L Lactate Dehydrogenase (87-241) U/L Total Protein (6.4-8.2) g/dL Albumin (3.2-5.0) g/dL Globulin (2.2-4.2) g/dL Albumin/Globulin Ratio (0.9-2.4) RATIO Fluid WBC 10^3/uL Fluid RBC Fluid Tot Cell Count 10^3/ul Fld Polynuclear WBCs # 10^3/uL Fld Polynuclear WBCs % % Fluid Mononuclear WBCs 10^3/uL Fld Mononuclear WBCs % % Fluid Glucose 124 H (40-70) mg/dL Fluid Total Protein (Not Establ.) g/dL Fluid LDH (Not Establ.) Units/l POC Glucose (70-110) mg/dL Diagnostic Data: Diagnostic Data Abdomen/Pelvis CT 06/20/19 13:15 IMPRESSION: 1. Multiple hypodense masses in the liver are presumably metastatic disease. 2. Nodularity of the liver surface is suspicious for liver cirrhosis and surrounded by malignant ascites. 3. Abnormal omental fat due to omental metastases. 4. Persistent malignant ascites. 5. Large lipoma in the left groin is unchanged. 6. Small bilateral posterior pleural fluid, left more than right. This is new. 7. There is a history of pancreatic carcinoma but I am unable to find any pancreatic mass. 8. No significant interval change when compared to 06/20/2019 10:26 AM. Electronically Signed: Antoine Ko MD at 14:43 EST , Service support , Paracentesis Ultrasound 06/20/19 15:46 IMPRESSION: Successful sonographic guided paracentesis. Two 60 cc syringes ascites submitted for appropriate laboratory analysis as per referring physician''s request. Electronically Signed: Dharmesh Boogie MD at 17:27 EST Tel [phone], Service support , Assessment and Plan 1. Metastatic pancreatic cancer, stage IV (TX, N1, M1) MSI?low/stable?received most recent cycle of FOLFIRINOX (cycle 8) on 06/02/2019. ca 19-9 had been trending down and positively correlating with disease prior to recent admissions. Engaged in lengthy discussion about the context of therapy, which again is palliative and explained what is visible on imaging may illustrate progressive disease. For now, pain is controlled and he would like to spend the weekend celebrating the holiday with family. Will not make any abrupt changes until cytology report is final. 2. Ascites?underwent paracentesis earlier this morning, estimated 5220 mL's withdrawn. Ascites is likely malignant however awaiting cytology and body fluid analysis reports. Would agree with palliative peritoneal Pleurx catheter placement if rapid recurrence of ascites occurs. Preprocedure albumin was 2, given large volume paracentesis could consider IV albumin. Will add aldactone. 3. DVT prophylaxis- High risk for development of VTE. Heparin is already ordered. Will continue to follow. Case discussed with Dr. Short who was in agreement with aforementioned plan. Blanca Doyle, MSN, [employer], AOCNP Medications: Prescriptions This Visit Medication Instructions Recorded Hydrocodone/Acetaminophen PO Q4H PRN PRN 06/20/19 [Hydrocodone-Acetamin 5-325 mg] Medications Added to Medication List This Visit Category Date Time Status HYDROmorphone Inj [Dilaudid Inj] Med 06/21/19 09:15 Active 1 mg IV Q3H PRN PRN Lisinopril [Zestril] Med 06/21/19 10:00 Active 20 mg PO DAILY Senna [Senokot] Med 06/21/19 10:00 Active 1 tablet PO DAILY hydroCHLOROthiazide Med 06/21/19 10:00 Active 12.5 mg PO DAILY Primary Care Provider: Valentin Kelly MD Referring Provider: Julisa Zapata MD - Problem List (1) Pancreatic cancer Status: Chronic Qualifiers: Pancreatic malignancy location: tail of pancreas Qualified Code(s): C25.2 - Malignant neoplasm of tail of pancreas (2) Pancreatic cancer metastasized to liver Status: Chronic (3) Ascites Status: Acute (4) Hypoalbuminemia Status: Acute
[2019-06-21 18:10] LABS: Bedside Glucose 137 mg/dL (70-110)
[2019-06-21 21:05] LABS: Auto B Fluid Analyzer BKGD Ct COUNTS W/IN LIMITS (W/IN LIMITS)
[2019-06-21 21:06] LABS: Appearance/Body Fluid SL CLDY; Color/Body Fluid LT YEL; Source- Body Fluid OTHER
[2019-06-21 21:07] LABS: Red Cell Count/Body Fluid 460 /mm3
[2019-06-21 21:16] LABS: Lymphocytes 1 %; Macrophages 57 %; Mesothelial Cells 4 %; Monocytes 4 %; Neutrophil (Segs) 34 %
[2019-06-21 21:17] LABS: Body Fluid QC Type(s) BF2Q
[2019-06-21] MEDS: Ciprofloxacin 400 MG/200 ML BAG 100 MG IV (23:09)
[2019-06-21 23:16] LABS: Bedside Glucose 185 mg/dL (70-110)
[2019-06-22] VITALS (8 sets, daily range): BP systolic 105–131; BP diastolic 64–83; PULSE 73–116; RESP 16–18; TEMP 36.7–37.2; O2SAT 95–98
[2019-06-22] MEDS: Dextrose 5%/0.9% NaCl 1,000 ML 100 ML IV (04:25)
[2019-06-22] MEDS: metroNIDAZOLE 500 MG/100 ML BAG 100 MG IV ×3 (05:43→21:00)
[2019-06-22] MEDS: HYDROmorphone 1 MG/ML Syringe IV ×5 (05:47→20:47)
[2019-06-22] MEDS: Spironolactone 50 MG Tablet 100 MG PO (05:48)
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
[2019-06-22 06:11] LABS: Bedside Glucose 168 mg/dL (70-110)
--- NOTE | 2019-06-22 08:25 | ECHOCS_ITS ---
Reason For Study: DYSPNEA/SOB Procedure This was a 2D Doppler, Color Flow transthoracic echocardiogram. The study was technically difficult. Due to body habitus. Contrast injection was performed. Exam performed portable in patient room. Left Ventricle Normal LV size. The estimated ejection fraction is 60 %. No evidence for diastolic dysfunction. No regional wall motion abnormalities noted. Right Ventricle Normal RV size. Normal systolic function. Atria Normal left atrium. Normal right atrium. No doppler evidence for ASD. Mitral Valve There is no mitral valve stenosis. No mitral valve insufficiency. Tricuspid Valve There is no tricuspid stenosis. Trivial tricuspid valve insufficiency. Pulmonary artery systolic pressure is 30 mmHg. Aortic Valve There is no aortic stenosis. No aortic valve insufficiency. Pulmonic Valve There is no pulmonic valvular stenosis. Trivial pulmonic valve insufficiency. Great Vessels Normal aortic root. Pericardium/Pleural No pericardial effusion. MMode/2D Measurements & Calculations LVIDd: 4.4 cm IVSd: 1.0 cm Ao root diam: 3.3 cm LVIDs: 3.1 cm LVPWd: 0.84 cm LA dimension: 3.7 cm FS: 28.3 % LAV(MOD-bp): 48.3 ml LA A4 area: 18.0 cm2 RA A4 area: 17.0 cm2 LAV(MOD-bp) Indexed: 20.5 ml/m2 LAV(MOD-sp2): 50.3 ml LAV(MOD-sp4): 42.4 ml Doppler Measurements & Calculations MV E max jesus alberto: 43.4 cm/sec Lat Peak E' Jesus Alberto: 8.8 cm/sec Med Peak E' Jesus Alberto: 7.6 cm/sec MV A max jesus alberto: 73.4 cm/sec E/E' lat: 4.9 E/E' med: 5.7 MV E/A: 0.59 Ao V2 max: 110.1 cm/sec LV V1 max: 94.1 cm/sec Ao max P.9 mmHg LV V1 max P.6 mmHg Interpretation Summary The study was technically difficult. Contrast injection was performed. The estimated ejection fraction is 60 %. No evidence for diastolic dysfunction. The study was technically difficult. Contrast injection was performed. Ordering Physician: Julisa Zapata Referring Physician: Valentin Kelly Chi Performed By: Krishna Vnicent RCS
--- NOTE | 2019-06-22 08:27 | PCM.PN.HOSP ---
Patient Problems: Active and Suspected Problems (Last Reviewed 06/10/19 @ 10:16 by Evelyn Bedolla) Ascites (Acute) Hypoalbuminemia (Acute) Subjective: Patient was seen and examined. He seems to be having further abdominal distention. His abdomen distension was improved after the paracentesis yesterday. More than 5 L of fluid were removed. He denies fever or chills Objective: Physical exam: General: Alert, Oriented x3, Cooperative, No apparent distress HEENT: Atraumatic, PERRLA, EOMI, Normocephalic Oral: Moist Mucosa Neck: Supple Lungs: Diminished - at the lung bases Cardiovascular: Regular rate, Regular Rhythm, Normal S1, Normal S2, No murmurs Abdomen: Bowel Sounds Present, Soft, Non Tender, Hypoactive Bowel Sounds, Distended, - - tympanitic Extremities: No edema Skin: No rashes Musculoskeletal: No Tenderness to Palpation of Joints or Extremities Lymphatic: No Cervical, Supraclavicular, or Inguinal Adenopathy Neurological: Cranial nerves II-XII grossly intact, Neuro grossly intact Psych/Mental Status: Normal Affect, Appropriate Vitals/I&O's: Vital Signs Temp Pulse Resp BP Pulse Ox 98.6 F 100 18 121/69 H 95 06/22/19 08:05 06/22/19 08:06 06/22/19 08:05 06/22/19 08:05 06/22/19 08:05 Oxygen Delivery Method [3] Room Air Oxygen Delivery Method [2] Room Air Oxygen Delivery Method [1 ( Room Air Initial Baseline)] Oxygen Delivery Method Room Air Weight: 98.5 kg Body Mass Index (BMI) 24.7 Intake and Output for Last 24 Hours 06/20/19 06/21/19 06/22/19 23:59 23:59 23:59 Intake Total 1212.25 / 1212.25 1920.00 / 2120.00 1700 / 1700 Output Total 450 / 450 Balance 1212.25 / 1212.25 1470.00 / 1670.00 1700 / 1700 Laboratory Results 06/20/19 14:46: Fluid Glucose 124 H 06/20/19 14:46: Fluid LDH 286 06/20/19 14:46: Fluid Total Protein 3.3 06/21/19 08:33: PT 15.4 H, INR 1.2 06/21/19 12:30: POC Glucose 161 H 06/21/19 14:46: Fluid Source OTHER, Fluid Color LT YEL, Fluid Appearance SL CLDY, Fluid WBC 0.769, Fluid RBC 460, Fluid Tot Cell Count 0.977, Fld Polynuclear WBCs # 0.174, Fld Polynuclear WBCs % 22.6, Fluid Mononuclear WBCs 0.595, Fld Mononuclear WBCs % 77.4, Fluid Neutrophils 34, Fluid Lymphocytes 1, Fluid Monocytes 4, Fluid Macrophages 57, Fld Mesothelial Cells 4, Fl Pathologist Comment May follow, Fluid Comment 2 SEE COMMENT 06/21/19 18:00: POC Glucose 137 H 06/21/19 23:08: POC Glucose 185 H 06/22/19 05:56: POC Glucose 168 H Current Medications Acetaminophen (Tylenol) 650 mg PO Q6H PRN PRN PRN Reason: Pain Score 1-10/10 Albuterol Sulfate (Ventolin Aerosols) 2.5 mg INHALATION Q2H PRN PRN PRN Reason: Shortness of Breath/Wheezing Dexamethasone (Decadron) 4 mg PO DAILY PRN PRN Fluticasone Propionate (Flonase Nasal [place]) 2 spray NASAL DAILY PRN PRN PRN Reason: ALLERGIES Glucagon () 1 mg IM .X1 PRN PRN Reason: Hypoglycemia Heparin Sodium (Porcine) (Heparin Na) 5,000 unit SC Q8 [facility] Last Admin: 06/22/19 05:43 Dose: Not Given Documented by: Hydrochlorothiazide () 12.5 mg PO DAILY [facility] Last Admin: 06/21/19 16:17 Dose: 12.5 mg Documented by: Hydromorphone HCl (Dilaudid Inj) 1 mg IV Q3H PRN PRN PRN Reason: Pain Score 1-10/10 Last Admin: 06/22/19 05:47 Dose: 1 mg Documented by: Ciprofloxacin (Cipro) 400 mg in 200 mls @ 200 mls/hr IV Q12 [facility] Last Infusion: 06/22/19 01:31 Dose: Infused Documented by: Metronidazole (Flagyl) 500 mg in 100 mls @ 100 mls/hr IV Q8 [facility] Last Infusion: 06/22/19 06:47 Dose: Infused Documented by: Dextrose (Dextrose 10%-Water) 250 mls @ 999 mls/hr IV .Q16M PRN; Protocol PRN Reason: HYPOGLYCEMIA Last Infusion: 06/20/19 16:31 Dose: Infused Documented by: Dextrose/Sodium Chloride (Dextrose 5%/0.9% Nacl) 1,000 mls @ 100 mls/hr IV .Q10H [facility] Last Admin: 06/22/19 04:25 Dose: 100 mls/hr Documented by: Albumin Human () 25 gm in 100 mls @ 60 mls/hr IV X1 ONE Stop: 06/22/19 10:39 Insulin Human Lispro (Humalog Kwikpen (Bkc)) 0 unit SC Q6 [facility]; Protocol Last Admin: 06/22/19 05:53 Dose: Not Given Documented by: Lisinopril (Zestril) 20 mg PO DAILY [facility] Last Admin: 06/21/19 16:17 Dose: 20 mg Documented by: Multivitamins/Minerals (Multivitamin With Minerals) 1 tablet PO DAILY@0800 [facility] Last Admin: 06/21/19 16:17 Dose: 1 tablet Documented by: Ondansetron HCl (Zofran) 4 mg IV Q8H PRN PRN PRN Reason: NAUSEA/VOMITING Last Admin: 06/21/19 05:37 Dose: 4 mg Documented by: Senna (Senokot) 1 tablet PO DAILY [facility] Last Admin: 06/21/19 16:17 Dose: 1 tablet Documented by: Sodium Chloride () 10 - 40 ml IV UD PRN PRN Reason: SALINE FLUSH Last Admin: 06/21/19 08:39 Dose: 20 ml Documented by: Spironolactone (Aldactone) 100 mg PO DAILY@0600 [facility] Last Admin: 06/22/19 05:48 Dose: 100 mg Documented by: STROKE Vital Signs/Narrative: Vital Signs Temp Pulse Resp BP Pulse Ox 06/22/19 08:06 100 06/22/19 08:05 98.6 F 101 H 18 121/69 H 95 Medical Necessity - Tobacco Use Smoking Status: Former smoker Tobacco Use: Non-smoker Assessment/Plan All Active Problems (Last Reviewed 06/10/19 @ 10:16 by Evelyn Bedolla) Hyperglycemia (Acute) Chemotherapy management, encounter for (Acute) Constipation (Acute) Chemotherapy management, encounter for (Acute) Abdominal pain (Acute) Enteritis (Acute) Ascites (Acute) Hypoalbuminemia (Acute) Encounter for education (Acute) Fever (Acute) Severe sepsis (Acute) 73 year old M with past medical history of metastatic pancreatic CA, hypertension, type II DM was recently admitted and discharged with abdominal pain/ileus comes in with progressive abdominal pain. 1. Ascites, unclear etiology for now SAAG could not be calculated as ascitic fluid albumin is a send out test; will take 5 days to come back Ascitic fluid cytology is pending Differentials could be peritoneal carcinomatosis vs complication from hypoalbuminemia CT scan of the abdomen and pelvis showed probably worsening ascites, possible omental metastases Liver cirrhosis also seen on CT abd/pelvis, H/o chronic hep C 2D echo shows EF 50%, no diastolic dysfunction Oncology and general surgery consulted; patient may benefit from a catheter placement if ascites recurs Given IV albumin 25g x1, continued on IV fluids 2. Small bowel ileus, likely related to pain medications Being managed conservatively General surgery following CT of the abdomen and pelvis planned for tomorrow to delineate ileus and possible worsening ascites Encourage patient to ambulate and use less pain medication 3. MIKE, likely prerenal from volume depletion received IV albumin today, Hold Lisinopril, Hydrochlorothiazide continued on IVF Repeat labs this afternoon and in am 4. Metastatic pancreatic CA, on chemotherapy, follows with oncology in the outpatient 5. Type II DM, on insulin, sugars are controlled Continue to hold long-acting insulin Continue with blood glucose check ACHS with insulin sliding scale until good oral intake is established 6. Chronic Hep C with Cirrhosis, LFTS mildly elevated, will trend 7. Hypertension, controlled, continue on lisinopril/hydrochlorothiazide 8. DVT PPx- Heparin SC Code Visit Inpatient E&M: 75568 Subs Hosp L2
[2019-06-22 08:40] LABS: Absolute Lymphocyte Count 2.51 X10^3/uL (0.83-4.51); Absolute Neutrophil Count 4.8 X10^3/uL (2.0-7.7); Basophil# 0.03 X10^3/uL; Basophil% 0.3 % (0-1); Eosinophil# 0.08 X10^3/uL; Eosinophils% 0.8 % (0-5); Hematocrit 36.8 % (40-54); Hemoglobin 12.3 g/dL (13.0-16.5); Lymphocyte # 2.51 X10^3/ul (4.0); Mean Corp Hgb Conc 33.4 g/dL (32-36); Mean Corpuscular Hgb 31.9 pg (27.0-32.0); Mean Corpuscular Volume 95.3 fL (80-94); Mean Platelet Vol. 9.4 fl (6.2-12.0); Monocyte# 2.34 X10^3/uL; Monocyte% 23.3 % (0-10); NRBC Flagged by Analyzer 0 % (0-5); Neutrophil # 4.82 X10^3/uL (2.7-7.7); Neutrophil % 47.9 % (47-70); POSITIVE DIFFERENTIAL YES; Platelet Count 222 K/mm3 (150-450); RBC Distribution Width CV 15.1 % (11.6-14.6); Red Blood Count 3.86 M/mm3 (4.6-6.2); White Blood Count 10.1 K/mm3 (4.4-11.0)
[2019-06-22 08:43] LABS: Differential Indicated SCAN CRITERIA MET
[2019-06-22] MEDS: 0.9% Saline Lock 10 ML Syringe IV ×6 (09:25→18:42)
[2019-06-22] MEDS: Ondansetron 4 MG/2 ML Vial IV (09:25)
[2019-06-22] MEDS: Ciprofloxacin 400 MG/200 ML BAG 200 MG IV ×2 (09:30→22:06)
[2019-06-22 10:30] LABS: AST(SGOT) 73 U/L (15-37); Alanine Aminotransfer ALT/SGPT 81 U/L (16-61); Albumin, Serum 1.8 g/dL (3.2-5.0); Alkaline Phosphatase 122 U/L (45-117); BUN 15 mg/dL (7-18); Bilirubin, Direct 0.33 mg/dL (0.00-0.30); Calcium,Total 8.5 mg/dL (8.5-10.1); Chloride 110 mmol/L (98-107); Creatinine, Serum 1.67 mg/dL (0.70-1.30); EST Glomerular Filtration Rate 43 mL/min (>60); Est Glom Filt Rate - Afr Amer 52 mL/min (>60); Estimated Creatinine Clearance 53.77 ml/min; Globulin 3.8 g/dL (2.2-4.2); Glucose 216 mg/dL (74-106); Phosphorus 2.6 mg/dL (2.5-4.9); Protein, Total 5.6 g/dL (6.4-8.2); Sodium Level 144 mmol/L (136-145)
--- NOTE | 2019-06-22 10:43 | PN_ITS ---
- Problem List (1) Pancreatic cancer Status: Chronic Qualifiers: Pancreatic malignancy location: tail of pancreas Qualified Code(s): C25.2 - Malignant neoplasm of tail of pancreas (2) Pancreatic cancer metastasized to liver Status: Chronic (3) Ascites Status: Acute (4) Hypoalbuminemia Status: Acute Subjective Date of Service:: 06/22/19 Metastatic pancreatic cancer, ascites Mr. Rob Torres is a very pleasant 73y.o.man with a PMH significant for HTN and well controlled asthma, who developed right upper quadrant abdominal pain and unexplained weight loss December 2018 CT at that time revealed multiple liver lesions and mass within the tail of the pancreas. Underwent biopsy of the right lobe liver lesion on 01/27/2019, pathology confirmed adenocarcinoma with IHC supporting a pancreatic primary. Started FOLFIRINOX (first cycle only irinotecan omitted due to elevated bilirubin) on 02/03/2019. CA-19-9 on 03/03/2019 140,262. Steadily declining. Received cycle 8 on 06/02/19. CTs obtained 06/08/2019 to assess response to chemotherapy showed probable decrease size of several metastasis in the liver however so many metastasis were present it was impossible to exclude any new small lesions compared to previous studies. Patient presented to [facility] on 06/14/2019 with complaints of right upper quadrant abdominal pain. Imaging at that time revealed fluid- filled stomach and bowel and proximal colon suggesting possibility of diarrhea versus gastroenteritis with grossly similar hepatic metastasis and osteoblastic metastasis. He was subsequently admitted and managed for intractable abdominal pain due to metastatic pancreatic cancer. He had an NG tube inserted and placed to suction, blood cultures were negative. Stool was negative for C. difficile and enteric pathogens. Diet slowly advanced. Discharged home on 06/19/2019 with rx for ciprofloxacin and Flagyl. He returned to [facility] ED with abd pain and bloating on 06/20/19. Found to have normal pressures, afebrile and labs demonstrated mild increase of liver enzymes from baseline. CT scan of the abdomen and pelvis showed ascites, abnormal omental fat second omental metastasis, multiple hypodense metastatic lesions in the liver and repeat CT scan of the abdomen and pelvis with contrast showed no interval change or hepatic venous thrombosis that may have caused abrupt onset ascites. He underwent large-volume paracentesis, estimated at 5220 mL's earlier today with fluid sent for cytology. Upon entering the room patient is sitting upright in bed talking with . Rates generalized abd pain 12/07, states he just received a dose of analgesia. Has been able to take sips of water and a few crackers. No BM since 06/19/19. Only able to void small amount x1, describes urine as cola colored despite Aldactone this morning. Past Medical History: Chronic Problems (Last Reviewed 06/10/19 @ 10:16 by Evelyn Bedolla) Liver metastases (Chronic) Bronchial asthma (Chronic) HTN (hypertension) (Chronic) Pancreatic cancer (Chronic) Pancreatic cancer metastasized to liver (Chronic) Past Medical History - Most Recent Inpatient Visit Past Medical History Start: 06/20/19 15:17 Text: Status: Complete Freq: ONCE Protocol: Document 06/20/19 15:17 VICTOR M (Rec: 06/20/19 15:34 VICTOR M [id number]) BMI Required to complete PMH What is Patient's BMI 24.8 Past Medical History Unable History Recalled No Query Text:Pt Unable/Family Not Present Neurologic Medical History Hx Stroke/TIA No Hx Dementia/Alzheimer's No Hx Parkinson's Disease No Hx Seizures No Hx Multiple Sclerosis No Hx Migraines No Cardiac Medical History VTE Present on Admission No Hx of Deep Vein Thrombosis/VTE/PE Yes: Leg 2014 Hx Hypertension Yes: controlled with med Hx Chest Pain/Angina No Hx Heart Attack No Hx Cardiac Surgery/Stents/Etc. No Hx Heart Failure No Hx Pacemaker/AICD No Hx Irregular Heartbeat and/or Afib No Hx Anticoagulant Therapy No Query Text:(Coumadin, Aspirin, Plavix, Xarelto, etc.) Hx Pain in Legs when Walking/Leg Cramps No Respiratory Medical History Hx COPD No Hx Emphysema No Hx Smoking Yes Smoking Status Former smoker Tobacco Use Non-smoker Hx Smoking Cessation Date 06/20/19 Hx Smoking Cessation Counseling No Hx Smoking Exposure No Hx Tobacco Use in last 12 months No Hx of Pipe Smoking No Hx of Cigar Smoking No Hx Sleep Apnea No CPAP No BIPAP No Do you snore loudly (louder than talking No or can be heard through closed doors)? Do you often feel tired/ fatigued/ No sleepy during daytime? Has anyone observed you stop breathing No during sleep? STOP Results Negative GI Medical History Hx Ulcer No Hx Hepatitis No: WAS TESTED 2012 ?? Hx Cirrhosis No Hx GI Bleed No Hx Unplanned Weight Loss Yes Genitourinary Medical History Indwelling Catheter in Place on Arrival/ No Admission Hx Renal Disease No Hx Dialysis No Musculoskeletal History Hx Arthritis Yes Hx Rheumatoid Arthritis No Endocrine Medical History Hx Diabetes Yes Hx Thyroid Disease No Hematologic Medical History Hx of Blood Transfusion No Hx of Transfusion in last 3 Months No Ever experience any problems with No transfusion(s)? Hx of Preganancy in last 3 Months N/A Nurse Filling Out Transfusion & JMAIBACH Questions: Date: 06/20/19 Time: 15:32 Psycho/Social Medical History Hx Depression Yes: in past Hx Anxiety No Hx Behavior Disorder No Hx Alcohol Use Yes: occasional beer Hx Substance Use Yes: up until 42 Other Medical History Hx Blood Disorders No Hx Anemia No Hx Cancer Yes: pancreatic and liver/just recent dx Hx Drug Resistant Organism No Wound/Pressure Injury Present on Arrival No /Admission Query Text:If yes, chart assessment in Shift/Clinical Findings Central Line/PICC/VAD Present on Arrival Yes /Admission Antibiotics within last 7 days? Yes Name of Antibiotic (Include dose/# days Ciprofloxin 500mg bid, taken if known) metronxol 500mg x3 daily Methicillin Resistant Staphylococcus aureus Screening Active MRSA No Risk for Readmission Number of Risk Factors 7 At Risk for Readmission Patient is At Risk For Readmission Patient is eligible for Call Back Y Past Medical History (Last Reviewed 06/10/19 @ 10:16 by Evelyn Bedolla) Elevated LFTs (Acute) Liver mass (Acute) Mass of pancreas (Acute) Meningitis (Acute) Past Surgical History (Last Reviewed 06/10/19 @ 10:16 by Evelyn Bedolla) History of hernia surgery (Acute) History of total right knee replacement (Acute) Sibling Family History: Family History (Last Reviewed 06/10/19 @ 10:16 by Evelyn Bedolla) Mother Diabetes Brother Diabetes Sister Heart disease Daughter Asthma Family History: Diabetes Maternal Family History: Family History (Last Reviewed 06/10/19 @ 10:16 by Evelyn Bedolla) Mother Diabetes Brother Diabetes Sister Heart disease Daughter Asthma Family History: Diabetes - Social History Smoking Status: Former smoker Tobacco Use: Non-smoker Alcohol: None Drugs: None Review of Systems Constitutional:: Reports: Weakness, Fatigue, Appetite change. Denies: Fever, Sweats, Weight loss, Chills Cardiovascular:: Denies: Chest pain, Palpitations, Orthopnea, PND Respiratory: Reports: Shortness of Breath - resolved as of yesterday. Denies: Cough, Hemoptysis, Wheezing Gastrointestinal:: Reports: Abdominal pain, Constipation. Denies: Nausea, Vomiting, Diarrhea, Melena, Hematochezia Genitourinary: Denies: Dysuria, Hematuria, 15, Flank pain Musculoskeletal:: Denies: Back pain, Myalgia, Arthralgia Skin: Denies: Rash, Skin Changes, Wounds Neurological:: Reports: Numbness, Tingling. Denies: Headache, Dizziness, Visual changes, Tinnitus, Hearing loss Psychiatric: Denies: Anxiety, Depression, Homicidal Ideations, Suicidal Ideations Vital Signs Height 6 ft 7 in Weight: 217 lb 2.485 oz Weight in Pounds 217.2 lbs Pulse Ox 95 Temperature 98.6 F Pulse Rate [Standing] 116 Pulse Rate [Sitting] 109 Pulse Rate [Lying] 99 Pulse Rate [3] 95 Pulse Rate [2] 101 Pulse Rate [1 (Initial 103 Baseline)] Pulse Rate 100 Respiratory Rate [3] 18 Respiratory Rate [2] 20 Respiratory Rate [1 (Initial 20 Baseline)] Respiratory Rate 18 Blood Pressure [Standing] 107/65 Blood Pressure [Sitting] 113/73 Blood Pressure [Lying] 131/77 Blood Pressure [3] 137/91 Blood Pressure [2] 128/91 Blood Pressure [1 (Initial 128/96 Baseline)] Blood Pressure 121/69 Blood Pressure Position Semi-Fowlers - Physical Exam General: Alert, Oriented x3, No apparent distress HEENT: Atraumatic, PERRLA, EOMI, Normocephalic Oropharynx:: Negative for: Dry mucosa, Ulcerated lesions Neck:: Supple, Trachea midline. Negative for: JVD, bilateral Cardiac:: Regular rate, Regular rhythm, Normal S1, Normal S2. Negative for: Murmur Lungs: Clear to auscultation, Excusion symmetrical. Negative for: Rhonchi, Wheezes, Increased respiratory effort Abdomen:: Non-distended, Hypoactive bowel sounds, Distended - Significantly more firm and distended in comparison to exam yesteday afternoon, Tender. Negative for: Hepatosplenomegaly Extremities:: Edema - BLE, pitting. LE wrapped with mazin wraps. Negative for: Cyanosis Neurological: Neuro grossly intact Skin:: Negative for: Lesions, Rash, Petechiae, Ecchymosis Psychiatric:: Appropriate affect, Euthymic Lymphatics:: Negative for: Cervical lymphadenopathy, Supraclavicular lymphadenopathy, Axillary lymphadenopathy Laboratory Data: Laboratory Tests 06/22/19 06/22/19 06/22/19 Range/Units 09:10 08:25 05:56 WBC 10.1 (4.4-11.0) K/mm3 RBC 3.86 L (4.6-6.2) M/mm3 Hgb 12.3 L (13.0-16.5) g/dL Hct 36.8 L (40-54) % MCV 95.3 H (80-94) fL MCH 31.9 (27.0-32.0) pg MCHC 33.4 (32-36) g/dL RDW Std Deviation 52.0 H (35.1-43.9) fl RDW Coeff of [place] 15.1 H (11.6-14.6) % Plt Count 222 (150-450) K/mm3 MPV 9.4 (6.2-12.0) fl Immature Gran % (Auto) 2.700 H (0.0-0.9) % Neut % (Auto) 47.9 (47-70) % Lymph % (Auto) 25.0 (19-41) % [place] % (Auto) 23.3 H (0-10) % Eos % (Auto) 0.8 (0-5) % Baso % (Auto) 0.3 (0-1) % Absolute Neuts (auto) 4.8 (2.0-7.7) X10^3/uL Absolute Lymphs (auto) 2.51 (0.83-4.51) X10^3/uL Nucleated RBC % 0 (0-5) % Diff Path Review May foll Sodium 144 (136-145) mmol/L Potassium 4.0 (3.5-5.1) mmol/L Chloride 110 H (98-107) mmol/L Carbon Dioxide 29.0 (21.0-32.0) mmol/L BUN 15 (7-18) mg/dL Creatinine 1.67 H (0.70-1.30) mg/dL Estim Creat Clear Calc 53.77 ml/min Est GFR (MDRD) Af Amer 52 L (>60) mL/min Est GFR (MDRD) Non-Af 43 L (>60) mL/min BUN/Creatinine Ratio 9.0 L (10-20) RATIO Glucose 216 H (74-106) mg/dL Calcium 8.5 (8.5-10.1) mg/dL Phosphorus 2.6 (2.5-4.9) mg/dL Total Bilirubin 0.60 (0.20-1.00) mg/dL Direct Bilirubin 0.33 H (0.00-0.30) mg/dL AST 73 H (15-37) U/L ALT 81 H (16-61) U/L Alkaline Phosphatase 122 H (45-117) U/L Total Protein 5.6 L (6.4-8.2) g/dL Albumin 1.8 L (3.2-5.0) g/dL Globulin 3.8 (2.2-4.2) g/dL Fluid Source Fluid Color Fluid Appearance Fluid WBC 10^3/uL Fluid RBC /mm3 Fluid Tot Cell Count 10^3/ul Fld Polynuclear WBCs # 10^3/uL Fld Polynuclear WBCs % % Fluid Mononuclear WBCs 10^3/uL Fld Mononuclear WBCs % % Fluid Neutrophils % Fluid Lymphocytes % Fluid Monocytes % Fluid Macrophages % Fld Mesothelial Cells % Fl Pathologist Comment Fluid Glucose (40-70) mg/dL Fluid Total Protein (Not Establ.) g/dL Fluid LDH (Not Establ.) Units/l Fluid Comment 2 POC Glucose 168 H (70-110) mg/dL 06/21/19 06/21/19 06/21/19 Range/Units 23:08 18:00 14:46 WBC (4.4-11.0) K/mm3 RBC (4.6-6.2) M/mm3 Hgb (13.0-16.5) g/dL Hct (40-54) % MCV (80-94) fL MCH (27.0-32.0) pg MCHC (32-36) g/dL RDW Std Deviation (35.1-43.9) fl RDW Coeff of [place] (11.6-14.6) % Plt Count (150-450) K/mm3 MPV (6.2-12.0) fl Immature Gran % (Auto) (0.0-0.9) % Neut % (Auto) (47-70) % Lymph % (Auto) (19-41) % [place] % (Auto) (0-10) % Eos % (Auto) (0-5) % Baso % (Auto) (0-1) % Absolute Neuts (auto) (2.0-7.7) X10^3/uL Absolute Lymphs (auto) (0.83-4.51) X10^3/uL Nucleated RBC % (0-5) % Diff Path Review Sodium (136-145) mmol/L Potassium (3.5-5.1) mmol/L Chloride (98-107) mmol/L Carbon Dioxide (21.0-32.0) mmol/L BUN (7-18) mg/dL Creatinine (0.70-1.30) mg/dL Estim Creat Clear Calc ml/min Est GFR (MDRD) Af Amer (>60) mL/min Est GFR (MDRD) Non-Af (>60) mL/min BUN/Creatinine Ratio (10-20) RATIO Glucose (74-106) mg/dL Calcium (8.5-10.1) mg/dL Phosphorus (2.5-4.9) mg/dL Total Bilirubin (0.20-1.00) mg/dL Direct Bilirubin (0.00-0.30) mg/dL AST (15-37) U/L ALT (16-61) U/L Alkaline Phosphatase (45-117) U/L Total Protein (6.4-8.2) g/dL Albumin (3.2-5.0) g/dL Globulin (2.2-4.2) g/dL Fluid Source OTHER Fluid Color LT YEL Fluid Appearance SL CLDY Fluid WBC 0.769 10^3/uL Fluid RBC 460 /mm3 Fluid Tot Cell Count 0.977 10^3/ul Fld Polynuclear WBCs # 0.174 10^3/uL Fld Polynuclear WBCs % 22.6 % Fluid Mononuclear WBCs 0.595 10^3/uL Fld Mononuclear WBCs % 77.4 % Fluid Neutrophils 34 % Fluid Lymphocytes 1 % Fluid Monocytes 4 % Fluid Macrophages 57 % Fld Mesothelial Cells 4 % Fl Pathologist Comment May follow Fluid Glucose (40-70) mg/dL Fluid Total Protein (Not Establ.) g/dL Fluid LDH (Not Establ.) Units/l Fluid Comment 2 SEE COMMENT POC Glucose 185 H 137 H (70-110) mg/dL 06/21/19 06/21/19 06/20/19 Range/Units 14:45 12:30 14:46 WBC (4.4-11.0) K/mm3 RBC (4.6-6.2) M/mm3 Hgb (13.0-16.5) g/dL Hct (40-54) % MCV (80-94) fL MCH (27.0-32.0) pg MCHC (32-36) g/dL RDW Std Deviation (35.1-43.9) fl RDW Coeff of [place] (11.6-14.6) % Plt Count (150-450) K/mm3 MPV (6.2-12.0) fl Immature Gran % (Auto) (0.0-0.9) % Neut % (Auto) (47-70) % Lymph % (Auto) (19-41) % [place] % (Auto) (0-10) % Eos % (Auto) (0-5) % Baso % (Auto) (0-1) % Absolute Neuts (auto) (2.0-7.7) X10^3/uL Absolute Lymphs (auto) (0.83-4.51) X10^3/uL Nucleated RBC % (0-5) % Diff Path Review Sodium (136-145) mmol/L Potassium (3.5-5.1) mmol/L Chloride (98-107) mmol/L Carbon Dioxide (21.0-32.0) mmol/L BUN (7-18) mg/dL Creatinine (0.70-1.30) mg/dL Estim Creat Clear Calc ml/min Est GFR (MDRD) Af Amer (>60) mL/min Est GFR (MDRD) Non-Af (>60) mL/min BUN/Creatinine Ratio (10-20) RATIO Glucose (74-106) mg/dL Calcium (8.5-10.1) mg/dL Phosphorus (2.5-4.9) mg/dL Total Bilirubin (0.20-1.00) mg/dL Direct Bilirubin (0.00-0.30) mg/dL AST (15-37) U/L ALT (16-61) U/L Alkaline Phosphatase (45-117) U/L Total Protein (6.4-8.2) g/dL Albumin (3.2-5.0) g/dL Globulin (2.2-4.2) g/dL Fluid Source Fluid Color Fluid Appearance Fluid WBC 10^3/uL Fluid RBC /mm3 Fluid Tot Cell Count 10^3/ul Fld Polynuclear WBCs # 10^3/uL Fld Polynuclear WBCs % % Fluid Mononuclear WBCs 10^3/uL Fld Mononuclear WBCs % % Fluid Neutrophils % Fluid Lymphocytes % Fluid Monocytes % Fluid Macrophages % Fld Mesothelial Cells % Fl Pathologist Comment Fluid Glucose (40-70) mg/dL Fluid Total Protein Cancelled 3.3 (Not Establ.) g/dL Fluid LDH (Not Establ.) Units/l Fluid Comment 2 POC Glucose 161 H (70-110) mg/dL 06/20/19 06/20/19 Range/Units 14:46 14:46 WBC (4.4-11.0) K/mm3 RBC (4.6-6.2) M/mm3 Hgb (13.0-16.5) g/dL Hct (40-54) % MCV (80-94) fL MCH (27.0-32.0) pg MCHC (32-36) g/dL RDW Std Deviation (35.1-43.9) fl RDW Coeff of [place] (11.6-14.6) % Plt Count (150-450) K/mm3 MPV (6.2-12.0) fl Immature Gran % (Auto) (0.0-0.9) % Neut % (Auto) (47-70) % Lymph % (Auto) (19-41) % [place] % (Auto) (0-10) % Eos % (Auto) (0-5) % Baso % (Auto) (0-1) % Absolute Neuts (auto) (2.0-7.7) X10^3/uL Absolute Lymphs (auto) (0.83-4.51) X10^3/uL Nucleated RBC % (0-5) % Diff Path Review Sodium (136-145) mmol/L Potassium (3.5-5.1) mmol/L Chloride (98-107) mmol/L Carbon Dioxide (21.0-32.0) mmol/L BUN (7-18) mg/dL Creatinine (0.70-1.30) mg/dL Estim Creat Clear Calc ml/min Est GFR (MDRD) Af Amer (>60) mL/min Est GFR (MDRD) Non-Af (>60) mL/min BUN/Creatinine Ratio (10-20) RATIO Glucose (74-106) mg/dL Calcium (8.5-10.1) mg/dL Phosphorus (2.5-4.9) mg/dL Total Bilirubin (0.20-1.00) mg/dL Direct Bilirubin (0.00-0.30) mg/dL AST (15-37) U/L ALT (16-61) U/L Alkaline Phosphatase (45-117) U/L Total Protein (6.4-8.2) g/dL Albumin (3.2-5.0) g/dL Globulin (2.2-4.2) g/dL Fluid Source Fluid Color Fluid Appearance Fluid WBC 10^3/uL Fluid RBC /mm3 Fluid Tot Cell Count 10^3/ul Fld Polynuclear WBCs # 10^3/uL Fld Polynuclear WBCs % % Fluid Mononuclear WBCs 10^3/uL Fld Mononuclear WBCs % % Fluid Neutrophils % Fluid Lymphocytes % Fluid Monocytes % Fluid Macrophages % Fld Mesothelial Cells % Fl Pathologist Comment Fluid Glucose 124 H (40-70) mg/dL Fluid Total Protein (Not Establ.) g/dL Fluid LDH 286 (Not Establ.) Units/l Fluid Comment 2 POC Glucose (70-110) mg/dL Diagnostic Data: Diagnostic Data Abdomen/Pelvis CT 06/20/19 13:15 IMPRESSION: 1. Multiple hypodense masses in the liver are presumably metastatic disease. 2. Nodularity of the liver surface is suspicious for liver cirrhosis and surrounded by malignant ascites. 3. Abnormal omental fat due to omental metastases. 4. Persistent malignant ascites. 5. Large lipoma in the left groin is unchanged. 6. Small bilateral posterior pleural fluid, left more than right. This is new. 7. There is a history of pancreatic carcinoma but I am unable to find any pancreatic mass. 8. No significant interval change when compared to 06/20/2019 10:26 AM. Electronically Signed: Antoine Ko MD at 14:43 EST , Service support , Paracentesis Ultrasound 06/20/19 15:46 IMPRESSION: Successful sonographic guided paracentesis. Two 60 cc syringes ascites submitted for appropriate laboratory analysis as per referring physician''s request. Electronically Signed: Dharmesh Boogie MD at 17:27 EST Tel [phone], Service support , KUB X-Ray 06/22/19 06:10 IMPRESSION: Mildly dilated loops of small bowel, possibly enteritis, ileus or partial obstruction. at 0652 Reported and signed by: Celena Villarreal MD Electronically Signed: Celena Villarreal MD at 6:52 EST Tel , Service support , Assessment and Plan 1. Metastatic pancreatic cancer, stage IV ([place], N1, M1) MSI?low/stable?received most recent cycle of FOLFIRINOX (cycle 8) on 06/02/2019. ca 19-9 had been trending down and positively correlating with disease prior to recent admissions. Engaged in lengthy discussion about the context of therapy, which again is palliative and explained what is visible on imaging and rapid accumulation of ascites/anasarca may illustrate progressive disease. Awaiting cytology report. Ca19-9 pending. 2. Ascites?underwent paracentesis 06/21/19, estimated 5220 mL's withdrawn. Body fluid analysis reviewed, not exudative. Ascites is likely malignant however awaiting cytology. On exam, LCTA, abd is more distended in comparison to yesterday- may require another therapeutic paracentesis. Aldactone started this morning. Albumin today 1.8. Albumin has been ordered by primary team. 3. DVT prophylaxis- High risk for development of VTE. Heparin is already ordered. Case discussed with Dr. Short who generated the aforementioned plan. Blanca Doyle, MSN, DEMAND GENERATOR MANAGER, AOCNP Medications: Prescriptions This Visit Medication Instructions Recorded Hydrocodone/Acetaminophen PO Q4H PRN PRN 12/22/19 [Hydrocodone-Acetamin 5-325 mg] Medications Added to Medication List This Visit Category Date Time Status Spironolactone [Aldactone] Med 06/22/19 06:00 Active 100 mg PO DAILY@0600 Primary Care Provider: Valentin Kelly MD Referring Provider: Julisa Zapata MD
[2019-06-22] MEDS: Lisinopril 20 MG Tablet PO (11:18)
[2019-06-22] MEDS: hydroCHLOROthiazide 12.5mg 12.5 MG PO (11:18)
[2019-06-22] MEDS: Multivitamins,Ther W-Minerals Tablet 1 TABLET PO (11:18)
[2019-06-22] MEDS: Albumin Human 25% (100 mL) 25 GM/100 ML BAG IV ×2 (11:19→18:35)
[2019-06-22] MEDS: Senna Tablet 1 TABLET PO (11:20)
[2019-06-22 11:29] LABS: Pathologist Comment/Body Fluid Reviewed
[2019-06-22 11:40] LABS: Bedside Glucose 156 mg/dL (70-110)
--- NOTE | 2019-06-22 12:24 | PN.SURG_ITS ---
Patient Problems: Active and Suspected Problems (Last Reviewed 06/10/19 @ 10:16 by Evelyn Bedolla) Ascites (Acute) Hypoalbuminemia (Acute) - Physical Exam Vitals/I&O's: Vital Signs Temp Pulse Resp BP Pulse Ox 98.6 F 99 18 131/77 H 95 06/22/19 08:05 06/22/19 09:05 06/22/19 08:05 06/22/19 09:05 06/22/19 08:05 Oxygen Delivery Method [3] Room Air Oxygen Delivery Method [2] Room Air Oxygen Delivery Method [1 ( Room Air Initial Baseline)] Oxygen Delivery Method Room Air Weight: 98.5 kg Body Mass Index (BMI) 24.7 Orthostatic Vital Signs Start: 06/22/19 09:05 Freq: q24h Status: Active Protocol: Activity Type Activity Date Activity User E-Sign Co-Sign Detail Recorded Client Recorded Date Recorded By Document 06/22/19 09:05 FS [id number] 06/22/19 09:24 FS 06/22/19 09:05 Orthostatic Vitals Standing -Blood Pressure (90/60-120/80) 107/65 -Extremity Use Right Arm -Pulse Rate (60-100) 116 H Sitting -Blood Pressure (90/60-120/80) 113/73 -Pulse Rate (60-100) 109 H Lying -Blood Pressure (90/60-120/80) 131/77 H -Extremity Use Right Arm -Pulse Rate (60-100) 99 Intake and Output for Last 24 Hours 06/20/19 06/21/19 06/22/19 23:59 23:59 23:59 Intake Total 1212.25 / 1212.25 1920.00 / 2120.00 2595 / 2595 Output Total 450 / 450 Balance 1212.25 / 1212.25 1470.00 / 1670.00 2595 / 2595 General: Alert, Oriented x3 Lungs: Clear to auscultation, Normal air movement Cardiovascular: Regular rate, Regular Rhythm Abdomen: Soft, Non Tender, Hypoactive Bowel Sounds, Distended Laboratory Results 06/20/19 14:46: Fluid Glucose 124 H 06/20/19 14:46: Fluid LDH 286 06/20/19 14:46: Fluid Total Protein 3.3 06/21/19 12:30: POC Glucose 161 H 06/21/19 14:45: Miscellaneous Test Pending 06/21/19 14:45: Fluid Total Protein Cancelled 06/21/19 14:46: Fluid Source OTHER, Fluid Color LT YEL, Fluid Appearance SL CLDY, Fluid WBC 0.769, Fluid RBC 460, Fluid Tot Cell Count 0.977, Fld Polynuclear WBCs # 0.174, Fld Polynuclear WBCs % 22.6, Fluid Mononuclear WBCs 0.595, Fld Mononuclear WBCs % 77.4, Fluid Neutrophils 34, Fluid Lymphocytes 1, Fluid Monocytes 4, Fluid Macrophages 57, Fld Mesothelial Cells 4, Fl Pathologist Comment Reviewed, Fluid Comment 2 SEE COMMENT 06/21/19 18:00: POC Glucose 137 H 06/21/19 23:08: POC Glucose 185 H 06/22/19 05:56: POC Glucose 168 H 06/22/19 08:25: WBC 10.1, RBC 3.86 L, Hgb 12.3 L, Hct 36.8 L, MCV 95.3 H, MCH 31.9, MCHC 33.4, RDW Std Deviation 52.0 H, RDW Coeff of Minoo 15.1 H, Plt Count 222, MPV 9.4, Immature Gran % (Auto) 2.700 H, Neut % (Auto) 47.9, Lymph % (Auto) 25.0, Millard % (Auto) 23.3 H, Eos % (Auto) 0.8, Baso % (Auto) 0.3, Absolute Neuts (auto) 4.8, Absolute Lymphs (auto) 2.51, Nucleated RBC % 0, Diff Path Review October06/22/19 09:10: CA 19-9 Serial Monitor Pending 06/22/19 09:10: CA 19-9 Serial Monitor Pending 06/22/19 09:10: Sodium 144, Potassium 4.0, Chloride 110 H, Carbon Dioxide 29.0, BUN 15, Creatinine 1.67 H, Estim Creat Clear Calc 53.77, Est GFR (MDRD) Af Amer 52 L, Est GFR (MDRD) Non-Af 43 L, BUN/Creatinine Ratio 9.0 L, Glucose 216 H, Calcium 8.5, Phosphorus 2.6, Total Bilirubin 0.60, Direct Bilirubin 0.33 H, AST 73 H, ALT 81 H, Alkaline Phosphatase 122 H, Total Protein 5.6 L, Albumin 1.8 L, Globulin 3.8 06/22/19 11:32: POC Glucose 156 H Current Medications Acetaminophen (Tylenol) 650 mg PO Q6H PRN PRN PRN Reason: Pain Score 1-10/10 Albuterol Sulfate (Ventolin Aerosols) 2.5 mg INHALATION Q2H PRN PRN PRN Reason: Shortness of Breath/Wheezing Dexamethasone (Decadron) 4 mg PO DAILY PRN PRN Fluticasone Propionate (Flonase Nasal [place]) 2 spray NASAL DAILY PRN PRN PRN Reason: ALLERGIES Glucagon () 1 mg IM .X1 PRN PRN Reason: Hypoglycemia Heparin Sodium (Porcine) (Heparin Na) 5,000 unit SC Q8 [facility] Last Admin: 06/22/19 05:43 Dose: Not Given Documented by: Hydrochlorothiazide () 12.5 mg PO DAILY [facility] Last Admin: 06/22/19 11:18 Dose: 12.5 mg Documented by: Hydromorphone HCl (Dilaudid Inj) 1 mg IV Q3H PRN PRN PRN Reason: Pain Score 1-10/10 Last Admin: 06/22/19 09:25 Dose: 1 mg Documented by: Ciprofloxacin (Cipro) 400 mg in 200 mls @ 200 mls/hr IV Q12 [facility] Last Infusion: 06/22/19 10:30 Dose: Infused Documented by: Metronidazole (Flagyl) 500 mg in 100 mls @ 100 mls/hr IV Q8 [facility] Last Infusion: 06/22/19 06:47 Dose: Infused Documented by: Dextrose (Dextrose 10%-Water) 250 mls @ 999 mls/hr IV .Q16M PRN; Protocol PRN Reason: HYPOGLYCEMIA Last Infusion: 06/20/19 16:31 Dose: Infused Documented by: Sodium Chloride () 1,000 mls @ 100 mls/hr IV .Q10H [facility] Stop: 06/22/19 20:59 Insulin Human Lispro (Humalog Kwikpen (Bkc)) 0 unit SC Q6 [facility]; Protocol Last Admin: 06/22/19 11:35 Dose: Not Given Documented by: Lisinopril (Zestril) 20 mg PO DAILY [facility] Last Admin: 06/22/19 11:18 Dose: 20 mg Documented by: Multivitamins/Minerals (Multivitamin With Minerals) 1 tablet PO DAILY@0800 [facility] Last Admin: 06/22/19 11:18 Dose: 1 tablet Documented by: Ondansetron HCl (Zofran) 4 mg IV Q8H PRN PRN PRN Reason: NAUSEA/VOMITING Last Admin: 06/22/19 09:25 Dose: 4 mg Documented by: Senna (Senokot) 1 tablet PO DAILY [facility] Last Admin: 06/22/19 11:20 Dose: 1 tablet Documented by: Sodium Chloride () 10 - 40 ml IV UD PRN PRN Reason: SALINE FLUSH Last Admin: 06/22/19 11:17 Dose: 30 ml Documented by: Medical Necessity - Tobacco Use Smoking Status: Former smoker Tobacco Use: Non-smoker Assessment/Plan All Active Problems (Last Reviewed 06/10/19 @ 10:16 by Evelyn Bedolla) Hyperglycemia (Acute) Chemotherapy management, encounter for (Acute) Constipation (Acute) Chemotherapy management, encounter for (Acute) Abdominal pain (Acute) Enteritis (Acute) Ascites (Acute) Hypoalbuminemia (Acute) Encounter for education (Acute) Fever (Acute) Severe sepsis (Acute) advanced stage IV pancreatic cancer, now tense ascites He underwent ultrasound-guided paracentesis yesterday and had 5.2 L of ascitic fluid removed. This was sent for cytology and body fluid analysis. cytology will return on . The patient he was much more comfortable on the procedure but is noting increasing distention today. a KUB was obtained which did demonstrate more signs of small bowel anterior without a true obstructive picture - questionable ileus/narcotic bowel now that ascites is removed. with a planned repeat CT scan in morning to assess rate of reaccumulation of ascites and small bowel pattern. For now would continue liquids as tolerated. if ascites reaccumulate quickly, we could plan for tunneled peritoneal/Pleurx catheter for ascites management. I would contact Dr. Short, for his opinion on the progress of the patient's findings and whether ongoing treatment versus consideration for palliative care/hospice is appropriate. The patient is seem to understand that his treatment is successfully shrinking his tumors. Given the rapid accumulation of ascites which is likely malignant and the findings consistent with peritoneal carcinomatosis, difficult discussions need to be had with the patient and his .
[2019-06-22] MEDS: 0.9% Normal Saline 1,000 ML 100 ML IV (13:00)
[2019-06-22] MEDS: Heparin Injection (Vial) 5,000 UNIT/ML VIAL 5000 UNIT SC (13:55)
[2019-06-22 15:45] LABS: Anion Gap 6 (5-15); BUN 17 mg/dL (7-18); BUN/Creat Ratio 8.5 RATIO (10-20); Calcium,Total 9.2 mg/dL (8.5-10.1); Chloride 112 mmol/L (98-107); EST Glomerular Filtration Rate 35 mL/min (>60); Est Glom Filt Rate - Afr Amer 43 mL/min (>60); Glucose 145 mg/dL (74-106); Potassium 3.9 mmol/L (3.5-5.1); Sodium Level 142 mmol/L (136-145)
[2019-06-22 17:20] LABS: Bedside Glucose 134 mg/dL (70-110)
[2019-06-23 02:03] VITALS: BP 105/67; PULSE 97; RESP 18; TEMP 37.3; O2SAT 95
[2019-06-23] MEDS: HYDROmorphone 1 MG/ML Syringe IV ×3 (03:05→10:00)
[2019-06-23] MEDS: metroNIDAZOLE 500 MG/100 ML BAG 100 MG IV ×3 (05:46→21:36)
[2019-06-23] MEDS: 0.9% Saline Lock 10 ML Syringe IV ×3 (05:46→12:14)
--- NOTE | 2019-06-23 05:55 | CT_ITS ---
STUDY: CT ABDOMEN AND PELVIS WITHOUT CONTRAST REASON FOR EXAM: Male, 73 years old. Abdominal distention. RADIATION DOSAGE (If Supplied By Facility): CTDIvol = ( 11.85 ) mGy, DLP = ( 739.80 ) mGycm TECHNIQUE: Transaxial images were obtained from the dome of the diaphragm to the symphysis pubis without oral contrast, and without intravenous contrast. Sagittal and coronal images were reconstructed. Individualized dose optimization techniques were used for this CT. COMPARISON: 06/20/2019. FINDINGS: The visualized portions of lung bases demonstrate atelectatic changes in both lower lobes worse on the left side. There are small bilateral pleural effusions. The heart size is normal. Multiple ill-defined low-density liver lesions are again seen scattered throughout the liver suboptimally visualized on this noncontrast exam. The liver contour is somewhat irregular suggestive of cirrhosis. There is sludge and/or gallstones. Normal spleen. Normal pancreas. There is ascites decreased since the previous examination. Normal bilateral adrenal glands. Normal right kidney. Normal left kidney. Normal visualized stomach. There are nonspecific fluid-filled small bowel loops. There is fecal retention. There is non-visualization of the appendix. There is diffuse atherosclerotic calcification of the abdominal aorta with elongation and tortuosity, but without a demonstrated aneurysm. Normal inferior vena cava. Normal retroperitoneum. There is stranding in the mesenteric fat anteriorly. The bladder appears to be somewhat dense. There is soft tissue swelling and edema worse on the left side. There is thickening of the left lateral abdominal wall muscles. Small tiny pockets of air are seen in the subcutaneous tissue which could be due to recent intervention. There again is a lipoma in the left groin region unchanged since prior exam. The osseous structures are unchanged. CT/Abdomen/Pelvis without Cont IMPRESSION: 1. Atelectatic changes in both lower lobes and small bilateral pleural effusions. 2. Multiple liver masses unchanged since prior examination. 3. Decreased ascites. 4. Sludge and/or gallstones. 5. Nonspecific fluid-filled small bowel loops. Ileus is possible. 6. Thickening of the left lateral abdominal wall with mild fluid. Electronically Signed: Chetan Palma MD at 11:54 EST Tel , Service support ,
[2019-06-23] MEDS: Ondansetron 4 MG/2 ML Vial IV (05:56)
[2019-06-23 06:06] LABS: Bedside Glucose 111 mg/dL (70-110)
[2019-06-23 07:07] LABS: Absolute Lymphocyte Count 2.32 X10^3/uL (0.83-4.51); Absolute Neutrophil Count 4.6 X10^3/uL (2.0-7.7); Basophil# 0.03 X10^3/uL; Basophil% 0.3 % (0-1); Eosinophil# 0.12 X10^3/uL; Eosinophils% 1.3 % (0-5); Hemoglobin 11.9 g/dL (13.0-16.5); Lymphocyte # 2.32 X10^3/ul (4.0); Lymphocyte % 24.9 % (19-41); Mean Corp Hgb Conc 33.1 g/dL (32-36); Mean Corpuscular Hgb 31.7 pg (27.0-32.0); Mean Platelet Vol. 9.3 fl (6.2-12.0); Monocyte# 2.09 X10^3/uL; Monocyte% 22.4 % (0-10); NRBC Flagged by Analyzer 0.2 % (0-5); Neutrophil # 4.58 X10^3/uL (2.7-7.7); Neutrophil % 49.2 % (47-70); POSITIVE DIFFERENTIAL YES; Platelet Count 210 K/mm3 (150-450); RBC Distribution Width CV 14.7 % (11.6-14.6); RBC Distribution Width SD 50.8 fl (35.1-43.9); Red Blood Count 3.75 M/mm3 (4.6-6.2); White Blood Count 9.3 K/mm3 (4.4-11.0)
[2019-06-23 07:11] LABS: Differential Indicated SCAN CRITERIA MET
[2019-06-23 07:23] LABS: ALB/GLOB Ratio 0.8 RATIO (0.9-2.4); AST(SGOT) 63 U/L (15-37); Alanine Aminotransfer ALT/SGPT 60 U/L (16-61); Albumin, Serum 2.4 g/dL (3.2-5.0); Alkaline Phosphatase 115 U/L (45-117); Anion Gap 6 (5-15); BUN 20 mg/dL (7-18); BUN/Creat Ratio 6.9 RATIO (10-20); Calcium,Total 9.1 mg/dL (8.5-10.1); Chloride 112 mmol/L (98-107); EST Glomerular Filtration Rate 23 mL/min (>60); Est Glom Filt Rate - Afr Amer 28 mL/min (>60); Estimated Creatinine Clearance 30.96 ml/min; Globulin 3.1 g/dL (2.2-4.2); Glucose 124 mg/dL (74-106); Potassium 3.7 mmol/L (3.5-5.1); Protein, Total 5.5 g/dL (6.4-8.2); Sodium Level 144 mmol/L (136-145)
[2019-06-23 07:37] VITALS: BP 116/74; PULSE 94; RESP 16; TEMP 37.2; O2SAT 94
[2019-06-23] MEDS: Multivitamins,Ther W-Minerals Tablet 1 TABLET PO (07:59)
--- NOTE | 2019-06-23 08:01 | PN_ITS ---
Patient Problems: Active and Suspected Problems (Last Reviewed 06/10/19 @ 10:16 by Evelyn Bedolla) Ascites (Acute) Hypoalbuminemia (Acute) Subjective: 73-year-old male with a past medical history of metastatic pancreatic cancer, hypertension, diabetes mellitus type 2 and hepatitis C admitted to the hospital with progressive abdominal distention and pain. Paracentesis was done on 06/21/2019 and 5 L of fluid was removed. CT scan of the abd and pelvis show worsening ascites, cirrhosis and possible omental metastasis. Cytology is pending. Dr. Coyle is on consult. afebrile VSS maintaining appropriate oxygen saturation on RA I&O may not be accurate....no recorded urine output since yesterday. Weight on 1223 219 was 240 pounds and 12 ounces. Current weight is 223 pounds and 15 ounces. 5 Liters removed with paracentesis. All lab was personally reviewed. The white blood cell count today is normal at 9.3. Hemoglobin is 11.9 and platelets are within normal limits. Creatinine continues to increase and is 2.9 today, up from 0.74 at admission. Blood sugar record was reviewed and blood sugars are well controlled. No hypoglycemia since admission BS of 67. Echocardiogram on 06/22/2019 showed an ejection fraction of 60% with no evidence for diastolic dysfunction. There were no wall motion abnormalities. Pulmonary artery systolic pressure was estimated at 30. There was no significant valvular heart disease. Tells me that the pain medication only works for a short time. The pain is in the ABD. After paracentesis the ascites returned quickly and the abd is tense. He denies nausea at the present time. Denies CP or SOB. - Physical Exam Vitals/I&O's: Vital Signs Temp Pulse Resp BP Pulse Ox 99.0 F 94 16 116/74 94 06/23/19 07:37 06/23/19 07:37 06/23/19 07:37 06/23/19 07:37 06/23/19 07:37 Oxygen Delivery Method [3] Room Air Oxygen Delivery Method [2] Room Air Oxygen Delivery Method [1 ( Room Air Initial Baseline)] Oxygen Delivery Method Room Air Weight: 223 lb 15.834 oz Body Mass Index (BMI) 24.7 Orthostatic Vital Signs Start: 06/22/19 09:05 Freq: q24h Status: Active Protocol: Activity Type Activity Date Activity User E-Sign Co-Sign Detail Recorded Client Recorded Date Recorded By Document 06/22/19 09:05 FS [id number] 06/22/19 09:24 FS 06/22/19 09:05 Orthostatic Vitals Standing -Blood Pressure (90/60-120/80 mm Hg) 107/65 -Extremity Use Right Arm -Pulse Rate (60-100 beats/min) 116 H Sitting -Blood Pressure (90/60-120/80 mm Hg) 113/73 -Pulse Rate (60-100 beats/min) 109 H Lying -Blood Pressure (90/60-120/80 mm Hg) 131/77 H -Extremity Use Right Arm -Pulse Rate (60-100 beats/min) 99 Intake and Output for Last 24 Hours 06/21/19 06/22/19 06/23/19 23:59 23:59 23:59 Intake Total 1920.00 / 2120.00 4295.00 / 4295.00 738.33 / 738.33 Output Total 450 / 450 Balance 1470.00 / 1670.00 4295.00 / 4295.00 738.33 / 738.33 General: Alert, Oriented x3, Cooperative, - - his affect is flat. HEENT: Atraumatic, PERRLA, EOMI Oral: Dry Mucosa Neck: - - Lying nearly flat in bed with no SOB Lungs: Clear to auscultation Cardiovascular: Regular rate, Regular Rhythm, Normal S1, Normal S2, No murmurs, No Ectopic Activity, No rub noted, No Gallop Abdomen: Bowel Sounds Present, Distended - tense, Tender Extremities: No edema, No Calf Tenderness Skin: No rashes Neurological: Cranial nerves II-XII grossly intact, Neuro grossly intact Psych/Mental Status: Appropriate, Flat Affect Laboratory Results 06/21/19 14:45: Miscellaneous Test Pending 06/21/19 14:45: Fluid Total Protein Cancelled 06/21/19 14:46: Fl Pathologist Comment Reviewed 06/22/19 08:25: WBC 10.1, RBC 3.86 L, Hgb 12.3 L, Hct 36.8 L, MCV 95.3 H, MCH 31.9, MCHC 33.4, RDW Std Deviation 52.0 H, RDW Coeff of Minoo 15.1 H, Plt Count 222, MPV 9.4, Immature Gran % (Auto) 2.700 H, Neut % (Auto) 47.9, Lymph % (Auto) 25.0, [place] % (Auto) 23.3 H, Eos % (Auto) 0.8, Baso % (Auto) 0.3, Absolute Neuts (auto) 4.8, Absolute Lymphs (auto) 2.51, Nucleated RBC % 0, Diff Path Review October06/22/19 09:10: CA 19-9 Serial Monitor Pending 06/22/19 09:10: CA 19-9 Serial Monitor Pending 06/22/19 09:10: Sodium 144, Potassium 4.0, Chloride 110 H, Carbon Dioxide 29.0, BUN 15, Creatinine 1.67 H, Estim Creat Clear Calc 53.77, Est GFR (MDRD) Af Amer 52 L, Est GFR (MDRD) Non-Af 43 L, BUN/Creatinine Ratio 9.0 L, Glucose 216 H, Calcium 8.5, Phosphorus 2.6, Total Bilirubin 0.60, Direct Bilirubin 0.33 H, AST 73 H, ALT 81 H, Alkaline Phosphatase 122 H, Total Protein 5.6 L, Albumin 1.8 L, Globulin 3.8 06/22/19 11:32: POC Glucose 156 H 06/22/19 14:55: Sodium 142, Potassium 3.9, Chloride 112 H, Carbon Dioxide 24.0, Anion Gap 6, BUN 17, Creatinine 2.00 H, Estim Creat Clear Calc 44.90, Est GFR (MDRD) Af Amer 43 L, Est GFR (MDRD) Non-Af 35 L, BUN/Creatinine Ratio 8.5 L, Glucose 145 H, Calcium 9.2 06/22/19 17:05: POC Glucose 134 H 06/23/19 05:55: POC Glucose 111 H 06/23/19 06:45: WBC 9.3, RBC 3.75 L, Hgb 11.9 L, Hct 36.0 L, MCV 96.0 H, MCH 31.7, MCHC 33.1, RDW Std Deviation 50.8 H, RDW Coeff of Minoo 14.7 H, Plt Count 210, MPV 9.3, Immature Gran % (Auto) 1.900 H, Neut % (Auto) 49.2, Lymph % (Auto) 24.9, Bow[place] % (Auto) 22.4 H, Eos % (Auto) 1.3, Baso % (Auto) 0.3, Absolute Neuts (auto) 4.6, Absolute Lymphs (auto) 2.32, Nucleated RBC % 0.2 06/23/19 06:45: Sodium 144, Potassium 3.7, Chloride 112 H, Carbon Dioxide 26.0, Anion Gap 6, BUN 20 H, Creatinine 2.90 H, Estim Creat Clear Calc 30.96, Est GFR (MDRD) Af Amer 28 L, Est GFR (MDRD) Non-Af 23 L, BUN/Creatinine Ratio 6.9 L, Glucose 124 H, Calcium 9.1, Phosphorus 3.0, Total Bilirubin 0.70, AST 63 H, ALT 60, Alkaline Phosphatase 115, Total Protein 5.5 L, Albumin 2.4 L, Globulin 3.1, Albumin/Globulin Ratio 0.8 L Current Medications Acetaminophen (Tylenol) 650 mg PO Q6H PRN PRN PRN Reason: Pain Score 1-10/10 Albuterol Sulfate (Ventolin Aerosols) 2.5 mg INHALATION Q2H PRN PRN PRN Reason: Shortness of Breath/Wheezing Bisacodyl (Dulcolax) 10 mg RECTAL DAILY [facility] Dexamethasone (Decadron) 4 mg PO DAILY PRN PRN Fluticasone Propionate (Flonase Nasal [place]) 2 spray NASAL DAILY PRN PRN PRN Reason: ALLERGIES Glucagon () 1 mg IM .X1 PRN PRN Reason: Hypoglycemia Heparin Sodium (Porcine) (Heparin Na) 5,000 unit SC Q8 [facility] Last Admin: 06/23/19 05:46 Dose: Not Given Documented by: Hydromorphone HCl (Dilaudid Inj) 1 mg IV Q3H PRN PRN PRN Reason: Pain Score 1-10/10 Last Admin: 06/23/19 06:47 Dose: 1 mg Documented by: Ciprofloxacin (Cipro) 400 mg in 200 mls @ 200 mls/hr IV Q12 [facility] Last Infusion: 06/22/19 23:17 Dose: Infused Documented by: Metronidazole (Flagyl) 500 mg in 100 mls @ 100 mls/hr IV Q8 [facility] Last Infusion: 06/23/19 06:45 Dose: Infused Documented by: Dextrose (Dextrose 10%-Water) 250 mls @ 999 mls/hr IV .Q16M PRN; Protocol PRN Reason: HYPOGLYCEMIA Last Infusion: 06/20/19 16:31 Dose: Infused Documented by: Insulin Human Lispro (Humalog Kwikpen (Bkc)) 0 unit SC Q6 [facility]; Protocol Last Admin: 06/23/19 05:56 Dose: Not Given Documented by: Metoclopramide HCl (Reglan) 5 mg IV Q6 [facility] Multivitamins/Minerals (Multivitamin With Minerals) 1 tablet PO DAILY@0800 [facility] Last Admin: 06/23/19 07:59 Dose: 1 tablet Documented by: Ondansetron HCl (Zofran) 4 mg IV Q8H PRN PRN PRN Reason: NAUSEA/VOMITING Last Admin: 06/23/19 05:56 Dose: 4 mg Documented by: Prochlorperazine Edisylate (Compazine Iv) 5 mg IV Q4H PRN PRN PRN Reason: NAUSEA/VOMITING Senna (Senokot) 1 tablet PO DAILY [facility] Last Admin: 06/22/19 11:20 Dose: 1 tablet Documented by: Sodium Chloride () 10 - 40 ml IV UD PRN PRN Reason: SALINE FLUSH Last Admin: 06/23/19 06:46 Dose: 40 ml Documented by: Medical Necessity - Tobacco Use Smoking Status: Former smoker Tobacco Use: Non-smoker Assessment/Plan All Active Problems (Last Reviewed 06/10/19 @ 10:16 by Evelyn Bedolla) Hyperglycemia (Acute) Chemotherapy management, encounter for (Acute) Constipation (Acute) Chemotherapy management, encounter for (Acute) Abdominal pain (Acute) Enteritis (Acute) Ascites (Acute) Hypoalbuminemia (Acute) Encounter for education (Acute) Fever (Acute) Severe sepsis (Acute) Impressions 1. pancreatitic CA diagnosed in December of 2018 with mets to the liver and now possibly the omentum. Follows with Dr. Short. Had a paracentesis and 5 liters was removed. Pt is now in oliguric ARF. Hepatorenal S? Nephrology consult ordered. Cytology on the ascitic fluid is pending. Pt also has a hx of a + hep C which has never been treated. Transaminases are only mildy increased and the INR is only 1.2, suspect the ascites is due to malignancy and not cirrhosis from Hepatitis C. He received 25 GM of Albumin yesterday. Has had only 350cc urine today. ....none recorded for 06/22. 2. abdominal pain due to malignancy and also abd distension due to ascites. D/ W Dr. Coyle and he is considering a pleuryx catheter so the ascites can be drained daily rather than relying on paracentesis. 3. DM II - on SSI - low dose. 4. ARF - suspect possible hepatorenal S vs interstial nephritis due to antibbiotics although the eos in the peripheral smear are within normal limits. Albumin 25 GM ordered again for today. Kidneys appeared normal on the recent CT of the abd and the pelvis I spent time with the patient and his explaining the situation and that he may be in hepatorenal S and this renal failure is potentially nonreversible. They are agreeable with a nephrology consult and [facility] has been consulted. I also discussed the significance of the suspected omental mets and that sometimes chemo has to be changed if it quits working and there is increased disease. We are awaiting the results of the cytology on the ascitic fluid. We discussed a palliative care consult and what that means and they are agreeable to meeting with Palliative care. Pt wants to be at home when the time comes with his and family caring for him.....his would like to have someone to call when there is a problem. Recheck the lab in the AM Strict I&O's Check a urine creat and sodium check a urine for eosinophils Start an IV.......possible IV volume depletion continue the Cipro and the Metronidazole for now Adjust the dose of the Cipro if the Creat clear drops below 30. Stat Oxycodone Q 4H PRN .....may be a more sustained pain relief orally.....keep the Dilaudid PRN for now. Code Visit Inpatient E&M: 88880 Subs Hosp L3
[2019-06-23 08:27] LABS: Reactive Lymphocyte RARE
--- NOTE | 2019-06-23 09:40 | PN.SURG_ITS ---
Patient Problems: Active and Suspected Problems (Last Reviewed 06/10/19 @ 10:16 by Evelyn Bedolla) Ascites (Acute) Hypoalbuminemia (Acute) Subjective: abdominal distention, abdominal pain, no flatus - Physical Exam Vitals/I&O's: Vital Signs Temp Pulse Resp BP Pulse Ox 99.0 F 94 16 116/74 94 06/23/19 07:37 06/23/19 07:37 06/23/19 07:37 06/23/19 07:37 06/23/19 07:37 Oxygen Delivery Method [3] Room Air Oxygen Delivery Method [2] Room Air Oxygen Delivery Method [1 ( Room Air Initial Baseline)] Oxygen Delivery Method Room Air Weight: 101.6 kg Body Mass Index (BMI) 24.7 Orthostatic Vital Signs Start: 06/22/19 09:05 Freq: q24h Status: Active Protocol: Activity Type Activity Date Activity User E-Sign Co-Sign Detail Recorded Client Recorded Date Recorded By Document 06/22/19 09:05 FS [id number] 06/22/19 09:24 FS 06/22/19 09:05 Orthostatic Vitals Standing -Blood Pressure (90/60-120/80) 107/65 -Extremity Use Right Arm -Pulse Rate (60-100) 116 H Sitting -Blood Pressure (90/60-120/80) 113/73 -Pulse Rate (60-100) 109 H Lying -Blood Pressure (90/60-120/80) 131/77 H -Extremity Use Right Arm -Pulse Rate (60-100) 99 Intake and Output for Last 24 Hours 06/21/19 06/22/19 06/23/19 23:59 23:59 23:59 Intake Total 1920.00 / 2120.00 4295.00 / 4295.00 738.33 / 738.33 Output Total 450 / 450 Balance 1470.00 / 1670.00 4295.00 / 4295.00 738.33 / 738.33 General: Alert, Oriented x3, Cooperative Lungs: Clear to auscultation, Normal air movement Cardiovascular: Regular rate, No murmurs Abdomen: Soft, Non Tender, Bowel Sounds Not Present, Distended, Tender - diffusely Laboratory Results 06/21/19 14:45: Miscellaneous Test Pending 06/21/19 14:45: Fluid Total Protein Cancelled 06/21/19 14:46: Fl Pathologist Comment Reviewed 06/22/19 09:10: Sodium 144, Potassium 4.0, Chloride 110 H, Carbon Dioxide 29.0, BUN 15, Creatinine 1.67 H, Estim Creat Clear Calc 53.77, Est GFR (MDRD) Af Amer 52 L, Est GFR (MDRD) Non-Af 43 L, BUN/Creatinine Ratio 9.0 L, Glucose 216 H, Calcium 8.5, Phosphorus 2.6, Total Bilirubin 0.60, Direct Bilirubin 0.33 H, AST 73 H, ALT 81 H, Alkaline Phosphatase 122 H, Total Protein 5.6 L, Albumin 1.8 L, Globulin 3.8 06/22/19 11:32: POC Glucose 156 H 06/22/19 14:55: Sodium 142, Potassium 3.9, Chloride 112 H, Carbon Dioxide 24.0, Anion Gap 6, BUN 17, Creatinine 2.00 H, Estim Creat Clear Calc 44.90, Est GFR (M DRD) Af Amer 43 L, Est GFR (MDRD) Non-Af 35 L, BUN/Creatinine Ratio 8.5 L, Glucose 145 H, Calcium 9.2 06/22/19 17:05: POC Glucose 134 H 06/23/19 05:55: POC Glucose 111 H 06/23/19 06:45: WBC 9.3, RBC 3.75 L, Hgb 11.9 L, Hct 36.0 L, MCV 96.0 H, MCH 31.7, MCHC 33.1, RDW Std Deviation 50.8 H, RDW Coeff of [place] 14.7 H, Plt Count 210, MPV 9.3, Immature Gran % (Auto) 1.900 H, Neut % (Auto) 49.2, Lymph % (Auto) 24.9, [place] % (Auto) 22.4 H, Eos % (Auto) 1.3, Baso % (Auto) 0.3, Absolute Neuts (auto) 4.6, Absolute Lymphs (auto) 2.32, Nucleated RBC % 0.2, Reactive Lymphocytes RARE 06/23/19 06:45: Sodium 144, Potassium 3.7, Chloride 112 H, Carbon Dioxide 26.0, Anion Gap 6, BUN 20 H, Creatinine 2.90 H, Estim Creat Clear Calc 30.96, Est GFR (MDRD) Af Amer 28 L, Est GFR (MDRD) Non-Af 23 L, BUN/Creatinine Ratio 6.9 L, Glucose 124 H, Calcium 9.1, Phosphorus 3.0, Total Bilirubin 0.70, AST 63 H, ALT 60, Alkaline Phosphatase 115, Total Protein 5.5 L, Albumin 2.4 L, Globulin 3.1, Albumin/Globulin Ratio 0.8 L Current Medications Acetaminophen (Tylenol) 650 mg PO Q6H PRN PRN PRN Reason: Pain Score 1-10/10 Albuterol Sulfate (Ventolin Aerosols) 2.5 mg INHALATION Q2H PRN PRN PRN Reason: Shortness of Breath/Wheezing Bisacodyl (Dulcolax) 10 mg RECTAL DAILY [facility] Dexamethasone (Decadron) 4 mg PO DAILY PRN PRN Fluticasone Propionate (Flonase Nasal [place]) 2 spray NASAL DAILY PRN PRN PRN Reason: ALLERGIES Glucagon () 1 mg IM .X1 PRN PRN Reason: Hypoglycemia Heparin Sodium (Porcine) (Heparin Na) 5,000 unit SC Q8 [facility] Last Admin: 06/23/19 05:46 Dose: Not Given Documented by: Hydromorphone HCl (Dilaudid Inj) 1 mg IV Q3H PRN PRN PRN Reason: Pain Score 1-10/10 Last Admin: 06/23/19 06:47 Dose: 1 mg Documented by: Ciprofloxacin (Cipro) 400 mg in 200 mls @ 200 mls/hr IV Q12 [facility] Last Infusion: 06/22/19 23:17 Dose: Infused Documented by: Metronidazole (Flagyl) 500 mg in 100 mls @ 100 mls/hr IV Q8 [facility] Last Infusion: 06/23/19 06:45 Dose: Infused Documented by: Dextrose (Dextrose 10%-Water) 250 mls @ 999 mls/hr IV .Q16M PRN; Protocol PRN Reason: HYPOGLYCEMIA Last Infusion: 06/20/19 16:31 Dose: Infused Documented by: Insulin Human Lispro (Humalog Kwikpen (Bkc)) 0 unit SC Q6 [facility]; Protocol Last Admin: 06/23/19 05:56 Dose: Not Given Documented by: Metoclopramide HCl (Reglan) 5 mg IV Q6 [facility] Multivitamins/Minerals (Multivitamin With Minerals) 1 tablet PO DAILY@0800 [facility] Last Admin: 06/23/19 07:59 Dose: 1 tablet Documented by: Ondansetron HCl (Zofran) 4 mg IV Q8H PRN PRN PRN Reason: NAUSEA/VOMITING Last Admin: 06/23/19 05:56 Dose: 4 mg Documented by: Prochlorperazine Edisylate (Compazine Iv) 5 mg IV Q4H PRN PRN PRN Reason: NAUSEA/VOMITING Senna (Senokot) 1 tablet PO DAILY [facility] Last Admin: 06/22/19 11:20 Dose: 1 tablet Documented by: Sodium Chloride () 10 - 40 ml IV UD PRN PRN Reason: SALINE FLUSH Last Admin: 06/23/19 06:46 Dose: 40 ml Documented by: Medical Necessity - Tobacco Use Smoking Status: Former smoker Tobacco Use: Non-smoker Assessment/Plan All Active Problems (Last Reviewed 06/10/19 @ 10:16 by Evelyn Bedolla) Hyperglycemia (Acute) Chemotherapy management, encounter for (Acute) Constipation (Acute) Chemotherapy management, encounter for (Acute) Abdominal pain (Acute) Enteritis (Acute) Ascites (Acute) Hypoalbuminemia (Acute) Encounter for education (Acute) Fever (Acute) Severe sepsis (Acute) advanced stage IV pancreatic cancer, initially tense ascites, now ileus? He underwent ultrasound-guided paracentesis friday and had 5.2 L of ascitic fluid removed. This was sent for cytology and body fluid analysis. cytology will return on . The patient he was much more comfortable on the procedure but is noting increasing distention today. a KUB was obtained which did demonstrate more signs of small bowel anterior without a true obstructive picture - questionable ileus/narcotic bowel now that ascites is removed. with a planned repeat CT scan in morning to assess rate of reaccumulation of ascites and small bowel pattern. For now would continue liquids as tolerated. if ascites reaccumulate quickly, we could plan for tunneled peritoneal/Pleurx catheter for ascites management. I would contact Dr. Short, for his opinion on the progress of the patient's findings and whether ongoing treatment versus consideration for palliative care/hospice is appropriate. The patient is seem to understand that his treatment is successfully shrinking his tumors. Given the rapid accumulation of ascites which is likely malignant and the findings consistent with peritoneal carcinomatosis, difficult discussions need to be had with the patient and his . KUB yesterday now with ileus picture. CT scan today - report pending - my impression, some fluid reaccumulation but mostly ileus picture. Would have patient be NPO except few ice chips. Patient does no want NG tube and doubt it would be very effective. Will try dulcolax suppository and reglan to see if can improve bowel function. If zofran not working, would try compazine. Cr. increasing - would check Is and Os strictly. Bolus fluid versus albumin.
[2019-06-23] MEDS: Ciprofloxacin 400 MG/200 ML BAG 200 MG IV ×2 (10:00→22:59)
[2019-06-23] MEDS: Senna Tablet 1 TABLET PO (10:01)
[2019-06-23] MEDS: Bisacodyl 10 MG Suppository RECTAL (10:01)
[2019-06-23 11:55] LABS: Bedside Glucose 128 mg/dL (70-110)
[2019-06-23 12:10] LABS: Bedside Glucose 129 mg/dL (70-110)
[2019-06-23] MEDS: Metoclopramide 10 MG/2 ML Vial 5 MG IV ×2 (12:14→18:08)
[2019-06-23 13:18] VITALS: BP 98/62; PULSE 113; RESP 16; TEMP 37.1; O2SAT 98
[2019-06-23] MEDS: oxyCODONE 5 MG Tablet PO ×3 (13:23→22:36)
[2019-06-23] MEDS: Heparin Injection (Vial) 5,000 UNIT/ML VIAL 5000 UNIT SC ×2 (14:48→21:38)
[2019-06-23] MEDS: Albumin Human 25% (100 mL) 25 GM/100 ML BAG IV (14:48)
[2019-06-23 18:05] LABS: Bedside Glucose 92 mg/dL (70-110)
[2019-06-23] MEDS: 0.9% Normal Saline 1,000 ML 75 ML IV (20:23)
[2019-06-23 20:27] VITALS: BP 113/68; PULSE 103; RESP 18; TEMP 37.5; O2SAT 95
[2019-06-24] MEDS: Metoclopramide 10 MG/2 ML Vial 5 MG IV ×2 (00:04→05:33)
[2019-06-24] MEDS: 0.9% Saline Lock 10 ML Syringe IV ×3 (00:08→16:03)
[2019-06-24 00:16] LABS: Bedside Glucose 116 mg/dL (70-110)
[2019-06-24 00:46] LABS: Urine Sodium 33 mmol/L (Not Establ.)
[2019-06-24 02:29] VITALS: BP 112/66; PULSE 96; RESP 18; TEMP 37.2; O2SAT 96
[2019-06-24] MEDS: Heparin Injection (Vial) 5,000 UNIT/ML VIAL 5000 UNIT SC ×3 (05:33→22:33)
[2019-06-24] MEDS: metroNIDAZOLE 500 MG/100 ML BAG 100 MG IV (05:35)
[2019-06-24 06:31] LABS: Bedside Glucose 97 mg/dL (70-110)
[2019-06-24 06:55] LABS: BUN 28 mg/dL (7-18); BUN/Creat Ratio 6.4 RATIO (10-20); Calcium,Total 8.7 mg/dL (8.5-10.1); Chloride 111 mmol/L (98-107); Creatinine, Serum 4.35 mg/dL (0.70-1.30); EST Glomerular Filtration Rate 14 mL/min (>60); Est Glom Filt Rate - Afr Amer 17 mL/min (>60); Estimated Creatinine Clearance 20.64 ml/min; Glucose 105 mg/dL (74-106); Phosphorus 3.6 mg/dL (2.5-4.9); Potassium 3.8 mmol/L (3.5-5.1); Sodium Level 143 mmol/L (136-145)
[2019-06-24 06:56] LABS: Anion Gap 8 (5-15)
[2019-06-24 08:04] VITALS: BP 108/71; PULSE 94; RESP 16; TEMP 37.3; O2SAT 96
[2019-06-24] MEDS: oxyCODONE 5 MG Tablet PO (08:15)
[2019-06-24] MEDS: Multivitamins,Ther W-Minerals Tablet 1 TABLET PO (08:17)
--- NOTE | 2019-06-24 08:58 | PCM.PN.HOSP ---
Patient Problems: Active and Suspected Problems (Last Reviewed 06/10/19 @ 10:16 by Evelyn Bedolla) Ascites (Acute) Hypoalbuminemia (Acute) Reason for Visit: Follow-up on ascites/abdominal pain Subjective: Patient was seen and examined. He has progressive abdominal distension with pain. He has not been able to pass gas. Urine output is decreasing. Objective: Physical exam: General: Alert, Oriented x3, Cooperative, appears uncomfortable, tearful HEENT: Atraumatic, PERRLA, EOMI, Normocephalic Oral: Moist Mucosa Neck: Supple Lungs: Diminished - at the lung bases Cardiovascular: Regular rate, Regular Rhythm, Normal S1, Normal S2, No murmurs Abdomen: Bowel Sounds Present, Soft, Non Tender, Hypoactive Bowel Sounds, Distended, - - tympanitic Extremities: No edema Skin: No rashes Musculoskeletal: No Tenderness to Palpation of Joints or Extremities Lymphatic: No Cervical, Supraclavicular, or Inguinal Adenopathy Neurological: Cranial nerves II-XII grossly intact, Neuro grossly intact Psych/Mental Status: Normal Affect, Appropriate Vitals/I&O's: Vital Signs Temp Pulse Resp BP Pulse Ox 99.1 F 94 16 108/71 96 06/24/19 08:04 06/24/19 08:04 06/24/19 08:04 06/24/19 08:04 06/24/19 08:04 Oxygen Delivery Method [3] Room Air Oxygen Delivery Method [2] Room Air Oxygen Delivery Method [1 ( Room Air Initial Baseline)] Oxygen Delivery Method Room Air Weight: 101.7 kg Body Mass Index (BMI) 24.7 Orthostatic Vital Signs Start: 06/22/19 09:05 Freq: q24h Status: Active Protocol: Activity Type Activity Date Activity User E-Sign Co-Sign Detail Recorded Client Recorded Date Recorded By Document 06/22/19 09:05 FS [id number] 06/22/19 09:24 FS 06/22/19 09:05 Orthostatic Vitals Standing -Blood Pressure (90/60-120/80) 107/65 -Extremity Use Right Arm -Pulse Rate (60-100) 116 H Sitting -Blood Pressure (90/60-120/80) 113/73 -Pulse Rate (60-100) 109 H Lying -Blood Pressure (90/60-120/80) 131/77 H -Extremity Use Right Arm -Pulse Rate (60-100) 99 Intake and Output for Last 24 Hours 06/22/19 06/23/19 06/24/19 23:59 23:59 23:59 Intake Total 4295.00 / 4295.00 1472.08 / 1702.08 330 / 330 Output Total 350 / 525 325 / 325 Balance 4295.00 / 4295.00 1122.08 / 1177.08 5 / 5 Laboratory Results 06/23/19 00:23: POC Glucose 128 H 06/23/19 12:06: POC Glucose 129 H 06/23/19 18:01: POC Glucose 92 06/23/19 23:30: Eos Smear Total Cells Pending 06/23/19 23:30: Urine Creatinine 394.00 06/23/19 23:30: Ur Random Sodium 33 06/24/19 00:06: POC Glucose 116 H 06/24/19 05:30: POC Glucose 97 06/24/19 05:38: Sodium 143, Potassium 3.8, Chloride 111 H, Carbon Dioxide 24.0, Anion Gap 8, BUN 28 H, Creatinine 4.35 H, Estim Creat Clear Calc 20.64, Est GFR (MDRD) Af Amer 17 L, Est GFR (MDRD) Non-Af 14 L, BUN/Creatinine Ratio 6.4 L, Glucose 105, Calcium 8.7, Phosphorus 3.6 Current Medications Acetaminophen (Tylenol) 650 mg PO Q6H PRN PRN PRN Reason: Pain Score 1-10/10 Albuterol Sulfate (Ventolin Aerosols) 2.5 mg INHALATION Q2H PRN PRN PRN Reason: Shortness of Breath/Wheezing Bisacodyl (Dulcolax) 10 mg RECTAL DAILY [facility] Last Admin: 06/23/19 10:01 Dose: 10 mg Documented by: Dexamethasone (Decadron) 4 mg PO DAILY PRN PRN Fluticasone Propionate (Flonase Nasal [place]) 2 spray NASAL DAILY PRN PRN PRN Reason: ALLERGIES Glucagon () 1 mg IM .X1 PRN PRN Reason: Hypoglycemia Heparin Sodium (Porcine) (Heparin Na) 5,000 unit SC Q8 [facility] Last Admin: 06/24/19 05:33 Dose: 5,000 unit Documented by: Hydromorphone HCl (Dilaudid Inj) 1 mg IV Q3H PRN PRN PRN Reason: Pain Score 1-10/10 Last Admin: 06/23/19 10:00 Dose: 1 mg Documented by: Ciprofloxacin (Cipro) 400 mg in 200 mls @ 200 mls/hr IV Q12 [facility] Last Infusion: 06/24/19 00:00 Dose: Infused Documented by: Metronidazole (Flagyl) 500 mg in 100 mls @ 100 mls/hr IV Q8 [facility] Last Infusion: 06/24/19 06:35 Dose: Infused Documented by: Dextrose (Dextrose 10%-Water) 250 mls @ 999 mls/hr IV .Q16M PRN; Protocol PRN Reason: HYPOGLYCEMIA Last Infusion: 06/20/19 16:31 Dose: Infused Documented by: Sodium Chloride () 1,000 mls @ 75 mls/hr IV .[id number] [facility] Last Infusion: 06/23/19 23:55 Dose: 75 mls/hr Documented by: Insulin Human Lispro (Humalog Kwikpen (Bkc)) 0 unit SC Q6 [facility]; Protocol Last Admin: 06/24/19 05:34 Dose: Not Given Documented by: Metoclopramide HCl (Reglan) 5 mg IV Q6 [facility] Last Admin: 06/24/19 05:33 Dose: 5 mg Documented by: Multivitamins/Minerals (Multivitamin With Minerals) 1 tablet PO DAILY@0800 [facility] Last Admin: 06/24/19 08:17 Dose: 1 tablet Documented by: Ondansetron HCl (Zofran) 4 mg IV Q8H PRN PRN PRN Reason: NAUSEA/VOMITING Last Admin: 06/23/19 05:56 Dose: 4 mg Documented by: Oxycodone HCl (Oxyir) 5 - 10 mg PO Q4H PRN PRN PRN Reason: Pain Score 1-10/10 Last Admin: 06/24/19 08:15 Dose: 10 mg Documented by: Prochlorperazine Edisylate (Compazine Iv) 5 mg IV Q4H PRN PRN PRN Reason: NAUSEA/VOMITING Senna (Senokot) 1 tablet PO DAILY [facility] Last Admin: 06/23/19 10:01 Dose: 1 tablet Documented by: Sodium Chloride () 10 - 40 ml IV UD PRN PRN Reason: SALINE FLUSH Last Admin: 06/24/19 05:34 Dose: 30 ml Documented by: STROKE Vital Signs/Narrative: Vital Signs Temp Pulse Resp BP Pulse Ox 06/24/19 08:04 99.1 F 94 16 108/71 96 Medical Necessity - Tobacco Use Smoking Status: Former smoker Tobacco Use: Non-smoker Assessment/Plan All Active Problems (Last Reviewed 06/10/19 @ 10:16 by Evelyn Bedolla) Hyperglycemia (Acute) Chemotherapy management, encounter for (Acute) Constipation (Acute) Chemotherapy management, encounter for (Acute) Abdominal pain (Acute) Enteritis (Acute) Ascites (Acute) Hypoalbuminemia (Acute) Encounter for education (Acute) Fever (Acute) Severe sepsis (Acute) 73 year old M with past medical history of metastatic pancreatic CA, hypertension, type II DM was recently admitted and discharged with abdominal pain/ileus comes in with progressive abdominal pain. 1. Ascites, unclear etiology for now SAAG could not be calculated as ascitic fluid albumin is a send out test; will take 5 days to come back Ascitic fluid cytology is pending Differentials could be peritoneal carcinomatosis vs complication from hypoalbuminemia CT scan of the abdomen and pelvis showed probably worsening ascites, possible omental metastases Liver cirrhosis also seen on CT abd/pelvis, H/o chronic hep C 2D echo shows EF 50%, no diastolic dysfunction Oncology and general surgery consulted; Will hold antibiotics for now(day 5), coverage for possible SBP 2. Small bowel ileus, worsening, being managed conservatively, General surgery following CT of the abdomen and pelvis and KUB showed high grade small bowel obstruction Encourage patient to ambulate and use less pain medication 3. MIKE, likely prerenal from volume depletion vs hepatorenal syndrome Hold Lisinopril, Hydrochlorothiazide Continued on IVF and IV albumin 50g x1 Repeat in am 4. Metastatic pancreatic CA, on chemotherapy, follows with oncology in the outpatient 5. Type II DM, on insulin, sugars are controlled Continue to hold long-acting insulin Continue with blood glucose check ACHS with insulin sliding scale until good oral intake is established 6. Chronic Hep C with Cirrhosis, LFTS mildly elevated, will trend 7. Hypertension, controlled, continue on lisinopril/hydrochlorothiazide 8. DVT PPx- Heparin SC Code Visit Inpatient E&M: 95135 Subs Hosp L2
--- NOTE | 2019-06-24 09:46 | RAD_ITS ---
STUDY: X-RAY - ABDOMEN/PELVIS REASON FOR EXAM: Male, 73 years old. Abdominal pain. Distention. TECHNIQUE: Single AP view of the abdomen / pelvis. COMPARISON: June 22, 2019 FINDINGS: Normal visualized lung bases. Increased gaseous distention of small bowel with a paucity of gas distally. Findings, at this time, most compatible with high-grade partial small bowel obstruction. There is no demonstrated free abdominal air. The visualized liver, spleen and kidneys are grossly normal in size and morphology. Normal soft tissue structures. Normal visualized osseous structures. RAD/Abdomen Single View (Portable) IMPRESSION: Dilatation of small bowel compared to the prior study with a paucity of gas distally. Findings most compatible with high-grade partial small bowel obstruction at this time. Electronically Signed: Mukul Storey MD at 10:48 EST , Service support ,
[2019-06-24 10:10] LABS: Magnesium 1.9 mg/dL (1.6-2.6)
--- NOTE | 2019-06-24 10:42 | CASEMGMT ---
Pt and made aware on last admission(last week) LW/POA forms not on file and would bring them in as able. [place]
[2019-06-24] MEDS: Albumin Human 25% (100 mL) 25 GM/100 ML BAG IV ×2 (11:10→13:17)
[2019-06-24] MEDS: Bisacodyl 10 MG Suppository RECTAL (11:10)
[2019-06-24] MEDS: Senna Tablet 1 TABLET PO (11:10)
[2019-06-24 12:33] LABS: Pathologist Review Reviewed
[2019-06-24 13:00] VITALS: PULSE 105; RESP 20
[2019-06-24] MEDS: Lidocaine 4% 5 ML Ampul 2 ML INHALATION (13:17)
--- NOTE | 2019-06-24 13:30 | RAD_ITS ---
STUDY: X-RAY - ABDOMEN/PELVIS REASON FOR EXAM: Male, 73 years old. NG tube placement verification. TECHNIQUE: Single AP view of the abdomen / pelvis. COMPARISON: None. FINDINGS: Hyperexpansion with left pleural effusion in the bases. NG tube placed with the tip projected over the left upper quadrant, presumably in the body of the stomach. Mild dilatation of small bowel are again identified. There is no demonstrated free abdominal air. The visualized liver, spleen and kidneys are grossly normal in size and morphology. Normal soft tissue structures. Normal visualized osseous structures. RAD/Abdomen Single View (Portable) IMPRESSION: NG tube placement as described, without complications. Continued small bowel dilatation. Electronically Signed: uMkul Storey MD at 14:00 EST , Service support ,
[2019-06-24 14:00] LABS: Bedside Glucose 102 mg/dL (70-110)
--- NOTE | 2019-06-24 14:49 | CASEMGMT ---
Social Work SW met in room with pt and to offer support. Pt has been hospitalized for several days and has had multiple medical complications. Pt quiet throughout conversation but open and talkative. discussing importance of kodi and support from [employer] community which is aiding pt and with coping with illness. Emotional support provided. SW will remain available should further needs arise. LEVON Yao
[2019-06-24 15:06] VITALS: BP 130/88; PULSE 101; RESP 16; TEMP 36.8; O2SAT 96
--- NOTE | 2019-06-24 15:29 | PCM.CONS.R ---
Consultation - Renal PCP/ Referring MD: Requesting physician: [] Primary care physician: Valentin Kelly MD - History of Present Illness History of Present Illness: The patient is a 73 year old M PMH of pancreatic CA, HTN, DM. Pt was admitted for worsening abdominal pain and distension. CT showed small bowel ileus. large ascites and omental mets. CT also showed liver cirrhosis. NGT tube is placed and surgery team was consulted Renal team was consulted for worsening kidney function. Cr increases from normal level few days ago at presentation to 4.3 mg/dL. Pt is oliguric Pt is currently on NC at 75 cc/hour. No IV contrast exposure. No NSAIDs use ROS: 12 systems review is negative except abdominal distension and pain[] - Allergies Allergies: Allergies Latex, Natural Rubber Allergy (Intermediate, Verified 06/20/19 08:49) Rash cat dander Allergy (Verified 06/20/19 08:49) Shortness of breath hydrocodone bitartrate [From Vicodin] Allergy (Verified 06/20/19 08:49) hallucinations HALLUCINATIONS steri strips Allergy (Unknown, Uncoded 06/20/19 08:49) knee opened up after knee surgery skin sensitivity Allergy (Uncoded 06/20/19 08:49) Itching skin sensitivity to perfumes change in laundry detergent, soaps, - Current Medications Current Medications: Current Medications Acetaminophen (Tylenol) 650 mg PO Q6H PRN PRN PRN Reason: Pain Score 1-10/10 Albuterol Sulfate (Ventolin Aerosols) 2.5 mg INHALATION Q2H PRN PRN PRN Reason: Shortness of Breath/Wheezing Bisacodyl (Dulcolax) 10 mg RECTAL DAILY [facility] Last Admin: 06/24/19 11:10 Dose: 10 mg Documented by: Dexamethasone (Decadron) 4 mg PO DAILY PRN PRN Fluticasone Propionate (Flonase Nasal Lynn) 2 spray NASAL DAILY PRN PRN PRN Reason: ALLERGIES Glucagon () 1 mg IM .X1 PRN PRN Reason: Hypoglycemia Heparin Sodium (Porcine) (Heparin Na) 5,000 unit SC Q8 [facility] Last Admin: 06/24/19 15:14 Dose: 5,000 unit Documented by: Hydromorphone HCl (Dilaudid Inj) 1 mg IV Q3H PRN PRN PRN Reason: Pain Score 1-10/10 Last Admin: 06/23/19 10:00 Dose: 1 mg Documented by: Ciprofloxacin (Cipro) 400 mg in 200 mls @ 200 mls/hr IV Q12 [facility] Last Infusion: 06/24/19 00:00 Dose: Infused Documented by: Metronidazole (Flagyl) 500 mg in 100 mls @ 100 mls/hr IV Q8 [facility] Last Infusion: 06/24/19 06:35 Dose: Infused Documented by: Dextrose (Dextrose 10%-Water) 250 mls @ 999 mls/hr IV .Q16M PRN; Protocol PRN Reason: HYPOGLYCEMIA Last Infusion: 06/20/19 16:31 Dose: Infused Documented by: Sodium Chloride () 1,000 mls @ 100 mls/hr IV .Q10H [facility] Last Infusion: 06/24/19 10:15 Dose: 100 mls/hr Documented by: Insulin Human Lispro (Humalog Kwikpen (Bkc)) 0 unit SC Q6 [facility]; Protocol Last Admin: 06/24/19 11:39 Dose: Not Given Documented by: Metoclopramide HCl (Reglan) 10 mg IV Q6 [facility] Last Admin: 06/24/19 15:12 Dose: Not Given Documented by: Multivitamins/Minerals (Multivitamin With Minerals) 1 tablet PO DAILY@0800 [facility] Last Admin: 06/24/19 08:17 Dose: 1 tablet Documented by: Ondansetron HCl (Zofran) 4 mg IV Q8H PRN PRN PRN Reason: NAUSEA/VOMITING Last Admin: 06/23/19 05:56 Dose: 4 mg Documented by: Oxycodone HCl (Oxyir) 5 - 10 mg PO Q4H PRN PRN PRN Reason: Pain Score 1-10/10 Last Admin: 06/24/19 08:15 Dose: 10 mg Documented by: Prochlorperazine Edisylate (Compazine Iv) 5 mg IV Q4H PRN PRN PRN Reason: NAUSEA/VOMITING Senna (Senokot) 1 tablet PO DAILY [facility] Last Admin: 06/24/19 11:10 Dose: 1 tablet Documented by: Sodium Chloride () 10 - 40 ml IV UD PRN PRN Reason: SALINE FLUSH Last Admin: 06/24/19 05:34 Dose: 30 ml Documented by: - Past Medical History Past Medical History (Chronic Problems): Chronic Problems (Last Reviewed 06/10/19 @ 10:16 by Evelyn Bedolla) Liver metastases (Chronic) Bronchial asthma (Chronic) HTN (hypertension) (Chronic) Pancreatic cancer (Chronic) Pancreatic cancer metastasized to liver (Chronic) - Past Surgical History Surgical History: herniorrhaphy, total knee arthroplasty, - - Previous data be tibial plateau fracture repair 26 years ago - Social History Smoking Status: Former smoker Alcohol: None Drugs: None - Family History Sibling Family History: Family History (Last Reviewed 06/10/19 @ 10:16 by Evelyn Bedolla) Mother Diabetes Brother Diabetes Sister Heart disease Daughter Asthma History Items: Diabetes Maternal Family History: Family History (Last Reviewed 06/10/19 @ 10:16 by Evelyn Bedolla) Mother Diabetes Brother Diabetes Sister Heart disease Daughter Asthma History Items: Diabetes Patient Problems: Active and Suspected Problems (Last Reviewed 06/10/19 @ 10:16 by Evelyn Bedolla) Ascites (Acute) Hypoalbuminemia (Acute) - Physical Exam Vitals/I&O's: Vital Signs Temp Pulse Resp BP Pulse Ox 98.2 F 101 H 16 130/88 H 96 06/24/19 15:06 06/24/19 15:06 06/24/19 15:06 06/24/19 15:06 06/24/19 15:06 Oxygen Delivery Method [3] Room Air Oxygen Delivery Method [2] Room Air Oxygen Delivery Method [1 ( Room Air Initial Baseline)] Oxygen Delivery Method Room Air Weight: 101.7 kg Body Mass Index (BMI) 24.7 Orthostatic Vital Signs Start: 06/22/19 09:05 Freq: q24h Status: Active Protocol: Activity Type Activity Date Activity User E-Sign Co-Sign Detail Recorded Client Recorded Date Recorded By Document 06/22/19 09:05 FS [id number] 06/22/19 09:24 FS 06/22/19 09:05 Orthostatic Vitals Standing -Blood Pressure (90/60-120/80) 107/65 -Extremity Use Right Arm -Pulse Rate (60-100) 116 H Sitting -Blood Pressure (90/60-120/80) 113/73 -Pulse Rate (60-100) 109 H Lying -Blood Pressure (90/60-120/80) 131/77 H -Extremity Use Right Arm -Pulse Rate (60-100) 99 Intake and Output for Last 24 Hours 06/22/19 06/23/19 06/24/19 23:59 23:59 23:59 Intake Total 4295.00 / 4295.00 1472.08 / 1702.08 1105 / 1105 Output Total 350 / 525 325 / 325 Balance 4295.00 / 4295.00 1122.08 / 1177.08 780 / 780 General: Alert, Oriented x3 HEENT: Atraumatic Oral: Moist Mucosa Neck: Supple, No JVD Lungs: - - decreased BS over both lungs bases Cardiovascular: Regular rate, Regular Rhythm, Normal S1 Abdomen: - - distended. diffuse tenderness decreased BS Extremities: No clubbing, No cyanosis, No edema Lymphatic: No Cervical, Supraclavicular, or Inguinal Adenopathy Neurological: Cranial nerves II-XII grossly intact, Neuro grossly intact Laboratory Results 06/21/19 14:45: Miscellaneous Test 06/22/19 08:25: Diff Path Review Reviewed 06/22/19 09:10: CA 19-9 Serial Monitor 06/23/19 18:01: POC Glucose 92 06/23/19 23:30: Eos Smear Total Cells Pending 06/23/19 23:30: Urine Creatinine 394.00 06/23/19 23:30: Ur Random Sodium 33 06/24/19 00:06: POC Glucose 116 H 06/24/19 05:30: POC Glucose 97 06/24/19 05:38: Sodium 143, Potassium 3.8, Chloride 111 H, Carbon Dioxide 24.0, Anion Gap 8, BUN 28 H, Creatinine 4.35 H, Estim Creat Clear Calc 20.64, Est GFR (MDRD) Af Amer 17 L, Est GFR (MDRD) Non-Af 14 L, BUN/Creatinine Ratio 6.4 L, Glucose 105, Calcium 8.7, Phosphorus 3.6 06/24/19 05:38: Magnesium 1.9 06/24/19 11:39: POC Glucose 102 Current Medications Acetaminophen (Tylenol) 650 mg PO Q6H PRN PRN PRN Reason: Pain Score 1-10/10 Albuterol Sulfate (Ventolin Aerosols) 2.5 mg INHALATION Q2H PRN PRN PRN Reason: Shortness of Breath/Wheezing Bisacodyl (Dulcolax) 10 mg RECTAL DAILY [facility] Last Admin: 06/24/19 11:10 Dose: 10 mg Documented by: Dexamethasone (Decadron) 4 mg PO DAILY PRN PRN Fluticasone Propionate (Flonase Nasal Lynn) 2 spray NASAL DAILY PRN PRN PRN Reason: ALLERGIES Glucagon () 1 mg IM .X1 PRN PRN Reason: Hypoglycemia Heparin Sodium (Porcine) (Heparin Na) 5,000 unit SC Q8 [facility] Last Admin: 06/24/19 15:14 Dose: 5,000 unit Documented by: Hydromorphone HCl (Dilaudid Inj) 1 mg IV Q3H PRN PRN PRN Reason: Pain Score 1-10/10 Last Admin: 06/23/19 10:00 Dose: 1 mg Documented by: Ciprofloxacin (Cipro) 400 mg in 200 mls @ 200 mls/hr IV Q12 [facility] Last Infusion: 06/24/19 00:00 Dose: Infused Documented by: Metronidazole (Flagyl) 500 mg in 100 mls @ 100 mls/hr IV Q8 [facility] Last Infusion: 06/24/19 06:35 Dose: Infused Documented by: Dextrose (Dextrose 10%-Water) 250 mls @ 999 mls/hr IV .Q16M PRN; Protocol PRN Reason: HYPOGLYCEMIA Last Infusion: 06/20/19 16:31 Dose: Infused Documented by: Sodium Chloride () 1,000 mls @ 100 mls/hr IV .Q10H [facility] Last Infusion: 06/24/19 10:15 Dose: 100 mls/hr Documented by: Insulin Human Lispro (Humalog Kwikpen (Bkc)) 0 unit SC Q6 [facility]; Protocol Last Admin: 06/24/19 11:39 Dose: Not Given Documented by: Metoclopramide HCl (Reglan) 10 mg IV Q6 [facility] Last Admin: 06/24/19 15:12 Dose: Not Given Documented by: Multivitamins/Minerals (Multivitamin With Minerals) 1 tablet PO DAILY@0800 [facility] Last Admin: 06/24/19 08:17 Dose: 1 tablet Documented by: Ondansetron HCl (Zofran) 4 mg IV Q8H PRN PRN PRN Reason: NAUSEA/VOMITING Last Admin: 06/23/19 05:56 Dose: 4 mg Documented by: Oxycodone HCl (Oxyir) 5 - 10 mg PO Q4H PRN PRN PRN Reason: Pain Score 1-10/10 Last Admin: 06/24/19 08:15 Dose: 10 mg Documented by: Prochlorperazine Edisylate (Compazine Iv) 5 mg IV Q4H PRN PRN PRN Reason: NAUSEA/VOMITING Senna (Senokot) 1 tablet PO DAILY [facility] Last Admin: 06/24/19 11:10 Dose: 1 tablet Documented by: Sodium Chloride () 10 - 40 ml IV UD PRN PRN Reason: SALINE FLUSH Last Admin: 06/24/19 05:34 Dose: 30 ml Documented by: Assessment/Plan All Active Problems (Last Reviewed 06/10/19 @ 10:16 by Evelyn Bedolla) Hyperglycemia (Acute) Chemotherapy management, encounter for (Acute) Constipation (Acute) Chemotherapy management, encounter for (Acute) Abdominal pain (Acute) Enteritis (Acute) Ascites (Acute) Hypoalbuminemia (Acute) Encounter for education (Acute) Fever (Acute) Severe sepsis (Acute) 1- MIKE is likely HRS Vs prerenal Normal Cr at baseline Cr continues to rise despite IVF. Urine Sodium is 33. Cr is up to 4.3 mg/dl. Pt is oliguric Continue IVF for now. Avoid diuretics If Cr continues to rise tomorrow, will arrange for HD Renal team will continue to follow pancreatic CA and mets along with omental mets complicated with small bowel obstruction Surgery and oncology teams are following
[2019-06-24] MEDS: HYDROmorphone 1 MG/ML Syringe IV ×2 (16:03→22:28)
--- NOTE | 2019-06-24 16:14 | PN_ITS ---
- Problem List (1) Pancreatic cancer Status: Chronic Qualifiers: Pancreatic malignancy location: tail of pancreas Qualified Code(s): C25.2 - Malignant neoplasm of tail of pancreas (2) Pancreatic cancer metastasized to liver Status: Chronic (3) Ascites Status: Acute Subjective Date of Service:: 06/24/19 Metastatic pancreatic cancer, ascites Mr. Rob Torres is a very pleasant 73y.o.man with a PMH significant for HTN and well controlled asthma, who developed right upper quadrant abdominal pain and unexplained weight loss December 2018 CT at that time revealed multiple liver lesions and mass within the tail of the pancreas. Underwent biopsy of the right lobe liver lesion on 01/27/2019, pathology confirmed adenocarcinoma with IHC supporting a pancreatic primary. Started FOLFIRINOX (first cycle only irinotecan omitted due to elevated bilirubin) on 02/03/2019. CA-19-9 on 03/03/2019 140,262. Steadily declining. Received cycle 8 on 06/02/19. CTs obtained 06/08/2019 to assess response to chemotherapy showed probable decrease size of several metastasis in the liver however so many metastasis were present it was impossible to exclude any new small lesions compared to previous studies. Patient presented to [facility] on 06/14/2019 with complaints of right upper quadrant abdominal pain. Imaging at that time revealed fluid- filled stomach and bowel and proximal colon suggesting possibility of diarrhea versus gastroenteritis with grossly similar hepatic metastasis and osteoblastic metastasis. He was subsequently admitted and managed for intractable abdominal pain due to metastatic pancreatic cancer. He had an NG tube inserted and placed to suction, blood cultures were negative. Stool was negative for C. difficile and enteric pathogens. Diet slowly advanced. Discharged home on 06/19/2019 with rx for ciprofloxacin and Flagyl. He returned to [facility] ED with abd pain and bloating on 06/20/19. Found to have normal pressures, afebrile and labs demonstrated mild increase of liver enzymes from baseline. CT scan of the abdomen and pelvis showed ascites, abnormal omental fat, multiple hypodense metastatic lesions in the liver and repeat CT scan of the abdomen and pelvis with contrast showed no interval change or hepatic venous thrombosis that may have caused abrupt onset ascites. He underwent large-volume paracentesis, estimated at 5220 mL's earlier today with fluid sent for cytology. The patient is sitting upright on the side of the bed talking with spouse and daughter. Rates LLQ pain 10/10 at this time. NG placed approx 1300, reports decrease in nausea. Past Medical History: Chronic Problems (Last Reviewed 06/10/19 @ 10:16 by Evelyn Bedolla) Liver metastases (Chronic) Bronchial asthma (Chronic) HTN (hypertension) (Chronic) Pancreatic cancer (Chronic) Pancreatic cancer metastasized to liver (Chronic) Past Medical History - Most Recent Inpatient Visit Past Medical History Start: 06/20/19 15:17 Text: Status: Complete Freq: ONCE Protocol: Document 06/20/19 15:17 VICTOR M (Rec: 06/20/19 15:34 VICTOR M [id number]) BMI Required to complete PMH What is Patient's BMI 24.8 Past Medical History Unable History Recalled No Query Text:Pt Unable/Family Not Present Neurologic Medical History Hx Stroke/TIA No Hx Dementia/Alzheimer's No Hx Parkinson's Disease No Hx Seizures No Hx Multiple Sclerosis No Hx Migraines No Cardiac Medical History VTE Present on Admission No Hx of Deep Vein Thrombosis/VTE/PE Yes: Leg 2014 Hx Hypertension Yes: controlled with med Hx Chest Pain/Angina No Hx Heart Attack No Hx Cardiac Surgery/Stents/Etc. No Hx Heart Failure No Hx Pacemaker/AICD No Hx Irregular Heartbeat and/or Afib No Hx Anticoagulant Therapy No Query Text:(Coumadin, Aspirin, Plavix, Xarelto, etc.) Hx Pain in Legs when Walking/Leg Cramps No Respiratory Medical History Hx COPD No Hx Emphysema No Hx Smoking Yes Smoking Status Former smoker Tobacco Use Non-smoker Hx Smoking Cessation Date 06/20/19 Hx Smoking Cessation Counseling No Hx Smoking Exposure No Hx Tobacco Use in last 12 months No Hx of Pipe Smoking No Hx of Cigar Smoking No Hx Sleep Apnea No CPAP No BIPAP No Do you snore loudly (louder than talking No or can be heard through closed doors)? Do you often feel tired/ fatigued/ No sleepy during daytime? Has anyone observed you stop breathing No during sleep? STOP Results Negative GI Medical History Hx Ulcer No Hx Hepatitis No: WAS TESTED 2012 ?? Hx Cirrhosis No Hx GI Bleed No Hx Unplanned Weight Loss Yes Genitourinary Medical History Indwelling Catheter in Place on Arrival/ No Admission Hx Renal Disease No Hx Dialysis No Musculoskeletal History Hx Arthritis Yes Hx Rheumatoid Arthritis No Endocrine Medical History Hx Diabetes Yes Hx Thyroid Disease No Hematologic Medical History Hx of Blood Transfusion No Hx of Transfusion in last 3 Months No Ever experience any problems with No transfusion(s)? Hx of Preganancy in last 3 Months N/A Nurse Filling Out Transfusion & JMAIBACH Questions: Date: 06/20/19 Time: 15:32 Psycho/Social Medical History Hx Depression Yes: in past Hx Anxiety No Hx Behavior Disorder No Hx Alcohol Use Yes: occasional beer Hx Substance Use Yes: up until 42 Other Medical History Hx Blood Disorders No Hx Anemia No Hx Cancer Yes: pancreatic and liver/just recent dx Hx Drug Resistant Organism No Wound/Pressure Injury Present on Arrival No /Admission Query Text:If yes, chart assessment in Shift/Clinical Findings Central Line/PICC/VAD Present on Arrival Yes /Admission Antibiotics within last 7 days? Yes Name of Antibiotic (Include dose/# days Ciprofloxin 500mg bid, taken if known) metronxol 500mg x3 daily Methicillin Resistant Staphylococcus aureus Screening Active MRSA No Risk for Readmission Number of Risk Factors 7 At Risk for Readmission Patient is At Risk For Readmission Patient is eligible for Call Back Y Past Medical History (Last Reviewed 06/10/19 @ 10:16 by Evelyn Bedolla) Elevated LFTs (Acute) Liver mass (Acute) Mass of pancreas (Acute) Meningitis (Acute) Past Surgical History (Last Reviewed 06/10/19 @ 10:16 by Evelyn Bedolla) History of hernia surgery (Acute) History of total right knee replacement (Acute) Sibling Family History: Family History (Last Reviewed 06/10/19 @ 10:16 by Evelyn Bedolla) Mother Diabetes Brother Diabetes Sister Heart disease Daughter Asthma Family History: Diabetes Maternal Family History: Family History (Last Reviewed 06/10/19 @ 10:16 by Evelyn Bedolla) Mother Diabetes Brother Diabetes Sister Heart disease Daughter Asthma Family History: Diabetes - Social History Smoking Status: Former smoker Tobacco Use: Non-smoker Alcohol: None Drugs: None Review of Systems Constitutional:: Reports: Weakness, Fatigue. Denies: Fever, Sweats, Weight loss, Chills Cardiovascular:: Reports: Dyspnea on exertion. Denies: Chest pain, Palpitations, Orthopnea, PND Respiratory: Denies: Cough, Hemoptysis, Shortness of Breath, Wheezing Gastrointestinal:: Reports: Abdominal pain - see HPI, Constipation - LBM 06/19/19. Denies: Nausea, Vomiting, Diarrhea, Melena, Hematochezia Genitourinary: Denies: Dysuria, Hematuria, 15, Flank pain Musculoskeletal:: Denies: Back pain, Myalgia, Arthralgia Skin: Denies: Rash, Skin Changes, Wounds Neurological:: Denies: Headache, Dizziness, Numbness, Tingling, Visual changes, Tinnitus, Hearing loss Psychiatric: Denies: Anxiety, Depression, Homicidal Ideations, Suicidal Ideations Vital Signs Height 6 ft 7 in Weight: 224 lb 3.362 oz Weight in Pounds 224.2 lbs Pulse Ox 96 Temperature 98.2 F Pulse Rate [Standing] 116 Pulse Rate [Sitting] 109 Pulse Rate [Lying] 99 Pulse Rate [3] 95 Pulse Rate [2] 101 Pulse Rate [1 (Initial 103 Baseline)] Pulse Rate 101 Respiratory Rate [3] 18 Respiratory Rate [2] 20 Respiratory Rate [1 (Initial 20 Baseline)] Respiratory Rate 16 Blood Pressure [Standing] 107/65 Blood Pressure [Sitting] 113/73 Blood Pressure [Lying] 131/77 Blood Pressure [BP] 106/64 Blood Pressure [3] 137/91 Blood Pressure [2] 128/91 Blood Pressure [1 (Initial 128/96 Baseline)] Blood Pressure 130/88 Blood Pressure Position [BP] Semi-Fowlers Blood Pressure Position Semi-Fowlers - Physical Exam General: Alert, Oriented x3, No apparent distress HEENT: Atraumatic, PERRLA, EOMI, Normocephalic Oropharynx:: Negative for: Dry mucosa, Ulcerated lesions Neck:: Supple, Trachea midline. Negative for: JVD, bilateral Cardiac:: Regular rate, Regular rhythm, Normal S1, Normal S2. Negative for: Murmur Lungs: Diminished - in the bases, Excusion symmetrical. Negative for: Rhonchi, Wheezes Abdomen:: Distended, Obese, Tender Extremities:: Edema - BLE pitting. Negative for: Cyanosis Neurological: Neuro grossly intact Skin:: Negative for: Lesions, Rash, Petechiae, Ecchymosis Psychiatric:: Appropriate affect, Euthymic Lymphatics:: Negative for: Cervical lymphadenopathy, Supraclavicular lymphadenopathy, Axillary lymphadenopathy Laboratory Data: Laboratory Tests 06/24/19 06/24/19 06/24/19 Range/Units 11:39 05:38 05:38 Diff Path Review Sodium 143 (136-145) mmol/L Potassium 3.8 (3.5-5.1) mmol/L Chloride 111 H (98-107) mmol/L Carbon Dioxide 24.0 (21.0-32.0) mmol/L Anion Gap 8 (5-15) BUN 28 H (7-18) mg/dL Creatinine 4.35 H (0.70-1.30) mg/dL Estim Creat Clear Calc 20.64 ml/min Est GFR (MDRD) Af Amer 17 L (>60) mL/min Est GFR (MDRD) Non-Af 14 L (>60) mL/min BUN/Creatinine Ratio 6.4 L (10-20) RATIO Glucose 105 (74-106) mg/dL Calcium 8.7 (8.5-10.1) mg/dL Phosphorus 3.6 (2.5-4.9) mg/dL Magnesium 1.9 (1.6-2.6) mg/dL CA 19-9 Serial Monitor Ur Random Sodium (Not Establ.) mmol/L Urine Creatinine (NO RANGE EST.) mg/dL Miscellaneous Test POC Glucose 102 (70-110) mg/dL 06/24/19 06/24/19 06/23/19 Range/Units 05:30 00:06 23:30 Diff Path Review Sodium (136-145) mmol/L Potassium (3.5-5.1) mmol/L Chloride (98-107) mmol/L Carbon Dioxide (21.0-32.0) mmol/L Anion Gap (5-15) BUN (7-18) mg/dL Creatinine (0.70-1.30) mg/dL Estim Creat Clear Calc ml/min Est GFR (MDRD) Af Amer (>60) mL/min Est GFR (MDRD) Non-Af (>60) mL/min BUN/Creatinine Ratio (10-20) RATIO Glucose (74-106) mg/dL Calcium (8.5-10.1) mg/dL Phosphorus (2.5-4.9) mg/dL Magnesium (1.6-2.6) mg/dL CA 19-9 Serial Monitor Ur Random Sodium 33 (Not Establ.) mmol/L Urine Creatinine (NO RANGE EST.) mg/dL Miscellaneous Test POC Glucose 97 116 H (70-110) mg/dL 06/23/19 06/23/19 06/22/19 Range/Units 23:30 18:01 09:10 Diff Path Review Sodium (136-145) mmol/L Potassium (3.5-5.1) mmol/L Chloride (98-107) mmol/L Carbon Dioxide (21.0-32.0) mmol/L Anion Gap (5-15) BUN (7-18) mg/dL Creatinine (0.70-1.30) mg/dL Estim Creat Clear Calc ml/min Est GFR (MDRD) Af Amer (>60) mL/min Est GFR (MDRD) Non-Af (>60) mL/min BUN/Creatinine Ratio (10-20) RATIO Glucose (74-106) mg/dL Calcium (8.5-10.1) mg/dL Phosphorus (2.5-4.9) mg/dL Magnesium (1.6-2.6) mg/dL CA 19-9 Serial Monitor Ur Random Sodium (Not Establ.) mmol/L Urine Creatinine 394.00 (NO RANGE EST.) mg/dL Miscellaneous Test POC Glucose 92 (70-110) mg/dL 06/22/19 06/21/19 Range/Units 08:25 14:45 Diff Path Review Reviewed Sodium (136-145) mmol/L Potassium (3.5-5.1) mmol/L Chloride (98-107) mmol/L Carbon Dioxide (21.0-32.0) mmol/L Anion Gap (5-15) BUN (7-18) mg/dL Creatinine (0.70-1.30) mg/dL Estim Creat Clear Calc ml/min Est GFR (MDRD) Af Amer (>60) mL/min Est GFR (MDRD) Non-Af (>60) mL/min BUN/Creatinine Ratio (10-20) RATIO Glucose (74-106) mg/dL Calcium (8.5-10.1) mg/dL Phosphorus (2.5-4.9) mg/dL Magnesium (1.6-2.6) mg/dL CA 19-9 Serial Monitor Ur Random Sodium (Not Establ.) mmol/L Urine Creatinine (NO RANGE EST.) mg/dL Miscellaneous Test POC Glucose (70-110) mg/dL Diagnostic Data: Diagnostic Data Paracentesis Ultrasound 06/20/19 15:46 IMPRESSION: Successful sonographic guided paracentesis. Two 60 cc syringes ascites submitted for appropriate laboratory analysis as per referring physician''s request. Electronically Signed: Dharmesh Boogie MD at 17:27 EST Tel [phone], Service support , Abdomen/Pelvis CT 06/23/19 05:55 IMPRESSION: 1. Atelectatic changes in both lower lobes and small bilateral pleural effusions. 2. Multiple liver masses unchanged since prior examination. 3. Decreased ascites. 4. Sludge and/or gallstones. 5. Nonspecific fluid-filled small bowel loops. Ileus is possible. 6. Thickening of the left lateral abdominal wall with mild fluid. Electronically Signed: Chetan Palma MD at 11:54 EST Tel , Service support , KUB X-Ray 06/24/19 13:30 IMPRESSION: NG tube placement as described, without complications. Continued small bowel dilatation. Electronically Signed: Mukul Storey MD at 14:00 EST , Service support , Assessment and Plan 1. Metastatic pancreatic cancer, stage IV (TX, N1, M1) MSI?low/stable?received most recent cycle of FOLFIRINOX (cycle 8) on 06/02/2019. ca 19-9 had been trending down and positively correlating with disease prior to recent admissions. Bodily fluid analysis from paracentesis 06/21/19 transudative, cytology negative for malignant cells. Ca 19-9 continues to trend downward, now 44,424 down from >53,000 on 06/10/19. Per Dr. Short, no definitive evidence of progressive disease. 2. DVT prophylaxis- High risk for development of VTE. Heparin is already ordered. Blanca Doyle, MSN, [employer], AOCNP Medications: Prescriptions This Visit Medication Instructions Recorded Hydrocodone/Acetaminophen PO Q4H PRN PRN 06/20/19 [Hydrocodone-Acetamin 5-325 mg] Medications Added to Medication List This Visit Category Date Time Status Metoclopramide [Reglan] Med 06/24/19 12:00 Active 10 mg IV Q6 Primary Care Provider: Valentin Kelly MD Referring Provider: Julisa Zapata MD
[2019-06-24] MEDS: Metoclopramide 10 MG/2 ML Vial IV (17:32)
[2019-06-24] MEDS: 0.9% Normal Saline 1,000 ML 100 ML IV (17:32)
[2019-06-24 17:35] LABS: Bedside Glucose 107 mg/dL (70-110)
--- NOTE | 2019-06-24 22:02 | PN.SURG_ITS ---
Patient Problems: Active and Suspected Problems (Last Reviewed 06/10/19 @ 10:16 by Evelyn Bedolla) Ascites (Acute) Hypoalbuminemia (Acute) Subjective: scant flatus - Physical Exam Vitals/I&O's: Vital Signs Temp Pulse Resp BP Pulse Ox 98.2 F 101 H 16 130/88 H 96 06/24/19 15:06 06/24/19 15:06 06/24/19 15:06 06/24/19 15:06 06/24/19 15:06 Oxygen Delivery Method [3] Room Air Oxygen Delivery Method [2] Room Air Oxygen Delivery Method [1 ( Room Air Initial Baseline)] Oxygen Delivery Method Room Air Weight: 101.7 kg Body Mass Index (BMI) 24.7 Orthostatic Vital Signs Start: 06/22/19 09:05 Freq: q24h Status: Active Protocol: Activity Type Activity Date Activity User E-Sign Co-Sign Detail Recorded Client Recorded Date Recorded By Document 06/22/19 09:05 FS [id number] 06/22/19 09:24 FS 06/22/19 09:05 Orthostatic Vitals Standing -Blood Pressure (90/60-120/80) 107/65 -Extremity Use Right Arm -Pulse Rate (60-100) 116 H Sitting -Blood Pressure (90/60-120/80) 113/73 -Pulse Rate (60-100) 109 H Lying -Blood Pressure (90/60-120/80) 131/77 H -Extremity Use Right Arm -Pulse Rate (60-100) 99 Intake and Output for Last 24 Hours 06/22/19 06/23/19 06/24/19 23:59 23:59 23:59 Intake Total 4295.00 / 4295.00 1472.08 / 1702.08 1446.25 / 1446.25 Output Total 350 / 525 625 / 625 Balance 4295.00 / 4295.00 1122.08 / 1177.08 821.25 / 821.25 General: Alert, Oriented x3 Lungs: Clear to auscultation, Normal air movement Cardiovascular: Regular rate, Regular Rhythm Abdomen: Soft, Hypoactive Bowel Sounds, Distended, Tender Laboratory Results 06/21/19 14:45: Miscellaneous Test 06/22/19 08:25: Diff Path Review Reviewed 06/22/19 09:10: CA 19-9 Serial Monitor 06/23/19 23:30: Eos Smear Total Cells Pending 06/23/19 23:30: Urine Creatinine 394.00 06/23/19 23:30: Ur Random Sodium 33 06/24/19 00:06: POC Glucose 116 H 06/24/19 05:30: POC Glucose 97 06/24/19 05:38: Sodium 143, Potassium 3.8, Chloride 111 H, Carbon Dioxide 24.0, Anion Gap 8, BUN 28 H, Creatinine 4.35 H, Estim Creat Clear Calc 20.64, Est GFR (MDRD) Af Amer 17 L, Est GFR (MDRD) Non-Af 14 L, BUN/Creatinine Ratio 6.4 L, Glucose 105, Calcium 8.7, Phosphorus 3.6 06/24/19 05:38: Magnesium 1.9 06/24/19 11:39: POC Glucose 102 06/24/19 17:25: POC Glucose 107 Current Medications Acetaminophen (Tylenol) 650 mg PO Q6H PRN PRN PRN Reason: Pain Score 1-10/10 Albuterol Sulfate (Ventolin Aerosols) 2.5 mg INHALATION Q2H PRN PRN PRN Reason: Shortness of Breath/Wheezing Bisacodyl (Dulcolax) 10 mg RECTAL DAILY [facility] Last Admin: 06/24/19 11:10 Dose: 10 mg Documented by: Dexamethasone (Decadron) 4 mg PO DAILY PRN PRN Fluticasone Propionate (Flonase Nasal [place]) 2 spray NASAL DAILY PRN PRN PRN Reason: ALLERGIES Glucagon () 1 mg IM .X1 PRN PRN Reason: Hypoglycemia Heparin Sodium (Porcine) (Heparin Na) 5,000 unit SC Q8 [facility] Last Admin: 06/24/19 15:14 Dose: 5,000 unit Documented by: Hydromorphone HCl (Dilaudid Inj) 1 mg IV Q3H PRN PRN PRN Reason: Pain Score 1-10/10 Last Admin: 06/24/19 16:03 Dose: 1 mg Documented by: Ciprofloxacin (Cipro) 400 mg in 200 mls @ 200 mls/hr IV Q12 [facility] Last Infusion: 06/24/19 00:00 Dose: Infused Documented by: Metronidazole (Flagyl) 500 mg in 100 mls @ 100 mls/hr IV Q8 [facility] Last Infusion: 06/24/19 06:35 Dose: Infused Documented by: Dextrose (Dextrose 10%-Water) 250 mls @ 999 mls/hr IV .Q16M PRN; Protocol PRN Reason: HYPOGLYCEMIA Last Infusion: 06/20/19 16:31 Dose: Infused Documented by: Sodium Chloride () 1,000 mls @ 100 mls/hr IV .Q10H [facility] Last Admin: 06/24/19 17:32 Dose: 100 mls/hr Documented by: Insulin Human Lispro (Humalog Kwikpen (Bkc)) 0 unit SC Q6 [facility]; Protocol Last Admin: 06/24/19 17:32 Dose: Not Given Documented by: Metoclopramide HCl (Reglan) 10 mg IV Q6 [facility] Last Admin: 06/24/19 17:32 Dose: 10 mg Documented by: Multivitamins/Minerals (Multivitamin With Minerals) 1 tablet PO DAILY@0800 [facility] Last Admin: 06/24/19 08:17 Dose: 1 tablet Documented by: Ondansetron HCl (Zofran) 4 mg IV Q8H PRN PRN PRN Reason: NAUSEA/VOMITING Last Admin: 06/23/19 05:56 Dose: 4 mg Documented by: Oxycodone HCl (Oxyir) 5 - 10 mg PO Q4H PRN PRN PRN Reason: Pain Score 1-10/10 Last Admin: 06/24/19 08:15 Dose: 10 mg Documented by: Prochlorperazine Edisylate (Compazine Iv) 5 mg IV Q4H PRN PRN PRN Reason: NAUSEA/VOMITING Senna (Senokot) 1 tablet PO DAILY [facility] Last Admin: 06/24/19 11:10 Dose: 1 tablet Documented by: Sodium Chloride () 10 - 40 ml IV UD PRN PRN Reason: SALINE FLUSH Last Admin: 06/24/19 16:03 Dose: 10 ml Documented by: Medical Necessity - Tobacco Use Smoking Status: Former smoker Tobacco Use: Non-smoker Assessment/Plan All Active Problems (Last Reviewed 06/10/19 @ 10:16 by Evelyn Bedolla) Hyperglycemia (Acute) Chemotherapy management, encounter for (Acute) Constipation (Acute) Chemotherapy management, encounter for (Acute) Abdominal pain (Acute) Enteritis (Acute) Ascites (Acute) Hypoalbuminemia (Acute) Encounter for education (Acute) Fever (Acute) Severe sepsis (Acute) advanced stage IV pancreatic cancer, initially tense ascites, now ileus? He underwent ultrasound-guided paracentesis friday and had 5.2 L of ascitic fluid removed. This was sent for cytology and body fluid analysis. cytology will return on . The patient he was much more comfortable on the procedure but is noting increasing distention today. a KUB was obtained which did demonstrate more signs of small bowel anterior without a true obstructive picture - questionable ileus/narcotic bowel now that ascites is removed. with a planned repeat CT scan in morning to assess rate of reaccumulation of ascites and small bowel pattern. For now would continue liquids as tolerated. if ascites reaccumulate quickly, we could plan for tunneled peritoneal/Pleurx catheter for ascites management. I would contact Dr. Short, for his opinion on the progress of the patient's findings and whether ongoing treatment versus consideration for palliative care/hospice is appropriate. The patient is seem to understand that his treatment is successfully shrinking his tumors. Given the rapid accumulation of ascites which is likely malignant and the findings consistent with peritoneal carcinomatosis, difficult discussions need to be had with the patient and his . KUB yesterday now with ileus picture. CT scan today - report pending - my impression, some fluid reaccumulation but mostly ileus picture. Would have patient be NPO except few ice chips. Patient does no want NG tube and doubt it would be very effective. Will try dulcolax suppository and reglan to see if can improve bowel function. If zofran not working, would try compazine. Cr. increasing - would check Is and Os strictly. Bolus fluid versus albumin.
[2019-06-24 22:30] VITALS: BP 95/69; PULSE 72; RESP 18; TEMP 36.3; O2SAT 95
[2019-06-25] VITALS (12 sets, daily range): BP systolic 93–149; BP diastolic 65–99; PULSE 94–109; RESP 16–20; TEMP 36.3–37.4; O2SAT 93–100; BMI 25.2
[2019-06-25] MEDS: Metoclopramide 10 MG/2 ML Vial IV ×5 (00:34→23:29)
[2019-06-25 01:16] LABS: Bedside Glucose 91 mg/dL (70-110)
[2019-06-25] MEDS: 0.9% Normal Saline 1,000 ML 100 ML IV (02:55)
[2019-06-25] MEDS: HYDROmorphone 1 MG/ML Syringe IV ×3 (03:06→11:39)
[2019-06-25] MEDS: 0.9% Saline Lock 10 ML Syringe IV ×10 (03:07→23:33)
--- NOTE | 2019-06-25 05:00 | RAD_ITS ---
STUDY: X-RAY - ABDOMEN/PELVIS REASON FOR EXAM: Male, 73 years old. ILEUS TECHNIQUE: AP supine and upright views of the abdomen and pelvis. COMPARISON: 06/24/2019 FINDINGS: Normal visualized lung bases. No change in the multiple loops of mildly dilated small bowel consistent with a partial small bowel obstruction. There is no demonstrated free abdominal air. The visualized liver, spleen and kidneys are grossly normal in size and morphology. Nasogastric tube with tip in the left upper quadrant likely in the body the stomach which is unchanged. Normal visualized osseous structures. RAD/Abd Inc Decub and/or Erect IMPRESSION: No change in mild small bowel obstruction. Electronically Signed: Terry Mcdowell MD at 8:43 EST Tel , Service support ,
[2019-06-25 05:24] LABS: Absolute Lymphocyte Count 2.19 X10^3/uL (0.83-4.51); Basophil# 0.03 X10^3/uL; Basophil% 0.3 % (0-1); Eosinophils% 0.9 % (0-5); Hematocrit 35.6 % (40-54); Hemoglobin 11.7 g/dL (13.0-16.5); Lymphocyte # 2.19 X10^3/ul (4.0); Lymphocyte % 18.9 % (19-41); Mean Corp Hgb Conc 32.9 g/dL (32-36); Mean Corpuscular Hgb 31.5 pg (27.0-32.0); Monocyte# 2.14 X10^3/uL; Monocyte% 18.5 % (0-10); NRBC Flagged by Analyzer 0 % (0-5); Neutrophil # 6.95 X10^3/uL (2.7-7.7); POSITIVE DIFFERENTIAL YES; Platelet Count 216 K/mm3 (150-450); RBC Distribution Width CV 15.2 % (11.6-14.6); RBC Distribution Width SD 52.9 fl (35.1-43.9); Red Blood Count 3.71 M/mm3 (4.6-6.2); White Blood Count 11.6 K/mm3 (4.4-11.0)
[2019-06-25 05:32] LABS: Differential Indicated SCAN CRITERIA MET
[2019-06-25 05:47] LABS: ALB/GLOB Ratio 0.8 RATIO (0.9-2.4); AST(SGOT) 87 U/L (15-37); Alanine Aminotransfer ALT/SGPT 54 U/L (16-61); Albumin, Serum 2.7 g/dL (3.2-5.0); Alkaline Phosphatase 133 U/L (45-117); Anion Gap 11 (5-15); BUN 39 mg/dL (7-18); BUN/Creat Ratio 6.9 RATIO (10-20); Calcium,Total 8.7 mg/dL (8.5-10.1); Chloride 112 mmol/L (98-107); Creatinine, Serum 5.63 mg/dL (0.70-1.30); EST Glomerular Filtration Rate 11 mL/min (>60); Est Glom Filt Rate - Afr Amer 13 mL/min (>60); Estimated Creatinine Clearance 15.95 ml/min; Globulin 3.2 g/dL (2.2-4.2); Glucose 104 mg/dL (74-106); Potassium 4.2 mmol/L (3.5-5.1); Protein, Total 5.9 g/dL (6.4-8.2); Sodium Level 144 mmol/L (136-145)
[2019-06-25] MEDS: Heparin Injection (Vial) 5,000 UNIT/ML VIAL 5000 UNIT SC (06:43)
[2019-06-25 07:10] LABS: Bedside Glucose 101 mg/dL (70-110)
--- NOTE | 2019-06-25 08:07 | PN_ITS ---
Patient Problems: Active and Suspected Problems (Last Reviewed 06/10/19 @ 10:16 by Evelyn Bedolla) Ascites (Acute) Hypoalbuminemia (Acute) Reason for Visit: MIKE, abdominal pain/distension Subjective: Patient was seen and examined. He complains of abdominal pain. Denied passing flatus. NG tube has minimal drainage. Kidney function is progressively worse. Repeat CT of the abdomen and pelvis showed worsening ascites. Discussed with nephrology, and general surgery, dialysis catheter as well as Pleurx catheter was recommended. Discussed in detail with the patient, patient does not want to be in pain anymore and requests no more aggressive care. Hospice was consulted. Objective: Physical exam: General: Alert, Oriented x3, Cooperative, appears uncomfortable, tearful HEENT: Atraumatic, PERRLA, EOMI, Normocephalic Oral: Moist Mucosa Neck: Supple Lungs: Diminished - at the lung bases Cardiovascular: Regular rate, Regular Rhythm, Normal S1, Normal S2, No murmurs Abdomen: Bowel Sounds Present, Soft, Non Tender, Hypoactive Bowel Sounds, Distended, - - tympanitic Extremities: No edema Skin: No rashes Musculoskeletal: No Tenderness to Palpation of Joints or Extremities Lymphatic: No Cervical, Supraclavicular, or Inguinal Adenopathy Neurological: Cranial nerves II-XII grossly intact, Neuro grossly intact Psych/Mental Status: Normal Affect, Appropriate Vitals/I&O's: Vital Signs Temp Pulse Resp BP Pulse Ox 98.4 F 102 H 18 119/75 93 06/25/19 02:57 06/25/19 02:57 06/25/19 02:57 06/25/19 02:57 06/25/19 02:57 Oxygen Delivery Method [3] Room Air Oxygen Delivery Method [2] Room Air Oxygen Delivery Method [1 ( Room Air Initial Baseline)] Oxygen Delivery Method Room Air Weight: 101.5 kg Body Mass Index (BMI) 24.7 Orthostatic Vital Signs Start: 06/22/19 09:05 Freq: q24h Status: Active Protocol: Activity Type Activity Date Activity User E-Sign Co-Sign Detail Recorded Client Recorded Date Recorded By Document 06/22/19 09:05 FS [id number] 06/22/19 09:24 FS 06/22/19 09:05 Orthostatic Vitals Standing -Blood Pressure (90/60-120/80 mm Hg) 107/65 -Extremity Use Right Arm -Pulse Rate (60-100 beats/min) 116 H Sitting -Blood Pressure (90/60-120/80 mm Hg) 113/73 -Pulse Rate (60-100 beats/min) 109 H Lying -Blood Pressure (90/60-120/80 mm Hg) 131/77 H -Extremity Use Right Arm -Pulse Rate (60-100 beats/min) 99 Intake and Output for Last 24 Hours 06/23/19 06/24/19 06/25/19 23:59 23:59 23:59 Intake Total 1472.08 / 1702.08 1446.25 / 1446.25 938.33 / 938.33 Output Total 350 / 525 625 / 750 200 / 200 Balance 1122.08 / 1177.08 821.25 / 696.25 738.33 / 738.33 Laboratory Results 06/21/19 14:45: Miscellaneous Test 06/22/19 08:25: Diff Path Review Reviewed 06/22/19 09:10: CA 19-9 Serial Monitor 06/24/19 05:38: Magnesium 1.9 06/24/19 11:39: POC Glucose 102 06/24/19 17:25: POC Glucose 107 06/25/19 00:40: POC Glucose 91 06/25/19 05:12: WBC 11.6 H, RBC 3.71 L, Hgb 11.7 L, Hct 35.6 L, MCV 96.0 H, MCH 31.5, MCHC 32.9, RDW Std Deviation 52.9 H, RDW Coeff of [place] 15.2 H, Plt Count 216, MPV 9.0, Immature Gran % (Auto) 1.400 H, Neut % (Auto) 60.0, Lymph % (Auto) 18.9 L, [place] % (Auto) 18.5 H, Eos % (Auto) 0.9, Baso % (Auto) 0.3, Absolute Neuts (auto) 7.0, Absolute Lymphs (auto) 2.19, Nucleated RBC % 0, Differential Comment , Diff Path Review May 06/25/19 05:12: Sodium 144, Potassium 4.2, Chloride 112 H, Carbon Dioxide 21.0, Anion Gap 11, BUN 39 H, Creatinine 5.63 H, Estim Creat Clear Calc 15.95, Est GFR (MDRD) Af Amer 13 L, Est GFR (MDRD) Non-Af 11 L, BUN/Creatinine Ratio 6.9 L, Glucose 104, Calcium 8.7, Total Bilirubin 1.20 H, AST 87 H, ALT 54, Alkaline Phosphatase 133 H, Total Protein 5.9 L, Albumin 2.7 L, Globulin 3.2, Albumin/Globulin Ratio 0.8 L 06/25/19 06:42: POC Glucose 101 Current Medications Acetaminophen (Tylenol) 650 mg PO Q6H PRN PRN PRN Reason: Pain Score 1-10/10 Albuterol Sulfate (Ventolin Aerosols) 2.5 mg INHALATION Q2H PRN PRN PRN Reason: Shortness of Breath/Wheezing Bisacodyl (Dulcolax) 10 mg RECTAL DAILY [facility] Last Admin: 06/24/19 11:10 Dose: 10 mg Documented by: Dexamethasone (Decadron) 4 mg PO DAILY PRN PRN Fluticasone Propionate (Flonase Nasal [place]) 2 spray NASAL DAILY PRN PRN PRN Reason: ALLERGIES Glucagon () 1 mg IM .X1 PRN PRN Reason: Hypoglycemia Heparin Sodium (Porcine) (Heparin Na) 5,000 unit SC Q8 [facility] Last Admin: 06/25/19 06:43 Dose: 5,000 unit Documented by: Hydromorphone HCl (Dilaudid Inj) 1 mg IV Q3H PRN PRN PRN Reason: Pain Score 1-10/10 Last Admin: 06/25/19 03:06 Dose: 1 mg Documented by: Ciprofloxacin (Cipro) 400 mg in 200 mls @ 200 mls/hr IV Q12 [facility] Last Infusion: 06/24/19 00:00 Dose: Infused Documented by: Metronidazole (Flagyl) 500 mg in 100 mls @ 100 mls/hr IV Q8 [facility] Last Infusion: 06/24/19 06:35 Dose: Infused Documented by: Dextrose (Dextrose 10%-Water) 250 mls @ 999 mls/hr IV .Q16M PRN; Protocol PRN Reason: HYPOGLYCEMIA Last Infusion: 06/20/19 16:31 Dose: Infused Documented by: Sodium Chloride () 1,000 mls @ 100 mls/hr IV .Q10H [facility] Last Admin: 06/25/19 02:55 Dose: 100 mls/hr Documented by: Insulin Human Lispro (Humalog Kwikpen (Bkc)) 0 unit SC Q6 [facility]; Protocol Last Admin: 06/25/19 06:44 Dose: Not Given Documented by: Metoclopramide HCl (Reglan) 10 mg IV Q6 [facility] Last Admin: 06/25/19 06:43 Dose: 10 mg Documented by: Multivitamins/Minerals (Multivitamin With Minerals) 1 tablet PO DAILY@0800 [facility] Last Admin: 06/24/19 08:17 Dose: 1 tablet Documented by: Ondansetron HCl (Zofran) 4 mg IV Q8H PRN PRN PRN Reason: NAUSEA/VOMITING Last Admin: 06/23/19 05:56 Dose: 4 mg Documented by: Oxycodone HCl (Oxyir) 5 - 10 mg PO Q4H PRN PRN PRN Reason: Pain Score 1-10/10 Last Admin: 06/24/19 08:15 Dose: 10 mg Documented by: Prochlorperazine Edisylate (Compazine Iv) 5 mg IV Q4H PRN PRN PRN Reason: NAUSEA/VOMITING Senna (Senokot) 1 tablet PO DAILY [facility] Last Admin: 06/24/19 11:10 Dose: 1 tablet Documented by: Sodium Chloride () 10 - 40 ml IV UD PRN PRN Reason: SALINE FLUSH Last Admin: 06/25/19 06:47 Dose: 10 ml Documented by: Medical Necessity - Tobacco Use Smoking Status: Former smoker Tobacco Use: Non-smoker Assessment/Plan All Active Problems (Last Reviewed 06/10/19 @ 10:16 by Evelyn Bedolla) Hyperglycemia (Acute) Chemotherapy management, encounter for (Acute) Constipation (Acute) Chemotherapy management, encounter for (Acute) Abdominal pain (Acute) Enteritis (Acute) Ascites (Acute) Hypoalbuminemia (Acute) Encounter for education (Acute) Fever (Acute) Severe sepsis (Acute) 73 year old M with past medical history of metastatic pancreatic CA, hypertension, type II DM was recently admitted and discharged with abdominal pain/ileus comes in with progressive abdominal pain. 1. Ascites, unclear etiology for now, status post Pleurx catheter SAAG could not be calculated as ascitic fluid albumin is a send out test; will take 5 days to come back Ascitic fluid cytology is pending Differentials could be peritoneal carcinomatosis vs complication from hypoalbuminemia CT scan of the abdomen and pelvis showed probably worsening ascites, possible omental metastases Liver cirrhosis also seen on CT abd/pelvis, H/o chronic hep C 2D echo shows EF 50%, no diastolic dysfunction Oncology and general surgery consulted; Patient elected for hospice; hospice consulted 2. Small bowel ileus, worsening, being managed conservatively, General surgery following Patient will be going for hospice 3. MIKE, likely prerenal from volume depletion vs hepatorenal syndrome Continue to hold Lisinopril, Hydrochlorothiazide Patient does not want any dialysis 4. Metastatic pancreatic CA, on chemotherapy, follows with oncology in the outpatient 5. Type II DM, on insulin, sugars are controlled Discontinued blood sugars since patient is hospice 6. Chronic Hep C with Cirrhosis, LFTS mildly elevated, will trend 7. Hypertension, controlled, not on meds 8. DVT PPx- Heparin SC Discharge to Hospice when ready Code Visit Inpatient E&M: 00045 Subs Hosp L2
--- NOTE | 2019-06-25 08:28 | NURSING ---
pt resting quietly in bed, eyes closed, resp easy
[2019-06-25] MEDS: Multivitamins,Ther W-Minerals Tablet 1 TABLET PO ×2 (08:56→08:57)
[2019-06-25] MEDS: Senna Tablet 1 TABLET PO (08:56)
[2019-06-25] MEDS: Bisacodyl 10 MG Suppository RECTAL (08:57)
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
[2019-06-25 10:01] LABS: International Normalized Ratio 1.4; Partial Thromboplast Time 32.4 Seconds (24.1-36.2); Prothrombin Time (Protime)PT. 17.1 SECONDS (11.7-14.9)
--- NOTE | 2019-06-25 11:36 | NURSING ---
ngt dc'd per orders. Pt tolerated well.
[2019-06-25] MEDS: Dextrose 5%/0.9% NaCl 1,000 ML 100 ML IV (11:44)
[2019-06-25 12:32] LABS: Pathologist Review Reviewed
[2019-06-25 13:00] LABS: Bedside Glucose 104 mg/dL (70-110)
[2019-06-25] MEDS: 0.9% Normal Saline 1,000 ML 30 ML IV (13:10)
--- NOTE | 2019-06-25 13:31 | CASEMGMT ---
Social Work Per Dr. Zapata, pt would be appropriate for Hospice and possibly the inpatient unit and Order for hospice made. BRUCE placed phone call to Nathalie at [facility]. Nathalie states that hospice referral had been made earlier today to [facility] and [facility] had reached out to pt . Pt wanted to talk to pt doctor prior to proceeding. [facility] at [facility] will follow up with pt . Pt and currently out of room for procedure, SW unable to speak with them at this time. LEVON Yao
--- NOTE | 2019-06-25 13:31 | PCM.PN.SRG ---
Patient Problems: Active and Suspected Problems (Last Reviewed 06/10/19 @ 10:16 by Evelyn Bedolla) Ascites (Acute) Hypoalbuminemia (Acute) Subjective: I was consulted for possible dialysis catheter. - Physical Exam Vitals/I&O's: Vital Signs Temp Pulse Resp BP Pulse Ox 98.1 F 103 H 20 H 125/81 H 97 06/25/19 12:12 06/25/19 12:12 06/25/19 12:12 06/25/19 12:12 06/25/19 12:12 Oxygen Delivery Method [3] Room Air Oxygen Delivery Method [2] Room Air Oxygen Delivery Method [1 ( Room Air Initial Baseline)] Oxygen Delivery Method Room Air Weight: 223 lb 12.307 oz Body Mass Index (BMI) 25.2 Intake and Output for Last 24 Hours 06/23/19 06/24/19 06/25/19 23:59 23:59 23:59 Intake Total 1472.08 / 1702.08 1446.25 / 1446.25 938.33 / 938.33 Output Total 350 / 525 625 / 750 200 / 200 Balance 1122.08 / 1177.08 821.25 / 696.25 738.33 / 738.33 General: Alert Lungs: Normal air movement Abdomen: Hypoactive Bowel Sounds, Distended Extremities: No clubbing Musculoskeletal: No Muscle Wasting Laboratory Results 06/24/19 11:39: POC Glucose 102 06/24/19 17:25: POC Glucose 107 06/25/19 00:40: POC Glucose 91 06/25/19 05:12: WBC 11.6 H, RBC 3.71 L, Hgb 11.7 L, Hct 35.6 L, MCV 96.0 H, MCH 31.5, MCHC 32.9, RDW Std Deviation 52.9 H, RDW Coeff of [place] 15.2 H, Plt Count 216, MPV 9.0, Immature Gran % (Auto) 1.400 H, Neut % (Auto) 60.0, Lymph % (Auto) 18.9 L, Edgar % (Auto) 18.5 H, Eos % (Auto) 0.9, Baso % (Auto) 0.3, Absolute Neuts (auto) 7.0, Absolute Lymphs (auto) 2.19, Nucleated RBC % 0, Differential Comment , Diff Path Review Reviewed 06/25/19 05:12: Sodium 144, Potassium 4.2, Chloride 112 H, Carbon Dioxide 21.0, Anion Gap 11, BUN 39 H, Creatinine 5.63 H, Estim Creat Clear Calc 15.95, Est GFR (MDRD) Af Amer 13 L, Est GFR (MDRD) Non-Af 11 L, BUN/Creatinine Ratio 6.9 L, Glucose 104, Calcium 8.7, Total Bilirubin 1.20 H, AST 87 H, ALT 54, Alkaline Phosphatase 133 H, Total Protein 5.9 L, Albumin 2.7 L, Globulin 3.2, Albumin/Globulin Ratio 0.8 L 06/25/19 06:42: POC Glucose 101 06/25/19 09:35: PT 17.1 H, INR 1.4, APTT 32.4 06/25/19 12:57: POC Glucose 104 Current Medications Acetaminophen (Tylenol) 650 mg PO Q6H PRN PRN PRN Reason: Pain Score 1-10/10 Albuterol Sulfate (Ventolin Aerosols) 2.5 mg INHALATION Q2H PRN PRN PRN Reason: Shortness of Breath/Wheezing Bisacodyl (Dulcolax) 10 mg RECTAL DAILY [facility] Last Admin: 06/25/19 08:57 Dose: 10 mg Documented by: Dexamethasone (Decadron) 4 mg PO DAILY PRN PRN Fluticasone Propionate (Flonase Nasal [place]) 2 spray NASAL DAILY PRN PRN PRN Reason: ALLERGIES Glucagon () 1 mg IM .X1 PRN PRN Reason: Hypoglycemia Heparin Sodium (Porcine) (Heparin Na) 5,000 unit SC Q8 [facility] Last Admin: 06/25/19 06:43 Dose: 5,000 unit Documented by: Hydromorphone HCl (Dilaudid Inj) 2 mg IV Q3H PRN PRN PRN Reason: Pain Score 6-10/10 Ciprofloxacin (Cipro) 400 mg in 200 mls @ 200 mls/hr IV Q12 [facility] Last Infusion: 06/24/19 00:00 Dose: Infused Documented by: Metronidazole (Flagyl) 500 mg in 100 mls @ 100 mls/hr IV Q8 [facility] Last Infusion: 06/24/19 06:35 Dose: Infused Documented by: Dextrose (Dextrose 10%-Water) 250 mls @ 999 mls/hr IV .Q16M PRN; Protocol PRN Reason: HYPOGLYCEMIA Last Infusion: 06/20/19 16:31 Dose: Infused Documented by: Dextrose/Sodium Chloride (Dextrose 5%/0.9% Nacl) 1,000 mls @ 100 mls/hr IV .Q10H [facility] Last Admin: 06/25/19 11:44 Dose: 100 mls/hr Documented by: Metoclopramide HCl (Reglan) 10 mg IV Q6 [facility] Last Admin: 06/25/19 11:59 Dose: 10 mg Documented by: Multivitamins/Minerals (Multivitamin With Minerals) 1 tablet PO DAILY@0800 [facility] Last Admin: 06/25/19 08:57 Dose: 1 tablet Documented by: Ondansetron HCl (Zofran) 4 mg IV Q8H PRN PRN PRN Reason: NAUSEA/VOMITING Last Admin: 06/23/19 05:56 Dose: 4 mg Documented by: Oxycodone HCl (Oxyir) 5 - 10 mg PO Q4H PRN PRN PRN Reason: Pain Score 1-10/10 Last Admin: 06/24/19 08:15 Dose: 10 mg Documented by: Prochlorperazine Edisylate (Compazine Iv) 5 mg IV Q4H PRN PRN PRN Reason: NAUSEA/VOMITING Senna (Senokot) 1 tablet PO DAILY [facility] Last Admin: 06/25/19 08:56 Dose: 1 tablet Documented by: Sodium Chloride () 10 - 40 ml IV UD PRN PRN Reason: SALINE FLUSH Last Admin: 06/25/19 12:00 Dose: 10 ml Documented by: Medical Necessity - Tobacco Use Smoking Status: Former smoker Tobacco Use: Non-smoker Assessment/Plan All Active Problems (Last Reviewed 06/10/19 @ 10:16 by Evelyn Bedolla) Hyperglycemia (Acute) Chemotherapy management, encounter for (Acute) Constipation (Acute) Chemotherapy management, encounter for (Acute) Abdominal pain (Acute) Enteritis (Acute) Ascites (Acute) Hypoalbuminemia (Acute) Encounter for education (Acute) Fever (Acute) Severe sepsis (Acute) 73-year-old male with metastatic pancreatic cancer 1. I was consulted for dialysis catheter due to renal failure. I then discussed his abdominal tension with him and repeat a CT scan which showed increased fluid. After discussing dialysis catheter and Pleurx abdominal catheter placement the patient decided to pursue hospice. He would still like abdominal Pleurx catheter placement for palliation. He would not like to undergo dialysis. 2. I did the risks of the procedure including but not limited to bleeding, infection, injury to underlying bowel. The patient understands the risks and is well to proceed. Harshad Louis MD Pager: [facility] [address] [place] [address] [address] [place] [phone] Office:
--- NOTE | 2019-06-25 14:32 | PCM.OPRPT ---
Problem List (1) Ascites Status: Acute (2) Pancreatic cancer metastasized to liver Status: Chronic Report of Operation Date of Procedure: 06/25/19 Pre-Operative Diagnosis: Tense ascites and metastatic pancreatic cancer Post-Operative Diagnosis: Same Surgery/Procedure Performed:: Ultrasound-guided placement of Pleurx catheter in the abdominal cavity Description of Procedure: The patient's abdomen was prepped and draped in the usual sterile fashion. Ultrasound was used to select an area in the left lower quadrant where there was a large pocket of ascites. Next the skin was anesthetized in 2 areas with lidocaine that was included in the kit. 2 skin incisions were made. Next needle was placed under ultrasound guidance into the ascites. Ascites was drawn back. The needle was removed and a guidewire was placed through the sheath. Next the sheath was removed and over the guidewire serial dilators were placed. Next the tunneler was placed on the catheter was placed through the lateral incision and out the medial incision and into the peel-away sheath. The sheath was peeled away. The tube was placed to suction. Next the skin over the initial insertion incision was closed with interrupted 4-0 Vicryl sutures. Next the catheter was sutured to the skin using 3-0 silk suture. Bandage was applied. Patient tolerated the procedure well. In total there was 5 L of fluid aspirated from the abdomen. It was straw-colored and clear. The tube was capped at the end of the case and he was sent to the floor in stable condition. Grafts/Implants Used: Pleurx catheter
[2019-06-25] MEDS: HYDROmorphone 1 MG/ML Syringe 2 MG IV ×2 (15:13→21:57)
--- NOTE | 2019-06-25 15:56 | NURSING ---
pt resting w/eyes closed, family @ bs
[2019-06-25 16:13] LABS: Eosinophil Ct. Urine No Eosinophils Seen % (.)
--- NOTE | 2019-06-25 16:14 | PCM.PN.BLA ---
Progress Note Pt requested comfort care/hospice care only Renal team will sign off STROKE Vital Signs/Narrative: Vital Signs Temp Pulse Resp BP Pulse Ox 06/25/19 14:33 98.8 F 98 18 123/74 H 96 06/25/19 14:30 96 18 123/74 H 96 06/25/19 14:25 95 18 119/78 95 06/25/19 14:20 94 18 106/65 95 06/25/19 14:16 99.3 F H 95 18 93/82 H 95
--- NOTE | 2019-06-25 16:29 | CASEMGMT ---
Social Work SW met with pt, and daughter. Pt not making eye contact with SW and not answering questions, doing the speaking. states that hospice is placing equipment in the home tonight and pt will be going home with hospice services. SW received phone call from Herminia at Hospice who states they feel it is best for pt and family if pt remains in hospital overnight. Hospice will set up home tonight with needed equipment and pt will be taken home in the morning. SW notified nursing and Dr. Zapata. LEVON Yao
[2019-06-25] MEDS: Metoprolol Tartrate 5 MG/5 ML Vial 2.5 MG IV (16:41)
[2019-06-26] MEDS: oxyCODONE 5 MG Tablet PO ×3 (00:15→09:44)
[2019-06-26] MEDS: Dextrose 5%/0.9% NaCl 1,000 ML 100 ML IV (00:50)
[2019-06-26] MEDS: HYDROmorphone 1 MG/ML Syringe 2 MG IV ×2 (02:55→11:38)
[2019-06-26] MEDS: 0.9% Saline Lock 10 ML Syringe IV (02:55)
[2019-06-26 03:11] VITALS: BP 97/63; PULSE 95; RESP 16; TEMP 37.1; O2SAT 93
[2019-06-26] MEDS: Metoclopramide 10 MG/2 ML Vial IV ×2 (05:42→11:38)
--- NOTE | 2019-06-26 08:43 | PCM.PN.SRG ---
Patient Problems: Active and Suspected Problems (Last Reviewed 06/10/19 @ 10:16 by Evelyn Bedolla) Ascites (Acute) Hypoalbuminemia (Acute) Subjective: feeling better, voided - Physical Exam Vitals/I&O's: Vital Signs Temp Pulse Resp BP Pulse Ox 98.7 F 95 16 97/63 93 06/26/19 03:11 06/26/19 03:11 06/26/19 03:11 06/26/19 03:11 06/26/19 03:11 Oxygen Flow Rate (L/min) 2 Oxygen Delivery Method [3] Room Air Oxygen Delivery Method [2] Room Air Oxygen Delivery Method [1 ( Room Air Initial Baseline)] Oxygen Delivery Method Room Air Weight: 101.5 kg Body Mass Index (BMI) 25.2 Intake and Output for Last 24 Hours 06/24/19 06/25/19 06/26/19 23:59 23:59 23:59 Intake Total 1446.25 / 1446.25 3245.33 / 3345.33 150 / 150 Output Total 625 / 750 5200 / 5200 Balance 821.25 / 696.25 -1954.67 / -1854.67 150 / 150 General: Alert, Oriented x3 Abdomen: Distended Laboratory Results 06/23/19 23:30: Eos Smear Total Cells No Eosinophils Seen 06/25/19 05:12: Diff Path Review Reviewed 06/25/19 09:35: PT 17.1 H, INR 1.4, APTT 32.4 06/25/19 12:57: POC Glucose 104 Current Medications Acetaminophen (Tylenol) 650 mg PO Q6H PRN PRN PRN Reason: Pain Score 1-10/10 Albuterol Sulfate (Ventolin Aerosols) 2.5 mg INHALATION Q2H PRN PRN PRN Reason: Shortness of Breath/Wheezing Bisacodyl (Dulcolax) 10 mg RECTAL DAILY [facility] Last Admin: 06/25/19 08:57 Dose: 10 mg Documented by: Dexamethasone (Decadron) 4 mg PO DAILY PRN PRN Fluticasone Propionate (Flonase Nasal [place]) 2 spray NASAL DAILY PRN PRN PRN Reason: ALLERGIES Glucagon () 1 mg IM .X1 PRN PRN Reason: Hypoglycemia Heparin Sodium (Porcine) (Heparin Na) 5,000 unit SC Q8 [facility] Last Admin: 06/25/19 06:43 Dose: 5,000 unit Documented by: Hydromorphone HCl (Dilaudid Inj) 2 mg IV Q3H PRN PRN PRN Reason: Pain Score 6-10/10 Last Admin: 06/26/19 02:55 Dose: 2 mg Documented by: Ciprofloxacin (Cipro) 400 mg in 200 mls @ 200 mls/hr IV Q12 [facility] Last Infusion: 06/24/19 00:00 Dose: Infused Documented by: Metronidazole (Flagyl) 500 mg in 100 mls @ 100 mls/hr IV Q8 [facility] Last Infusion: 06/24/19 06:35 Dose: Infused Documented by: Dextrose (Dextrose 10%-Water) 250 mls @ 999 mls/hr IV .Q16M PRN; Protocol PRN Reason: HYPOGLYCEMIA Last Infusion: 06/20/19 16:31 Dose: Infused Documented by: Dextrose/Sodium Chloride (Dextrose 5%/0.9% Nacl) 1,000 mls @ 100 mls/hr IV .Q10H [facility] Last Admin: 06/26/19 00:50 Dose: 100 mls/hr Documented by: Sodium Chloride () 1,000 mls @ 30 mls/hr IV .[id number] [facility] Last Infusion: 06/25/19 23:24 Dose: 0 mls/hr Documented by: Metoclopramide HCl (Reglan) 10 mg IV Q6 [facility] Last Admin: 06/26/19 05:42 Dose: 10 mg Documented by: Multivitamins/Minerals (Multivitamin With Minerals) 1 tablet PO DAILY@0800 [facility] Last Admin: 06/25/19 08:57 Dose: 1 tablet Documented by: Ondansetron HCl (Zofran) 4 mg IV Q8H PRN PRN PRN Reason: NAUSEA/VOMITING Last Admin: 06/23/19 05:56 Dose: 4 mg Documented by: Oxycodone HCl (Oxyir) 5 - 10 mg PO Q4H PRN PRN PRN Reason: Pain Score 1-10/10 Last Admin: 06/26/19 05:51 Dose: 10 mg Documented by: Prochlorperazine Edisylate (Compazine Iv) 5 mg IV Q4H PRN PRN PRN Reason: NAUSEA/VOMITING Senna (Senokot) 1 tablet PO DAILY [facility] Last Admin: 06/25/19 08:56 Dose: 1 tablet Documented by: Sodium Chloride () 10 - 40 ml IV UD PRN PRN Reason: SALINE FLUSH Last Admin: 06/26/19 02:55 Dose: 10 ml Documented by: Medical Necessity - Tobacco Use Smoking Status: Former smoker Tobacco Use: Non-smoker Assessment/Plan All Active Problems (Last Reviewed 06/10/19 @ 10:16 by Evelyn Bedolla) Hyperglycemia (Acute) Chemotherapy management, encounter for (Acute) Constipation (Acute) Chemotherapy management, encounter for (Acute) Abdominal pain (Acute) Enteritis (Acute) Ascites (Acute) Hypoalbuminemia (Acute) Encounter for education (Acute) Fever (Acute) Severe sepsis (Acute) advanced stage IV pancreatic cancer, initially tense ascites, now ileus? He underwent ultrasound-guided paracentesis friday and had 5.2 L of ascitic fluid removed. This was sent for cytology and body fluid analysis. cytology returnred as negative for malignant cells. Pleurx catheter placed yesterday. additional 5L removed. 2 liters removed today. Patient has elected to go home with palliative care/hospice.
--- NOTE | 2019-06-26 08:46 | PN_ITS ---
Progress Note I saw the patient this morning his abdomen seemed distended. I connected his Pleurx to suction and removed 2 more liters of ascites. This improved his symptoms. Harshad Louis MD Pager: [facility] [address] [place] [address] [address] [place] [address] Office:
--- NOTE | 2019-06-26 08:46 | PCM.PN.BLA ---
Progress Note I saw the patient this morning his abdomen seemed distended. I connected his Pleurx to suction and removed 2 more liters of ascites. This improved his symptoms. Harshad Louis MD Pager: [facility] [address] [place] [address] [address] [place] [address] Office:
[2019-06-26] MEDS: Senna Tablet 1 TABLET PO (09:36)
[2019-06-26 09:45] VITALS: BP 110/68; PULSE 88; RESP 20; TEMP 36.8; O2SAT 95
--- NOTE | 2019-06-26 10:32 | DCINST_ITS ---
- Discharge Diagnoses Current Active Problems: Current Active and Chronic Problems (Last Reviewed 06/10/19 @ 10:16 by Evelyn Bedolla) Ascites (Acute) Hypoalbuminemia (Acute) Reason(s) for Visit for Discharge Instructions: Abdominal pain You will use the following diet at home:: Regular Your food should be the consistency of: Regular Your liquids should be the consistency of: Regular/Thin Discharge Activity: Return to Normal Activity Instructions: Paracentesis Additional Instructions: Continue with hospice team per their recommendations Allergies/Adverse Reactions: Allergies Latex, Natural Rubber Allergy (Intermediate, Verified 06/20/19 08:49) Rash cat dander Allergy (Verified 06/20/19 08:49) Shortness of breath hydrocodone bitartrate [From Vicodin] Allergy (Verified 06/20/19 08:49) hallucinations HALLUCINATIONS steri strips Allergy (Unknown, Uncoded 06/20/19 08:49) knee opened up after knee surgery skin sensitivity Allergy (Uncoded 06/20/19 08:49) Itching skin sensitivity to perfumes change in laundry detergent, soaps, Medications to take at Discharge Lisinopril/Hydrochlorothiazide [Zestoretic 20/12.5 Tablet] 1 tab PO DAILY 02/22/14 Albuterol IH (ProAir) [Proair Hfa] 1 puff INHALATION DAILY PRN PRN 01/25/19 Fluticasone Propionate 2 spray NASAL DAILY PRN PRN 01/25/19 Multivit-Min/FA/Lycopen/Lutein [Centrum Silver Men Tablet] 1 ea PO DAILY 01/25/19 Insulin Lispro [Humalog] 10 unit SQ TIDCM PRN 02/08/19 Dexamethasone [Decadron] 4 mg PO DAILY@0800 #7 tab 05/21/19 Insulin Glargine [Lantus SoloStar Pen] 30 units SUBCUT QHS 06/13/19 Potassium Chloride 4 meq PO DAILY 06/14/19 Senna [Senokot] 1 tab PO DAILY 06/14/19 Acetaminophen [Tylenol Tablet] 650 mg PO Q6H PRN PRN #30 tab 06/17/19 Ciprofloxacin [Cipro] 500 mg PO BID #6 tab 06/17/19 Metronidazole 500 mg PO TID #9 tab 06/17/19 Hydrocodone/Acetaminophen [Hydrocodone-Acetamin 5-325 mg] PO Q4H PRN PRN 12/22/19 Primary Care Physician: Valentin Kelly Chi, MD [Primary Care Provider] - Test Results: Test results from this visit will be discussed in further detail at your follow- up appointment, if applicable. Proposed Discharge Date: 06/26/19
--- NOTE | 2019-06-26 10:32 | NURSING ---
This nurse talked with about discharge and transportation. states that her is too weak and painful to get home in their truck and states she is not able to help him by herself. Pt is going home with Hospice. This nurse spoke with Hospice RE: transportation. Stated that Transportation would have to be set up by [facility]. This nurse contacted [facility] and Spoke with Celena about patients situation. Celena was unable to tell this nurse if insurance would cover the cost because billing department was not answering the phone there and Celena did not know. Pt's is willing to pay the cost. Celena from [facility] informed this nurse that the base cost would be $836 and $16.45 per mile. This nurse informed Patient's of this and that if insurance covers it, she can be reimbursed. Pt is willing to pay but wants to see if insurance will pay any of it first. [facility] will pick pt up at 1200 today.
--- NOTE | 2019-06-26 10:34 | DS.PCM_ITS ---
Discharge Date and Diagnosis Date of Admission: 06/20/19 Date of Discharge: 06/26/19 - Primary Discharge Diagnosis Active and Suspected Problems (Last Reviewed 06/10/19 @ 10:16 by Evelyn Bedolla) Acute kidney injury High-grade small bowel ileus Ascites (Acute) Hypoalbuminemia (Acute) - Secondary Discharge Diagnosis Chronic Problems (Last Reviewed 06/10/19 @ 10:16 by Evelyn Bedolla) Liver metastases (Chronic) Bronchial asthma (Chronic) HTN (hypertension) (Chronic) Pancreatic cancer (Chronic) Pancreatic cancer metastasized to liver (Chronic) Hospital Course and Treatment Imaging Results: Clinical Impression(s) from Imaging Studies Abdomen/Pelvis CT 06/20/19 09:17 IMPRESSION: 1. Multiple hypodense masses in the liver are presumably metastatic disease. 2. Nodularity of the liver surface is suspicious for liver cirrhosis and surrounded by malignant ascites. 3. Abnormal omental fat due to omental metastases. 4. Persistent malignant ascites. 5. Large lipoma in the left groin is unchanged. 6. Small bilateral posterior pleural fluid, left more than right. This is new. 7. There is a history of pancreatic carcinoma but I am unable to find any pancreatic mass. 8. No significant interval change when compared to 06/14/2019. Electronically Signed: Antoine Ko MD at 10:52 EST , Service support , Abdomen/Pelvis CT 06/20/19 13:15 IMPRESSION: 1. Multiple hypodense masses in the liver are presumably metastatic disease. 2. Nodularity of the liver surface is suspicious for liver cirrhosis and surrounded by malignant ascites. 3. Abnormal omental fat due to omental metastases. 4. Persistent malignant ascites. 5. Large lipoma in the left groin is unchanged. 6. Small bilateral posterior pleural fluid, left more than right. This is new. 7. There is a history of pancreatic carcinoma but I am unable to find any pancreatic mass. 8. No significant interval change when compared to 06/20/2019 10:26 AM. Electronically Signed: Antoine Ko MD at 14:43 EST , Service support , Paracentesis Ultrasound 06/20/19 15:46 IMPRESSION: Successful sonographic guided paracentesis. Two 60 cc syringes ascites submitted for appropriate laboratory analysis as per referring physician''s request. Electronically Signed: Dharmesh Boogie MD at 17:27 EST Tel [phone], Service support , KUB X-Ray 06/22/19 06:10 IMPRESSION: Mildly dilated loops of small bowel, possibly enteritis, ileus or partial obstruction. at 0652 Reported and signed by: Celena Villarreal MD Electronically Signed: Celena Villarreal MD at 6:52 EST Tel , Service support , Abdomen/Pelvis CT 06/23/19 05:55 IMPRESSION: 1. Atelectatic changes in both lower lobes and small bilateral pleural effusions. 2. Multiple liver masses unchanged since prior examination. 3. Decreased ascites. 4. Sludge and/or gallstones. 5. Nonspecific fluid-filled small bowel loops. Ileus is possible. 6. Thickening of the left lateral abdominal wall with mild fluid. Electronically Signed: Chetan Palma MD at 11:54 EST Tel , Service support , KUB X-Ray 06/24/19 09:46 IMPRESSION: Dilatation of small bowel compared to the prior study with a paucity of gas distally. Findings most compatible with high-grade partial small bowel obstruction at this time. Electronically Signed: Mukul Storey MD at 10:48 EST , Service support , KUB X-Ray 06/24/19 13:30 IMPRESSION: NG tube placement as described, without complications. Continued small bowel dilatation. Electronically Signed: Mukul Storey MD at 14:00 EST , Service support , Abdomen X-Ray 06/25/19 05:00 IMPRESSION: No change in mild small bowel obstruction. Electronically Signed: Terry Mcdowell MD at 8:43 EST Tel , Service support , Abdomen/Pelvis CT 06/25/19 09:54 IMPRESSION: 1. Moderate bilateral pleural effusions with bibasilar atelectasis. 2. Cirrhosis with a moderate amount of ascites. 3. Multiple hepatic lesions worrisome for multifocal hepatocellular carcinoma or metastatic disease. 4. Nasogastric tube with the tip in the stomach. Electronically Signed: Terry Mcdowell MD at 11:40 EST Tel , Service support , Oncology General surgery Nephrology Hospice Operations: None Procedures: Paracentesis, - - s/p pleurex catheter placement Summary of Care Provided: The patient is a 73 year old M with past medical history of metastatic pancreatic CA, following up with oncology, recently admitted with abdominal distention from ileus. Patient was discharged and readmitted in 24 hours with persistent abdominal distention. CT of the abdomen and pelvis showed ascites as well as ileus. Patient was reluctant to have an NG tube placed. General surgery was consulted. He was managed conservatively. He had a paracentesis done and more than 5 L of fluid was removed. Patient had normal renal function admission. He was on IVF. Patient's ascites reaccumulated the next day. His kidney function got worse. He received multiple doses of albumin over the next couple of days. His kidney function continues to be worse with poor urine output. Nephrology was consulted. Dialysis recommended. General surgery was also consulted for dialysis catheter placement and Pleurx catheter. Patient initially agreed for dialysis and later on did not want to go through dialysis. He agreed to have Pleurx catheter placed for palliative reasons. He was agreeable to have hospice consulted. Patient stayed an extra day so that hospice could coordinate and have all needed equipment in his house prior to discharge. He was discharged home with hospice. Subjective: On the day of discharge, patient felt more comfortable with the pain regimen. He said he felt at peace with the decision to go for hospice. Objective: Physical exam: General: Alert, Oriented x3, Cooperative, appears uncomfortable, HEENT: Atraumatic, PERRLA, EOMI, Normocephalic Oral: Moist Mucosa Neck: Supple Lungs: Diminished - at the lung bases Cardiovascular: Regular rate, Regular Rhythm, Normal S1, Normal S2, No murmurs Abdomen: Bowel Sounds Hypoactive, Soft, Non Tender, Hypoactive Bowel Sounds, Distended Extremities: No edema Skin: No rashes Musculoskeletal: No Tenderness to Palpation of Joints or Extremities Lymphatic: No Cervical, Supraclavicular, or Inguinal Adenopathy Neurological: Cranial nerves II-XII grossly intact, Neuro grossly intact Psych/Mental Status: Normal Affect, Appropriate - Physical Exam Vitals/I&O's: Vital Signs Temp Pulse Resp BP Pulse Ox 98.2 F 88 20 H 110/68 95 06/26/19 09:45 06/26/19 09:45 06/26/19 09:45 06/26/19 09:45 06/26/19 09:45 Oxygen Flow Rate (L/min) 2 Oxygen Delivery Method [3] Room Air Oxygen Delivery Method [2] Room Air Oxygen Delivery Method [1 ( Room Air Initial Baseline)] Oxygen Delivery Method Room Air Weight: 101.5 kg Body Mass Index (BMI) 25.2 Intake and Output for Last 24 Hours 06/24/19 06/25/19 06/26/19 23:59 23:59 23:59 Intake Total 1446.25 / 1446.25 3245.33 / 3345.33 150 / 150 Output Total 625 / 750 5200 / 5200 Balance 821.25 / 696.25 -1954.67 / -1854.67 150 / 150 Laboratory Results 06/23/19 23:30: Eos Smear Total Cells No Eosinophils Seen 06/25/19 05:12: Diff Path Review Reviewed 06/25/19 12:57: POC Glucose 104 Current Medications Acetaminophen (Tylenol) 650 mg PO Q6H PRN PRN PRN Reason: Pain Score 1-10/10 Albuterol Sulfate (Ventolin Aerosols) 2.5 mg INHALATION Q2H PRN PRN PRN Reason: Shortness of Breath/Wheezing Bisacodyl (Dulcolax) 10 mg RECTAL DAILY [facility], [facility] Last Admin: 06/26/19 09:35 Dose: Not Given Documented by: Dexamethasone (Decadron) 4 mg PO DAILY PRN PRN Fluticasone Propionate (Flonase Nasal Sullivan) 2 spray NASAL DAILY PRN PRN PRN Reason: ALLERGIES Glucagon () 1 mg IM .X1 PRN PRN Reason: Hypoglycemia Heparin Sodium (Porcine) (Heparin Na) 5,000 unit SC Q8 [facility], [facility] Last Admin: 06/25/19 06:43 Dose: 5,000 unit Documented by: Hydromorphone HCl (Dilaudid Inj) 2 mg IV Q3H PRN PRN PRN Reason: Pain Score 6-10/10 Last Admin: 06/26/19 02:55 Dose: 2 mg Documented by: Ciprofloxacin (Cipro) 400 mg in 200 mls @ 200 mls/hr IV Q12 [facility], [facility] Last Infusion: 06/24/19 00:00 Dose: Infused Documented by: Metronidazole (Flagyl) 500 mg in 100 mls @ 100 mls/hr IV Q8 [facility] Last Infusion: 06/24/19 06:35 Dose: Infused Documented by: Dextrose (Dextrose 10%-Water) 250 mls @ 999 mls/hr IV .Q16M PRN; Protocol PRN Reason: HYPOGLYCEMIA Last Infusion: 06/20/19 16:31 Dose: Infused Documented by: Dextrose/Sodium Chloride (Dextrose 5%/0.9% Nacl) 1,000 mls @ 100 mls/hr IV .Q10H [facility] Last Admin: 06/26/19 00:50 Dose: 100 mls/hr Documented by: Sodium Chloride () 1,000 mls @ 30 mls/hr IV .[id number] [facility] Last Infusion: 06/25/19 23:24 Dose: 0 mls/hr Documented by: Metoclopramide HCl (Reglan) 10 mg IV Q6 [facility] Last Admin: 06/26/19 05:42 Dose: 10 mg Documented by: Multivitamins/Minerals (Multivitamin With Minerals) 1 tablet PO DAILY@0800 [facility] Last Admin: 06/25/19 08:57 Dose: 1 tablet Documented by: Ondansetron HCl (Zofran) 4 mg IV Q8H PRN PRN PRN Reason: NAUSEA/VOMITING Last Admin: 06/23/19 05:56 Dose: 4 mg Documented by: Oxycodone HCl (Oxyir) 5 - 10 mg PO Q4H PRN PRN PRN Reason: Pain Score 1-10/10 Last Admin: 06/26/19 09:44 Dose: 10 mg Documented by: Prochlorperazine Edisylate (Compazine Iv) 5 mg IV Q4H PRN PRN PRN Reason: NAUSEA/VOMITING Senna (Senokot) 1 tablet PO DAILY FLAVIO Last Admin: 06/26/19 09:36 Dose: 1 tablet Documented by: Sodium Chloride () 10 - 40 ml IV UD PRN PRN Reason: SALINE FLUSH Last Admin: 06/26/19 02:55 Dose: 10 ml Documented by: Discharge Diet: No Restrictions Discharge Activity: Return to Normal Activity Home Medications: Medications to take at Discharge Lisinopril/Hydrochlorothiazide [Zestoretic 20/12.5 Tablet] 1 tab PO DAILY 02/22/14 Albuterol IH (ProAir) [Proair Hfa] 1 puff INHALATION DAILY PRN PRN 01/25/19 Fluticasone Propionate 2 spray NASAL DAILY PRN PRN 01/25/19 Multivit-Min/FA/Lycopen/Lutein [Centrum Silver Men Tablet] 1 ea PO DAILY 01/25/19 Insulin Lispro [Humalog] 10 unit SQ TIDCM PRN 02/08/19 Dexamethasone [Decadron] 4 mg PO DAILY@0800 #7 tab 05/21/19 Insulin Glargine [Lantus SoloStar Pen] 30 units SUBCUT QHS 06/13/19 Potassium Chloride 4 meq PO DAILY 06/14/19 Senna [Senokot] 1 tab PO DAILY 06/14/19 Acetaminophen [Tylenol Tablet] 650 mg PO Q6H PRN PRN #30 tab 06/17/19 Ciprofloxacin [Cipro] 500 mg PO BID #6 tab 06/17/19 Metronidazole 500 mg PO TID #9 tab 06/17/19 Hydrocodone/Acetaminophen [Hydrocodone-Acetamin 5-325 mg] PO Q4H PRN PRN 06/20/19 Primary Care Physician: Valentin Kelly Chi, MD [Primary Care Provider] - Please follow up with your Primary Care Physician in: within 1-2 weeks Patient Instructions: Paracentesis Disposition: Home with Hospice Minutes spent on discharge:: 50 Patient Condition:: Poor Medical Necessity - Tobacco Use Smoking Status: Former smoker Tobacco Use: Non-smoker Meaningful Use Info Meaningful Use Diagnoses (Choose all that apply): None applicable Code Visit Inpatient E&M: 16487 Disch Hosp
[2019-07-03 13:05] LABS: Carbohydrate Ag 19-9 2261 44284 U/mL (0-35)
== END 2019-06-26 12:08 | disposition hospice, home (50) | DRG 374 ==
LOC: ED 09:08 → MS3 12:32
PROVIDERS: Internal Medicine; Nurse Practitioner Family; Surgery; Admitting Provider Internal Medicine; Emergency Provider Emergency Medicine; Family Provider Family Medicine Geriatric Medicine; PCP Family Medicine Geriatric Medicine; Referring Provider Internal Medicine; Visit Provider Internal Medicine
PROC: 0W9G30Z Drainage of Peritoneal Cavity with Drainage Device, Percutaneous Approach (ICD-10-PCS; principal; 2019-06-25 14:45)
DX: C78.6 Secondary malignant neoplasm of retroperitoneum and peritoneum (principal); K76.7 Hepatorenal syndrome; R18.0 Malignant ascites; K56.7 Ileus, unspecified; C78.7 Secondary malignant neoplasm of liver and intrahepatic bile duct; N17.9 Acute kidney failure, unspecified; C25.9 Malignant neoplasm of pancreas, unspecified; I10 Essential (primary) hypertension; Z51.5 Encounter for palliative care; J45.909 Unspecified asthma, uncomplicated; E88.09 Other disorders of plasma-protein metabolism, not elsewhere classified; Z87.891 Personal history of nicotine dependence; Z79.4 Long term (current) use of insulin; E11.9 Type 2 diabetes mellitus without complications; B18.2 Chronic viral hepatitis C; G89.3 Neoplasm related pain (acute) (chronic); K74.60 Unspecified cirrhosis of liver
CPT/HCPCS: 36415; 36591; 49083; 74018; 74019; 74176; 74177; 80048; 80053; 80069; 80076; 82570; 82945; 82962; 83605; 83615; 83690; 83735; 84100; 84157; 84300; 85025; 85610; 85730; 86301; 87205; 88108; 88305; 88313; 88341; 88342; 89050; 93005; 93306; 94640; 97802; 97803; 99251; 99285; J7030; P9047; Q9957; Q9967; A4216; C1729; C8929; G0463; J0744; J2405